=== PATIENT | female | born 2005 | race Caucasian/White ===

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

== ENCOUNTER → 2023-04-14 | Outpatient (CLI) | payer OTHER, MEDICAID, SELFPAY ==
[2023-04-14 12:37] LABS: Absolute Lymphocyte Count 3.26 X10^3/uL (0.83-4.51); Absolute Neutrophil Count 4.7 X10^3/uL (2.0-7.7); Basophil# 0.03 X10^3/uL; Basophil% 0.3 % (0-1); Eosinophil# 0.13 X10^3/uL; Eosinophils% 1.5 % (0-5); Hemoglobin 13.8 g/dL (12.0-15.0); Lymphocyte # 3.26 X10^3/ul (0.83-4.51); Mean Corp Hgb Conc 35.4 g/dL (32-36); Mean Corpuscular Hgb 31.7 pg (27.0-32.0); Mean Corpuscular Volume 89.4 fL (81-99); Mean Platelet Vol. 10.3 fl (6.2-12.0); Monocyte# 0.42 X10^3/uL; Monocyte% 4.9 % (0-10); NRBC Flagged by Analyzer 0 % (0-5); Neutrophil # 4.72 X10^3/uL (2.7-7.7); Platelet Count 333 K/mm3 (150-450); RBC Distribution Width CV 11.4 % (11.6-14.6); RBC Distribution Width SD 37.2 fl (35.1-43.9); Red Blood Count 4.36 M/mm3 (4.2-5.4); White Blood Count 8.6 K/mm3 (4.4-11.0)
[2023-04-14 12:47] LABS: ALB/GLOB Ratio 0.9 RATIO (0.9-2.4); AST(SGOT) 30 U/L (15-37); Alanine Aminotransfer ALT/SGPT 46 U/L (13-56); Albumin, Serum 3.8 g/dL (3.2-5.0); Alkaline Phosphatase 70 U/L (45-117); Anion Gap 8 (5-15); BUN 11 mg/dL (7-18); Calcium,Total 8.7 mg/dL (8.5-10.1); Chloride 107 mmol/L (98-107); Cholesterol 172 mg/dL (200); Creatinine, Serum 0.78 mg/dL (0.55-1.02); EST Glomerular Filtration Rate 100 mL/min (>60); Est Glom Filt Rate - Afr Amer 120 mL/min (>60); Globulin 4.2 g/dL (2.2-4.2); Glucose 89 mg/dL (74-106); High Density Lipoprotein 39 mg/dL; Potassium 3.8 mmol/L (3.5-5.1); Sodium Level 140 mmol/L (136-145); Triglycerides 239 mg/dL; Very Low Density Lipoprotein 48 mg/dL (5-40)
== END | disposition home or self-care (01) ==
LOC: BIMLAB 10:58
PROVIDERS: PCP Internal Medicine; Visit Provider Internal Medicine
DX: E78.5 Hyperlipidemia, unspecified (principal)
CPT/HCPCS: 36415; 80053; 80061; 85025

== ENCOUNTER → 2023-12-24 | Outpatient (CLI) | payer OTHER, MEDICAID, SELFPAY ==
[2023-12-24 15:30] LABS: Absolute Lymphocyte Count 3.97 X10^3/uL (0.83-4.51); Absolute Neutrophil Count 5.7 X10^3/uL (2.0-7.7); Basophil# 0.04 X10^3/uL; Basophil% 0.4 % (0-1); Eosinophil# 0.09 X10^3/uL; Eosinophils% 0.9 % (0-5); Hematocrit 39.6 % (37-47); Hemoglobin 13.6 g/dL (12.0-15.0); Lymphocyte # 3.97 X10^3/ul (0.83-4.51); Lymphocyte % 38.1 % (19-41); Mean Corp Hgb Conc 34.3 g/dL (32-36); Mean Corpuscular Hgb 30.7 pg (27.0-32.0); Mean Corpuscular Volume 89.4 fL (81-99); Mean Platelet Vol. 10.8 fl (6.2-12.0); Monocyte% 5.8 % (0-10); NRBC Flagged by Analyzer 0 % (0-5); Neutrophil # 5.71 X10^3/uL (2.7-7.7); Neutrophil % 54.6 % (47-70); Platelet Count 288 K/mm3 (150-450); RBC Distribution Width CV 11.6 % (11.6-14.6); RBC Distribution Width SD 37.4 fl (35.1-43.9); Red Blood Count 4.43 M/mm3 (4.2-5.4); White Blood Count 10.4 K/mm3 (4.4-11.0)
[2023-12-24 15:55] LABS: Erythrocyte Sedimentation Rate 9 mm/hr (0-30)
[2023-12-24 16:24] LABS: AST(SGOT) 20 U/L (15-37); Alanine Aminotransfer ALT/SGPT 41 U/L (13-56); Albumin, Serum 3.9 g/dL (3.2-5.0); Alkaline Phosphatase 76 U/L (45-117); Anion Gap 7 (5-15); BUN 8 mg/dL (7-18); BUN/Creat Ratio 10.5 RATIO (10-20); CRP < 2.90 mg/L (0.0-3.0); Calcium,Total 9.2 mg/dL (8.5-10.1); Chloride 106 mmol/L (98-107); Cholesterol 156 mg/dL (200); Creatinine, Serum 0.76 mg/dL (0.55-1.02); EST Glomerular Filtration Rate 102 mL/min (>60); Est Glom Filt Rate - Afr Amer 124 mL/min (>60); Globulin 4.1 g/dL (2.2-4.2); Glucose 88 mg/dL (74-106); High Density Lipoprotein 40 mg/dL; Potassium 3.7 mmol/L (3.5-5.1); Rheumatoid Factor < 10.0 IU/mL (<15); Sodium Level 137 mmol/L (136-145); Triglycerides 204 mg/dL; Very Low Density Lipoprotein 41 mg/dL (5-40)
[2023-12-27 13:07] LABS: ANTINUCLEAR ANTIBODIES DIRECT Negative (Negative)
[2023-12-27 14:09] LABS: CCP IgG Antibodies 5 units (0-19)
== END | disposition home or self-care (01) ==
LOC: BIMLAB 13:51
PROVIDERS: PCP Internal Medicine; Referring Provider Physician Assistant; Visit Provider Physician Assistant
DX: E78.5 Hyperlipidemia, unspecified (principal); M25.50 Pain in unspecified joint
CPT/HCPCS: 36415; 80053; 80061; 84443; 85025; 85652; 86038; 86140; 86200; 86225; 86235; 86431

== ENCOUNTER → 2024-06-23 | Outpatient (CLI) | payer OTHER, MEDICAID, SELFPAY ==
[2024-06-23 17:04] LABS: Absolute Lymphocyte Count 4.18 X10^3/uL (0.83-4.51); Absolute Neutrophil Count 5.3 X10^3/uL (2.0-7.7); Basophil# 0.03 X10^3/uL; Basophil% 0.3 % (0-1); Eosinophil# 0.14 X10^3/uL; Eosinophils% 1.4 % (0-5); Hematocrit 41.4 % (37-47); Hemoglobin 14.8 g/dL (12.0-15.0); Lymphocyte # 4.18 X10^3/ul (0.83-4.51); Lymphocyte % 40.7 % (19-41); Mean Corp Hgb Conc 35.7 g/dL (32-36); Mean Corpuscular Volume 86.6 fL (81-99); Mean Platelet Vol. 10.4 fl (6.2-12.0); Monocyte# 0.61 X10^3/uL; Monocyte% 5.9 % (0-10); NRBC Flagged by Analyzer 0 % (0-5); Neutrophil # 5.29 X10^3/uL (2.7-7.7); Neutrophil % 51.5 % (47-70); Platelet Count 337 K/mm3 (150-450); RBC Distribution Width CV 11.6 % (11.6-14.6); RBC Distribution Width SD 36.8 fl (35.1-43.9); Red Blood Count 4.78 M/mm3 (4.2-5.4); White Blood Count 10.3 K/mm3 (4.4-11.0)
[2024-06-23 17:49] LABS: ALB/GLOB Ratio 1.2 RATIO (0.9-2.4); AST(SGOT) 45 U/L (<=31); Alanine Aminotransfer ALT/SGPT 63 U/L (<=34); Albumin, Serum 4.4 g/dL (3.5-5.0); Alkaline Phosphatase 79 U/L (35-104); Anion Gap 12 (5-15); BUN 10 mg/dL (4-19); BUN/Creat Ratio 12.6 RATIO (10-20); Calcium,Total 9.2 mg/dL (7.6-11.0); Carbon Dioxide 21.4 mmol/L (21.0-32.0); Chloride 103 mmol/L (98-108); Creatinine, Serum 0.82 mg/dL (0.70-1.20); EST Glomerular Filtration Rate 104 (>60); Globulin 3.6 g/dL (2.2-4.2); Glucose 134 mg/dL (70-99); Potassium 3.7 mmol/L (3.3-5.1); Sodium Level 136 mmol/L (133-145); Total Bilirubin 0.36 mg/dL (0.00-1.30); Vitamin B12 370 pg/mL (180-914); Vitamin D,25 Hydroxy 19.3 ng/mL (30-100)
== END | disposition home or self-care (01) ==
LOC: BIMLAB 15:50
PROVIDERS: PCP Internal Medicine; Referring Provider Internal Medicine; Visit Provider Internal Medicine
DX: F41.8 Other specified anxiety disorders (principal)
CPT/HCPCS: 36415; 80053; 82306; 82607; 84439; 84443; 85025

== ENCOUNTER → 2024-08-24 | Outpatient (CLI) | payer OTHER, MEDICAID, SELFPAY ==
[2024-08-24 13:16] LABS: ALB/GLOB Ratio 1.3 RATIO (0.9-2.4); AST(SGOT) 34 U/L (<=31); Alanine Aminotransfer ALT/SGPT 56 U/L (<=34); Alkaline Phosphatase 80 U/L (35-104); Anion Gap 11 (5-15); BUN 11 mg/dL (4-19); BUN/Creat Ratio 13.3 RATIO (10-20); Calcium,Total 8.9 mg/dL (7.6-11.0); Carbon Dioxide 20.7 mmol/L (21.0-32.0); Chloride 104 mmol/L (98-108); Creatinine, Serum 0.81 mg/dL (0.70-1.20); EST Glomerular Filtration Rate 106 (>60); Globulin 3.1 g/dL (2.2-4.2); Glucose 85 mg/dL (70-99); Protein, Total 7.1 g/dL (5.9-8.4); Sodium Level 136 mmol/L (133-145); Total Bilirubin 0.33 mg/dL (0.00-1.30)
== END | disposition home or self-care (01) ==
LOC: BIMLAB 09:14
PROVIDERS: PCP Internal Medicine; Referring Provider Internal Medicine; Visit Provider Internal Medicine
DX: R74.8 Abnormal levels of other serum enzymes (principal)
CPT/HCPCS: 36415; 80053

== ENCOUNTER → 2024-09-13 | Outpatient (CLI) | payer OTHER, MEDICAID, SELFPAY ==
--- NOTE | 2024-09-13 11:47 | RAD_ITS ---
EXAM: XR Left Foot Complete, 3 or More Views CLINICAL INDICATION: FOOT INJURY TECHNIQUE: Frontal, lateral and oblique views of the left foot. COMPARISON: No relevant prior studies available. FINDINGS: BONES/JOINTS: See below. SOFT TISSUES: Soft tissue swelling without acute fracture. No radiopaque foreign body. RAD/Foot min 3 Views IMPRESSION: 1. Soft tissue swelling without acute fracture. 2. If symptoms persist, further evaluation with CT is recommended. Reading Location: [facility]
== END | disposition home or self-care (01) ==
LOC: MTRAD 11:47
PROVIDERS: PCP Internal Medicine; Referring Provider Physician Assistant; Visit Provider Physician Assistant
DX: S99.922A Unspecified injury of left foot, initial encounter (principal); X58.XXXA Exposure to other specified factors, initial encounter
CPT/HCPCS: 73630

== ENCOUNTER → 2024-09-19 | Outpatient (CLI) | payer OTHER, MEDICAID, SELFPAY ==
--- NOTE | 2024-09-19 10:09 | US_ITS ---
PROCEDURE: ABDOMEN LIMITED 09/19/2024 REASON FOR EXAM: ELEVATED LIVER ENZYMES TECHNIQUE: Complete abdominal ultrasound lees-scale images with color doppler. PATIENT PREPARATION: Per protocol COMPARISON: No relevant prior FINDINGS: Liver: Grossly normal size and echotexture. Sagittal measurement of 18.0 cm. Blood flow: Hepatopetal. Gallbladder: No stones, sludge, wall thickening or tenderness. Common bile duct: Normal measuring 0.5 cm. Pancreas: Visualized portions are sonographically unremarkable. Ascites: Unremarkable. Right kidney: 10.2 x 5.9 x 6.1 cm. 1.9 cm. US/Abdomen Limited IMPRESSION: Normal ultrasound of the right upper quadrant. Unremarkable gallbladder. Reading Location: [place] [id number]
--- OUTSIDE RECORDS SUMMARY | 2024-09-19 20:36 | XMS RPT_ITS | CCD ---
Author Organization [facility] Care Team Providers Care Cyber Systems Engineer Name Role Phone Lola Drummond DO Primary Care Provider Free, Text Entry Unavailable Unavailable Steven Lorenzo Unavailable Unavailable Ms. Steven Lorenzo Attending Unavailable Pending, Provider Primary Care Unavailable Dr. Lola Drummond Primary Care Provider Dr. Lola Drummond Referring Provider [phone] Dr. Zoe Nevarez Attending Provider LIONEL RIOS Attending Unavailable REFERRED, SELF Referring Unavailable LOLA DRUMMOND Primary Care Unavailable NO, PHYSICIAN Primary Care Unavailable HECTOR GEORGE Attending Unavailable Zoe Nevarez MD Primary Care Provider ZOE NEVAREZ B Primary Care Unavailable BRAULIO PRYOR Attending Unavailable Dr. Zoe Nevarez MD Primary Care Provider Dr. Zoe Nevarez MD Attending Provider Dr. Zoe Nevarez MD Referring Provider Riley Jones Attending Provider Riley Jones Referring Provider Phoenix Nevarezongbe Attending Unavailable Jaimee, Efewongbe Primary Care Unavailable Oleghe, Efewongbe Referring Unavailable Oleghe, Efewongbe Primary Care Unavailable Oleghe, Efewongbe Referring Unavailable Kwame Montiel Attending Unavailable Oleghe, Efewongbe Referring Unavailable Oleghe Efewongbe Attending Unavailable Jaimee, Efewongbe Primary Care Unavailable Riley Raphael Attending Unavailable Oleghe, Efewongbe Primary Care Unavailable Oleghe, Efewongbe Referring Unavailable Riley Raphael Attending Unavailable Riley Raphael Referring Unavailable Oleghe, Efewongbe Primary Care Unavailable Oleghe, Efewongbe Attending Unavailable Oleghe, Efewongbe Primary Care Unavailable Oleghe, Efewongbe Referring Unavailable Oleghe, Efewongbe Attending Unavailable Oleghe, Efewongbe Primary Care Unavailable Oleghe, Efewongbe Referring Unavailable Oleghe, Efewongbe Attending Unavailable Oleghe, Efewongbe Primary Care Unavailable Oleghe, Efewongbe Referring Unavailable Oleghe, Efewongbe Primary Care Unavailable Kwame Montiel Referring Unavailable Kwame Montiel Attending Unavailable Allergies Allergy Classification Reported Allergen(s) Allergy Type Date of Onset Reaction(s) Facility (6 sources) iris allergenic extract Drug Allergy 04-14-2023 Anaphylaxis [facility] (1 source) iris allergenic extract Drug Allergy 09-15-2024 [facility] Repository Medications Current Medications Medication Drug Class(es) Dates Sig (Normalized) Sig (Original) acetaminophen 500 mg oral tablet (1 source) Acetaminophen (TYLENOL PO) Take 500 mg by mouth as needed 0 Active amoxicillin 875 mg oral tablet (1 source) Penicillin-class Antibacterial Start: 03-27-2024 End: 04-06-2024 take 1 tablet by mouth twice daily amoxicillin (AMOXIL) 875 mg tablet Take 1 tablet by mouth two times a day for 10 days. 20 tablet 03/27/2024 04/06/2024 Active ascorbic acid 1000 mg oral capsule (10 sources) Vitamin C Start: 09-15-2024 take 1 g by mouth once Ascorbic Acid (Vitamin C) 1,000 mg capsule Active 1 g PO ONCE September 15, 2024 10:08am Start: 04-14-2023 End: 09-15-2024 take 1 g by mouth every six hours Ascorbic Acid (Vitamin C) 1,000 mg capsule Discontinued 1 g PO EVERY 6 HOURS April 14, 2023 1:00am September 15, 2024 10:08am Start: 04-14-2023 take 1 g by mouth ev sammy six hours Ascorbic Acid (Vitamin C) Active 1 GM PO EVERY 6 HOURS April 14, 2023 12:00am Ascorbic Acid (V ITAMIN C) 250 MG tablet Take by mouth daily 0 Active azithromycin 250 mg oral tablet (1 source) Macrolide Antimicrobial Start: 06-01-2022 take 2 tablets by mouth once, then take 1 tablet by mouth once daily azithromycin 250 mg oral tablet ; Take 2 tabs (500mg) x 1 days, then 1 tab (250mg) once daily x 4 days Quantity: 6 Refills: 0 Ordered: 01-Jun-2022 Steven Lorenzo Start: 01-Jun-2022 Generic Substitution Allowed Comments: Do not take dairy products, antacids, or iron preparations within one hour of this medication.Finish all this medication unless otherwise directed by prescriber. Comment on above: Do not take dairy pr oducts, antacids, or iron preparations within one hour of this medication.Finish all this medication unless otherwise directed by prescriber. cetirizine hydrochloride 10 mg oral tablet (1 source) Histamine-1 Receptor Antagonist Start: 09-17-2020 take 1 tablet by mouth once daily in the morning cetirizine (ZYRTEC) 10 MG tablet Take 1 Tablet (10 mg) by mouth daily in the morning for itching. 30 Tablet 3 09/17/2020 Active cholecalciferol 1.25 mg oral capsule (14 sources) Vitamin D Start: 06-26-2024 take 1 capsule by mouth every week Cholecalciferol (Vitamin D3) 1,250 mcg (50,000 unit) capsule Active 1250 ug PO EVERY WEEK June 26, 2024 12:00am Start: 11-08-2021 take 2 tablets by mo uth once daily Cholecalciferol (VITAMIN D3) 25 MCG (1000 UT) tablet TAKE 2 TABLETS BY MOUTH EVERY DAY 60 Tablet 2 11/08/2021 Active Start: 08-06-2020 take 2 tablets by mo uth once daily Vitamin D, Cholecalciferol, 25 MCG (1000 UT) TABS TAKE 2 TABLETS BY MOUTH EVERY DAY 60 Tablet 2 08/06/2020 Active Start: 06-29-2019 End: 04-14-2023 take 1 capsule by mouth once daily Cholecalciferol (Vitamin D3) 1,250 mcg (50,000 unit) capsule Discontinued 1250 ug PO DAILY June 29, 2019 12:00am April 14, 2023 11:09am Collagen (2 sources) COLLAGEN PO Take by mouth 0 Active ethinyl estradiol 0.035 mg / norgestimate 0.25 mg oral tablet (1 source) Progestin, Estrogen Start: 1 take 1 tablet by mouth once daily SPRINTEC 28 0.25-35 MG-MCG per tablet TAKE 1 TABLET BY MOUTH EVERY DAY 28 Tablet 11 05/02/2020 Active ibuprofen 600 mg oral tablet (2 sources) Nonsteroidal Anti-inflammatory Drug Start: take 1 tablet by mouth every six hours as needed ibuprofen (MOTRIN) 600 mg tablet Take 600 mg by mouth every 6 hours as needed. 01/07/2024 Active ibuprofen (MOTRI N) 200 MG tablet Take by mouth every 8 hours as needed for Pain Take with meals. 0 Active loratadine 10 mg oral tablet (1 source) Start: 05-03-2020 take 1 tablet by mouth once daily loratadine (CLARITIN) 10 MG tablet Take 1 Tablet (10 mg) by mouth daily 30 Tablet 11 05/03/2020 Active Mecobalamin (Vitamin B12) 1,000 mcg lozenge (3 sources) Start: 09-13-2024 take 1000 ug by mouth once daily Mecobalamin (Vitamin B12) 1,000 mcg lozenge Active 1000 ug PO daily September 13, 2024 12:00am allow to dissolve in mouth OR may chew lightly before swallowing Multiple Vitamins-Minerals (ZINC PO) (2 sources) Multiple Vitamins-Minerals (ZINC PO) Take by mouth 0 Active pimecrolimus 10 mg/ml topical cream (2 sources) Calcineurin Inhibitor Immunosuppressant Start: 09-17-2020 pimecrolimus (ELIDEL) 1 % CREA cream Apply to affected area 2 times daily 30 g 1 09/17/2020 Active tacrolimus 0.001 mg/mg topical ointment (2 sources) Calcineurin Inhibitor Immunosuppressant Start: 11-13-2020 tacrolimus (PROTOPIC) 0.1 % ointment Apply thin layer to affected areas twice daily 60 g 3 11/13/2020 Active vitamin B12 (1 source) Vitamin B12 Vitamin B-12 Quantity: 0 Refills: 0 Ordered: 01-Jun-2022 Patrica Rivera Generic Substitution Allowed Vitamin D (1 source) VITAMIN D Quantity: 0 Refills: 0 Ordered: 01-Jun-2022 Patrica Rivera Generic Substitution Allowed Completed/Discontinued Medications Medication Drug Class(es) Dates Sig (Normalized) Sig (Original) [id number] 200 actuat albuterol 0.09 mg/actuat metered dose inhaler (1 source) beta2-Adrenergic Agonist Start: 06-01-2022 take 2 puff(s) by inhalation twice daily as needed for cough albuterol 90 mcg/inh inhalation aerosol ; 2 puff(s) inhaled 2 times a day as needed for cough Quantity: 8.5 Refills: 0 Ordered: 01-Jun-2022 Steven Lorenzo Start: 01-Jun-2022 Generic Substitution Allowed Comments: For inhalation only.It is very important that you take or use this exactly as directed. Do not skip doses or discontinue unless directed by your doctor.Obtain medical advice before taking any non-prescription drugs as some may affect the action of this medication.Shake well before use. Comment on above: For inhalation only. It is very important that you take or use this exactly as directed. Do not skip doses or discontinue unless directed by your doctor.Obtain medical advice before taking any non-prescription drugs as some may affect the action of this medication.Shake well before use. atorvastatin 10 mg oral tablet (20 sources) HMG-CoA Reductase Inhibitor Start: 04-14-2023 End: 10-18-2023 take 1 tablet by mouth once daily Atorvastatin 10 mg tablet Discontinued 10 mg PO DAILY April 16, 2023 5:41pm October 18, 2023 8:18am Start: 08-15-2021 take 1 tablet by ramon th once daily at bedtime atorvastatin (LIPITOR) 10 MG tablet Take 1 Tablet (10 mg) by mouth nightly at bedtime 31 Tablet 11 08/15/2021 Active atorvastatin Yg ntity: 0 Refills: 0 Ordered: 01-Jun-2022 Patrica Rivera Generic Substitution Allowed CONTROL (6 sources) Start: 06-29-2019 End: 04-14-2023 CONTROL Discontinued P O June 29, 2019 12:00am April 14, 2023 11:04am Start: 06-29-2019 End: 04-14-2023 CONTROL Discontinued P O June 28, 2019 11:00pm April 14, 2023 10:04am 24 hr buPROPion hydrochloride 150 mg extended release oral tablet (5 sources) Aminoketone Start: 06-23-2024 End: 06-29-2024 take 1 tablet by mouth once daily in the morning Bupropion Hcl 150 mg tablet extended release 24 hr Discontinued 150 mg PO EVERY MORNING June 23, 2024 1:00am June 29, 2024 9:57am cephalexin 500 mg oral capsule (6 sources) Cephalosporin Antibacterial Start: 06-29-2019 End: 04-14-2023 take 1 capsule by mouth three times daily Cephalexin 500 mg capsule Discontinued 500 mg PO THREE TIMES A DAY June 29, 2019 12:00am April 14, 2023 11:04am FLUoxetine 10 mg oral capsule (6 sources) Serotonin Reuptake Inhibitor Start: 06-29-2019 End: 04-14-2023 take 1 capsule by mouth once daily Fluoxetine (Prozac) 10 mg capsule Discontinued 10 mg PO DAILY June 29, 2019 12:00am April 14, 2023 11:04am magnesium oxide 420 mg oral tablet (6 sources) Start: 04-14-2023 End: 06-23-2024 take 1 tablet by mouth once daily Magnesium Oxide 420 mg tablet Discontinued 420 mg PO DAILY April 14, 2023 1:00am June 23, 2024 4:19pm Medrol Dosepak 4 mg oral tablet (1 source) Start: 06-01-2022 Medrol Dosepak 4 mg oral tablet ; Take as directed. Quantity: 1 Refills: 0 Ordered: 01-Jun-2022 Steven Lorenzo Start: 01-Jun-2022 Generic Substitution Allowed Comments: It is very important that you take or use this exactly as directed. Do not skip doses or discontinue unless directed by your doctor.Obtain medical advice before taking any non-prescription drugs as some may affect the action of this medication.Take with food or milk. Comment on above: It is very important that you take or use this exactly as directed. Do not skip doses or discontinue unless directed by your doctor.Obtain medical advice before taking any non-prescription drugs as some may affect the action of this medication.Take with food or milk. 24 hr venlafaxine 37.5 mg extended release oral capsule (13 sources) Serotonin and Norepinephrine Reuptake Inhibitor Start: 06-29-2024 End: 08-22-2024 take 1 capsule by mouth once daily Venlafaxine 37.5 mg capsule,extended release 24hr Discontinued 37.5 mg PO daily July 26, 2024 7:32pm August 22, 2024 1:36pm Problems Active Problems Problem Classification Problem Date Documented Date Episodic/Chronic Abdominal pain (10 sources) Pain in pelvis; Translations: [Pelvic and perineal pain] 06-23-2024 Episodic Acute bronchitis (1 source) Acute bronchitis, unspecified; Translations: [Acute bronchitis, unspecified] Onset: 06-01-2022 Episodic Administrative/social admission (1 source) Follow-up status; Translations: [Counseling for transition from pediatric to adult care provider] Onset: 05-19-2022 05-19-2022 Episodic Anxiety disorders (12 sources) Mixed anxiety and depressive disorder; Translations: [Other specified anxiety disorders] Onset: 07-05-2024 06-23-2024 Chronic Disorders of lipid metabolism (17 sources) Dyslipidemia; Translations: [Hyperlipidemia, unspecified] Onset: 09-15-2024 Chronic Headache; including migraine (3 sources) Headache; including migraine; Translations: [Headache, unspecified] Onset: 06-01-2022 Joint disorders and dislocations; trauma-related (5 sources) Patellofemoral stress syndrome; Translations: [Patellofemoral disorders, right knee] 12-27-2023 Chronic Malaise and fatigue (1 source) Other malaise; Translations: [Other malaise] Onset: 06-01-2022 Episodic Nutritional deficiencies (4 sources) Vitamin D deficiency; Translations: [Vitamin D deficiency, unspecified] Onset: 09-15-2024 09-15-2024 Chronic Open wounds of extremities (6 sources) Puncture wound of left hand; Translations: [Puncture wound without foreign body of left hand, initial encounter] 07-14-2019 Episodic Other injuries and conditions due to external causes (2 sources) Unspecified injury of head, initial encounter; Translations: [Unspecified injury of head, initial encounter] Onset: 01-07-2024 Episodic Other injuries and conditions due to external causes (1 source) Unspecified injury of left foot, initial encounter; Translations: [Unspecified injury of left foot, initial encounter] Onset: 09-18-2024 Episodic Other injuries and conditions due to external causes (1 source) Unspecified injury of unspecified foot, initial encounter; Translations: [Unspecified injury of unspecified foot, initial encounter] Onset: 09-13-2024 Episodic Other liver diseases (6 sources) Elevated liver enzymes level; Translations: [Abnormal levels of other serum enzymes] 06-26-2024 Episodic Other liver diseases (2 sources) Abnormal levels of other serum enzymes; Translations: [Abnormal levels of other serum enzymes] Onset: 08-29-2024 Episodic Other nervous system disorders (6 sources) Disturbance of attention; Translations: [Attention and concentration deficit] 04-14-2023 Chronic Other nervous system disorders (1 source) Attention and concentration deficit; Translations: [Attention or concentration deficit] 04-14-2023 Chronic Other non-traumatic joint disorders (12 sources) Joint pain; Translations: [Pain in unspecified joint] Episodic Other non-traumatic joint disorders (3 sources) Pain in unspecified knee; Translations: [Knee pain] 09-13-2024 Episodic Other skin disorders (1 source) Acanthosis nigricans; Translations: [Acanthosis nigricans] Episodic Other upper respiratory infections (5 sources) Streptococcal tonsillitis ; Translations: [Acute recurrent streptococcal tonsillitis] Onset: 02-08-2017 Resolved: 11-07-2019 11-07-2019 Episodic Comment on above: URI Otitis media and related conditions (2 sources) Acute bilateral otitis media ; Translations: [Otitis media, unspecified, bilateral] Onset: 03-27-2024 03-27-2024 Episodic Superficial injury; contusion (8 sources) Contusion of right ankle; Translations: [Contusion of right ankle, initial encounter] 09-13-2024 Episodic Unclassified (1 source) Cough, unspecified; Translations: [Cough, unspecified] Onset: 06-01-2022 Past or Other Problems Problem Classification Problem Date Documented Da te Episodic/Chronic Other non-traumatic joint disorders (2 sources) Pain in unspecified joint; Translations: [Pain in joint, site unspecified] Onset: 12-24-2023 04-14-2023 Episodic Other nutritional; endocrine; and metabolic disorders (3 sources) Childhood obesity; Translations: [Body mass index (BMI) pediatric, greater than or equal to 95th percentile for age] Onset: 06-30-2018 06-30-2018 Episodic Results Test Name Value Interpretation Reference Range Facility Internal Medicine Office Vis lizzie 09-15-2024 Internal Medicine Office Visit [facility] [address] [place] [address] [place] [address] OFFICE VISIT Date of Service: 09/15/24 MR#: [id number] Acct: [id number] Name: PATI ESCOBAR Rep #: [id number] : 2005 Provider: Dr. Zoe cervantes MD Age/Sex: 19/F Location: [facility] Status: Signed Intake Vital Signs 06/23/24 15:15 09/13/24 12:02 09/15/24 10:07 Height 5 ft 2 in 5 ft 2 in 5 ft 2 in Weight: 220 lb BMI 40.2 BP 134/82 H Blood Pressure Location Lt brachial Position Sitting Respiration 18 Pulse 98 Pulse Source Monitor Temp 97.9 F Temp Source Temporal Pulse Oximetry (%) 96 Oxygen Delivery Method room air Intake Visit Reasons: 3 M FU Chief Complaint: 3 M FU Is patient in pain?: No Allergies iris Adverse Reaction (Severe, Verified 09/15/24 10:08) Anaphylaxis Medications ???Medication ???Instructions ???Recorded ???Confirmed ???Type atorvastatin 10 mg tablet 10 mg PO DAILY #90 tabs 10/18/23 0 09/15/24 Rx cholecalciferol (vitamin D3) 1,250 1,250 mcg PO QWEEK #14 caps 06/1709/15/24 Rx mcg (50,000 unit) capsule venlafaxine 37.5 mg 37.5 mg PO QDAY #30 caps 08/22/24 09/15/24 Rx capsule,extended release 24 hr mecobalamin (vitamin B12) 1,000 1,000 mcg PO QDAY 09/13/24 5 History mcg lozenges ascorbic acid (vitamin C) 1,000 mg 1 g PO ONCE 09/15/24 09/15/24 Hi story capsule Nurse's Note: pt states that she is doing well on her Venlafaxine. requesting 90 day supply on this medication. [facility] Medical History Contusion of right foot Contusion of right ankle Elevated liver enzymes Pelvic pain Depression with anxiety Joint pain Preventative health care Concentration deficit Hyperlipidemia Vitamin D deficiency High blood cholesterol Head ache Family History Grandfather Bleeding disorder Heart disease Hypertension CAD (coronary artery disease) Diabetes Anemia Myocardial infarction CVA (cerebral vascular accident) Mother Diabetes Grandmother Diabetes Social History Smoking Status: Never smoker alcohol intake: never substance use type: does not use what type of physical activity do you participate in: none do you feel safe at home: Yes Questionnaire PQH-9 BMS Over the last 2 weeks, how often have you been bothered by any of the following problems? 1. Little interest or pleasure in doing things: several days 2. Feeling down, depressed, or hopeless: several days 3. Trouble falling or staying asleep, or sleeping too much: more than half the days 4. Feeling tired or having little energy: several days 5. Poor appetite or overeating: not at all 6. Feeling bad about yourself - or that you are a failure or have let yourself and your family down: more than half the days 7. Trouble concentrating on things, such as reading the newspaper or watching television: not at all 8. Moving or speaking so slowly that other people could have noticed? - Or the opposite - being so fidgety or restless that you have been moving around a lot more than usual: not at all 9. Thoughts that you would be better off or of hurting yourself in some way: several days Total score: 8 If you checked off any problems, how difficult have these problems made it for you to do your work, take care of things at home, or get along with other people?: somewhat difficult Source: Developed by Drs. Rex Mitchell, Ivette Yanez, Jamie Hedrick and colleagues, with an educational jose from [email or web address]. HPI HPI Chief Complaint: 3 M FU Details: PATI ESCOBAR, is a 19 F who presents to the office today for follow-up. No acute concerns at this time. Has been on venlafaxine since her last visit. She states that she is doing a lot better on venlafaxine. Scored 8 down from 14 on the PHQ-9. Yet to start therapy. Denies any concerning side effects. History of elevated liver enzymes, scheduled for an ultrasound. Currently at a BMI of 40.2. Also prior history of elevated triglycerides. Other chronic medical conditions are stable. ROS Const Constitutional: No body ache, chills, excessive sweating, fatigue, fever(s), frequent falls, headache(s), snoring, weight change, sleep problems, abnormal sleep pattern or change in appetite Eyes Eyes: No blurry vision, change in vision, bulging eyes, floaters, visual disturbances, eye pain or Light sensitivity ENT ENT: No abnormal hearing, ear or mastoid pain, tinnitus, balance problems, nosebleed/epistaxis, nasal congestion, headache(s), neck pain or sore throat Resp Respiratory: No cough, excessive phlegm production, pain on inspiration, shortness of breath, snoring or wheezing Cardio Cardiolog (more content not included)... Normal [facility] Foot min 3 Viewson Foot min 3 Views [facility] [address] [place] [id number] Foot min 3 Views MR#: [id number] Acct: [id number] Name: PATI ESCOBAR Rep #: [id number] : 2005 F 19 From: Hector Zamudio MD PCP: Dr. Zoe Nevarez MD Status: [facility] CLI Study: Foot min 3 Views Date of Exam: 09/13/24 Exam# [id number] Ordering Dr: Riley Raphael EXAM: XR Left Foot Complete, 3 or More Views CLINICAL INDICATION: FOOT INJURY TECHNIQUE: Frontal, lateral and oblique views of the left foot. COMPARISON: No relevant prior studies available. FINDINGS: BONES/JOINTS: See below. SOFT TISSUES: Soft tissue swelling without acute fracture. No radiopaque foreign body. RAD/Foot min 3 Views IMPRESSION: 1. Soft tissue swelling without acute fracture. 2. If symptoms persist, further evaluation with CT is recommended. Reading Location: [facility] CC: Dr. Zoe Nevarez MD; MAURILIO Lambert Pin Drafter: Signed Normal [facility] Urgent Care Visit Reporton 0 09-13-2024 Urgent Care Visit Report [facility] [address], [address] [place] [address] OFFICE VISIT Date of Service: 09/13/24 MR#: [id number] Acct: [id number] Name: PATI ESCOBAR Rep #: [id number] : 2005 Provider: MAURILIO Lambert Age/Sex: 19/F Location: [facility] Status: Signed Intake Vital Signs 06/23/24 15:15 09/13/24 12:02 Height 5 ft 2 in 5 ft 2 in Weight: 220 lb 6 oz BMI 40.3 BP 122/80 H Position Sitting Pulse 89 Temp 98.3 F Temp Source Oral Pulse Oximetry (%) 98 Oxygen Delivery Method room air Intake Visit Reasons: L FOOT INJURY Accompanied by: Self Is patient in pain?: Yes Pain scale (1-10): 4 Allergies iris Adverse Reaction (Severe, Verified 09/13/24 11:57) Anaphylaxis Medications ???Medication ???Instructions ???Recorded ???Confirmed ???Type ascorbic acid (vitamin C) 1,000 mg 1 g PO Q6H 04/14/23 06/23/24 His tory capsule atorvastatin 10 mg tablet 10 mg PO DAILY #90 tabs 10/18/23 0 09/13/24 Rx cholecalciferol (vitamin D3) 1,250 1,250 mcg PO QWEEK #14 caps 06/1709/13/24 Rx mcg (50,000 unit) capsule venlafaxine 37.5 mg 37.5 mg PO QDAY #30 caps 08/22/24 09/13/24 Rx capsule,extended release 24 hr mecobalamin (vitamin B12) 1,000 1,000 mcg PO QDAY 09/13/24 5 History mcg lozenges Nurse's Note: Patient was carrying a bag of meat while going down the stairs and she said she came down wrong on it and then dropped the bag of meat on her foot. Patient states walking on it all day at work yesterday by the end of the day she couldn't walk on it. Patient states it hurts to put weight on it. [facility] Medical History (Updated 09/13/24 @ 13:18 by Riley THORPE, PA) Contusion of right foot Contusion of right ankle Elevated liver enzymes Pelvic pain Depression with anxiety Joint pain Preventative health care Concentration deficit Hyperlipidemia Vitamin D deficiency High blood cholesterol Head ache Family History Grandfather Bleeding disorder Heart disease Hypertension CAD (coronary artery disease) Diabetes Anemia Myocardial infarction CVA (cerebral vascular accident) Mother Diabetes Grandmother Diabetes Social History Smoking Status: Never smoker alcohol intake: never substance use type: does not use what type of physical activity do you participate in: none do you feel safe at home: Yes HPI HPI Details: PATI ESCOBAR, is a 19 F who presents to the office today for initial evaluation status post right foot injury. Patient notes yesterday stepping down steps at home losing balance and inverting her right ankle as result dropped a frozen meat she was holding onto the top of her right foot. Trace aching discomfort to the lateral aspect of the right ankle though moderate to severe aching discomfort appreciated to the dorsal aspect of the right foot. Patient notes overall her symptoms have improved considerably compared to last evening at time of injury, nonetheless would like to have evaluated to ensure she did not break a bone as she states. PMH NC. No [id number] products taken to assist. No other associated symptoms and no other alleviating/aggravat ing factors. ROS Const Constitutional: No other (As above) Exam Const General: cooperative, healthy appearing and no acute distress Orientation: alert and awake Resp Effort Inspection: normal respiratory effort and able to speak in complete sentences Cardio Rate: regular rate Pulses: radial pulses present Skin General: no rashes or lesions noted Trauma: other (No ecchymosis to R ankle/foot; guarded ambulation favoring RUE) Neuro General: patient alert and patient awake Cognition: normal cognition Speech: speech normal Motor: muscle tone normal throughout Sensory Exam: no sensory deficits noted Extrem General: normal to inspection Psych Appearance: grossly normal Mental Status: mental status grossly normal Mood: congruent mood Affect: normal affect Speech and Movement: speech and movement normal Attitude: cooperative Coding Level of Care Code Off vis,new,level 4 Diagnoses Contusion of right ankle S90.01XA Contusion of right foot S90.31XA Assessment and Plan Assessment and Plan (1) Contusion of right ankle: Status: Acute (2) Contusion of right foot: Status: Acute Plan: Right foot radiographs reveal no acute osseous pathology per my review, pending radiologist interpretation at the time patient discharge. Rest, ice, elevate, NSAIDs as instructed today. Follow-up with PCP or orthopedics in 5 to 7 days should symptoms not resolve, sooner should symptoms only worsen or any other concerns develop. Patient states acknowledging underst (more content not included)... Normal [facility] Anion gap in Serum or Plasma Ordered By: Zoe Nevarez on 08-24-2024 Anion gap [Moles/Vol] 11 mmol/L 5-15 [facility] BUN/creatinine ratioOrdered By: Zoe Nevarez on 08-24-2024 Urea nitrogen/Creatinine [Mass ratio] 13.3 mg/mg 10- [facility] Bilirubin, totalOrdered By: Zoe Nevarez on 08-24-2024 Bilirubin [Mass/Vol] 0.33 mg/dL 0.00-1.30 [facility] Carbon dioxide, total [Moles /volume] in Central venous bloodOrdered By: Zoe Nevarez on 08-24-2024 CO2 [Moles/Vol] 20.7 mmol/L Low 21.0-32.0 [facility] Chloride assayOrdered By: Kevon Nevarez on 08-24-2024 Chloride [Moles/Vol] 104 mmol/L 98-108 [facility] Comprehensive Metabolic Prof ilon 08-24-2024 Albumin [Mass/Vol] 4.0 g/dL Normal 3.5-5.0 [facility] Comment on above: Performed By: #### L 500.4050 ####[facility] [address] [place], [place], [id number] Albumin/Globulin [Mass ratio] 1.3 {ratio} Normal 0.9-2.4 [facility] Comment on above: Performed By: #### L 500.4050 ####[facility] [address] [place], [place], [id number] ALK PHOS 80 U/L Normal 35-104 [facility] Comment on above: Performed By: #### L 500.4050 ####[facility] [address] [place], [address] ALT [Catalytic activity/Vol] 56 U/L High <=34 [facility] Comment on above: Performed By: #### L 500.4050 ####[facility] [address] [place], [address] AST [Catalytic activity/Vol] 34 U/L High <=31 [facility] Comment on above: Performed By: #### L 500.4050 ####[facility] [address] [place], [address] Bilirubin [Mass/Vol] 0.33 mg/dL Normal 0.00-1.30 [facility] Comment on above: Performed By: #### L 500.4050 ####[facility] [address] [place], [address] BUN/CRE 13.3 RATIO Normal 10-20 [facility] Comment on above: Performed By: #### L 500.4050 ####[facility] [address] [place], [address] Calcium [Mass/Vol] 8.9 mg/dL Normal 7.6-11.0 [facility] Comment on above: Performed By: #### L 500.4050 ####[facility] [address] [place], [address] Chloride [Moles/Vol] 104 mmol/L Normal 98-108 [facility] Comment on above: Performed By: #### L 500.4050 ####[facility] [address] [place], [address] CO2 [Moles/Vol] 20.7 mmol/L Low 21.0-32.0 [facility] Comment on above: Performed By: #### L 500.4050 ####[facility] [address] [place], [address] Creatinine [Mass/Vol] 0.81 mg/dL Normal 0.70-1.20 [facility] Comment on above: Performed By: #### L 500.4050 ####[facility] [address] [place], [address] GAP 11 Normal 5-15 [facility] Comment on above: Performed By: #### L 500.4050 ####[facility] [address] [place], [address] GFR/1.73 sq M.predicted among non-blacks MDRD (S/P/Bld) [Vol rate/Area] 106 mL/min/{1.73_m2} Normal >60 [facility] Comment on above: Result Comment: mL/m in/1.73m2 CKD-EPI Creatinine Equation (2020) Performed By: #### L 500.4050 ####[facility] [address] [place], [address] Globulin (S) [Mass/Vol] 3.1 g/dL Normal 2.2-4.2 [facility] Comment on above: Performed By: #### L 500.4050 ####[facility] [address] [place], [address] Glucose [Mass/Vol] 85 mg/dL Normal 70-99 [facility] Comment on above: Performed By: #### L 500.4050 ####[facility] [address] [place], [address] Potassium [Moles/Vol] 4.0 mmol/L Normal 3.3-5.1 [facility] Comment on above: Performed By: #### L 500.4050 ####[facility] [address] [place], [address] Sodium [Moles/Vol] 136 mmol/L Normal 133-145 [facility] Comment on above: Performed By: #### L 500.4050 ####[facility] [address] [place], [place], [id number] T PROT 7.1 g/dL Normal 5.9-8.4 [facility] Comment on above: Performed By: #### L 500.4050 ####[facility] [address] [place], [place], [id number] Urea nitrogen [Mass/Vol] 11 mg/dL Normal 4-19 [facility] Comment on above: Performed By: #### L 500.4050 ####[facility] [address] [place], [place], [id number] Glomerular filtration rate ( GFR) estimation/1.73 sq m using serum, plasma, or whole bOrdered By: Zoe Nevarez on 08-24-2024 GFR/1.73 sq M.predicted among non-blacks MDRD (S/P/Bld) [Vol rate/Area] 106 mL/min/{1.73_m2} >60 [facility] Comment on above: mL/min/1.73m2 CKD-EP I Creatinine Equation (2020) Laboratory - Chemistry and C hemistry - challengeOrdered By: Zoe Nevarez on 08-24-2024 AST [Catalytic activity/Vol] 34 U/L High <32 [facility] Potassium measurement (mass/ volume)Ordered By: Zoe Nevarez on 08-24-2024 Potassium (Unsp spec) [Mass/Vol] 4.0 mmol/L 3.3-5.1 [facility] Serum creatinine measurement (mass/volume)Ordered By: Zoe Nevarez on 08-24-2024 Creatinine [Mass/Vol] 0.81 mg/dL 0.70-1.20 [facility] Serum globulin measurementOr dered By: Zoe Nevarez on 08-24-2024 Globulin (S) [Mass/Vol] 3.1 g/dL 2.2-4.2 [facility] Serum glucose measurement (m ass/volume)Ordered By: Zoe Nevarez on 08-24-2024 Glucose [Mass/Vol] 85 mg/dL 70-99 [facility] Serum or plasma alanine arias otransferase (ALT) measurementOrdered By: Zoe Nevarez on 08-24-2024 ALT [Catalytic activity/Vol] 56 U/L High <35 [facility] Serum or plasma albumin erick urement (mass/volume)Ordered By: Zoe Nevarez on 08-24-2024 Albumin [Mass/Vol] 4.0 g/dL 3.5-5.0 [facility] Serum or plasma albumin/glob ulin mass ratioOrdered By: Zoe Nevarez on 08-24-2024 Albumin/Globulin [Mass ratio] 1.3 {ratio} 0.9-2.4 [facility] Serum or plasma alkaline caitie sphatase measurementOrdered By: Zoe Nevarez on 08-24-2024 ALP [Catalytic activity/Vol] 80 U/L 35-104 [facility] Serum or plasma calcium erick urement (mass/volume)Ordered By: Zoe Nevarez on 08-24-2024 Calcium [Mass/Vol] 8.9 mg/dL 7.6-11.0 [facility] Serum or plasma urea nitroge n measurement (mass/volume)Ordered By: Zoe Nevarez on 08-24-2024 Urea nitrogen [Mass/Vol] 11 mg/dL 4-19 [facility] Sodium levelOrdered By: Phoenix Nevarez on 08-24-2024 Sodium [Moles/Vol] 136 mmol/L 133-145 [facility] Total proteinOrdered By: Gregg Nevarez on 08-24-2024 Protein [Mass/Vol] 7.1 g/dL 5.9-8.4 [facility] Absolute lymphocyte countOrd ered By: Zoe Nevarez on 06-23-2024 Lymphocytes Auto (Unsp spec) [#/Vol] 4.18 10*3/uL 0.83-4.51 [facility] Absolute neutrophil countOrd ered By: Zoe Nevarez on 06-23-2024 Neutrophils (Bld) [#/Vol] 5.3 10*3/uL 2.0-7.7 [facility] Anion gap in Serum or Plasma Ordered By: Zoe Nevarez on 06-23-2024 Anion gap [Moles/Vol] 12 mmol/L - [facility] Automated lymphocyte count a s percentage of total leukocytesOrdered By: Zoe Nevarez on 06-23-2024 Lymphocytes/100 WBC Auto (Unsp spec) 40.7 % [facility] BUN/creatinine ratioOrdered By: Zoe Nevarez on 06-23-2024 Urea nitrogen/Creatinine [Mass ratio] 12.6 mg/mg 02-05 [facility] Basophil percentageOrdered B y: Zoe Nevarez on 06-23-2024 Basophils/100 WBC (Bld) 0.3 % 0-1 [facility] Bilirubin, totalOrdered By: Zoe Nevarez on 06-23-2024 Bilirubin [Mass/Vol] 0.36 mg/dL 0.00-1.30 [facility] CBC W/Diff, Automatedon Absolute Lymph 4.18 X10 3/uL Normal 0.83-4.51 [facility] Comment on above: Performed By: #### L 100.0100, L503.0106, L506.1001, L506.0400, L501.9520, L500.4050 #### [facility] [address] [place], [address] Absolute Neut 5.3 X10 3/uL Normal 2.0-7.7 [facility] Comment on above: Performed By: #### L 100.0100, L503.0106, L506.1001, L506.0400, L501.9520, L500.4050 #### [facility] [address] [place], [address] Basophils/100 WBC (Bld) 0.3 % Normal 0-1 [facility] Comment on above: Performed By: #### L 100.0100, L503.0106, L506.1001, L506.0400, L501.9520, L500.4050 #### [facility] [address] [place], [address] Eosinophils/100 WBC (Bld) 1.4 % Normal 0-5 [facility] Comment on above: Performed By: #### L 100.0100, L503.0106, L506.1001, L506.0400, L501.9520, L500.4050 #### [facility] [address] [place], [address] Erythrocyte distribution width (RBC) [Ratio] 11.6 % Normal 11.6-14.6 [facility] Comment on above: Performed By: #### L 100.0100, L503.0106, L506.1001, L506.0400, L501.9520, L500.4050 #### [facility] [address] [place], [address] Hematocrit (Bld) [Volume fraction] 41.4 % Normal 37-47 [facility] Comment on above: Performed By: #### L 100.0100, L503.0106, L506.1001, L506.0400, L501.9520, L500.4050 #### [facility] [address] [place], [address] Hemoglobin (Bld) [Mass/Vol] 14.8 g/dL Normal 12.0-15.0 [facility] Comment on above: Performed By: #### L 100.0100, L503.0106, L506.1001, L506.0400, L501.9520, L500.4050 #### [facility] [address] [place], [address] IG% 0.200 Normal 0.0-0.9 [facility] Comment on above: Result Comment: IG% - Immature Granulocytes (promyelocytes, myelocytes and metamyelocytes) > 1% indicates that a LEFT SHIFT is Present. Performed By: #### L 100.0100, L503.0106, L506.1001, L506.0400, L501.9520, L500.4050 #### [facility] [address] [place], [address] Lymphocytes/100 WBC (Bld) 40.7 % Normal 19-41 [facility] Comment on above: Performed By: #### L 100.0100, L503.0106, L506.1001, L506.0400, L501.9520, L500.4050 #### [facility] [address] [place], [address] MCH (RBC) [Entitic mass] 31.0 pg Normal 27.0-32.0 [facility] Comment on above: Performed By: #### L 100.0100, L503.0106, L506.1001, L506.0400, L501.9520, L500.4050 #### [facility] [address] [place], [address] MCHC (RBC) [Mass/Vol] 35.7 g/dL Normal 32-36 [facility] Comment on above: Performed By: #### L 100.0100, L503.0106, L506.1001, L506.0400, L501.9520, L500.4050 #### [facility] [address] [place], [address] MCV (RBC) [Entitic vol] 86.6 fL Normal 81-99 [facility] Comment on above: Performed By: #### L 100.0100, L503.0106, L506.1001, L506.0400, L501.9520, L500.4050 #### [facility] [address] [place], [address] Monocytes/100 WBC (Bld) 5.9 % Normal 0-10 [facility] Comment on above: Performed By: #### L 100.0100, L503.0106, L506.1001, L506.0400, L501.9520, L500.4050 #### [facility] [address] [place], [address] Neutrophils/100 WBC (Bld) 51.5 % Normal 47-70 [facility] Comment on above: Performed By: #### L 100.0100, L503.0106, L506.1001, L506.0400, L501.9520, L500.4050 #### [facility] [address] [place], [address] Nucleated RBC (Bld) [#/Vol] 0 10*3/uL Normal 0-5 [facility] Comment on above: Performed By: #### L 100.0100, L503.0106, L506.1001, L506.0400, L501.9520, L500.4050 #### [facility] [address] [place], [address] Platelet mean volume (Bld) [Entitic vol] 10.4 fL Normal 6.2-12.0 [facility] Comment on above: Performed By: #### L 100.0100, L503.0106, L506.1001, L506.0400, L501.9520, L500.4050 #### [facility] [address] [place], [address] Platelets (Bld) [#/Vol] 337 10*3/uL Normal 150-450 [facility] Comment on above: Performed By: #### L 100.0100, L503.0106, L506.1001, L506.0400, L501.9520, L500.4050 #### [facility] [address] [place], [address] RBC (Bld) [#/Vol] 4.78 10*6/uL Normal 4.2-5.4 [facility] Comment on above: Performed By: #### L 100.0100, L503.0106, L506.1001, L506.0400, L501.9520, L500.4050 #### [facility] [address] [place], [address] RDW SD 36.8 fl Normal 35.1-43.9 [facility] Comment on above: Performed By: #### L 100.0100, L503.0106, L506.1001, L506.0400, L501.9520, L500.4050 #### [facility] [address] [place], [address] WBC (Bld) [#/Vol] 10.3 10*3/uL Normal 4.4-11.0 [facility] Comment on above: Performed By: #### L 100.0100, L503.0106, L506.1001, L506.0400, L501.9520, L500.4050 #### [facility] [address] [place], [address] Carbon dioxide, total [Moles /volume] in Central venous bloodOrdered By: Zoe Nevarez on 06-23-2024 CO2 [Moles/Vol] 21.4 mmol/L 21.0-32.0 [facility] Chloride assayOrdered By: Kevon Nevarez on 06-23-2024 Chloride [Moles/Vol] 103 mmol/L 98-108 [facility] Comprehensive Metabolic Prof ilon 06-23-2024 Albumin [Mass/Vol] 4.4 g/dL Normal 3.5-5.0 [facility] Comment on above: Performed By: #### L 100.0100, L503.0106, L506.1001, L506.0400, L501.9520, L500.4050 #### [facility] [address] [place], [address] Albumin/Globulin [Mass ratio] 1.2 {ratio} Normal 0.9-2.4 [facility] Comment on above: Performed By: #### L 100.0100, L503.0106, L506.1001, L506.0400, L501.9520, L500.4050 #### [facility] [address] [place], [address] ALK PHOS 79 U/L Normal 35-104 [facility] Comment on above: Performed By: #### L 100.0100, L503.0106, L506.1001, L506.0400, L501.9520, L500.4050 #### [facility] [address] [place], [address] ALT [Catalytic activity/Vol] 63 U/L High <=34 [facility] Comment on above: Performed By: #### L 100.0100, L503.0106, L506.1001, L506.0400, L501.9520, L500.4050 #### [facility] [address] [place], [address] AST [Catalytic activity/Vol] 45 U/L High <=31 [facility] Comment on above: Performed By: #### L 100.0100, L503.0106, L506.1001, L506.0400, L501.9520, L500.4050 #### [facility] [address] [place], [address] Bilirubin [Mass/Vol] 0.36 mg/dL Normal 0.00-1.30 [facility] Comment on above: Performed By: #### L 100.0100, L503.0106, L506.1001, L506.0400, L501.9520, L500.4050 #### [facility] [address] [place], [address] BUN/CRE 12.6 RATIO Normal 10-20 [facility] Comment on above: Performed By: #### L 100.0100, L503.0106, L506.1001, L506.0400, L501.9520, L500.4050 #### [facility] [address] [place], [address] Calcium [Mass/Vol] 9.2 mg/dL Normal 7.6-11.0 [facility] Comment on above: Performed By: #### L 100.0100, L503.0106, L506.1001, L506.0400, L501.9520, L500.4050 #### [facility] [address] [place], [address] Chloride [Moles/Vol] 103 mmol/L Normal 98-108 [facility] Comment on above: Performed By: #### L 100.0100, L503.0106, L506.1001, L506.0400, L501.9520, L500.4050 #### [facility] [address] [place], [address] CO2 [Moles/Vol] 21.4 mmol/L Normal 21.0-32.0 [facility] Comment on above: Performed By: #### L 100.0100, L503.0106, L506.1001, L506.0400, L501.9520, L500.4050 #### [facility] [address] [place], [address] Creatinine [Mass/Vol] 0.82 mg/dL Normal 0.70-1.20 [facility] Comment on above: Performed By: #### L 100.0100, L503.0106, L506.1001, L506.0400, L501.9520, L500.4050 #### [facility] [address] [place], [address] GAP 12 Normal 5-15 [facility] Comment on above: Performed By: #### L 100.0100, L503.0106, L506.1001, L506.0400, L501.9520, L500.4050 #### [facility] [address] [place], [address] GFR/1.73 sq M.predicted among non-blacks MDRD (S/P/Bld) [Vol rate/Area] 104 mL/min/{1.73_m2} Normal >60 [facility] Comment on above: Result Comment: mL/m in/1.73m2 CKD-EPI Creatinine Equation (2020) Performed By: #### L 100.0100, L503.0106, L506.1001, L506.0400, L501.9520, L500.4050 #### [facility] [address] [place], [address] Globulin (S) [Mass/Vol] 3.6 g/dL Normal 2.2-4.2 [facility] Comment on above: Performed By: #### L 100.0100, L503.0106, L506.1001, L506.0400, L501.9520, L500.4050 #### [facility] [address] [place], [address] Glucose [Mass/Vol] 134 mg/dL High 70-99 [facility] Comment on above: Performed By: #### L 100.0100, L503.0106, L506.1001, L506.0400, L501.9520, L500.4050 #### [facility] [address] [place], [address] Potassium [Moles/Vol] 3.7 mmol/L Normal 3.3-5.1 [facility] Comment on above: Performed By: #### L 100.0100, L503.0106, L506.1001, L506.0400, L501.9520, L500.4050 #### [facility] [address] [place], [address] Sodium [Moles/Vol] 136 mmol/L Normal 133-145 [facility] Comment on above: Performed By: #### L 100.0100, L503.0106, L506.1001, L506.0400, L501.9520, L500.4050 #### [facility] [address] [place], [address] T PROT 8.0 g/dL Normal 5.9-8.4 [facility] Comment on above: Performed By: #### L 100.0100, L503.0106, L506.1001, L506.0400, L501.9520, L500.4050 #### [facility] [address] [place], [address] Urea nitrogen [Mass/Vol] 10 mg/dL Normal 4-19 [facility] Comment on above: Performed By: #### L 100.0100, L503.0106, L506.1001, L506.0400, L501.9520, L500.4050 #### [facility] [address] [place], [address] Eosinophil percentageOrdered By: Zoe Nevarez on 06-23-2024 Eosinophils/100 WBC (Bld) 1.4 % 0-5 [facility] Erythrocyte distribution wid th ratioOrdered By: Zoe Nevarez on 06-23-2024 Erythrocyte distribution width (RBC) [Ratio] 11.6 % 11.6-14.6 [facility] Erythrocyte distribution wid th standard deviationOrdered By: [facility] Center[facility] Cloudjodie on 06-23-2024 Erythrocyte distribution width (RBC) [Entitic vol] 36.8 fL 35.1-43.9 [facility] Erythrocyte distribution width (RBC) [Ratio] 36.8 fl 35.1-43.9 [facility] GFR/1.73 sq M.predicted massiel g non-blacks MDRD (S/P/Bld) [Vol rate/Area]Ordered By: Zoe Nevarez on 06-23-2024 Estimated GFR (MDRD) Non-Af Amer 104 >60 [facility] Comment on above: mL/min/1.73m2 CKD-EP I Creatinine Equation (2020) Glomerular filtration rate ( GFR) estimation/1.73 sq m using serum, plasma, or whole bOrdered By: Zoe Nevarez on 06-23-2024 GFR/1.73 sq M.predicted among non-blacks MDRD (S/P/Bld) [Vol rate/Area] 104 mL/min/{1.73_m2} >60 [facility] Comment on above: mL/min/1.73m2 CKD-EP I Creatinine Equation (2020) Hematocrit Auto (Bld) [Volum e fraction]Ordered By: Zoe Nevarez on 06-23-2024 Hematocrit (Bld) [Volume fraction] 41.4 % 37-47 [facility] Hemoglobin measurementOrdere d By: Zoe Nevarez on 06-23-2024 Hemoglobin (Bld) [Mass/Vol] 14.8 g/dL 12.0-15.0 [facility] Immature granulocytes/100 WB C Auto (Bld)Ordered By: Zoe Nevarez on 06-23-2024 Immature granulocytes/100 WBC (Bld) 0.200 % 0.0-0.9 [facility] Comment on above: IG% - Immature Granu locytes (promyelocytes, myelocytes and metamyelocytes) > 1% indicates that a LEFT SHIFT is Present. Internal Medicine Office Vis lizzie 06-23-2024 Internal Medicine Office Visit [facility] [address] [place], [place] [address] OFFICE VISIT Date of Service: 06/23/24 MR#: [id number] Acct: [id number] Name: PATI ESCOBAR Rep #: [id number] : 2005 Provider: Dr. Zoe cervantes MD Age/Sex: 19/F Location: [facility] [place] Status: Signed Intake Vital Signs 12/24/23 12:56 06/23/24 15:15 Height 5 ft 2 in 5 ft 2 in Weight: 217 lb 223 lb 8 oz BMI 39.6 40.8 BP 118/70 124/78 H Blood Pressure Location Lt brachial Position Sitting Sitting Respiration 16 16 Pulse 78 107 H Pulse Source Monitor Monitor Temp 97.0 F L 98 F Temp Source Temporal Temporal Pulse Oximetry (%) 98 98 Oxygen Delivery Method room air room air Intake Visit Reasons: YEARLY Chief Complaint: Follow-up chronic conditions. Depression. [employer] Required: No Accompanied by: Mother Is patient in pain?: No Allergies iris Adverse Reaction (Severe, Verified 06/23/24 15:15) Anaphylaxis Medications ???Medication ???Instructions ???Recorded ???Confirmed ???Type ascorbic acid (vitamin C) 1,000 mg 1 g PO Q6H 04/14/23 06/23/24 His tory capsule atorvastatin 10 mg tablet 10 mg PO DAILY #90 tabs 10/18/23 0 06/23/24 Rx bupropion HCl 150 mg 24 hr tablet, 150 mg PO QAM #30 tabs 06/23/24 06/23/24 Rx extended release cholecalciferol (vitamin D3) 1,250 1,250 mcg PO QWEEK #14 caps 06/17 Rx mcg (50,000 unit) capsule Have you fallen in the past year?: No Nurse's Note: pain in left low pelvic area possible ovaries and occassionaly on right side but mostly left discuss antidepressant PFSH Medical History (Updated 06/23/24 @ 16:[address] Zoe Nevarez MD) Pelvic pain Depression with anxiety Joint pain Preventative health care Concentration deficit Hyperlipidemia Vitamin D deficiency High blood cholesterol Head ache Family History Grandfather Bleeding disorder Heart disease Hypertension CAD (coronary artery disease) Diabetes Anemia Myocardial infarction CVA (cerebral vascular accident) Mother Diabetes Grandmother Diabetes Social History Smoking Status: Never smoker alcohol intake: never substance use type: does not use what type of physical activity do you participate in: none do you feel safe at home: Yes Questionnaire Depression Screen PHQ-2/9 PHQ-2 Over the last 2 weeks, how often have you been bothered by any of the following problems? 1. Little interest or pleasure in doing things: several days 2. Feeling down, depressed, or hopeless: more than half the days Total score: 3 If score is 2 or greater, continue 3. Trouble falling or staying asleep, or sleeping too much: nearly every day 4. Feeling tired or having little energy: more than half the days 5. Poor appetite or overeating: several days 6. Feeling bad about yourself - or that you are a failure or have let yourself and your family down: more than half the days 7. Trouble concentrating on things, such as reading the newspaper or watching television: several days 8. Moving or speaking so slowly that other people could have noticed? - Or the opposite - being so fidgety or restless that you have been moving around a lot more than usual: several days 9. Thoughts that you would be better off or of hurting yourself in some way: several days Total score: 14 If you checked off any problems, how difficult have these problems made it for you to do your work, take care of things at home, or get along with other people?: somewhat difficult Source: Developed by Drs. Rex Mitchell, Ivette Yanez, Jamie Hedrick and colleagues, with an educational jose from [email or web address]. HPI HPI Chief Complaint: Follow-up chronic conditions. Depression. Details: PATI ESCOBAR, is a 19 F who presents to the office today for follow-up. Also has some concerns. She reports worsening depression lately. Chronic history of and years ago was started on Prozac however did not do well on it and so discontinued. Has been without medication since then. Tried therapy but did not find her therapist a good fit. Worsening symptoms lately. Scored 14 on the PHQ-9. She also reports chronic bilateral groin area pain. Has an episode weekly, no known precipitating factor. Her mother believes that one of her episodes was around ovulation. In the process of esta blishing with [employer]. Other chronic conditions are stable. ROS Const Constitutional: No body ache, excessive sweating, fatigue, fever(s), frequent falls, headache(s), snoring, weakness, weight change, sleep problems or change in appetite Eyes Eyes: No blurry vision, change in vision, floaters, visual disturbances, eye pain or Light sensitivity ENT ENT: No abnormal hearing, ear or mas (more content not included)... Normal [facility] L503.0106on 06-23-2024 Cobalamin (Vitamin B12) [Mass/Vol] 370 pg/mL Normal 180-914 [facility] Comment on above: Performed By: #### L 100.0100, L503.0106, L506.1001, L506.0400, L501.9520, L500.4050 #### [facility] [address] [place], [address] L506.1001on 06-23-2024 Vitamin D 25-OH 19.3 ng/mL Low 30-100 [facility] Comment on above: Result Comment: Raina min D Status Deficiency: <20 ng/mL (50nmol/L) Insufficiency: 20-30 ng/mL (50-75 nmol/L) Sufficiency: 30-100 ng/mL (75-250 nmol/L) Toxicity: >100 ng/mL (>250 nmol/L) Performed By: #### L 100.0100, L503.0106, L506.1001, L506.0400, L501.9520, L500.4050 #### [facility] [address] [facility]. [place], [place], [id number] Laboratory - Chemistry and C hemistry - challengeOrdered By: Zoe Nevarez on 06-23-2024 AST [Catalytic activity/Vol] 45 U/L High <32 [facility] Lymphocytes Auto (Unsp spec) [#/Vol]Ordered By: Zoe Nevarez on 06-23-2024 Lymphocytes (Bld) [#/Vol] 4.18 10*3/uL 0.83-4.51 [facility] Lymphocytes/100 WBC Auto (Un sp spec)Ordered By: Zoe Nevarez on 06-23-2024 Lymphocytes/100 WBC (Bld) 40.7 % 19-41 [facility] MCV (mean corpuscular volume ) determinationOrdered By: Zoe Nevarez on 06-23-2024 MCV (RBC) [Entitic vol] 86.6 fL 81-99 [facility] Mean corpuscular hemoglobin (MCH) determinationOrdered By: Zoe Nevarez on 06-23-2024 MCH (RBC) [Entitic mass] 31.0 pg 27.0-32.0 [facility] Mean corpuscular hemoglobin concentration (MCHC) determinationOrdered By: Zoe Nevarez on 06-23-2024 MCHC (RBC) [Mass/Vol] 35.7 g/dL 32-36 [facility] Mean platelet volume determi nationOrdered By: Zoe Nevarez on 06-23-2024 Platelet mean volume (Bld) [Entitic vol] 10.4 fL 6.2-12.0 [facility] Monocyte percentageOrdered B y: Zoe Nevarez on 06-23-2024 Monocytes/100 WBC (Bld) 5.9 % 0-10 [facility] Neutrophil percentageOrdered By: Zoe Nevarez on 06-23-2024 Neutrophils/100 WBC (Bld) 51.5 % 47-70 [facility] Nucleated red blood cell per centageOrdered By: Zoe Nevarez on 06-23-2024 Nucleated RBC/100 WBC (Bld) [Ratio] 0 % 0-5 [facility] Platelet countOrdered By: Kevon Nevarez on 06-23-2024 Platelets (Bld) [#/Vol] 337 10*3/uL 150-450 [facility] Potassium (Unsp spec) [Mass/ Vol]Ordered By: Zoe Nevarez on 06-23-2024 Potassium [Moles/Vol] 3.7 mmol/L 3.3-5.1 [facility] Potassium measurement (mass/ volume)Ordered By: Zoe Nevarez on 06-23-2024 Potassium (Unsp spec) [Mass/Vol] 3.7 mmol/L 3.3-5.1 [facility] RBC Auto (Bld) [#/Vol]Ordere d By: Zoe Nevraez on 06-23-2024 RBC (Bld) [#/Vol] 4.78 10*6/uL 4.2-5.4 [facility] Serum creatinine measurement (mass/volume)Ordered By: Zoe Nevarez on 06-23-2024 Creatinine [Mass/Vol] 0.82 mg/dL 0.70-1.20 [facility] Serum globulin measurementOr dered By: Zoe Nevarez on 06-23-2024 Globulin (S) [Mass/Vol] 3.6 g/dL 2.2-4.2 [facility] Serum glucose measurement (m ass/volume)Ordered By: Zoe Nevarez on 06-23-2024 Glucose [Mass/Vol] 134 mg/dL High 70-99 [facility] Serum or plasma alanine arias otransferase (ALT) measurementOrdered By: Zoe Nevarez on 06-23-2024 ALT [Catalytic activity/Vol] 63 U/L High <35 [facility] Serum or plasma albumin erick urement (mass/volume)Ordered By: Zoe Nevarez on 06-23-2024 Albumin [Mass/Vol] 4.4 g/dL 3.5-5.0 [facility] Serum or plasma albumin/glob ulin mass ratioOrdered By: Zoe Nevarez on 06-23-2024 Albumin/Globulin [Mass ratio] 1.2 {ratio} 0.9-2.4 [facility] Serum or plasma alkaline caitie sphatase measurementOrdered By: Zoe Nevarez on 06-23-2024 ALP [Catalytic activity/Vol] 79 U/L 35-104 [facility] Serum or plasma calcium erick urement (mass/volume)Ordered By: Zoe Nevarez on 06-23-2024 Calcium [Mass/Vol] 9.2 mg/dL 7.6-11.0 [facility] Serum or plasma urea nitroge n measurement (mass/volume)Ordered By: Zoe Nevarez on 06-23-2024 Urea nitrogen [Mass/Vol] 10 mg/dL 4-19 [facility] Sodium levelOrdered By: Phoenix Nevarez on 06-23-2024 Sodium [Moles/Vol] 136 mmol/L 133-145 [facility] T4 Free Directon 06-23-2024 T4 FREE DIRECT 1.20 ng/dL Normal 0.76-1.46 [facility] Comment on above: Performed By: #### L 100.0100, L503.0106, L506.1001, L506.0400, L501.9520, L500.4050 #### [facility] [address] [place], [place], [id number] T4 freeOrdered By: Zoe Nevarez on 06-23-2024 Free T4 [Mass/Vol] 1.20 ng/dL 0.76-1.46 [facility] TSH DL <= 0.005 mIU/L QnOrde red By: Zoe Nevarez on 06-23-2024 Thyroid Stimulating Hormone (TSH) 2.790 uIU/mL 0.300-4.200 [facility] TSH Qn 2.790 uIU/mL 0.300-4.200 [facility] Thyroid Stim Hormone (TSH)on 06-23-2024 TSH 2.790 uIU/mL Normal 0.300-4.200 [facility] Comment on above: Performed By: #### L 100.0100, L503.0106, L506.1001, L506.0400, L501.9520, L500.4050 #### [facility] [address] [place], [place], [address] Total proteinOrdered By: Gregg Nevarez on 06-23-2024 Protein [Mass/Vol] 8.0 g/dL 5.9-8.4 [facility] Vitamin B12 ser/plasOrdered By: Zoe Nevarez on 06-23-2024 Cobalamin (Vitamin B12) [Mass/Vol] 370 pg/mL 180-914 [facility] Vitamin D, 25-hydroxyOrdered By: Zoe Nevarez on 06-23-2024 Vitamin D 25-Hydroxy 19.3 ng/mL Low 30-100 [facility] Comment on above: Vitamin D StatusDefi ciency: <20 ng/mL (50nmol/L)Insufficiency: 20-30 ng/mL (50-75 nmol/L)Sufficiency: 30-100 ng/mL (75-250 nmol/L)Toxicity: >100 ng/mL (>250 nmol/L) White blood cell (WBC) count Ordered By: Zoe Nevarez on 06-23-2024 WBC (Bld) [#/Vol] 10.3 10*3/uL 4.4-11.0 [facility] CNOVon 03-27-2024 CNOV Office Visit ([facility]) PATI ESCOBAR ([id number]) 1 F Date Time Provider Department 03/27/24 9:55 AM BRAULIO PRYOR [facility] During your visit today, we recorded the following information about you: Temperature Pulse Respiration Blood pressure 98.6 degrees 89/minute 18/minute 143/109 Weight Last Period 100.8 kg 03/27/24 Braulio Pryor APRN.STENOTYPIST 03/27/2024 11:38 AM Signed [facility] [address] [address] Dept: [phone] Dept Subjective Pati Escobar is a 19 year old female who presents with Ear Pain (Bilateral ears/States started 2 days ago/Thinks the tonsils hurting is a result of both ears hurting) and Tonsil Pain HPI: A 19-year-old female comes in with complaints of bilateral ear pain though the left is worse than the right. The patient states symptoms have been ongoing for couple days. She has utilized ibuprofen with minimal relief. States that it is hard to hear out of her left ear. States that she does have a history of ear infections. Denies any other complaints at this time. Aside from symptoms as described above, patient has no other complaints at this time. Review of Systems Constitutional: Negative for chills, fever and malaise/fatigue. HENT: Positive for ear pain (L>R). Negative for congestion, ear discharge, sinus pain and sore throat. Respiratory: Negative for cough, shortness of breath and wheezing. Cardiovascular: Negative for chest pain. Musculoskeletal: Negative for myalgias. Neurological: Negative for headaches. Endo/Heme/Allergies: Negative for environmental allergies. ALLERGIES No Known Allergies Current Outpatient Medications on File Prior to Visit Medication Sig atorvastatin (LIPITOR) 10 mg tablet Take 1 tablet by mouth every afternoon. ibuprofen (MOTRIN) 600 mg tablet Take 600 mg by mouth every 6 hours as needed. No current facility-administere d medications on file prior to visit. There is no problem list on file for this patient. Social History Tobacco Use Smoking status: Never Smokeless tobacco: Never Vaping Use Vaping status: Never Used Substance Use Topics Alcohol use: Not Currently Objective BP 143/109 (BP Site: Left Arm, BP Position: Sitting, BP Cuff Size: Large Adult) Pulse 89 Temp 37 ?C (98.6 ?F) (Temporal) Resp 18 Wt 100.8 kg (222 lb 3.2 oz) LMP 03/27/2024 (Exact Date) SpO2 99% Physical Exam Vitals and nursing note reviewed. Constitutional: General: She is awake. She is not in acute distress. Appearance: Normal appearance. She is well-developed and well-groomed. She is not ill-appearing, toxic-appearing or diaphoretic. HENT: Head: Normocephalic and atraumatic. Right Ear: Ear canal and external ear normal. A middle ear effusion is present. Tympanic membrane is erythematous and bulging. Tympanic membrane is not injected. Left Ear: Ear canal and external ear normal. A middle ear effusion is present. Tympanic membrane is injected, erythematous and bulging. Ears: Comments: Purulent drainage behind bilateral TMs Nose: Right Sinus: No maxillary sinus tenderness or frontal sinus tenderness. Left Sinus: No maxillary sinus tenderness or frontal sinus tenderness. Mouth/Throat: Lips: [place]. Mouth: Mucous membranes are moist. No oral lesions. Pharynx: Oropharynx is clear. Posterior oropharyngeal erythema present. No oropharyngeal exudate. Tonsils: No tonsillar exudate or tonsillar abscesses. 2+ on the right. 2+ on the left. Comments: +PND Eyes: Conjunctiva/sclera: Conjunctivae normal. Pulmonary: Effort: Pulmonary effort is normal. Musculoskeletal: General: Normal range of motion. Cervical back: Normal range of motion and neck supple. Lymphadenopathy: Head: Right side of head: No submandibular or tonsillar adenopathy. Left side of head: No submandibular or tonsillar adenopathy. Cervical: No cervical adenopathy. Skin: General: Skin is warm and dry. Neurological: General: No focal deficit present. Mental Status: She is alert and oriented to person, place, and time. Psychiatric: Behavior: Behavior is cooperative. Assessment/Plan ASSESSMENT/PLAN: 1. Acute otitis media, bilateral - ICD9: 382.9, ICD10: H66.93 Braulio Pryor, CASER.STENOTYPIST Patient was informed that examination is consistent with otitis media bilaterally and patient started on antibiotics. She is to continue ibuprofen to help with pain relief. Ultimately follow-up with PCP in 3 to 5 days if symptoms persist or sooner for worsening symptoms. Patient states understanding agrees above plan of care. Patient given educational materials - see patient instructions. Discussed use, benefit, and side effects of prescribed medications. All patient questions answered. Pt voiced understanding and agrees with treatment plan. Patient advised if symptoms wo (more content not included)... Normal [facility] CT HEAD OR BRAIN WITHOUT CON TRASTon 01-07-2024 CT HEAD OR BRAIN WITHOUT CONTRAST EXAMINATION: CT HEAD OR BRAIN WITHOUT CONTRAST;01/07/2024 7:34 pm CLINICAL HISTORY: Hit head on a car door.. TECHNIQUE: Axial CT scans through the head were obtained without contrast administration. Dose reduction techniques were achieved by using: automated exposure control and/or adjustment of mA and /or kV according to patient size and/or use of iterative reconstruction technique. COMPARISON: None. FINDINGS: The cerebral hemispheres have normal white and cordoba matter. The posterior fossa appears normal. There is no depressed skull fracture. There is no edema or intracranial hemorrhage. The ventricular system is normal in size. The visualized orbits show no abnormal mass. The visualized paranasal sinuses show no air-fluid levels. Middle ear cavities are clear. Mastoids are clear. IMPRESSION: No acute intracranial process. Workstation ID: [id number] Dictated by: SIMIN HERNANDEZ on WedJan 07, 2024 8:25:03 PM EDT Transcribed by: SIMIN HERNANDEZ on WedJan 07, 2024 8:25:03 PM EDT Finalized by: SIMIN HERNANDEZ on WedJan 07, 2024 8:25:03 PM EDT [facility] Comment on above: Order Comment: Injur y/Trauma or Illness?:Injury/Trauma How long have you had these symptoms (acute/chronic)?:Acute Reason for exam?:Pt hit head yesterday on a car door. States has had a headache with some dizziness since. Type of Exam?:Initial Mechanism of injury?:Pt hit head yesterday on a car door. States has had a headache with some dizziness since. ED Prov Noteon 01-07-2024 ED Prov Note HPI: 01/07/2024, Time: @NOWNR@ Pati Escobar is a 18 y.o. female presenting to the ED for gradual onset of headache and blurred vision and dizziness after she hit her head coming out of a car, beginning 1 day ago. The complaint has been constant, moderate in severity, and worsened by nothing. No numbness weakness or tingling of the arms or legs ROS: Pertinent positives and negatives are stated within HPI, all other systems reviewed and are negative. ----- PAST HISTORY ----- Past Medical History: @[facility]@ Past Surgical History: has no past surgical history on file. Social History: reports that she has never smoked. She has never been exposed to tobacco smoke. She has never used smokeless tobacco. She reports that she does not drink alcohol and does not use drugs. Family History: family history is not on file. The patient's home medications have been reviewed. Allergies: Patient has no known allergies. RESULTS --------- All laboratory and radiology results have been personally reviewed by myself LABS: No results found for this or any previous visit. RADIOLOGY: Interpreted by Radiologist. CT Head Or Brain Without Contrast Final Result No acute intracranial process. Workstation ID: [id number] ----- NURSING NOTES AND VITALS REVIEWED ------- The nursing notes within the ED encounter and vital signs as below have been reviewed. BP (!) 162/113 (BP Location: Left arm, Patient Position: Sitting) Pulse 99 Temp 98.4 degrees F (36.9 degrees C) (Oral) Resp 18 Ht 5' 3 Wt 97.5 kg (215 lb) LMP 01/02/2024 (Approximate) SpO2 99% BMI 38.09 kg/m Oxygen Saturation Interpretation: Normal PHYSICAL EXAM -- Constitutional/Gener al: Alert and oriented x3, well appearing, non toxic in NAD Head: NC/AT Eyes: PERRL, EOMI Mouth: Oropharynx clear, handling secretions, no trismus Neck: Supple, full ROM, no meningeal signs Pulmonary: Lungs clear to auscultation bilaterally, no wheezes, rales, or rhonchi. Not in respiratory distress Cardiovascular: Regular rate and rhythm, no murmurs, gallops, or rubs. 2+ distal pulses Abdomen: Soft, non tender, non distended, Extremities: Moves all extremities x 4. Warm and well perfused Skin: warm and dry without rash Neurologic: GCS 15, Psych: Normal Affect ED COURSE/MEDICAL DECISION MAKING -------- Medications acetaminophen (TYLENOL) tablet 975 mg (975 mg Oral Given 01/07/241922) Medical Decision Making: CT unremarkable Counseling: The emergency provider has spoken with the patient and discussed today's results, in addition to providing specific details for the plan of care and counseling regarding the diagnosis and prognosis. Questions are answered at this time and they are agreeable with the plan. IMPRESSION AND DISPOSITION IMPRESSION 1. Closed head injury, initial encounter 2. Nonintractable headache, unspecified chronicity pattern, unspecified headache type DISPOSITION Disposition: discharged to home Patient condition is stable Summation Patient Course: Stable ED Medications administered this visit: Medications acetaminophen (TYLENOL) tablet 975 mg (975 mg Oral Given 01/07/241922) New Prescriptions from this visit: New Prescriptions ibuprofen (ADVIL,MOTRIN) 600 MG tablet Take 1 (one) tablet (600 mg total) by mouth every 6 (six) hours as needed for pain . Follow-up: [facility] [address] [facility] [address] [facility] [address] In 1 week Final Impression: 1. Closed head injury, initial encounter 2. Nonintractable headache, unspecified chronicity pattern, unspecified headache type (Please note that portions of this note were completed with a voice recognition program. Efforts were made to edit the dictations but occasionally words are mis-transcribed.) Hector George MD 01/07/242045 AUTHENTICATED BY HECTOR GEORGE, ON 01/07/2024 20:46:02 [facility] BINDU w/ Reflex Mult Confirmon 12-27-2023 BINDU,DIRECT Negative Normal Negative [facility] Comment on above: Result Comment: Perf ormed at: - [facility] [address] [id number] Order Dispatcher Chief: Bill Leger PhD, Phone: [phone] Performed By: #### L 5453.4997, H263.8973, L100.2340, L505.7010, L4600.0100, L501.9520, L500.4050, L501.6710, L500.4100 ####[facility] [address] [place], [place], [id number] CCP IgG Antibodieson 024 CCP IgG Ab. 5 units Normal 0-19 [facility] Comment on above: Result Comment: Nega tive <20 Weak positive 20 - 39 Moderate positive 40 - 59 Strong positive >59 Performed at: [address] [id number] Order Dispatcher Chief: Bill Leger PhD, Phone: [phone] Performed By: #### L 3100.5450, L101.9900, L100.0100, L505.7010, L4600.0100, L501.9520, L500.4050, L501.6710, L500.4100 ####[facility] [address] [place], [place], [id number] CBC W/Diff, Automatedon Absolute Lymph 3.97 X10 3/uL Normal 0.83-4.51 [facility] Comment on above: Performed By: #### L 3100.5450, L101.9900, L100.0100, L505.7010, L4600.0100, L501.9520, L500.4050, L501.6710, L500.4100 ####[facility] [address] [place], [place], [id number] Absolute Neut 5.7 X10 3/uL Normal 2.0-7.7 [facility] Comment on above: Performed By: #### L 3100.5450, L101.9900, L100.0100, L505.7010, L4600.0100, L501.9520, L500.4050, L501.6710, L500.4100 ####[facility] [address] [place], [address] Basophils/100 WBC (Bld) 0.4 % Normal 0-1 [facility] Comment on above: Performed By: #### L 3100.5450, L101.9900, L100.0100, L505.7010, L4600.0100, L501.9520, L500.4050, L501.6710, L500.4100 ####[facility] [address] [place], [address](292) Eosinophils/100 WBC (Bld) 0.9 % Normal 0-5 [facility] Comment on above: Performed By: #### L 3100.5450, L101.9900, L100.0100, L505.7010, L4600.0100, L501.9520, L500.4050, L501.6710, L500.4100 ####[facility] [address] [place], [address] Erythrocyte distribution width (RBC) [Ratio] 11.6 % Normal 11.6-14.6 [facility] Comment on above: Performed By: #### L 3100.5450, L101.9900, L100.0100, L505.7010, L4600.0100, L501.9520, L500.4050, L501.6710, L500.4100 ####[facility] [address] [place], [address] Hematocrit (Bld) [Volume fraction] 39.6 % Normal 37-47 [facility] Comment on above: Performed By: #### L 3100.5450, L101.9900, L100.0100, L505.7010, L4600.0100, L501.9520, L500.4050, L501.6710, L500.4100 ####[facility] [address] [place], [address] Hemoglobin (Bld) [Mass/Vol] 13.6 g/dL Normal 12.0-15.0 [facility] Comment on above: Performed By: #### L 3100.5450, L101.9900, L100.0100, L505.7010, L4600.0100, L501.9520, L500.4050, L501.6710, L500.4100 ####[facility] [address] [place], [address] IG% 0.200 Normal 0.0-0.9 [facility] Comment on above: Result Comment: IG% - Immature Granulocytes (promyelocytes, myelocytes and metamyelocytes) > 1% indicates that a LEFT SHIFT is Present. Performed By: #### L 3100.5450, L101.9900, L100.0100, L505.7010, L4600.0100, L501.9520, L500.4050, L501.6710, L500.4100 ####[facility] [address] [place], [place], [phone]) Lymphocytes/100 WBC (Bld) 38.1 % Normal 19-41 [facility] Comment on above: Performed By: #### L 3100.5450, L101.9900, L100.0100, L505.7010, L4600.0100, L501.9520, L500.4050, L501.6710, L500.4100 ####[facility] [address] [place], [address] MCH (RBC) [Entitic mass] 30.7 pg Normal 27.0-32.0 [facility] Comment on above: Performed By: #### L 3100.5450, L101.9900, L100.0100, L505.7010, L4600.0100, L501.9520, L500.4050, L501.6710, L500.4100 ####[facility] [address] [place], [address] MCHC (RBC) [Mass/Vol] 34.3 g/dL Normal 32-36 [facility] Comment on above: Performed By: #### L 3100.5450, L101.9900, L100.0100, L505.7010, L4600.0100, L501.9520, L500.4050, L501.6710, L500.4100 ####[facility] [address] [place], [address] MCV (RBC) [Entitic vol] 89.4 fL Normal 81-99 [facility] Comment on above: Performed By: #### L 3100.5450, L101.9900, L100.0100, L505.7010, L4600.0100, L501.9520, L500.4050, L501.6710, L500.4100 ####[facility] [address] [place], [address] Monocytes/100 WBC (Bld) 5.8 % Normal 0-10 [facility] Comment on above: Performed By: #### L 3100.5450, L101.9900, L100.0100, L505.7010, L4600.0100, L501.9520, L500.4050, L501.6710, L500.4100 ####[facility] [address] [place], [address] Neutrophils/100 WBC (Bld) 54.6 % Normal 47-70 [facility] Comment on above: Performed By: #### L 3100.5450, L101.9900, L100.0100, L505.7010, L4600.0100, L501.9520, L500.4050, L501.6710, L500.4100 ####[facility] [address] [place], [address] Nucleated RBC (Bld) [#/Vol] 0 10*3/uL Normal 0-5 [facility] Comment on above: Performed By: #### L 3100.5450, L101.9900, L100.0100, L505.7010, L4600.0100, L501.9520, L500.4050, L501.6710, L500.4100 ####[facility] [address] [place], [address](302) Platelet mean volume (Bld) [Entitic vol] 10.8 fL Normal 6.2-12.0 [facility] Comment on above: Performed By: #### L 3100.5450, L101.9900, L100.0100, L505.7010, L4600.0100, L501.9520, L500.4050, L501.6710, L500.4100 ####[facility] [address] [place], [address](147) Platelets (Bld) [#/Vol] 288 10*3/uL Normal 150-450 [facility] Comment on above: Performed By: #### L 3100.5450, L101.9900, L100.0100, L505.7010, L4600.0100, L501.9520, L500.4050, L501.6710, L500.4100 ####[facility] [address] [place], [address] RBC (Bld) [#/Vol] 4.43 10*6/uL Normal 4.2-5.4 [facility] Comment on above: Performed By: #### L 3100.5450, L101.9900, L100.0100, L505.7010, L4600.0100, L501.9520, L500.4050, L501.6710, L500.4100 ####[facility] [address] [place], [address](831) RDW SD 37.4 fl Normal 35.1-43.9 [facility] Comment on above: Performed By: #### L 3100.5450, L101.9900, L100.0100, L505.7010, L4600.0100, L501.9520, L500.4050, L501.6710, L500.4100 ####[facility] [address] [place], [address] WBC (Bld) [#/Vol] 10.4 10*3/uL Normal 4.4-11.0 [facility] Comment on above: Performed By: #### L 3100.5450, L101.9900, L100.0100, L505.7010, L4600.0100, L501.9520, L500.4050, L501.6710, L500.4100 ####[facility] [address] [place], [address] CRPon 12-24-2023 C-REACTIVE PROT < 2.90 Normal 0.0-3.0 [facility] Comment on above: Result Comment: C-Re active Protein (CRP) provides useful information for the diagnosis, therapy and monitoring of inflammatory processes and associated diseases. For the evaluation of Relative Risk for Cardiovascular Disease, a High Sensitivity CRP (HSCRP) should be ordered. Performed By: #### L 3100.5450, L101.9900, L100.0100, L505.7010, L4600.0100, L501.9520, L500.4050, L501.6710, L500.4100 ####[facility] [address] [place], [address] Comprehensive Metabolic Prof ilon 12-24-2023 Albumin [Mass/Vol] 3.9 g/dL Normal 3.2-5.0 [facility] Comment on above: Performed By: #### L 3100.5450, L101.9900, L100.0100, L505.7010, L4600.0100, L501.9520, L500.4050, L501.6710, L500.4100 ####[facility] [address] [place], [address] Albumin/Globulin [Mass ratio] 1.0 {ratio} Normal 0.9-2.4 [facility] Comment on above: Performed By: #### L 3100.5450, L101.9900, L100.0100, L505.7010, L4600.0100, L501.9520, L500.4050, L501.6710, L500.4100 ####[facility] [address] [place], [place], [phone] ALK P 76 U/L Normal 45-117 [facility] Comment on above: Performed By: #### L 3100.5450, L101.9900, L100.0100, L505.7010, L4600.0100, L501.9520, L500.4050, L501.6710, L500.4100 ####[facility] [address] [place], [place], [phone]) ALT [Catalytic activity/Vol] 41 U/L Normal 13-56 [facility] Comment on above: Performed By: #### L 3100.5450, L101.9900, L100.0100, L505.7010, L4600.0100, L501.9520, L500.4050, L501.6710, L500.4100 ####[facility] [address] [place], [address] AST [Catalytic activity/Vol] 20 U/L Normal 15-37 [facility] Comment on above: Performed By: #### L 3100.5450, L101.9900, L100.0100, L505.7010, L4600.0100, L501.9520, L500.4050, L501.6710, L500.4100 ####[facility] [address] [place], [address] Bilirubin [Mass/Vol] 0.60 mg/dL Normal 0.20-1.00 [facility] Comment on above: Result Comment: For patients on eltrombopag therapy, use of Dimension [place] TBIL is not recommended. Performed By: #### L 3100.5450, L101.9900, L100.0100, L505.7010, L4600.0100, L501.9520, L500.4050, L501.6710, L500.4100 ####[facility] [address] [place], [address] BUN/CRE 10.5 RATIO Normal 10-20 [facility] Comment on above: Performed By: #### L 3100.5450, L101.9900, L100.0100, L505.7010, L4600.0100, L501.9520, L500.4050, L501.6710, L500.4100 ####[facility] [address] [place], [address] CA,Total 9.2 mg/dL Normal 8.5-10.1 [facility] Comment on above: Performed By: #### L 3100.5450, L101.9900, L100.0100, L505.7010, L4600.0100, L501.9520, L500.4050, L501.6710, L500.4100 ####[facility] [address] [place], [address] Chloride [Moles/Vol] 106 mmol/L Normal 98-107 [facility] Comment on above: Performed By: #### L 3100.5450, L101.9900, L100.0100, L505.7010, L4600.0100, L501.9520, L500.4050, L501.6710, L500.4100 ####[facility] [address] [place], [address] CO2 [Moles/Vol] 24.0 mmol/L Normal 21.0-32.0 [facility] Comment on above: Performed By: #### L 3100.5450, L101.9900, L100.0100, L505.7010, L4600.0100, L501.9520, L500.4050, L501.6710, L500.4100 ####[facility] [address] [place], [place], [phone](142) Creatinine [Mass/Vol] 0.76 mg/dL Normal 0.55-1.02 [facility] Comment on above: Result Comment: The validity of the calculated GFR GFRAA in patients over 70 years has not been determined. Clinical correlation is essential. Performed By: #### L 3100.5450, L101.9900, L100.0100, L505.7010, L4600.0100, L501.9520, L500.4050, L501.6710, L500.4100 ####[facility] [address] [place], [place], [phone](627) EST GFR - AA 124 mL/min Normal >60 [facility] Comment on above: Result Comment: Afri can Stateless GFR Calc Performed By: #### L 3100.5450, L101.9900, L100.0100, L505.7010, L4600.0100, L501.9520, L500.4050, L501.6710, L500.4100 ####[facility] [address] [place], [place], [phone](852) GAP 7 Normal 5-15 [facility] Comment on above: Performed By: #### L 3100.5450, L101.9900, L100.0100, L505.7010, L4600.0100, L501.9520, L500.4050, L501.6710, L500.4100 ####[facility] [address] [place], [address] GFR/1.73 sq M.predicted among non-blacks MDRD (S/P/Bld) [Vol rate/Area] 102 mL/min/{1.73_m2} Normal >60 [facility] Comment on above: Result Comment: Non- GFR Calc Performed By: #### L 3100.5450, L101.9900, L100.0100, L505.7010, L4600.0100, L501.9520, L500.4050, L501.6710, L500.4100 ####[facility] [address] [place], [address] Globulin (S) [Mass/Vol] 4.1 g/dL Normal 2.2-4.2 [facility] Comment on above: Performed By: #### L 3100.5450, L101.9900, L100.0100, L505.7010, L4600.0100, L501.9520, L500.4050, L501.6710, L500.4100 ####[facility] [address] [place], [address] Glucose [Mass/Vol] 88 mg/dL Normal 74-106 [facility] Comment on above: Performed By: #### L 3100.5450, L101.9900, L100.0100, L505.7010, L4600.0100, L501.9520, L500.4050, L501.6710, L500.4100 ####[facility] [address] [place], [address] Potassium [Moles/Vol] 3.7 mmol/L Normal 3.5-5.1 [facility] Comment on above: Performed By: #### L 3100.5450, L101.9900, L100.0100, L505.7010, L4600.0100, L501.9520, L500.4050, L501.6710, L500.4100 ####[facility] [address] [place], [address] Sodium [Moles/Vol] 137 mmol/L Normal 136-145 [facility] Comment on above: Performed By: #### L 3100.5450, L101.9900, L100.0100, L505.7010, L4600.0100, L501.9520, L500.4050, L501.6710, L500.4100 ####[facility] [address] [place], [place], [phone] T PROT 8.0 g/dL Normal 6.4-8.2 [facility] Comment on above: Performed By: #### L 3100.5450, L101.9900, L100.0100, L505.7010, L4600.0100, L501.9520, L500.4050, L501.6710, L500.4100 ####[facility] [address] [place], [place], [address] Urea nitrogen [Mass/Vol] 8 mg/dL Normal 7-18 [facility] Comment on above: Performed By: #### L 3100.5450, L101.9900, L100.0100, L505.7010, L4600.0100, L501.9520, L500.4050, L501.6710, L500.4100 ####[facility] [address] [place], [place], [address] Erythrocyte Sed Rateon 12-23 SED RATE 9 mm/hr Normal 0-30 [facility] Comment on above: Performed By: #### L 3100.5450, L101.9900, L100.0100, L505.7010, L4600.0100, L501.9520, L500.4050, L501.6710, L500.4100 ####[facility] [address] [place], [address] Internal Medicine Office Vis itobakari 12-24-2023 Internal Medicine Office Visit [facility] [address] [place], [place] [address] OFFICE VISIT Date of Service: 12/24/23 MR#: [id number] Acct: [id number] Name: PATI ESCOBAR Rep #: [id number] : 2005 Provider: MAURILIO Stewart Age/Sex: 18/F Location: [facility] Status: Signed Intake Vital Signs 04/14/23 10:10 12/24/23 12:56 Height 5 ft 2 in 5 ft 2 in Weight: 217 lb 8 oz 217 lb BMI 39.7 39.6 BP 114/68 118/70 Blood Pressure Location Lt brachial Lt brachial Position Sitting Sitting Respiration 16 16 Pulse 90 78 Pulse Source Monitor Monitor Temp 97.9 F 97.0 F L Temp Source Temporal Temporal Pulse Oximetry (%) 99 98 Oxygen Delivery Method room air room air Intake Visit Reasons: ACUTE - ISSUES WITH BOTH KNEE JOINTS Chief Complaint: all over joint pain, knee worse [employer] Required: No Accompanied by: Self Is patient in pain?: Yes (lower back (5) knees, wrist, ankles) Pain scale (1-10): 8 Allergies iris Adverse Reaction (Severe, Verified 12/24/23 12:48) Anaphylaxis Medications ???Medication ???Instructions ???Recorded ???Confirmed ???Type ascorbic acid (vitamin C) 1,000 mg 1 g PO Q6H 04/14/23 12/24/23 History capsule magnesium oxide 420 mg tablet 420 mg PO DAILY 04/14/23 12/24/23 History atorvastatin 10 mg tablet 10 mg PO DAILY #90 tabs 10/18/23 12/24/23 Rx PFSH Medical History Joint pain Preventative health care Concentration deficit Hyperlipidemia Vitamin D deficiency High blood cholesterol Head ache Family History Grandfather Bleeding disorder Heart disease Hypertension CAD (coronary artery disease) Diabetes Anemia Myocardial infarction CVA (cerebral vascular accident) Mother Diabetes Grandmother Diabetes Social History Smoking Status: Never smoker alcohol intake: never substance use type: does not use what type of physical activity do you participate in: none do you feel safe at home: Yes HPI HPI Chief Complaint: all over joint pain, knee worse Details: PATI ESCOBAR, is a 18 F who presents to the office today for generalized muscle / joint issues. Patient and her mother state that she has had issues for at least the past 6 years. She used to see [facility] and had some work-up where they think they were normal but thought they were borderline. Patient states that her knees feel like they want to give out on her and do a lot of popping and grinding. Pains can be achy or burning and often change how they feel. She also has pains in her hip joints, her ankles, shoulders, elbows and wrist/hands. She states that even her spine will hurt as well. There is no family history of specific musculoskeletal disorder (no auotimmune, inflammatory, or neuromuscular disorders) ROS Const Constitutional: No body ache, chills, excessive sweating, fatigue, fever(s), frequent falls, headache(s), snoring, weakness or change in appetite Eyes Eyes: No blurry vision, change in vision, eye pain or Light sensitivity ENT ENT: No abnormal hearing, ear or mastoid pain, tinnitus, nasal congestion, headache(s), neck pain or sore throat Resp Respiratory: No cough, shortness of breath, snoring or wheezing Cardio Cardiology: Positive for leg pain with exertion; No chest pain at rest, chest pain with exertion, excessive sweating, dyspnea on exertion, lightheadedness, orthopnea or palpitations Gastro GI: No abdominal pain, change in bowel habits, constipation, cramping, diarrhea, nausea/dyspepsia or vomiting Genitourinary-Female : No burning urination, painful urination, urinary incontinence or urinary frequency Musc Musculoskeletal: Positive for joint pain, joint swelling, muscle weakness, numbness, stiffness, leg pain at night and leg pain with exertion; No abnormal gait, back pain or neck pain Skin Skin: No dry skin, redness, lesions, itchy eyes, rash or wounds Neuro Neurology: Positive for numbness; No abnormal gait, abnormal hearing, weakness, frequent falls, headache(s) or memory loss Psych Psychiatric: No anxiety, No change in appetite, No depression, No memory loss and No Thoughts of harming yourself/Others Endo Endocrine: No cold intolerance, excessive sweating, fatigue, flushing, heat intolerance, increased thirst/drinking or increased hunger Aller/Imm Allergy/Immunologic: No itchy eyes, seasonal allergy symptoms, hives or wheezing Hernán/Lymp Hematologic/Lymphati c: No easy bleeding or easy bruising Exam Const General: cooperative, healthy appearing, comfortable and no acute distress Nutritional Appearance: average body habitus and obese Orientation: alert, awake and oriented x3 Neck Neck: full ROM Resp Effort In (more content not included)... Normal [facility] Lipid Profileon 12-24-2023 Cholesterol [Mass/Vol] 156 mg/dL Normal 200 [facility] Comment on above: Result Comment: <200 mg/dL Desirable 200-240 mg/dL Borderline >240 mg/dL High Risk Performed By: #### L 3100.5450, L101.9900, L100.0100, L505.7010, L4600.0100, L501.9520, L500.4050, L501.6710, L500.4100 ####[facility] [address] [place], [address] Cholesterol in HDL [Mass/Vol] 40 mg/dL Normal [facility] Comment on above: Result Comment: The drugs N-Acetylcysteine and Metamizole may falsely depress this assay. Reference Range HDL <40 mg/dL Low HDL Cholesterol HDL >or= 60 mg/dL High HDL Cholesterol Performed By: #### L 3100.5450, L101.9900, L100.0100, L505.7010, L4600.0100, L501.9520, L500.4050, L501.6710, L500.4100 ####[facility] [address] [place], [address] Cholesterol in LDL [Mass/Vol] 75 mg/dL Normal 0-130 [facility] Comment on above: Performed By: #### L 3100.5450, L101.9900, L100.0100, L505.7010, L4600.0100, L501.9520, L500.4050, L501.6710, L500.4100 ####[facility] [address] [place], [address] Cholesterol in VLDL [Mass/Vol] 41 mg/dL High 5-40 [facility] Comment on above: Performed By: #### L 3100.5450, L101.9900, L100.0100, L505.7010, L4600.0100, L501.9520, L500.4050, L501.6710, L500.4100 ####[facility] [address] [place], [place], [id number] Triglyceride [Mass/Vol] 204 mg/dL High [facility] Comment on above: Result Comment: The drugs N-Acetylcysteine and Metamizole may falsely depress this assay. Serum Triglycerides Reference Interval Normal <150 mg/dL Borderline high 150 - 199 mg/dL High 200 - 499 mg/dL Very High > or = 500 mg/dL Performed By: #### L 3100.5450, L101.9900, L100.0100, L505.7010, L4600.0100, L501.9520, L500.4050, L501.6710, L500.4100 ####[facility] [address] [place], [address] Rheumatoid Factoron 12-24-19 24 RHEUMATOID FAC < 10.0 Normal <15 [facility] Comment on above: Performed By: #### L 3100.5450, L101.9900, L100.0100, L505.7010, L4600.0100, L501.9520, L500.4050, L501.6710, L500.4100 ####[facility] [address] [place], [address] Thyroid Stim Hormone (TSH)on 12-24-2023 TSH 1.620 uIU/mL Normal 0.358-3.740 [facility] Comment on above: Performed By: #### L 3100.5450, L101.9900, L100.0100, L505.7010, L4600.0100, L501.9520, L500.4050, L501.6710, L500.4100 ####[facility] [address] [place], [address] Absolute lymphocyte countOrd ered By: Zoe Nevarez on 04-14-2023 Lymphocytes Auto (Unsp spec) [#/Vol] 3.26 10*3/uL 0.83-4.51 [facility] Basophil percentageOrdered B y: Zoe Nevarez on 04-14-2023 Basophils/100 WBC (Bld) 0.3 % 0-1 [facility] Bilirubin [Mass/Vol] 0.50 mg/dL 0.20-1.00 [facility] Comment on above: For patients on eltr ombopag therapy, use of Dimension [place] TBIL is not recommended. Chloride [Moles/Vol] 107 mmol/L 98-107 [facility] Cholesterol [Mass/Vol] 172 mg/dL <200 [facility] Comment on above: <200 mg/dL Desirable 200-240 mg/dL Borderline >240 mg/dL High Risk Eosinophils/100 WBC (Bld) 1.5 % 0-5 [facility] Glucose [Mass/Vol] 89 mg/dL 74-106 [facility] Neutrophils (Bld) [#/Vol] 4.7 10*3/uL 2.0-7.7 [facility] Neutrophils/100 WBC (Bld) 55.0 % 47-70 [facility] Potassium [Moles/Vol] 3.8 mmol/L 3.5-5.1 [facility] Protein [Mass/Vol] 8.0 g/dL 6.4-8.2 [facility] Sodium [Moles/Vol] 140 mmol/L 136-145 [facility] Triglyceride [Mass/Vol] 239 mg/dL <199 [facility] Comment on above: The drugs N-Acetylcy steine and Metamizole may falsely depress this assay.Serum Triglycerides Reference Interval Normal <150 mg/dL Borderline high 150 - 199 mg/dL High 200 - 499 mg/dL Very High > or = 500 mg/dL WBC (Bld) [#/Vol] 8.6 10*3/uL 4.4-11.0 [facility] Blood erythrocytes count (nu mber/volume)Ordered By: Kevonnancyedinsonarthur Cloudmakeda on 04-14-2023 RBC (Bld) [#/Vol] 4.36 10*6/uL 4.2-5.4 [facility] Blood hemoglobin measurement (mass/volume)Ordered By: Zoe Nevarez on 04-14-2023 Hemoglobin (Bld) [Mass/Vol] 13.8 g/dL 12.0-15.0 [facility] Blood lymphocytes/100 leukoc ytesOrdered By: Zoe Nevarez on 04-14-2023 Lymphocytes/100 WBC (Bld) 38.0 % 19-41 [facility] Blood monocytes/100 leukocyt esOrdered By: faviola Nevarez on 04-14-2023 Monocytes/100 WBC (Bld) 4.9 % 0-10 [facility] Blood platelet mean volumeOr dered By: Zoe Nevarez on 04-14-2023 Platelet mean volume (Bld) [Entitic vol] 10.3 fL 6.2-12.0 [facility] Determination of erythrocyte mean corpuscular volume (MCV)Ordered By: Zoe Nevarez on 04-14-2023 MCV (RBC) [Entitic vol] 89.4 fL 81-99 [facility] Hematocrit Auto (Bld) [Volum e fraction]Ordered By: faviola Nevarez on 04-14-2023 Hematocrit (Bld) [Volume fraction] 39.0 % 37-47 [facility] Laboratory - Chemistry and C hemistry - challengeOrdered By: Zoe Nevarez on 04-14-2023 ALP [Catalytic activity/Vol] 70 U/L 45-117 [facility] ALT [Catalytic activity/Vol] 46 U/L 13-56 [facility] CO2 [Moles/Vol] 25.0 mmol/L 21.0-32.0 [facility] Globulin (S) [Mass/Vol] 4.2 g/dL 2.2-4.2 [facility] Urea nitrogen/Creatinine [Mass ratio] 14.0 mg/mg 10-20 [facility] Laboratory - Hematology and Cell countsOrdered By: Zoe Nevarez on 04-14-2023 Erythrocyte distribution width (RBC) [Entitic vol] 37.2 fL 35.1-43.9 [facility] Erythrocyte distribution width (RBC) [Ratio] 11.4 % 11.6-14.6 [facility] Immature granulocytes/100 WBC (Bld) 0.300 % 0.0-0.9 [facility] Comment on above: IG% - Immature Granu locytes (promyelocytes, myelocytes and metamyelocytes) > 1% indicates that a LEFT SHIFT is Present. MCH (RBC) [Entitic mass] 31.7 pg 27.0-32.0 [facility] Nucleated RBC/100 WBC (Bld) [Ratio] 0 % 0-5 [facility] MCHC Auto (RBC) [Mass/Vol]Or dered By: Zoe Nevarez on 04-14-2023 MCHC (RBC) [Mass/Vol] 35.4 g/dL 32-36 [facility] No Panel InformationOrdered By: Zoe Nevarez on 04-14-2023 Estimated GFR (MDRD) Amer 120 mL/min >60 [facility] Comment on above: GFR Calc Estimated GFR (MDRD) Non-Af Amer 100 mL/min >60 [facility] Comment on above: Non- GFR Calc Platelets bldOrdered By: Gregg Nevarez on 04-14-2023 Platelets (Bld) [#/Vol] 333 10*3/uL 150-450 [facility] Serum or plasma albumin erick urement (mass/volume)Ordered By: Zoe Nevarez on 04-14-2023 Albumin [Mass/Vol] 3.8 g/dL 3.2-5.0 [facility] Serum or plasma albumin/glob ulin mass ratioOrdered By: Zoe Nevarez on 04-14-2023 Albumin/Globulin [Mass ratio] 0.9 {ratio} 0.9-2.4 [facility] Serum or plasma calcium erick urement (mass/volume)Ordered By: Zoe Nevarez on 04-14-2023 Calcium [Mass/Vol] 8.7 mg/dL 8.5-10.1 [facility] Serum or plasma cholesterol in HDL measurement (mass/volume)Ordered By: Zoe Nevarez on 04-14-2023 Cholesterol in HDL [Mass/Vol] 39 mg/dL >40 [facility] Comment on above: The drugs N-Acetylcy steine and Metamizole may falsely depress this assay. Reference Range HDL <40 mg/dL Low HDL Cholesterol HDL >or= 60 mg/dL High HDL Cholesterol Serum or plasma cholesterol in VLDL measurement (mass/volume)Ordered By: Zoe Nevarez on 04-14-2023 Cholesterol in VLDL [Mass/Vol] 48 mg/dL 5-40 [facility] Serum or plasma creatinine m easurement (mass/volume)Ordered By: Zoe Nevarez on 04-14-2023 Creatinine [Mass/Vol] 0.78 mg/dL 0.55-1.02 [facility] Comment on above: The validity of the calculated GFR & GFRAA in patients over 70 years has not been determined. Clinical correlation is essential. Serum or plasma low density lipoprotein (LDL) cholesterol measurement (mass/volume)Ordered By: Zoe Nevarez on 04-14-2023 Cholesterol in LDL [Mass/Vol] 85 mg/dL 0-130 [facility] Serum or plasma urea nitroge n measurement (mass/volume)Ordered By: Zoe Nevarez on 04-14-2023 Urea nitrogen [Mass/Vol] 11 mg/dL 7-18 [facility] Thin prep Papanicolaou smear with manual screeningOrdered By: Zoe Nevarez on 04-14-2023 Thin prep Papanicolaou smear with manual screening 30 U/L 15-37 [facility] Thin prep Papanicolaou smear with manual screening 8 5-15 [facility] Progress Noteon 01-11-2023 Fittings Tightener Authentication Interface Message Text Patient ID: Pati Escobar is a 17 y.o. female. Her chief complaint(s) include: Anxiety and Chest Pain Assessment 1. URI, acute 2. Anxiety Plan Pati was seen today for anxiety and chest pain. Diagnoses and associated orders for this visit: URI, acute Anxiety Rest and fluids Call for any questions/concerns/p roblems/changes To see Psych at [facility] No follow-ups on file. Subjective She is accompanied by her mother. Independent history obtained from mother. Cold Symptoms The onset has been acute. The duration has been 2 days. The pattern is persistent. The course is unchanging. The patient's symptoms have included congestion, rhinorrhea and cough. The patient's symptoms have included no fever, no bilateral ear pain, no vomiting and no diarrhea. The patient has been exposed to sick contacts with common cold Has had difficulties at college with roommates and inability to sleep[ Primary Care Review of Systems Objective Vital Signs 01/11/23 0902 01/11/23 0913 BP: 137/89 119/75 Pulse: 78 Weight: (!) 94.9 kg Height: 160.6 cm Body mass index is 36.79 kg/m . Physical Exam Nursing note reviewed. Constitutional: She appears well. She is active. No distress. HENT: Head: Atraumatic. Ears: Right Ear: Tympanic membrane normal. Left Ear: Tympanic membrane normal. Nose: Nasal discharge present. Mouth/Throat: Mucous membranes are moist. Cardiovascular: Regular rhythm. Pulmonary/Chest: Breath sounds normal. There is normal air entry. Neurological: She is alert. Vitals reviewed: Blood pressure 119/75, pulse 78, height 160.6 cm, weight (!) 94.9 kg, last menstrual period 12/28/2022. Normal [facility] Provider Note - ED v3on 05-20 Provider Note - ED v3 Provider Note: Chart Review: ED NOTES ED NOTES: Presents for evaluation of URI. Symptoms including cough, congestion, body aches, malaise, and headache have been present for 7 days and refractory to OTC meds. No fever, chills, loss of taste/smell, nausea, vomiting, abdominal pain, CP, or SOB. No exacerbating factors. No known COVID 19/flu exposure. HISTORY OF PRESENTING ILLNESS PATI is a 17 year old Female and was seen by me at 01-Jun-2022 12:45. Triage Information: Most recent Vital Sign Value Date PAST MEDICAL HISTORY ALLERGIES/INTOLERANC ES: Intolerance Allergen: Gluten Type: Food Reaction: Diarrhea HEALTH HISTORY: No documented data. OUTPATIENT MEDICATIONS: Home Medications Review Status for Reconciliation: Complete Med Status: Patient Currently Takes Medications Drug Name: atorvastatin Instructions: null Drug Name: Vitamin B-12 Instructions: null Drug Name: VITAMIN D Instructions: null Drug Name: azithromycin 250 mg oral tablet Instructions: Take 2 tabs (500mg) x 1 days, then 1 tab (250mg) once daily x 4 days Drug Name: Medrol Dosepak 4 mg oral tablet Instructions: Take as directed. Drug Name: albuterol 90 mcg/inh inhalation aerosol Instructions: 2 puff(s) inhaled 2 times a day as needed for cough SIGNIFICANT EVENTS: No documented data. LAMP SHADE SEWER: Is : no Is : no REVIEW OF SYSTEMS All other systems reviewed and are negative REVIEW OF SYSTEMS: Comments See HPI PHYSICAL EXAM CONSTITUTIONAL: Dull nasally voice but appears well nourished, awake, alert, oriented to person, place, time/situation and in no apparent distress. HENMT: Airway patent, ears with clear tympanic membranes bilaterally. Nasal mucosa clear. Mouth with normal mucosa. Throat has no vesicles, no oropharyngeal exudates and uvula is midline. Face with no lymph node enlargement. EYES: Clear bilaterally, pupils equal, round and reactive to light. CARDIOVASCULAR: Normal rate, regular rhythm. Heart sounds S1, S2. No murmurs, rubs or gallops. PMI non-displaced. RESPIRATORY: Breath sounds clear and equal bilaterally. NEUROLOGICAL: Alert and oriented, no focal deficits, no motor or sensory deficits. SKIN: Skin normal color for race, warm, dry and intact. No evidence of trauma. PSYCHIATRIC: Alert and oriented to person, place, time/situation. normal mood and affect. No apparent risk to self or others. CRITICAL CARE VITAL SIGNS: T PRBP SpO2O2(LPM) %FiO2 Method 01-Jun-2022 12:35:[id number] /75 [id number] MDM MDM/ED COURSE: Discussed Findings with: patient Data Reviewed: vital signs Treatment Plan: Rx Zpak, medrol dose lashonda and albuterol inhaler. Patient's clinical presentation is otherwise unremarkable at this time. Patient is discharged with instructions to follow-up with primary care or seek emergency medical attention for worsening symptoms or any new concerns. DISPOSITION Diagnosis/Annotation : ED Dx Name:Acute bronchitis Code:J20.9 Disposition: discharged Type: home CONSULT CRITICAL CARE TIME Is this a critically ill patient: no Electronic Signatures: Steven Lorenzo (CASER-STENOTYPIST) (Signed 01-Jun-2022 14:42) Authored: ED Notes, HPI, PMH, ROS, PE, Results/Vital Signs, MDM/ED Course, Clinical Impression, Attestation, Chart Review, Scores Last Updated: 01-Jun-2022 14:42 by Steven Lorenzo (CASER-STENOTYPIST) Normal [facility] C-reactive proteinon 023 CRP [Mass/Vol] mg/L 0.0 - 1.0 mg/dL [facility] Comment on above: CRP determinations i n neonates should be interpreted with caution. CRP may be elevated in circumstances not associated with inflammation (e.g. difficult delivery, pneumothorax). In premature neonates CRP levels may not rise to abnormal levels even if sepsis is present; some speculate that immature liver function decreases the ability to generate a CRP response. Complete Blood Count with Di fferentialon 05-19-2022 Basophils/100 WBC (Bld) 0.4 % 0.00 - 1.00 % [facility] Differential Complete Automated [facility] on [facility] Eosinophils/100 WBC (Bld) 1.20 % 0.00 - 3.00 % [facility] Erythrocyte distribution width (RBC) [Ratio] 11.7 % 0.0 - 14.4 % [facility] Hematocrit (Bld) [Volume fraction] 39.8 % 36.0 - 44.0 % [facility] Hemoglobin (Bld) [Mass/Vol] 14.3 g/dL 12.0 - 15.0 g/dl [facility] Immature granulocytes/100 WBC (Bld) 0.3 % [facility] Comment on above: Immature Granulocyte Percent includes promyelocytes, myelocytes, and metamyelocytes. IG% > 1.0 indicates a left shift is present. With automated differentials, bands are included in the neutrophil count and not in the Immature Granulocyte Percent. Lymphocytes/100 WBC (Bld) 38.1 % 24.0 - 44.0 % [facility] MCH (RBC) [Entitic mass] 31.4 pg 26. 0 - 34.0 pg [facility] MCHC 35.9 % 31.0 - 37.0 % [facility] MCV (RBC) [Entitic vol] 87.5 fL 80.0 - 100.0 fl [facility] Monocytes/100 WBC (Bld) 5.50 % 3.00 - 6.00 % [facility] Neutrophils (Bld) [#/Vol] 5 10*3/uL [facility] Neutrophils/100 WBC (Bld) 54.5 % 35.0 - 66.0 % [facility] Nucleated RBC/100 WBC (Bld) [Ratio] 0 % -1.0 - 0.0 % [facility] Platelet mean volume (Bld) [Entitic vol] 10.1 fL [facility] Comment on above: MPV is platelet range and age dependent Platelets (Bld) [#/Vol] 335 10*3/uL [facility] RBC (Bld) [#/Vol] 4.55 10*6/uL [facility] WBC (Bld) [#/Vol] 9.1 10*3/uL [facility] Release to patient->[facility] Comprehensive metabolic pane letitia 05-19-2022 Albumin [Mass/Vol] 4.4 g/dL 3.5 - 5.0 g/dL [facility] ALP [Catalytic activity/Vol] 73 U/L 35 - 104 U/L [facility] ALT [Catalytic activity/Vol] 50 U/L High 0 - 34 U/L [facility] AST [Catalytic activity/Vol] 51 U/L High 0 - 31 U/L [facility] Comment on above: Hemolysis detected. Results may be falsely elevated. Interpret results with caution. Bilirubin [Mass/Vol] 0.5 mg/dL 0.0 - 1 .0 mg/dL [facility] Calcium [Mass/Vol] 9.5 mg/dL 7.6 - 11. 0 mg/dL [facility] Chloride [Moles/Vol] 104 mmol/L 96 - 10 8 mmol/L [facility] CO2 [Moles/Vol] 21.4 mmol/L Low 22.0 - 29.0 mmol/L [facility] Creatinine [Mass/Vol] 0.74 mg/dL 0.50 - 1.00 mg/dL [facility] Glucose [Mass/Vol] 92 mg/dL 70 - 99 mg/dL [facility] Comment on above: Criteria for Diagnos is of Diabetes: Fasting Specimen (no caloric intake for at least 8 hours): <100 mg/dL Normal 100-125 mg/dL Increased risk for Diabetes >125 mg/dL Diagnostic for Diabetes Random Glucose (any time of day without regard to last meal): > or = 200 mg/dL plus Classic Symptoms of Diabetes Potassium [Moles/Vol] 4.3 mmol/L 3.3 - 5.1 mmol/L [facility] Comment on above: Hemolysis detected. Results may be falsely elevated. Interpret results with caution. Protein [Mass/Vol] 8.1 g/dL 5.9 - 8.4 g/dL [facility] Sodium [Moles/Vol] 138 mmol/L 133 - 145 mmol/L [facility] Urea nitrogen [Mass/Vol] 11 mg/dL 4 - 19 mg/d L [facility] ESRon 05-19-2022 Erythrocyte Sedimentation Rate Interpretation ----- [facility] Comment on above: : 0-2 mm/hr Uvalda to puberty: 3-13 mm/hr - Less than 50 years old: Male: <15 mm/hr Female: <20 mm/hr - Greater than 50 years old: Male: <20 mm/hr Female: <30 mm/hr ESR (Bld) [Velocity] 20 mm/h mm/hr [facility] Release to patient->[facility] HLA-B27on 05-19-2022 HLA-B27 See Below [facility] Comment on above: Source: BLOOD [facility] sallie: 05/19/22 10:35 Site: Received : 05/19/22 10:53 HLA-B27 FINAL 05/19/22 22:04 Result: NEGATIVE for HLA-B27. - Comment: Ankylosing spondylitis () is a chronic inflammatory disease that causes pain and inflammation of the joints between the vertebrae of the spine and the sacroiliac and peripheral joints. Inflammation and pain may also occur in other parts of the body. HLA-B27 testing is of diagnostic value because ~90% of patients with are HLA-B27 positive compared with 5-10% of healthy individuals. Only 2-8% of individuals with HLA-B27 will develop . HLA-B27 is also associated with Jono's syndrome, acute anterior uveitis, and inflammatory bowel disease. However, the presence of the HLA-B27 allele is not diagnostic for these disorders. - Method: An HLA-B27 allele-specific polymerase chain reaction (PCR) melt-curve assay is performed on the LightCycler Instrument. Co-amplification of beta-globin is performed to ensure amplifiable DNA in HLA-B27 negative patient samples. - Limitations: Rare alleles present in <1% of most populations may not be detected. Diagnostic errors can occur due to rare sequence variations. - References: Jani LARA, crispin Russo, van rose Leone FA. Genotyping of HLA-B27 by Real-Time PCR without Hybridization Probes. Clin Chem. 2000;46:2316-9176. - Yogesh Trejo, Nikki Russo. DNA typing of HLA-B27 by polymerase chain reaction. Mol Cell Probes 1997;11:313-315. - Escobar MT, Jalen M, Wilman RL, Radha C. HLA-B27 Typing: Evaluation of an Allele-Specific PCR Melting Assay and Two Flow Cytometric Antigen Assays. Cytometry B Clin Cytom. 2005;63B:10-15. - This test was developed and its performance determined by [facility]. It has not been cleared or approved by the U.S. Food and Drug Administration. The FDA has determined that such clearance or approval is not necessary. This test is used for clinical purposes. Pursuant to the requirements of CLIA '88, this laboratory has established and verified the test's accuracy and precision. - Reviewed by: Keyon Musa, PhD, [facility] Release to patient->[facility] Hemoglobin A1con 05-19-2022 HbA1c Elph (Bld) [Mass fraction] 5.3 % 0.0 - 5.6 % [facility] Comment on above: Reference Interval: <5.7% 5.7-6.4% Prediabetes > or = 6.5% Diabetes Targets for diabetes management: Type I <7.5% Type II <7.0% Release to patient->[facility] Immunoglobulin Aon 3 Immunoglobulin A 405 mg/dL High 61 - 348 mg/dL [facility] Lipid Panelon 05-19-2022 Cholesterol [Mass/Vol] 194 mg/dL High 0 - 169 mg/dL [facility] Comment on above: Acceptable (mg/dL): <170 Borderline-High (mg/dL): 170-199 High (mg/dL): > or = 200 Reference: Recommendations of the [employer] Pediatric[employer] (Pediatrics, Mar 2011, 128 (Supplement 5) G304-R933; DOI: 10.1542/peds.2008-2107C). Cholesterol in HDL [Mass/Vol] 39 mg/dL [facility] Comment on above: Low (mg/dL): <40 Borderline-Low (mg/dL): 40-45 Acceptable (mg/dL): >45 Cholesterol in LDL [Mass/Vol] 108 mg/dL 0 - 109 mg/dL [facility] Non-HDL Cholesterol 155 mg/dL High 0 - 119 mg/dL [facility] Triglyceride [Mass/Vol] 234 mg/dL High 0 - 89 mg/dL [facility] Comment on above: A repeating fasting triglyceride should be measured in 2-4 weeks if a non-fasting level is >200 mg/dL. No Panel Informationon 05-19 Interpretation and review of laboratory results Abnormal [facility] Release to patient->[facility] TSH with Reflex to T4, Freeo n 05-19-2022 TSH with reflex to T4, Free 3.21 [facility] Vitamin B12on 05-19-2022 Cobalamin (Vitamin B12) [Mass/Vol] 359 pg/mL 180 - 914 pg/mL [facility] Release to patient->[facility] Vitamin D 25 hydroxyon 05-19 25 [place] Vitamin D 26 ng/mL Low 30 - 100 ng/mL [facility] Comment on above: Reference ranges pro vided by [facility] Laboratory are based on Endocrine Society Guidelines: Level: Characterization < 21 ng/mL: Vitamin D deficiency 21-29 ng/mL: Suboptimal Vitamin D status 30-100 ng/mL: Optimal Vitamin D status >100 ng/mL: Potentially toxic Vitamin D effects ALT/SGPTon 11-07-2021 ALT [Catalytic activity/Vol] 56 U/L High 10-49 Replaced By [facility] ([place]) Comment on above: Performed By: #### A ST, LIPID, CK, ALT #### [place] [address] Gracie 11-07-2021 AST [Catalytic activity/Vol] 36 U/L High 8-34 Replaced By [facility] ([place]) Comment on above: Performed By: #### A ST, LIPID, CK, ALT #### [address] [address] CKon 11-07-2021 CK [Catalytic activity/Vol] 136 U/L Normal 7-185 Replaced By [facility] ([place]) Comment on above: Performed By: #### A ST, LIPID, CK, ALT #### [address] [address] LIPIDon 11-07-2021 Cholesterol [Mass/Vol] 181 mg/dL Normal 50-199 [facility] ([place]) Comment on above: Result Comment: Chol esterol Reference Interval: Less than 200 Desirable 200-239 Borderline high risk 240 and above High risk Performed By: #### A ST, LIPID, CK, ALT #### [place] [id number] Cholesterol in HDL [Mass/Vol] 34 mg/dL Low 40-59 Replaced By [facility] ([place]) Comment on above: Performed By: #### A ST, LIPID, CK, ALT #### [place] [id number] Cholesterol in LDL [Mass/Vol] 110 mg/dL Normal 0-129 Replaced By [facility] ([place]) Comment on above: Performed By: #### A ST, LIPID, CK, ALT #### [address] [address] Triglyceride [Mass/Vol] 186 mg/dL High 3-149 A [facility] ([place]) Comment on above: Performed By: #### A ST, LIPID, CK, ALT #### [address] [address] [facility] Sendouton 11-06 [facility] Send[facility] see below [facility] Comment on above: No results to be rec eived. [facility] Performed by see below [facility] Comment on above: Testing performed: [address] [address] Test Name SEE COMMENTS [facility] Comment on above: AST CK LIPID ALT ORDER WAS CANCELLED 11/06/21 12:51, [employer] INSURANCE SENDING TO [place]. Release to patient->[facility] Lipid panelon 08-14-2021 Cholesterol [Mass/Vol] 275 mg/dL High 0 - 169 mg/dL [facility] Comment on above: Acceptable (mg/dL): <170 Borderline-High (mg/dL): 170-199 High (mg/dL): > or = 200 Reference: Recommendations of the [employer] Pediatrics (Pediatrics, Mar 2011, 128 (Supplement 5) R106-F570; DOI: 10.1542/peds.2008-2107C). Cholesterol in HDL [Mass/Vol] 39 mg/dL [facility] Comment on above: Low (mg/dL): <40 Borderline-Low (mg/dL): 40 - 45 Acceptable (mg/dL): >45 Cholesterol in LDL [Mass/Vol] 190 mg/dL High 0 - 109 mg/dL [facility] Interpretation and review of laboratory results Abnormal [facility] Non-HDL Cholesterol 236 mg/dL High 0 - 119 mg/dL [facility] Triglyceride [Mass/Vol] 231 mg/dL High 0 - 89 mg/dL [facility] Comment on above: A repeating fasting triglyceride should be measured in 2-4 weeks if a non-fasting level is >200 mg/dL. Release to patient->[facility] Vital Signs Date Time Vital Sign Value Performing Clinician Facility 09-15-2024 10:07040 Body height 157.[address] Zoe Nevarez MD Work Phone: [facility] 09-15-2024 10:07040 Body mass index (BMI) [Ratio] 40.2 kg/m2 Dr. Zoe Nevarez MD Work Phone: [facility] 09-15-2024 10:07-040 Body temperature 97.9 [degF] Dr. Zoe Nevarez MD Work Phone: [facility] 09-15-2024 10:07-0400 Body weight 99.[address] Zoe Nevarez MD Work Phone: [facility] 09-15-2024 10:07-0400 Diastolic blood pressure 82 mm[Hg] Dr. Zoe Nevarez MD Work Phone: [facility] 09-15-2024 10:07-0400 Heart rate 98 /min Dr. Zoe Nevarez MD Work Phone: [facility] 09-15-2024 10:07-0400 Respiratory rate 18 /min Dr. Zoe Nevarez MD Work Phone: [facility] 09-15-2024 10:07-0400 SaO2% (BldA) [Mass fraction] 96 % Dr. Zoe Nevarez MD Work Phone: [facility] 09-15-2024 10:07-0400 Systolic blood pressure 134 mm[Hg] Dr. Zoe Nevarez MD Work Phone: [facility] 09-13-2024 12:02-0400 Body height 157.[address] Zoe Nevarez MD Work Phone: [facility] 09-13-2024 12:02-0400 Body mass index (BMI) [Ratio] 40.3 kg/m2 Dr. Zoe Nevarez MD Work Phone: [facility] 09-13-2024 12:02-0400 Body temperature 98.3 [degF] Dr. Zoe Nevarez MD Work Phone: [facility] 09-13-2024 12:02-0400 Body weight 99.[address] Zoe Nevarez MD Work Phone: [facility] 09-13-2024 12:02-0400 Diastolic blood pressure 80 mm[Hg] Dr. Zoe Nevarez MD Work Phone: [facility] 09-13-2024 12:02-0400 Heart rate 89 /min Dr. Zoe Nevarez MD Work Phone: [facility] 09-13-2024 12:02-0400 SaO2% (BldA) [Mass fraction] 98 % Dr. Zoe Nevarez MD Work Phone: [facility] 09-13-2024 12:02-0400 Systolic blood pressure 122 mm[Hg] Dr. Zoe Nevarez MD Work Phone: [facility] 06-23-2024 15:15-0500 Body height 157.[address] Zoe Nevarez MD Work Phone: [facility] 06-23-2024 15:15-0500 Body mass index (BMI) [Ratio] 40.8 kg/m2 Dr. Zoe Nevarez MD Work Phone: [facility] 06-23-2024 15:15-0500 Body temperature 98 [degF] Dr. Zoe Nevarez MD Work Phone: [facility] 06-23-2024 15:15-0500 Body weight 101.[address] Zoe Nevarez MD Work Phone: [facility] 06-23-2024 15:15-0500 Diastolic blood pressure 78 mm[Hg] Dr. Zoe Nevarez MD Work Phone: [facility] 06-23-2024 15:15-0500 Heart rate 107 /min Dr. Zoe Nevarez MD Work Phone: [facility] 06-23-2024 15:15-0500 Respiratory rate 16 /min Dr. Zoe Nevarez MD Work Phone: [facility] 06-23-2024 15:15-0500 SaO2% (BldA) [Mass fraction] 98 % Dr. Zoe Nevarez MD Work Phone: [facility] 06-23-2024 15:15-0500 Systolic blood pressure 124 mm[Hg] Dr. Zoe Nevarez MD Work Phone: [facility] 03-27-2024 11:04-0500 Body temperature 98.6 [degF] Braulio Pryor APRN.STENOTYPIST Work Phone: [facility] 03-27-2024 11:04-0500 Body weight 100.79 kg Braulio Pryor APRN.STENOTYPIST Work Phone: [facility] 03-27-2024 11:04-0500 Diastolic blood pressure 109 mm[Hg] Braulio Pryor APRN.STENOTYPIST Work Phone: [facility] 03-27-2024 11:04-0500 Heart rate 89 /min Braulio Pryor APRN.STENOTYPIST Work Phone: [facility] 03-27-2024 11:04-0500 Respiratory rate 18 /min Braulio Pryor APRN.STENOTYPIST Work Phone: [facility] 03-27-2024 11:04-0500 SaO2% (BldA) [Mass fraction] 99 % Braulio Pryor CASER.STENOTYPIST Work Phone: [facility] 03-27-2024 11:04-0500 Systolic blood pressure 143 mm[Hg] Braulio Pryor APRN.STENOTYPIST Work Phone: [facility] 04-14-2023 10:10-0500 Body height 157.[address] Lola Drummond Work Phone: [facility] 04-14-2023 10:10-0500 Body mass index (BMI) [Ratio] 39.7 kg/m2 Dr. Lola Drummond Work Phone: [facility] 04-14-2023 10:10-0500 Body temperature 97.9 [degF] Dr. Lola Drummond Work Phone: [facility] 04-14-2023 10:10-0500 Body weight 98.[address] Lola Drummond Work Phone: [facility] 04-14-2023 10:10-0500 Diastolic blood pressure 68 mm[Hg] Dr. Lola Drummond Work Phone: [facility] 04-14-2023 10:10-0500 Heart rate 90 /min Dr. Lola Drummond Work Phone: [facility] 04-14-2023 10:10-0500 Respiratory rate 16 /min Dr. Lola Drummond Work Phone: [facility] 04-14-2023 10:10-0500 SaO2% (BldA) [Mass fraction] 99 % Dr. Lola Drummond Work Phone: [facility] 04-14-2023 10:10-0500 Systolic blood pressure 114 mm[Hg] Dr. Lola Drummond Work Phone: [facility] 06-01-2022 14:35-0500 Body height 160 cm Text Entry Free [facility] 06-01-2022 14:35-0500 Body temperature 97.88 [degF] Text Entry Free [facility] 06-01-2022 14:35-0500 Diastolic blood pressure 75 mm[Hg] Text Entry Free [facility] 06-01-2022 14:35-0500 Heart rate 86 /min Text Entry Free [facility] 06-01-2022 14:35-0500 Respiratory rate 18 /min Text Entry Free [facility] 06-01-2022 14:35-0500 SaO2% (BldA) [Mass fraction] 97 % Text Entry Free [facility] 06-01-2022 14:35-0500 Systolic blood pressure 126 mm[Hg] Text Entry Free [facility] Encounters Encounter Date Encounter Type Care Provider Facility Start: 09-19-2024 ambulatory Zoe Montoya ty:[facility] Start: 09-15-2024 End: 09-15-[address] Zoe Nevarez MD -[facility] Work Phone: Start: 09-15-2024 End: 09-15-[address] Zoe Nevarez MD Work Phone: [facility] Work Phone: Start: 09-13-2024 End: 09-13-2024 Patient encounter procedure Riley Raphael ME -[facility] Work Phone: Start: 09-13-2024 End: 09-13-[address] Zoe Nevarez MD Work Phone: [facility] Work Phone: Start: 09-13-2024 End: 09-13-2024 ambulatory Riley Raphael Facility:[facility] Start: 08-24-2024 End: 08-24-[address] Zoe Nevarez MD Work Phone: [facility] Work Phone: Start: 08-24-2024 End: 08-24-[address] Zoe Nevarez MD -Laboratory, [place] Start: 08-24-2024 End: 08-24-2024 ambulatory Zoe Nevarez Facility:[facility] Start: 06-23-2024 End: 06-23-[address] Zoe Nevarez MD -[facility] Work Phone: Start: 06-23-2024 End: 06-23-[address] Zoe Nevarez MD Work Phone: [facility] Work Phone: Start: 06-23-2024 End: 06-23-2024 ambulatory Zoe Nevarez Facility:[facility] Start: 03-27-2024 End: 03-27-2024 Office outpatient new 30 minutes Braulio Pryor APRN.CNP Work Phone: [facility] Comment on above: Acute otitis media, bilateral (Primary Dx) Start: 03-27-2024 End: 03-27-2024 ambulatory ZOE NEVAREZ Facility:[id number] Start: 01-07-2024 End: 01-07-2024 Emergency department patient visit PHYSICIAN OBDULIA [facility] Start: 12-24-2023 End: 12-24-2023 ambulatory [facility] Nevarez Facility:[facility] Start: 12-24-2023 End: 12-24-2023 ambulatory [facility] Facility:[facility] Start: 04-14-2023 End: 04-14-[address] Lola Drummond Work Phone: [facility] Work Phone: Start: 04-14-2023 End: 04-14-[address] Lola Drummond Work Phone: [facility], [place] Start: 04-14-[address] Karan Drummond Work Phone: [facility] Start: 04-14-2023 End: 04-14-2023 Encounter for general adult medical examination without abnormal findings Dr. Lola Drummond Work Phone: [facility] Start: 04-14-2023 End: 04-14-[address] Lola Drummond Work Phone: [facility] Work Phone: Start: 01-11-2023 End: 01-11-2023 ambulatory LIONEL RIOS [facility] Start: 06-01-2022 End: 06-01-2022 Emergency department patient visit Steven Lorenzo [facility] Start: 05-19-2022 End: 05-19-2022 Subsequent hospital visit by physician Gisele MCALLISTER Work Phone: [facility] Comment on above: Arthralgia, unspecif ied joint; Acanthosis nigricans; Hyperlipidemia, unspecified hyperlipidemia type Start: 11-06-2021 End: 11-06-2021 Subsequent hospital visit by physician Rex Shelley MD Work Phone: [facility] Comment on above: Dyslipidemia Start: 08-14-2021 End: 08-14-2021 Subsequent hospital visit by physician Rex Shelley MD Work Phone: [facility] Comment on above: Dyslipidemia Procedures Date Procedure Procedure Detail Performing Clinician Start: 09-13-2024 X-ray of foot, three or more views Dr. Zoe Nevarez MD Work Phone: Start: 06-23-2024 Vitamin D, 25-hydrox y measurement Dr. Zoe Nevarez MD Work Phone: Comment on above: Vitamin D StatusDefi ciency: <20 ng/mL (50nmol/L)Insufficiency: 20-30 ng/mL (50-75 nmol/L)Sufficiency: 30-100 ng/mL (75-250 nmol/L)Toxicity: >100 ng/mL (>250 nmol/L) Start: 05-19-2022 COMPLETE BLOOD COUNT WITH DIFFERENTIAL Gisele Romo CASER-STENOTYPIST Work Phone: Start: 05-19-2022 Comprehensive metabo lic panel Gisele Romo CASER-STENOTYPIST Work Phone: Start: 05-19-2022 Hla i low resolution one antigen equivalent each Gisele Romo CASER-STENOTYPIST Work Phone: Start: 05-19-2022 Lipid panel Gisele atkins CASER-STENOTYPIST Work Phone: Start: 11-06-2021 [facility] maria isabel Shelley MD Work Phone: Start: 08-14-2021 Lipid panel Rex Mir MD Work Phone: Plan of Treatment Date Care Activity Detail Author Start: 12-02-2025 Tetanus Diphtheria a nd Pertussis Vaccines (7 - Td or Tdap) Tetanus Diphtheria and Pertussis Vaccines (7 - Td or Tdap) [facility] Start: 12-02-2025 Urine microalbumin profile DTaP,Tdap,Td Vaccine (7 - Td or Tdap) [facility] Start: 09-13-2024 X-ray of foot, three or more views Foot min 3 Views [facility] Start: 09-13-2024 XR Foot GE 3 Views [facility] Start: 02-11-2024 Screening for malign ant neoplasm of cervix Cervical Cancer Screening [facility] Start: 12-19-2023 Covid-19 Vaccine ( season) Covid-19 Vaccine ( season) [facility] Start: 12-19-2023 Influenza vaccination Influenza Vacc ine (#1) [facility] Start: 04-14-2023 Patient referral [facility] Work Phone: Start: 07-14-2022 End: 07-14-2022 Patient encounter procedure 07/14/2022 Office Visit Rheumatology Gisele Romo APRN-POLINA [place], [place] [id number] [facility] Start: 12-26-2021 End: 12-26-2021 Patient encounter procedure 12/26/2021 Office Visit Allergy Melchor Reagan MD [place], [place] [id number] [facility] Start: 12-25-2021 Well Visit Well Visit [facility] Start: 12-18-2021 FLU (#1) FLU (#1) [facility] Start: 11-10-2021 End: 11-10-2021 Patient encounter procedure 11/10/2021 Office Visit Cardiology Rex Shelley MD [address] [place] [address] [facility] Start: 09-30-2021 COVID-19 (3 - Booste r for Pfizer series) COVID-19 (3 - Booster for Pfizer series) [facility] Start: 09-29-2021 End: 09-29-2021 Patient encounter procedure 09/29/2021 Office Visit Allergy [place] [address] [facility] Start: 08-15-2021 End: 08-15-2021 Patient encounter procedure 08/15/2021 Office Visit Cardiology Rex Shelley MD [facility] [place] [address] [facility] Start: 06-27-2021 COVID-19 (3 - Booste r for Pfizer series) COVID-19 (3 - Booster for Pfizer series) [facility] Start: 2021 Anxiety Screening Anxiety Screening [facility] Start: 2021 Depression Screening Depression Scre ening [facility] Start: 2021 GC (Gonorrhea) Scree blake (18) GC (Gonorrhea) Screening () [facility] Start: 2021 Hearing Screening Hearing Screening [facility] Start: 2021 Hepatitis C screening Hepatitis C Sc reening [facility] Start: 2021 HIV screening HIV Screening [facility] Start: 2021 Screening for Chlamy maira trachomatis Chlamydia Screening () [facility] Start: 01-22-2021 MenB (2 of 2 - MenB 2-Dose Series Bexsero) MenB (2 of 2 - MenB 2-Dose Series Bexsero) [facility] Start: 01-22-2021 MenB (2 of 2 - MenB 2-Dose Series) MenB (2 of 2 - MenB 2-Dose Series) [facility] Start: 01-22-2021 Meningococcal B Vacc ine: Consider Based On Risk (2 of 2 - Risk Bexsero 2-dose series) Meningococcal B Vaccine: Consider Based On Risk (2 of 2 - Risk Bexsero 2-dose series) [facility] Start: 12-18-2020 FLU (#1) FLU (#1) [facility] Start: 2018 HPV Vaccine (1 - 3-d ose series) HPV Vaccine (1 - 3-dose series) [facility] Start: 2018 Vision Screening Vision Screening [facility] Start: 2017 Peds To Adult Transi tion Annual Assessment Peds To Adult Transition Annual Assessment [facility] Start: 2015 Peds To Adult Transi tion Initial Discussion Peds To Adult Transition Initial Discussion [facility] Start: 2014 HPV (1 - 2-dose series) HPV (1 - 2-dose series) [facility] Comprehensive metabo lic 1999 panel - Serum or Plasma [facility] Lipid 1995 panel - S verenice or Plasma [facility] Patient referral [facility] Work Phone: End: 05-19-2022 Transglutaminase IgA [facility] Work Phone: Comment on above: 1 Occurrences starti ng 05/19/2022 until 05/19/2022 Vitamin D, 25-hydrox y measurement [facility] Immunizations Immunization Date Immunization Notes Care Provider Fa cility 05-02-2021 PFIZER (purple cap) COVID-19, mRNA, LNP-S, 30mcg/0.3mL dose Rex Shelley MD Work Phone: [facility] 04-08-2021 PFIZER (purple cap) COVID-19, mRNA, LNP-S, 30mcg/0.3mL dose Rex Shelley MD Work Phone: [facility] 12-25-2020 meningococcal B vacc ine, recombinant, OMV, adjuvanted Rex Shelley MD Work Phone: [facility] 11-10-2019 meningococcal polysaccharide (groups A, C, Y and W-135) diphtheria toxoid conjugate vaccine (MCV4P) Rex Shelley MD Work Phone: [facility] 02-23-2019 influenza, injectabl e, quadrivalent, preservative free Rex Shelley MD Work Phone: [facility] 02-23-2019 influenza virus vacc ine, unspecified formulation Braulio Pryor APRN.CNP Work Phone: [facility] 07-03-2016 hepatitis A vaccine, pediatric/adolescent dosage, 2 dose schedule Rex Shelley MD Work Phone: [facility] 07-03-2016 influenza, injectable,quadrivalent, preservative free, pediatric Rex Shelley MD Work Phone: [facility] 12-03-2015 hepatitis A vaccine, pediatric/adolescent dosage, 2 dose schedule Rex Shelley MD Work Phone: [facility] 12-03-2015 meningococcal oligosaccharide (groups A, C, Y and W-135) diphtheria toxoid conjugate vaccine (MCV4O) Rex Shelley MD Work Phone: [facility] 12-03-2015 meningococcal polysaccharide (groups A, C, Y and W-135) diphtheria toxoid conjugate vaccine (MCV4P) Rex Shelley MD Work Phone: [facility] 12-03-2015 tetanus toxoid, redu dirk diphtheria toxoid, and acellular pertussis vaccine, adsorbed Rex Shelley MD Work Phone: [facility] 01-24-2013 influenza, injectable,quadrivalent, preservative free, pediatric Rex Shelley MD Work Phone: [facility] 01-24-2013 influenza, live, intranasal, quadrivalent Rex Shelley MD Work Phone: [facility] 12-13-2008 diphtheria, tetanus toxoids and acellular pertussis vaccine, Haemophilus influenzae type b conjugate, and poliovirus vaccine, inactivated ([id number]) Rex Shelley MD Work Phone: [facility] 12-13-2008 measles, mumps and rubella virus vaccine Rex Shelley MD Work Phone: [facility] 12-13-2008 poliovirus vaccine, inactivated Rex Shelley MD Work Phone: [facility] 12-13-2008 varicella virus vaccine Martín Shelley MD Work Phone: [facility] 08-11-2004 diphtheria, tetanus toxoids and acellular pertussis vaccine, Haemophilus influenzae type b conjugate, and poliovirus vaccine, inactivated ([id number]) Rex Shelley MD Work Phone: [facility] 03-17-2004 pneumococcal conjuga te vaccine, 7 valent Rex Shelley MD Work Phone: [facility] 02-13-2004 haemophilus influenz ae type b vaccine, PRP-T conjugate Rex Shelley MD Work Phone: [facility] 02-13-2004 measles, mumps and rubella virus vaccine Rex Shelley MD Work Phone: [facility] 02-13-2004 varicella virus vaccine Martín Shelley MD Work Phone: [facility] 2003 diphtheria, tetanus toxoids and acellular pertussis vaccine, Haemophilus influenzae type b conjugate, and poliovirus vaccine, inactivated ([id number]) Rex Shelley MD Work Phone: [facility] 2003 DTaP-hepatitis B and poliovirus vaccine Rex Shelley MD Work Phone: [facility] 2003 haemophilus influenz ae type b vaccine, PRP-T conjugate Rex Shelley MD Work Phone: [facility] 2003 hepatitis B vaccine, adult dosage Rex Shelley MD Work Phone: [facility] 2003 pneumococcal conjuga te vaccine, 7 valent Rex Shelley MD Work Phone: [facility] 2003 poliovirus vaccine, inactivated Rex Shelley MD Work Phone: [facility] 2003 diphtheria, tetanus toxoids and acellular pertussis vaccine, Haemophilus influenzae type b conjugate, and poliovirus vaccine, inactivated ([id number]) Rex Shelley MD Work Phone: [facility] 2003 DTaP-hepatitis B and poliovirus vaccine Rex Shelley MD Work Phone: [facility] 2003 haemophilus influenz ae type b vaccine, PRP-T conjugate Rex Shelley MD Work Phone: [facility] 2003 hepatitis B vaccine, pediatric or pediatric/adolescent dosage Rex Shelley MD Work Phone: [facility] 2003 pneumococcal conjuga te vaccine, 7 valent Rex Shelley MD Work Phone: [facility] 2003 poliovirus vaccine, inactivated Rex Shelley MD Work Phone: [facility] 2003 diphtheria, tetanus toxoids and acellular pertussis vaccine, Haemophilus influenzae type b conjugate, and poliovirus vaccine, inactivated ([id number]) Rex Shelley MD Work Phone: [facility] 2003 DTaP-hepatitis B and poliovirus vaccine Rex Shelley MD Work Phone: [facility] 2003 haemophilus influenz ae type b vaccine, PRP-T conjugate Rex Shelley MD Work Phone: [facility] 2003 hepatitis B vaccine, pediatric or pediatric/adolescent dosage Rex Shelley MD Work Phone: [facility] 2003 pneumococcal conjuga te vaccine, 7 valent Rex Shelley MD Work Phone: [facility] 2003 poliovirus vaccine, inactivated Rex Shelley MD Work Phone: [facility] 2003 hepatitis B vaccine, pediatric or pediatric/adolescent dosage Rex Shelley MD Work Phone: [facility] Payers Date Payer Category Payer Self-pay [id number] 2023 Unknown [id number] 2022 Medicaid [facility] MEDICAID [id number] 2022-Present [phone] [address] [place] [address] Medicaid [id number] 2022 Unknown [id number] 2012 Unknown [id number] 2003 Unknown [id number] 2003 Unknown [id number] 2003 Unknown [id number] Unknown [id number] Unknown [id number] Unknown [id number] Unknown [id number] Unknown [id number] Unknown [id number] Unknown [id number] Unknown [id number] Unknown [id number] Unknown [id number] Social History Date Type Detail Facility Start: 01-08-2017 End: 04-14-2023 Tobacco smoking status NHIS Never smoked tobacco [facility] Start: 01-08-2017 End: 03-27-2024 Tobacco use and exposure Smokeless tobacco non-user [facility] Start: 2005 Sex Assigned At Not on file [facility] Start: 08-04-2021 End: 11-06-2021 Exposure to SARS-CoV-2 (event) Not sure [facility] Start: 04-14-2023 Tobacco smokin g consumption unknown [facility] Start: 2005 Sex Assigned At Female [facility] Start: 03-27-2024 Alcoholic beverage intake Ex-drinker (finding) [facility] Start: 03-27-2024 History of Social function [facility] Start: 03-27-2024 Tobacco use panel [facility] Start: 07-05-2024 Sex Female (finding) [facility] NEGATED: Highlighted rowStart: NINF History of tobacco use Passive smoker [facility] Clinical Notes 03-27-2024 to 09-13-2024 Note Date & Type Note Facility 09-13-2024 Radiology Diagnostic study note [facility] Imaging Services [address] [place], [place] [id number] Foot min 3 Views MR#: [id number] Acct: [id number] Name: PATI ESCOBAR Rep #: [id number] : 2005 F 19 From: Katie Zamudio MD PCP: Dr. Zoe Nevarez MD Status: R EG CLI Study:Foot min 3 Views Date of Exam: Exam# [id number] Ordering Dr: St jim Raphael PA EXAM: XR Left Foot Complete, 3 or More Views CLINICAL INDICATION: FOOT INJURY TECHNIQUE: Frontal, lateral and oblique views of the left foot. COMPARISON: No relevant prior studies available. FINDINGS: BONES/JOINTS: See below. SOFT TISSUES: Soft tissue swelling without acute fracture. No radiopaque foreign body. RAD/Foot min 3 Views IMPRESSION: 1. Soft tissue swelling without acute fracture. 2. If symptoms persist, further evaluation with CT is recommended. Reading Location: [facility] CC: Dr. Zoe Nevarez MD; MAURILIO Lambert ~ Pin Drafter: Signed [facility] 06-23-2024 Evaluation note Diagnosis Onset Date Resolution Depression with anxiety chronic M 2024 2:58pm Hyperlipidemia chronic June 23, 2024 2:58pm Pelvic pain chronic June 23 2:58pm [facility] Work Phone: 1(666) 588-862503-07-2025 Evaluation note* Diagnosis Onset Date Resolution Status Admit Date Depression with anxiety chronic M 2024 2:58pm Hyperlipidemia June 23, 2024 2:58pm Pelvic pain chronic June 23 2:58pm Contusion of right ankle acute September 13, 2024 11:42am Contusion of right foot acute M 2024 11:42am [facility] Work Phone: 1(825) 882-340303-07-2025 Evaluation note* Diagnosis Onset Date Resolution Status Admit Date Depression with anxiety chronic M 2024 2:58pm Hyperlipidemia chronic June 23, 2024 2:58pm Pelvic pain chronic June 23 2:58pm Contusion of right ankle acute September 13, 2024 11:42am Contusion of right foot acute M 2024 11:42am Elevated liver enzymes acute 2024 9:56am Depression with anxiety chronic M 2024 9:56am Hyperlipidemia chronic September 15, 2024 9:56am Vitamin D deficiency chronic September 15, 2024 9:56am [facility] Work Phone: 1(293) 201-373012-09-2024 Instructions* Patient Instructions* Braulio Pryor APRN.[facility] - 03/27/2024 11:21 AM EST EAR INFECTION, MIDDLE (Otitis Media) DESCRIPTION: Infection in the middle ear. This is not contagious from person to person, but the preceding respiratory infection causing it may be contagious. Involved is the middle-ear space where nerves and small bones connect to the eardrum on one side and the eustachian tube on the other side. Most common in infants and children age 3 months to 3 years. FREQUENT SIGNS AND SYMPTOMS: -Irritability. -Earache. -Feeling of fullness in the ear. -Hearing loss. -Fever. -Dizziness. -Discharge or leakage from the ear. -Diarrhea, vomiting (sometimes). -Pulling at the ear (small children). RISK INCREASE WITH: -Recent illness, such as a respiratory infection, that has lowered resistance. -Crowded or unsanitary living conditions. -Cold climate. -Change in altitude such as flying or driving up mountains. -Family history of ear infections. -Day care. -Smoking in household. PREVENTIVE MEASURES: -Bottle-feed or breast-feed infants in a sitting position with head up, never lying down. -Breast-feeding decreases chances of child having ear infections. -No smoking in household. -Wash bed linens, towels and heating pads regularly to prevent reinfection. TREATMENT: -Diagnosis is usually made by examination of the ear. Fluid from the ear may be cultured. -Treatment usually involves medication and supportive care to relieve pain. -Apply heat to the area around the ears to relieve pain. -Swimming should be avoided until infection clears. -Surgery to insert plastic tubes through the eardrum to drain pus or fluid from the middle ear (rare); or surgery to remove the adenoids. -If the eardrum is bulging additional treatment may be necessary. MEDICATIONS: -Use ear drops to relieve pain. You may use non-prescription drops or those prescribed for a previous infection. They will not cure the infection. -Use non-prescription drugs, such as acetaminophen, to reduce pain and fever. -Antibiotics may be prescribed, if the infection appears to be bacterial rather than viral. Finish the medication. The infection may remain active for several days after symptoms disappear. ACTIVITY: Rest in bed or reduce activity until fever and pain subside. REPORT: -The following occur during treatment: Fever. Severe headache. Earache that persists longer than 2 days. despite treatment. Swelling around the ear. Convulsions. Twitching of the face muscles. [facility] NoteHNO ID: [id number] Author: BRAULIO PRYOR APRN.[place] Service: ? Author Type: Nurse Practitioner Type: Progress Notes Filed: 03/27/2024 11:38 Note Text: [facility] [address] [place] [address] Dept: [phone] Dept Subjective Pati Escobar is a 19 year old female who presents with Ear Pain (Bilateral ears/States started 2 days ago/Thinks the tonsils hurting is a result of both ears hurting) and Tonsil Pain HPI: A 19-year-old female comes in with complaints of bilateral ear pain though the left is worse than the right. The patient states symptoms have been ongoing for couple days. She has utilized ibuprofen with minimal relief. States that it is hard to hear out of her left ear. States that she does have a history of ear infections. Denies any other complaints at this time. Aside from symptoms as described above, patient has no other complaints at this time. Review of Systems Constitutional: Negative for chills, fever and malaise/fatigue. HENT: Positive for ear pain (L>R). Negative for congestion, ear discharge, sinus pain and sore throat. Respiratory: Negative for cough, shortness of breath and wheezing. Cardiovascular: Negative for chest pain. Musculoskeletal: Negative for myalgias. Neurological: Negative for headaches. Endo/Heme/Allergies: Negative for environmental allergies. ALLERGIES No Known Allergies Current Outpatient Medications on File Prior to Visit Medication Sig atorvastatin (LIPITOR) 10 mg tablet Take 1 tablet by mouth every afternoon. ibuprofen (MOTRIN) 600 mg tablet Take 600 mg by mouth every 6 hours as needed. No current facility-administered medications on file prior to visit. There is no problem list on file for this patient. Social History Tobacco Use Smoking status: Never Smokeless tobacco: Never Vaping Use Vaping status: Never Used Substance Use Topics Alcohol use: Not Currently Objective BP 143/109 (BP Site: Left Arm, BP Position: Sitting, BP Cuff Size: Large Adult) Pulse 89 Temp 37 ?C (98.6 ?F) (Temporal) Resp 18 Wt 100.8 kg (222 lb 3.2 oz) LMP 03/27/2024 (Exact Date) SpO2 99% Physical Exam Vitals and nursing note reviewed. Constitutional: General: She is awake. She is not in acute distress. Appearance: Normal appearance. She is well-developed and well-groomed. She is not ill-appearing, toxic-appearing or diaphoretic. HENT: Head: Normocephalic and atraumatic. Right Ear: Ear canal and external ear normal. A middle ear effusion is present. Tympanic membrane is erythematous and bulging. Tympanic membrane is not injected. Left Ear: Ear canal and external ear normal. A middle ear effusion is present. Tympanic membrane is injected, erythematous and bulging. Ears: Comments: Purulent drainage behind bilateral TMs Nose: Right Sinus: No maxillary sinus tenderness or frontal sinus tenderness. Left Sinus: No maxillary sinus tenderness or frontal sinus tenderness. Mouth/Throat: Lips: [place]. Mouth: Mucous membranes are moist. No oral lesions. Pharynx: Oropharynx is clear. Posterior oropharyngeal erythema present. No oropharyngeal exudate. Tonsils: No tonsillar exudate or tonsillar abscesses. 2+ on the right. 2+ on the left. Comments: +PND Eyes: Conjunctiva/sclera: Conjunctivae normal. Pulmonary: Effort: Pulmonary effort is normal. Musculoskeletal: General: Normal range of motion. Cervical back: Normal range of motion and neck supple. Lymphadenopathy: Head: Right side of head: No submandibular or tonsillar adenopathy. Left side of head: No submandibular or tonsillar adenopathy. Cervical: No cervical adenopathy. Skin: General: Skin is warm and dry. Neurological: General: No focal deficit present. Mental Status: She is alert and oriented to person, place, and time. Psychiatric: Behavior: Behavior is cooperative. Assessment/Plan ASSESSMENT/PLAN: 1. Acute otitis media, bilateral - ICD9: 382.9, ICD10: H66.93 Braulio Pryor APRN.[place] Patient was informed that examination is consistent with otitis media bilaterally and patient started on antibiotics. She is to continue ibuprofen to help with pain relief. Ultimately follow-up with PCP in 3 to 5 days if symptoms persist or sooner for worsening symptoms. Patient states understanding agrees above plan of care. Patient given educational materials - see patient instructions. Discussed use, benefit, and side effects of prescribed medications. All patient questions answered. Pt voiced understanding and agrees with treatment plan. Patient advised if symptoms worsen or persist, they are to follow up with PCP or ED. Patient agreeable with treatment plan. Radha was used to dictate this note. Braulio Pryor APRN-INSIDE WIREMAN 03/27/2024 11:14 [facility]12-09-2024 History of Present illness Narrative* Braulio Pryor APRN.STENOTYPIST - 03/27/2024 11:14 AM EST [facility] [address] [facility] [address] Dept: [phone] Dept Subjective Pati Escobar is a 19 year old female who presents with Ear Pain (Bilateral ears/States started 2 days ago/Thinks the tonsils hurting is a result of both ears hurting) and Tonsil Pain HPI: A 19-year-old female comes in with complaints of bilateral ear pain though the left is worse than the right. The patient states symptoms have been ongoing for couple days. She has utilized ibuprofen with minimal relief. States that it is hard to hear out of her left ear. States that she does have ahistory of ear infections. Denies any other complaints at this time. Aside from symptoms as described above, patient has no other complaints at this time. Review of Systems Constitutional: Negative for chills, fever and malaise/fatigue. HENT: Positive for ear pain (L>R). Negative for congestion, ear discharge, sinus pain and sore throat. Respiratory: Negative for cough, shortness of breath and wheezing. Cardiovascular: Negative for chest pain. Musculoskeletal: Negative for myalgias. Neurological: Negative for headaches. Endo/Heme/Allergies: Negative for environmental allergies. ALLERGIES No Known Allergies Current Outpatient Medications on File Prior to Visit Medication Sig atorvastatin (LIPITOR) 10 mg tablet Take 1 tablet by mouth every afternoon. ibuprofen (MOTRIN) 600 mg tablet Take 600 mg by mouth every 6 hours as needed. No current facility-administered medications on file prior to visit. There is no problem list on file for this patient. Social History Tobacco Use Smoking status: Never Smokeless tobacco: Never Vaping Use Vaping status: Never Used Substance Use Topics Alcohol use: Not Currently Objective BP 143/109 (BP Site: Left Arm, BP Position: Sitting, BP Cuff Size: Large Adult) Pulse 89 Temp 37 C (98.6 F) (Temporal) Resp 18 Wt 100.8 kg (222 lb 3.2 oz) LMP 03/27/2024 (Exact Date) [id number] Physical Exam Vitals and nursing note reviewed. Constitutional: General: She is awake. She is not in acute distress. Appearance: Normal appearance. She is well-developed and well-groomed. She is not ill-appearing, toxic-appearing or diaphoretic. HENT: Head: Normocephalic and atraumatic. Right Ear: Ear canal and external ear normal. A middle ear effusion is present. Tympanic membrane is erythematous and bulging. Tympanic membrane is not injected. Left Ear: Ear canal and external ear normal. A middle ear effusion is present. Tympanic membrane isinjected, erythematous and bulging. Ears: Comments: Purulent drainage behind bilateral TMs Nose: Right Sinus: No maxillary sinus tenderness or frontal sinus tenderness. Left Sinus: No maxillary sinus tenderness or frontal sinus tenderness. Mouth/Throat: Lips: [place]. Mouth: Mucous membranes are moist. No oral lesions. Pharynx: Oropharynx is clear. Posterior oropharyngeal erythema present. No oropharyngeal exudate. Tonsils: No tonsillar exudate or tonsillar abscesses. 2+ on the right. 2+ on the left. Comments: +PND Eyes: Conjunctiva/sclera: Conjunctivae normal. Pulmonary: Effort: Pulmonary effort is normal. Musculoskeletal: General: Normal range of motion. Cervical back: Normal range of motion and neck supple. Lymphadenopathy: Head: Right side of head: No submandibular or tonsillar adenopathy. Left side of head: No submandibular or tonsillar adenopathy. Cervical: No cervical adenopathy. Skin: General: Skin is warm and dry. Neurological: General: No focal deficit present. Mental Status: She is alert and oriented to person, place, and time. Psychiatric: Behavior: Behavior is cooperative. Assessment/Plan ASSESSMENT/PLAN: 1. Acute otitis media, bilateral - ICD9: 382.9, ICD10: H66.93 Braulio Pryor APRN.STENOTYPIST Patient was informed that examination is consistent with otitis media bilaterally and patient started on antibiotics. She is to continue ibuprofen to help with pain relief. Ultimately follow-up with PCP in 3 to 5 days if symptoms persist or sooner for worsening symptoms. Patient states understanding agrees above plan of care. Patient given educational materials - see patient instructions. Discussed use, benefit, and side effects of prescribed medications. All patient questions answered. Pt voiced understanding and agrees with treatment plan. Patient advised if symptoms worsen or persist, they are to follow up with PCP or ED. Patient agreeable with treatment plan. Radha was used to dictate this note. SANJAY Morrell 03/27/2024 11:14 AM [facility] Diagnosis Dyslipidemia Other and unspecified hyperlipidemia documented in this encounter [facility] note* Diagnosis Dyslipidemia Other and unspecified hyperlipidemia documented in this encounter [facility] note* Diagnosis Arthralgia, unspecified joint Acanthosis nigricans Acquired acanthosis nigricans Hyperlipidemia, unspecified hyperlipidemia type documented in this encounter [facility] note* Diagnosis Onset Date Resolution Status Preventative health care acu te Concentration deficit chroni c Hyperlipidemia chronic Joint pain chronic [facility] Work Phone: Evaluation note* Diagnosis Acute otitis media, bilateral- Primary Unspecified otitis media [facility]No reason for referral information availableWSouthview [facility] Work Phone: Advance Directives No Advanced Directives Records FoundDocuments on File Type Date Recorded 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 [employer] Summary Purpose Family History No Family History Records Found Relationship Condition Age at Onset Recorded Date/T joy grandfather Hemorrhagic disorder Unknown Cardiac disease Unknown Hypertension Unknown Coronary artery disease Unknown Diabetes mellitus Unknown Anemia Unknown Myocardial infarction Unknown Cerebrovascular accident (CVA) Unknown mother Diabetes mellitus Unknown grandmother Diabetes mellitus Unknown Chief Complaint and Reason for Visit Chief Complaint EST NEW PT - PPW SEN T Reason for Visit Preventative health care Concentration deficit Hyperlipidemia Joint pain Chief Complaint Admit Date YEARLY June 23, 2024 2:58 pm Reason for Visit Admit Date Depression with anxiety June 23, 2024 2:58pm Hyperlipidemia June 23, 2024 2:58 pm Pelvic pain June 23, 2024 2:58 pm Chief Complaint Admit Date YEARLY June 23, 2024 2:58 pm L FOOT INJURY September 13, 2024 11:42 am foot injury- LEFT September 13, 2024 11:46 am Chief Complaint Admit Date YEARLY June 23, 2024 2:58 pm L FOOT INJURY September 13, 2024 11:42 am foot injury- LEFT September 13, 2024 11:46 am 3 M FU September 15, 2024 9:56a m Reason for Visit Admit Date Depression with anxiety June 23, 2024 2:58pm Hyperlipidemia June 23, 2024 2:58 pm Pelvic pain June 23, 2024 2:58 pm Contusion of right ankle September 13, 2024 11:42am Contusion of right foot September 13, 2024 1 1:42am Reason for Visit Admit Date Depression with anxiety June 23, 2024 2:58pm Hyperlipidemia June 23, 2024 2:58 pm Pelvic pain June 23, 2024 2:58 pm Contusion of right ankle September 13, 2024 11:42am Contusion of right foot September 13, 2024 1 1:42am Elevated liver enzymes September 15, 2024 9: 56am Depression with anxiety September 15, 2024 9 :56am Hyperlipidemia September 15, 2024 9:56a m Vitamin D deficiency September 15, 2024 9:56 am Additional Source Comments Care Teams (unrecognized sec tion and content) Cyber Systems Engineer Relationship Specialty Start Date End Date Lola Drummond DO (Fax) PCP - General Pediatrics 04/20/18 Cyber Systems Engineer Relationship Specialty Start Date End Date Lola Drummond DO PCP - General Pediatrics 04/20/18 Cyber Systems Engineer Relationship Specialty Start Date End Date Lola Drummond DO PCP - General Pediatrics 04/20/18 Team Status: Active Member Role Status Dates Dr. Zoe Nevarez MD Primary Care Provider Active Team Status: Inactive Member Role Status Dates Dr. Lola Drummond DO Primary Care Provider, Referri ng Provider Active Dr. Zoe Nevarez MD Attending Provider Active Team Status: Inactive Member Role Status Dates Dr. Zoe Nevarez MD Primary Care Provider, Atten ding Provider Active Cyber Systems Engineer Relationship Specialty Start Date End Date Zoe Nevarez MD [address] [place] [address] PCP - General Internal Medicine 03/27/24 Team Status: Inactive Member Role Status Dates Dr. Zoe Nevarez MD Primary Care Provider Active Start: June 23, 2024 End: June 23, 2024 Dr. Zoe Nevarez MD Attending Provider Active Start: June 23, 2024 End: June 23, 2024 Dr. Zoe Nevarez MD Referring Provider Active Start: June 23, 2024 End: June 23, 2024 Team Status: Inactive Member Role Status Dates Dr. Zoe Nevarez MD Primary Care Provider Active Start: August 24, 2024 End: August 24, 2024 Dr. Zoe Nevarez MD Attending Provider Active Start: August 24, 2024 End: August 24, 2024 Dr. Zoe Nevarez MD Referring Provider Active Start: August 24, 2024 End: August 24, 2024 Team Status: Inactive Member Role Status Dates Dr. Zoe Nevarez MD Primary Care Provider Active Start: September 13, 2024 End: September 13, 2024 Dr. Zoe Nevarez MD Referring Provider Active Start: September 13, 2024 End: September 13, 2024 MAURILIO Kincaid Attending Provider Active Start: September 13, 2024 End: September 13, 2024 Team Status: Active Member Role Status Dates Dr. Zoe Nevarez MD Primary Care Provider Active Start: September 13, 2024 MAURILIO Kincaid Attending Provider Active Start: September 13, 2024 Riley THORPE PA Referring Provider Active Start: September 13, 2024 Team Status: Inactive Member Role Status Dates Dr. Zoe Nevarez MD Primary Care Provider Active Start: September 15, 2024 End: September 15, 2024 Dr. Zoe Nevarez MD Attending Provider Active Start: September 15, 2024 End: September 15, 2024 Dr. Zoe Nevarez MD Referring Provider Active Start: September 15, 2024 End: September 15, 2024 Team Status: Inactive Member Role Status Dates Dr. Zoe Nevarez MD Primary Care Provider Active Start: September 13, 2024 End: September 13, 2024 MAURILIO Kincaid Attending Provider Active Start: September 13, 2024 End: September 13, 2024 MAURILIO Kincaid Referring Provider Active Start: September 13, 2024 End: September 13, 2024 INFORMATION SOURCE (unrecogn ized section and content) DATE CREATED AUTHOR 11/19/2021 [facility] DATE CREATED AUTHOR AUTHOR'S ORGANIZ ATION 06/03/2022 [facility] DATE CREATED AUTHOR AUTHOR'S ORGANIZ ATION 01/01/2024 [facility] DATE CREATED AUTHOR AUTHOR'S ORGANIZ ATION 01/10/2024 [facility] DATE CREATED AUTHOR AUTHOR'S ORGANIZ ATION 03/30/2024 [facility] DATE CREATED AUTHOR AUTHOR'S ORGANIZ ATION 09/19/2024 [facility] <item> Privacy Markings (unrecogniz ed section and content) Section Author: Renetta Weems PROHIBITION ON REDISCLOSURE OF CONFIDENTIAL INFORMATION This notice accompanies a disclosure of information concerning a client made to you with the consent of such client. Goals (unrecognized section and content) Goals may be documented in a n alternate sectionGoals may be documented in an alternate sectionGoals may be documented in an alternate sectionGoals may be documented in an alternate sectionGoals may be documented in an alternate sectionGoals may be documented in an alternate section Source Comments (unrecognize d section and content) In the event this informatio n is protected by the Federal Confidentiality of Alcohol and Drug Abuse Patient Records regulations: The Federal rules restrict any use of the information to criminally investigate or prosecute any alcohol or drug abuse patient.[facility] Reason for Visit (unrecogniz ed section and content) Reason Comments Ear Pain Bilateral earsStates started 2 days agoThinks the tonsils hurting is a result of both ears hurting Tonsil Pain FOR RECORDS PERTAINING TO PATIENTS WHO ARE OR HAVE BEEN ENROLLED IN A CHEMICAL DEPENDENCY/SUBSTANCEABUSE PROGRAM, SOME INFORMATION MAY BE OMITTED. This clinical summary was aggregated from multiple sources. Caution should be exercised in using it in the provision of clinical care. This summary normalizes information from multiple sources, and as a consequence, information in this document may materially change the coding, format and clinical context of patient data. In addition, data may be omitted in some cases. CLINICAL DECISIONS SHOULD BE BASED ON THE PRIMARY CLINICAL RECORDS. [employer] provides no warranty or guarantee of the accuracy or completeness of information in this document.
== END | disposition home or self-care (01) ==
LOC: US 10:09
PROVIDERS: PCP Internal Medicine; Referring Provider Internal Medicine; Visit Provider Internal Medicine
DX: R74.8 Abnormal levels of other serum enzymes (principal)
CPT/HCPCS: 76705

== ENCOUNTER → 2024-09-27 | Outpatient (CLI) | payer OTHER, MEDICAID, SELFPAY ==
--- NOTE | 2024-09-27 11:20 | RAD_ITS ---
PROCEDURE: FINGER(S) MIN 2 VIEWS 09/27/2024 REASON FOR EXAM: FINGER INJURY TECHNIQUE: 3 view(s) of the left 5th finger. COMPARISON: None. RAD/Finger(s) Min 2 Views IMPRESSION: Mild degenerative changes are seen in the proximal and distal interphalangeal j oints. Probable longitudinal fracture of the volar base of the left 5th distal phalanx , nondisplaced; recommend clinical correlation. Follow up as clinically appropriate. Reading Location: [address]
== END | disposition home or self-care (01) ==
LOC: MTRAD 11:20
PROVIDERS: PCP Internal Medicine; Referring Provider Physician Assistant; Visit Provider Physician Assistant
DX: S69.90XA Unspecified injury of unspecified wrist, hand and finger(s), initial encounter (principal)
CPT/HCPCS: 73140

== ENCOUNTER → 2024-12-04 | Outpatient (CLI) | payer OTHER, MEDICAID, SELFPAY ==
--- NOTE | 2024-12-04 07:48 | RDU_ITS ---
Reason For Study Reason For Study: HTN Right Renal Artery Left Renal Artery Right renal artery ostium 115/36 RSV/EDV. Left renal artery ostium 166/56 PSV/EDV. Right renal artery proximal 137/50 Left renal artery proximal PSV/EDV PSV/EDV. 122/47 . Right renal artery mid 155/61 PSV/EDV. Left renal artery mid 107/33 PSV/EDV . Right renal artery distal 140/60 PSV/EDV. Left renal artery distal 56/19 PSV/EDV. Right RAR 1.74. Left RAR 1.87. Right Renal Parenchyma Left Renal Parenchyma Upper Pole Medula 20/8 PSV/EDV. Left upper pole medulla 44/21 PSV/EDV . Right upper pole medulla EDR 0.40 . Left upper pole medulla EDR 0.48 . Right upper pole medulla R.I. 0.62 . Left upper pole medulla R.I. 0.53 . Upper Jasson Cortx 21/10 PSV/EDV. UP Cortex 25/12 PSV/EDV. Right upper pole cortex EDR 0.48 . Left upper pole cortex EDR 0.48 . Right upper pole cortex R.I. 0.54 . Left upper pole cortex R.I. 0.54 . Right lower Pole medulla 20/10 PSV/EDV . Left lower Pole medulla 17/8 PSV/EDV . Right lower pole medulla EDR 0.50 . Left lower pole medulla EDR 0.47 . Right lower pole medulla R.I. 0.47 . Left lower pole medulla R.I. 0.54 . Lower Pole Cortex 19/8 PSV/EDV. Lower Pole Cortx 25/10 PSV/EDV. Right lower pole cortex EDR 0.42 . Left lower pole cortex EDR 0.40 . Right lower pole cortex R.I. 0.57 . Left lower pole cortex R.I. 0.59 . Right Renal Hilar Left Renal Hilar Right Hilar avg 173/78 PSV/EDV. LT Hilar avg 72/27 PSV/EDV . Right hilar acceleration time 40 m/sec. Left hilar acceleration time 30 m/sec. Right Renal Dimensions Left Renal Dimensions Right kidney size 10.32 cm . Left kidney size 11.07 cm . Right cortical dimension 1.45 cm . Left cortical dimension 1.66 cm . Aorta Proximal abdominal aorta 1.33cm x 1.20 cm . Proximal abdominal aorta peak systolic velocity is 89 cm/sec . Distal abdominal aorta 1.26cm x 1.23 cm . Distal abdominal aorta peak systolic velocity is 144 cm/sec . VL/Renal Artery Duplex Ultrasound Interpretation Summary Dimensions of the intra-abdominal aorta appear normal, without evidence of aneu rysmal dilatation. Renal artery velocities are bilaterally normal. Acceleration times are normal bilaterally. R enal-aortic ratios are also bilaterally normal. There is no evidence of hemodynamically significant renal artery stenos is on either side. Renovascular resistance appears to be bilaterally normal . The right cortical dimension is n ormal. The left cortical dimension is increased. Kidneys appear normal in size bilaterally. Ordering Physician: Coretta Nevarez Referring Physician: Coretta Nevarez Performed By: Erica Smith, RDCS, RVT
--- NOTE | 2024-12-04 07:48 | EKG12_ITS ---
Test Reason : HTN Blood Pressure : */* mmHG Vent. Rate : 72 BPM Atrial Rate : 72 BPM P-R Int : 174 ms QRS Dur : 86 ms QT Int : 430 ms P-R-T Axes : 26 24 27 degrees QTcB Int : 470 ms Normal sinus rhythm with sinus arrhythmia Normal ECG Confirmed by MARIA ELENA GUADARRAMA, TINO ([id number]), editor greeting card RAYMUNDO RENAE ([id number]) on 12/05/2024 6:08:27 AM Referred By: Coretta Nevarez Confirmed By: TINO ARREDONDO MD
== END | disposition home or self-care (01) ==
LOC: CVS 07:48
PROVIDERS: PCP Internal Medicine; Referring Provider Internal Medicine; Visit Provider Internal Medicine
DX: I10 Essential (primary) hypertension (principal); Z82.49 Family history of ischemic heart disease and other diseases of the circulatory system
CPT/HCPCS: 93005; 93975

== ENCOUNTER → 2024-12-08 | Outpatient (CLI) | payer OTHER, MEDICAID, SELFPAY ==
[2024-12-08 12:48] LABS: Hematocrit 39.9 % (37-47); Hemoglobin 14.0 g/dL (12.0-15.0); Mean Corp Hgb Conc 35.1 g/dL (32-36); Mean Corpuscular Volume 88.3 fL (81-99); Mean Platelet Vol. 10.0 fl (6.2-12.0); Platelet Count 339 K/mm3 (150-450); RBC Distribution Width CV 11.5 % (11.6-14.6); RBC Distribution Width SD 37.1 fl (35.1-43.9); Red Blood Count 4.52 M/mm3 (4.2-5.4); White Blood Count 8.4 K/mm3 (4.4-11.0)
[2024-12-08 13:37] LABS: AST(SGOT) 31 U/L (<=31); Alanine Aminotransfer ALT/SGPT 38 U/L (<=34); Albumin, Serum 4.4 g/dL (3.5-5.0); Alkaline Phosphatase 78 U/L (35-104); Anion Gap 15 (5-15); BUN 9 mg/dL (4-19); BUN/Creat Ratio 10.7 RATIO (10-20); Calcium,Total 9.4 mg/dL (7.6-11.0); Carbon Dioxide 22.1 mmol/L (21.0-32.0); Chloride 100 mmol/L (98-108); Cholesterol 168 mg/dL (<=190); Globulin 3.5 g/dL (2.2-4.2); Glucose 82 mg/dL (70-99); Hepatitis B Surface Antigen Nonreactive (Nonreactive); Hepatitis C Antibody Nonreactive (Nonreactive); Low Density Lipoprotein Calc. 93 mg/dL; Potassium 4.0 mmol/L (3.3-5.1); Triglycerides 182 mg/dL; Very Low Density Lipoprotein 36 mg/dL (5-40); Vitamin D,25 Hydroxy 42.6 ng/mL (30-100); cholesterol:hdl ratio screen 4.39
--- NOTE | 2024-12-08 13:59 | ECHOD_ITS ---
Reason For Study Reason For Study: HYPERTENSION Procedure This was a 2D Doppler, Color Flow transthoracic echocardiogram. Exam performed in department. Left Ventricle Normal LV size. The estimated ejection fraction is 60 %. No evidence for diastolic dysfunction. No regional wall motion abnormalities noted. Right Ventricle Normal RV size. Normal systolic function. Atria The left and right atria are normal. No doppler evidence for ASD. Mitral Valve There is no mitral valve stenosis. No mitral valve insufficiency. Tricuspid Valve There is no tricuspid stenosis. Trivial tricuspid valve insufficiency. Unable to estimate RV systolic pressure due to insufficient tricuspid regurgitant envelope. Aortic Valve Trisinus/trileaflet aortic valve. There is no aortic stenosis. No aortic valve insufficiency. Pulmonic Valve There is no pulmonic valvular stenosis. No pulmonic valve insufficiency. Great Vessels Normal sized aortic root. Pericardium/Pleural No pericardial effusion. MMode/2D Measurements & Calculations LVIDd: 3.9 cm IVSd: 1.1 cm Ao root diam: 2.8 cm LVIDs: 2.8 cm LVPWd: 1.0 cm FS: 27.5 % LAV(MOD-bp): 40.2 ml LVAd ap4: 29.8 cm2 LVAd ap2: 29.3 cm2 LAV(MOD-bp) Indexed: 20.0 ml/m2 LVLd ap4: 8.1 cm LVLd ap2: 8.4 cm LAV(MOD-sp2): 35.6 ml EDV(MOD-sp4): 89.7 ml EDV(MOD-sp2): 84.8 ml LAV(MOD-sp4): 35.4 ml EDV(sp4-el): 93.5 ml EDV(sp2-el): 86.4 ml LVAs ap4: 16.2 cm2 LVAs ap2: 15.5 cm2 LVLs ap4: 7.0 cm LVLs ap2: 6.5 cm ESV(MOD-sp4): 33.2 ml ESV(MOD-sp2): 31.6 ml ESV(sp4-el): 31.8 ml ESV(sp2-el): 31.6 ml EF(MOD-sp4): 63.0 % EF(MOD-sp2): 62.7 % EF(sp4-el): 66.0 % SV(MOD-sp4): 56.5 ml SV(MOD-sp2): 53.2 ml SV(sp4-el): 61.7 ml SI(MOD-sp4): 28.1 ml/m2 SI(MOD-sp2): 26.5 ml/m2 LA A4 area: 15.6 cm2 LA dimension(2D): 3.6 cm RA A4 area: 10.7 cm2 TAPSE: 1.8 cm Time Measurements MV dec time: 0.16 sec Doppler Measurements & Calculations MV E max asher: 97.6 cm/sec Lat Peak E' Asher: 20.5 cm/sec Med Peak E' Asher: 13.0 cm/sec MV A max asher: 51.5 cm/sec E/E' lat: 4.8 E/E' med: 7.5 MV E/A: 1.9 MV V2 max: 103.5 cm/sec MV P1/2t max asher: 105.7 cm/sec Ao V2 max: 136.7 cm/sec MV max P.3 mmHg MV P1/2t: 50.4 msec Ao max P.5 mmHg MV V2 mean: 59.4 cm/sec Ao V2 mean: 95.8 cm/sec MV mean P.6 mmHg MV dec slope: 614.7 cm/sec2 Ao mean P.2 mmHg MV V2 VTI: 15.9 cm MVA(P1/2t): 4.4 cm2 Ao V2 VTI: 27.2 cm AV (velocity ratio): 0.75 LV V1 max: 98.6 cm/sec PA V2 max: 94.3 cm/sec TR max asher: 236.6 cm/sec LV V1 max P.9 mmHg PA V2 mean: 72.7 cm/sec TR max P.4 mmHg LV V1 mean P.3 mmHg LV V1 mean: 70.3 cm/sec LV V1 VTI: 20.5 cm ECHO/Echo Complete Interpretation Summary The estimated ejection fraction is 60 %. No evidence for diastolic dysfunction. Ordering Physician: Coretta Nevarez Referring Physician: Coretta Nevarez Performed By: Misty Barron RDCS, RVT
[2024-12-18 00:07] LABS: ALDOSTERONE/RENIN RATIO 6.8 (0.0-30.0); GGTP 19 IU/L (0-60)
--- OUTSIDE RECORDS SUMMARY | 2025-02-28 17:16 | XMS RPT_ITS | CCD ---
Author Organization [facility] Care Team Providers Care Material Reclaimer Name Role Phone Lola Zepeda DO Primary Care Provider Free, Text Entry Unavailable Unavailable Steven Lorenzo Unavailable Unavailable Ms. Steven Lorenzo Attending Unavailable Pending, Provider Primary Care Unavailable Dr. Lola Zepeda Primary Care Provider Dr. Lola Zepeda Referring Provider Dr. Zoe Nevarez Attending Provider [phone] LIONEL RIOS Attending Unavailable REFERRED, SELF Referring [...] Provider [phone] Riley Jones Attending Provider Riley Jones Referring Provider Justin Christiansen MD Attending Provider Dr. Zoe Nevarez MD Primary Care Provider Dr. Zoe Nevarez MD Attending Provider [phone] Dr. Zoe Nevarez MD Referring Provider [phone] Patrica Gay Attending Provider [phone] Stu GUADARRAMA, Dr. Jackson Attending Provider [phone] Roque GUADARRAMA, Dr. Hitchcock Primary Care Provider Roque GUADARRAMA, Dr. Hitchcock Referring Provider [phone] Roque GUADARRAMA, Dr. Hitchcock Attending Provider [phone] Marta GUADARRAMA, Dr. Harsh Russo Attending Provider Lily GUADARRAMA, Dr. Roberts Attending Provider Kwame Montiel Attending Provider Roque GUADARRAMA, Dr. Hitchcock Primary Care Physician Roque GUADARRAMA, Dr. Hitchcock Referring Provider [phone] Riley Jones Attending Physician Riley Jones Referring Provider Justin Christiansen MD Attending Physician Claudine ANTUNEZ-CPatrica Attending Physician Roque GUADARRAMA, Dr. Hitchcock Attending Physician [phone] Stu GUADARRAMA, Dr. Jackson Attending Physician [phone] Marta GUADARRAMA, Dr. Harsh Russo Attending Physician Lily GUADARRAMA, Dr. Roberts Attending Physician Kwame Montiel Attending Physician Riley Jones Attending Unavailable Oleghe, Efewongbe Primary Care Unavailable Oleghe, Efewongbe Referring Unavailable Justin Christiansen Attending Unavailable Oleghe, Efewongbe Primary Care Unavailable Oleghe, Efewongbe Referring Unavailable Oleghe, Efewongbe Primary Care Unavailable Oleghe, Efewongbe Referring Unavailable Patrica Chow Attending Unavailable Oleghe, Efewongbe Primary Care Unavailable Oleghe, Efewongbe Referring Unavailable Manuel Peraza Attending Unavailable Oleghe, Efewongbe Attending Unavailable Oleghe, Efewongbe Referring Unavailable Oleghe, Efewongbe Primary Care Unavailable Oleghe, Efewongbe Referring Unavailable Oleghe, Efewongbe Attending Unavailable Oleghe, Efewongbe Primary Care Unavailable Oleghe, Efewongbe Primary Care Unavailable Oleghe, Efewongbe Referring Unavailable Riley Jones Attending Unavailable Oleghe, Efewongbe Primary Care Unavailable Oleghe, Efewongbe Referring Unavailable Manuel Pearza Attending Unavailable Oleghe, Efewongbe Referring Unavailable Oleghe, Efewongbe Attending Unavailable Oleghe, Efewongbe Primary Care Unavailable Oleghe, Efewongbe Primary Care Unavailable Nagajogloria Nagapradee Attending Unavailabl e Oleghe, Efewongbe Primary Care Unavailable Oleghe, Efewongbe Referring Unavailable Oleghe, Efewongbe Attending Unavailable Oleghe, Efewongbe Attending Unavailable Oleghe, Efewongbe Primary Care Unavailable Oleghe, Efewongbe Referring Unavailable Oleghe, Efewongbe Primary Care Unavailable Oleghe, Efewongbe Referring Unavailable Kwame Montiel Attending Unavailable Oleghe, Efewongbe Primary Care Unavailable Riley Jones Attending Unavailable Riley Jones Referring Unavailable Oleghe, Efewongbe Referring Unavailable Oleghe, Efewongbe Attending Unavailable Oleghe, Efewongbe Primary Care Unavailable Oleghe, Efewongbe Attending Unavailable Oleghe, Efewongbe Primary Care Unavailable Oleghe, Efewongbe Referring Unavailable Oleghe, Efewongbe Attending Unavailable Oleghe, Efewongbe Primary Care Unavailable Oleghe, Efewongbe Referring Unavailable Riley Jones Attending Unavailable Oleghe, Efewongbe Primary Care Unavailable Riley Jones Referring Unavailable Allergies Allergy Classification Reported Allergen(s) Allergy Type Date of Onset Reaction(s) Facility (16 sources) iris allergenic extract Drug Allergy 04-14-2023 Anaphylaxis [facility] (1 source) iris allergenic extract Drug Allergy 01-17-2025 [facility] Repository Medications Current Medications Medication Drug Class(es) Dates Sig (Normalized) Sig (Original) acetaminophen 500 mg oral tablet (1 source) Acetaminophen (TYLENOL PO) Take 500 mg by mouth as needed 0 Active amLODIPine 5 mg oral tablet (3 sources) Dihydropyridine Calcium Channel Saige Start: 01-17-2025 take 1 tablet by mouth once daily Amlodipine 5 mg tablet Active 5 mg PO daily 90 January 17, 2025 12:00am Complies with drug therapy amoxicillin 875 mg oral tablet (1 source) [...] g PO daily November 07, 2024 3:06pm Complies with drug therapy Start: 04-14-2023 End: 09-15-2024 take 1 g [...] tablet Take by mouth daily 0 Active atorvastatin 20 mg oral tablet (20 sources) HMG-CoA Reductase Inhibitor Start: 01-17-2025 take 1 tablet by mouth once daily Atorvastatin 20 mg tablet Active 20 mg PO daily 90 January 17, 2025 11:53am Complies with drug therapy Start: 04-14-2023 End: 01-17-2025 take 1 tablet by mouth once daily [...] Yg ntity: 0 Refills: 0 Ordered: 01-Jun-2022 Rivera, Patrica Generic Substitution Allowed azithromycin 250 mg oral tablet (1 source) [...] EVERY WEEK 7 October 09, 2024 8:04am Complies with drug therapy Start: 11-08-2021 take 2 tablets by mo [...] tablet (2 sources) Nonsteroidal Anti-inflammatory Drug Start: 4 take 1 tablet by mouth every six [...] mouth daily 30 Tablet 11 05/03/2020 Active mecobalamin 1 mg oral lozenge (3 sources) Start: 09-13-2024 take 1000 ug by mouth once daily Mecobalamin (Vitamin B12) 1,000 mcg lozenge Active 1000 ug PO daily September 13, 2024 12:00am allow to dissolve in mouth OR may chew lightly before swallowing Complies with drug therapy Mecobalamin (Vitamin B12) 1,000 mcg lozenge (10 sources) Start: 09-13-2024 take 1000 ug by mouth once daily Mecobalamin (Vitamin B12) 1,000 mcg lozenge Active 1000 ug PO daily September 13, 2024 12:00am allow to dissolve in mouth OR may chew lightly before swallowing meloxicam 15 mg oral tablet (3 sources) Nonsteroidal Anti-inflammatory Drug Start: 01-17-2025 Meloxicam 15 mg tablet Active 15 mg PO daily 30 January 17, 2025 12:00am Take daily x 7 days then just as needed Complies with drug therapy Multiple Vitamins-Minerals (ZINC PO) (2 sources) Multiple [...] Drug Class(es) Dates Sig (Normalized) Sig (Original) [id number] 200 actuat albuterol 0.09 mg/actuat metered dose [...] action of this medication.Shake well before use. aspirin 81 mg oral tablet (6 sources) Platelet Aggregation Inhibitor, Nonsteroidal Anti-inflammatory Drug Start: 11-07-2024 End: 01-17-2025 take 1 tablet by mouth twice daily Aspirin 81 mg tablet Discontinued 81 mg PO TWICE A DAY November 07, 2024 12:00am January 17, 2025 11:52am CONTROL (16 sources) Start: 06-29-2019 End: 04-14-2023 CONTROL Discontinued PO 0 June 29, 2019 12:00am April 14, 2023 11:04am Start: 06-29-2019 End: 04-14-2023 CONTROL Discontinued P O June 29, 2019 12:00am April 14, 2023 11:04am Start: 06-29-2019 End: 04-14-2023 CONTROL Discontinued P O June 28, 2019 11:00pm April 14, 2023 10:04am 24 hr buPROPion hydrochloride 150 mg extended release oral tablet (15 sources) Aminoketone Start: 06-23-2024 End: 06-29-2024 take 1 tablet by mouth once daily in the morning Bupropion Hcl 150 mg tablet extended release 24 hr Discontinued 150 mg PO EVERY MORNING 30 3 June 23, 2024 1:00am June 29, 2024 9:57am cephalexin 500 mg oral capsule (16 sources) Cephalosporin Antibacterial Start: 06-29-2019 End: 04-14-2023 take 1 capsule by mouth three times daily Cephalexin 500 mg capsule Discontinued 500 mg PO THREE TIMES A DAY 15 0 June 29, 2019 12:00am April 14, 2023 11:04am FLUoxetine 10 mg oral capsule (16 sources) Serotonin Reuptake Inhibitor Start: 06-29-2019 End: 04-14-2023 take 1 capsule by mouth once daily Fluoxetine (Prozac) 10 mg capsule Discontinued 10 mg PO DAILY June 29, 2019 12:00am April 14, 2023 11:04am hydroCHLOROthiazide 25 mg oral tablet (8 sources) Thiazide Diuretic Start: 01-17-2025 End: 01-17-2025 take 1 tablet by mouth once daily in the morning Hydrochlorothiazide 25 mg tablet Discontinued 25 mg PO EVERY MORNING 90 January 17, 2025 8:49am January 17, 2025 11:52am Start: 11-20-2024 End: 01-17-2025 Hydrochlorothiazide 25 mg ta blet Discontinued 12.5 mg PO EVERY MORNING 30 November 20, 2024 12:00am January 17, 2025 8:51am ketoconazole 20 mg/ml topical cream (3 sources) Azole Antifungal Start: 12-28-2024 End: 01-17-2025 Ketoconazole 2 % cream Discontinued 1 NMA TOPICAL TWICE A DAY 30 December 28, 2024 12:00am January 17, 2025 8:28am continue for 2-3 weeks magnesium oxide 420 mg oral tablet (16 sources) Start: 04-14-2023 End: 06-23-2024 take 1 [...] of this medication.Take with food or milk. niacin 500 mg extended release oral capsule (5 sources) Nicotinic Acid Start: 11-07-2024 End: 01-17-2025 take 1 capsule by mouth at bedtime Niacin 500 mg capsule, extended release Discontinued 500 mg PO AT BEDTIME 30 November 07, 2024 12:00am January 17, 2025 11:53am Hypertriglyceridemia Pure hyperglyceridemia triamcinolone acetonide 1 mg/ml topical cream (3 sources) Corticosteroid Start: 12-28-2024 End: 01-17-2025 Triamcinolone Acetonide 0.1 % cream Discontinued 1 NMA TOPICAL TWICE A DAY 15 0 December 28, 2024 12:00am January 17, 2025 8:28am for 1 week then d/c 24 hr venlafaxine 37.5 mg extended release oral capsule (20 sources) Serotonin and Norepinephrine Reuptake Inhibitor Start: 06-29-2024 End: 01-17-2025 take 1 capsule by mouth once daily Venlafaxine 37.5 mg capsule,extended release 24hr Discontinued 37.5 mg PO daily 90 0 January 01, 2025 3:08pm January 17, 2025 8:51am Problems Active Problems Problem Classification Problem Date [...] (20 sources) Dyslipidemia; Translations: [Hyperlipidemia, unspecified] Onset: 01-17-2025 Chronic Essential hypertension (12 sources) Hypertensive disorder; Translations: [Essential (primary) hypertension] Onset: 01-17-2025 11-20-2024 Chronic Headache; including migraine (3 sources) Headache; including migraine; Translations: [Headache, unspecified] Onset: 06-01-2022 Joint disorders and dislocations; trauma-related (15 sources) Patellofemoral stress syndrome; Translations: [Patellofemoral disorders, right knee] 12-27-2023 Chronic Malaise and fatigue (1 source) Other malaise; Translations: [Other malaise] Onset: 06-01-2022 Episodic Mycoses (6 sources) Tinea corporis; Translations: [Tinea corporis] 12-28-2024 Episodic Nutritional deficiencies (20 sources) Vitamin D deficiency; Translations: [Vitamin D deficiency, unspecified] Onset: 09-15-2024 09-15-2024 Chronic Open wounds of extremities (16 sources) Puncture wound of left hand; Translations: [Puncture wound without foreign body of left hand, initial encounter] 07-14-2019 Episodic Other circulatory disease (10 sources) Elevated blood pressure; Translations: [Elevated blood-pressure reading, without diagnosis of hypertension] 11-07-2024 Episodic Other injuries and conditions due to external causes (2 sources) Unspecified injury of head, initial encounter; Translations: [Unspecified injury of head, initial encounter] Onset: 01-07-2024 Episodic Other liver diseases (20 sources) Elevated liver enzymes level; Translations: [Abnormal levels of other serum enzymes] 06-26-2024 Episodic Other nervous system disorders (16 sources) Disturbance of attention; Translations: [Attention and [...] unspecified] 04-14-2023 Episodic Other non-traumatic joint disorders (13 sources) Pain in unspecified knee; Translations: [Knee pain] 09-13-2024 Episodic Other non-traumatic joint disorders (6 sources) Pain in wrist; Translations: [Pain in unspecified wrist] 01-17-2025 Episodic Other non-traumatic joint disorders (1 source) Pain in right wrist; Translations: [Pain in right wrist] Onset: 01-23-2025 Episodic Other non-traumatic joint disorders (1 source) Pain in unspecified wrist; Translations: [Pain in unspecified wrist] Onset: 01-17-2025 Episodic Other skin disorders (1 source) Acanthosis nigricans; Translations: [Acanthosis nigricans] Episodic Other upper respiratory infections (5 sources) Streptococcal tonsillitis ; Translations: [Acute recurrent streptococcal tonsillitis] Onset: 02-08-2017 Resolved: 11-07-2019 11-07-2019 Episodic Comment on above: URI Otitis media and related conditions (2 sources) Acute bilateral otitis media ; Translations: [Otitis media, unspecified, bilateral] Onset: 03-27-2024 03-27-2024 Episodic Residual codes; unclassified (8 sources) FH: premature coronary heart disease; Translations: [Family history of ischemic heart disease and other diseases of the circulatory system] 11-20-2024 Episodic Residual codes; unclassified (3 sources) Influenza vaccination declined; Translations: [Immunization not carried out because of patient refusal] 01-17-2025 Episodic Residual codes; unclassified (1 source) Family history of ischemic heart disease and other diseases of the circulatory system; Translations: [Family history of ischemic heart disease and other diseases of the circulatory system] Onset: 01-17-2025 Episodic Superficial injury; contusion (20 sources) Contusion of right ankle; Translations: [Contusion of right ankle, initial encounter] 09-13-2024 Episodic Unclassified (1 source) Cough, unspecified; Translations: [Cough, unspecified] Onset: 06-01-2022 Unclassified (8 sources) S60.052A - Contusion of left little finger without damage to nail, initial encounter Unclassified (3 sources) Contusion of left little finger Unclassified (3 sources) Contusion of left little finger Past or Other Problems Problem Classification Problem Date Documented Da te Episodic/Chronic Other injuries and conditions due to external causes (1 source) Unspecified injury of unspecified wrist, hand and finger(s), initial encounter; Translations: [Unspecified injury of unspecified wrist, hand and finger(s), initial encounter] Onset: 10-04-2024 Episodic Other injuries and conditions due to [...] Test Name Value Interpretation Reference Range Facility Cardiology Visit Reporton Cardiology Visit Report [facility] [address] [place] [address] OFFICE VISIT Date of Service: 01/17/25 MR#: [id number] Acct: [id number] Name: PATI ESCOBAR Rep #: [id number] : 2005 Provider: Dr. Manuel Peraza MD Age/Sex: 19/F Location: [facility] [place] Status: Signed HPI HPI History of Present Illness Details: Pleasant 19-year-old lady with a history of elevated blood pressure and a family history of coronary artery disease who presents here for evaluation of her blood pressure. She tells me that she has had a renal ultrasound which is within normal limits she has had an echocardiogram which demonstrated action fraction of 60% with no evidence of diastolic dysfunction but her lipid profile demonstrated total cholesterol 168, HDL of 38 and LDL of 93. She also had a renin and aldosterone levels which have been normal. She denies any chest pain or shortness of breath or paroxysmal nocturnal dyspnea or pedal edema she has had no neck arm or jaw discomfort suggest angina. She has been compliant with her medications. Physical exam today is unremarkable her electrocardiogram demonstrates sinus rhythm with a rate of 83 bpm and no acute changes. Intake Vital Signs 11/07/24 15:13 01/17/25 08:30 01/17/25 11:15 Height 5 ft 2 in 5 ft 2 in 5 ft 2 in Weight: 229 lb 229 lb BMI 41.8 41.8 BP 142/86 H 147/98 H Blood Pressure Location Lt brachial Lt brachial Position Sitting Sitting Respiration 16 16 Pulse 86 79 Pulse Source Monitor Monitor Temp 97 F L Pulse Oximetry (%) 96 Oxygen Delivery Method room air Intake Visit Reasons: EST/HTN (SELF) Registered Radiation Therapist Required: No Accompanied by: Mother Is patient in pain?: No Allergies iris Adverse Reaction (Severe, Verified 01/17/25 11:23) Anaphylaxis Medications ???Medication ???Instructions ???Recorded ???Confirmed ???Type mecobalamin (vitamin B12) 1,000 1,000 mcg PO QDAY 09/13/24 5 History mcg lozenges cholecalciferol (vitamin D3) 1,250 1,250 mcg PO QWEEK #7 caps 10/0901/17/25 Rx mcg (50,000 unit) capsule ascorbic acid (vitamin C) 1,000 mg 1 g PO QDAY 11/07/24 01/17/25 Hi story capsule amlodipine 5 mg tablet 5 mg PO QDAY #90 tabs 01/17/2505/13 Rx atorvastatin 20 mg tablet 20 mg PO QDAY #90 tabs 01/17/25 Rx meloxicam 15 mg tablet 15 mg PO QDAY #30 tabs 01/17/25 Rx venlafaxine 37.5 mg 37.5 mg PO QDAY #90 caps 01/17/25 01/17/25 Rx capsule,extended release 24 hr Ejection fraction %: 60 PFSH Medical History Anxiety and depression Wrist pain Hypertriglyceridemia Generalized joint pain Family history of [...] do you feel safe at home: Yes ROS Const Const: Negative for fatigue, weakness, daytime sleepiness or difficulty sleeping ENT ENT: Negative for dizziness or Nosebleed/epistaxis Cardio Chest Pain: No Palpitations: No Edema: None Resp Respiratory: Negative for SOB with activity, SOB at rest, SOB orthopnea SOB lying down or Cough GI GI: Negative nausea, vomiting or heartburn Neuro Neuro: Negative for dizziness, lightheadedness, near syncope or weakness Endo Endo: Negative for fatigue Cardiology Exam Const Appearance: cooperative, healthy appearing, no acute distress, well developed and well groomed Nutritional Appearance: average body habitus and well nourished Orientation: alert, awake and oriented x3 Head Head: normal to inspection, normocephalic and atraumatic Ears: hearing grossly normal bilaterally and external ears normal Nose: external nose normal, nares normal, nasal mucous membranes and turbinates normal, septum normal and no nasal discharge Face and Sinus: face symmetric Mouth: oral mucosae normal, tongue normal, oropharynx normal and moist mucous membranes Teeth and gingiva: dentition normal Throat: posterior oropharynx normal, tonsils normal and uvula midline Eyes General: appearance normal, both eyes and a (more content not included)... Normal [facility] Internal Medicine Office Vis lizzie 01-17-2025 Internal Medicine Office Visit [facility] [address] [place], [place] [address] OFFICE VISIT Date of Service: 01/17/25 MR#: [id number] Acct: [id number] Name: PATI ESCOBAR Rep #: [id number] : 2005 Provider: Dr. Zoe cervantes MD Age/Sex: 19/F Location[place] [facility] [place] Status: Signed Intake Vital Signs 09/15/24 10:07 11/07/24 15:13 12/28/24 14:19 01/17/25 08:30 Height 5 ft 2 in 5 ft 2 in 5 ft 2 in 5 ft 2 in Weight: 229 lb BMI 41.8 BP 142/86 H Blood Pressure Location Lt brachial Position Sitting Respiration 16 Pulse 86 Pulse Source Monitor Temp 97 F L Temp Source Temporal Pulse Oximetry (%) 96 Oxygen Delivery Method room air Intake Visit Reasons: 3 M FU Chief Complaint: Follow-up chronic conditions. Right wrist pain Registered Radiation Therapist Required: No Accompanied by: Mother Is patient in pain?: Yes (R wrist) Pain scale (1-10): 4 Allergies iris Adverse Reaction (Severe, Verified 01/17/25 11:23) Anaphylaxis Medications ???Medication ???Instructions ???Recorded ???Confirmed ???Type mecobalamin (vitamin B12) 1,000 1,000 mcg PO QDAY 09/13/24 5 History mcg lozenges cholecalciferol (vitamin D3) 1,250 1,250 mcg PO QWEEK #7 caps 10/0901/17/25 Rx mcg (50,000 unit) capsule ascorbic acid (vitamin C) 1,000 mg 1 g PO QDAY 11/07/24 01/17/25 Hi story capsule amlodipine 5 mg tablet 5 mg PO QDAY #90 tabs 01/17/2505/13 Rx atorvastatin 20 mg tablet 20 mg PO QDAY #90 tabs 01/17/25 Rx meloxicam 15 mg tablet 15 mg PO QDAY #30 tabs 01/17/25 Rx venlafaxine 37.5 mg 37.5 mg PO QDAY #90 caps 01/17/25 01/17/25 Rx capsule,extended release 24 hr [facility] Medical History Anxiety and depression Wrist pain Hypertriglyceridemia Generalized joint pain Family history of [...] at home: Yes HPI HPI Chief Complaint: Follow-up chronic conditions. Right wrist pain Details: PATI ESCOBAR, is a 19-year-old female presenting with wrist pain and issues related to hypertension management. The wrist pain began following a fall in October. The pain is characterized by a stabbing or dull sensation in the joint, exacerbated by certain activities, especially repetitive motions such as crocheting, writing, and lifting objects. The patient reports that the pain has been persistent and worsening, especially affecting her dominant hand. Activities such as holding heavier items exacerbate the sensation of wrist instability, described as pulling out of the socket. The pain is not only characterized by discomfort but also presents as weakness when attempting to lift objects. Additionally, the patient describes compression and tenderness following rough handling when the wrist was squeezed, leading to further discomfort. The patient's hypertension has been managed with hydrochlorothiazide, and it's noted that her blood pressure readings have slightly improved, moving towards mid-130s over mid-80s. Nonetheless, it's c onsidered suboptimal and a need for adjustment in medication dosing is indicated. The patient has a family history of hypertension, and recent lifestyle changes include attempts to manage her condition through dietary adjustments and increased exercise. The patient has been actively managing her major depressive disorder with venlafaxine and regular counseling, reporting overall improvement in her mental health status. She feels that she is doing okay on this current dose. No additional changes needed. Other chronic conditions are stable. Attestation: Documentation on this patient encounter was supported using ambient scribe technology/ voice AI technology. The patient consented to recording for the purpose of documenting the encounter. Provider reviewed content of the generated note prior to signature. ROS Const Constitutional: No body ache, chills, excessive sweating, fatigue, fever(s), frequent f (more content not included)... Normal [facility] Wrist 2 Viewson 01-17-2025 Wrist 2 Views [facility] [address] [place] [address] Wrist 2 Views MR#: [id number] Acct: [id number] Name: PTAI ESCOBAR Rep #: [id number] : 2005 F 19 From: Hector Zamudio MD PCP: Dr. Zoe Nevarez MD Status: REG CLI Study: Wrist 2 Views Date of Exam: 01/17/25 Exam# [id number] Ordering Dr: Zoe Nevarez MD EXAM: XR Right Wrist, 2 Views CLINICAL INDICATION: RIGHT WRIST PAIN TECHNIQUE: Frontal and lateral views of the right wrist. COMPARISON: No relevant prior studies available. FINDINGS: BONES/JOINTS: Mild degenerative changes of the intercarpal joints. No acute fracture. No dislocation. SOFT TISSUES: Soft tissue swelling. No radiopaque foreign body. RAD/Wrist 2 Views IMPRESSION: Soft tissue swelling. Reading Location: [id number] CC: Dr. Zoe Nevarez MD Software Development Project Manager: Signed Normal [facility] Internal Medicine Office Vis itobakari 12-28-2024 Internal Medicine Office Visit [place] [facility] [place] [address] [place] [address] OFFICE VISIT Date of Service: 12/28/24 MR#: [id number] Acct: [id number] Name: PATI ESCOBAR Rep #: [id number] : 2005 Provider: MAURILIO Stewart Age/Sex: 19/F Location: [facility] [place] Status: Signed Intake Vital Signs 11/07/24 15:13 [...] rt leg Chief Complaint: left 5th finger Registered Radiation Therapist Required: No Is patient in pain?: No [...] spot it did not clear it though [facility] Medical History Hypertriglyceridemia Generalized joint pain Family [...] abnormal gait, (more content not included)... Normal [facility] L501.5101on 12-18-2024 GGTP 19 IU/L Normal 0-60 [facility] Comment on above: Order Comment: Test( s) [id number]; [id number] Activity, Plasmawas developed and its performance characteristicsdetermined by [employer]. It has not been cleared or approvedby the Food and Drug Administration. Result Comment: Perf ormed at: [address] [id number] Negative Developer: Yarelis Irvin MD, Phone: [phone] Performed at: [address] [id number] Negative Developer: Bill Leger PhD, Phone: [phone] Performed By: #### L 3890.6102, L3300.1050, L500.4050, L500.4100, L506.0400, L501.9520, L506.1001, L3890.6301, L501.5101 ####[facility] [address] [place], [address] Renin/Aldosterone Activityon 12-18-2024 ALD/RENIN RATIO 6.8 Normal 0.0-30.0 [facility] Comment on above: Order Comment: Test( s) 041404-Pqvrxgygdns; 158898-Cjozc Activity, Plasmawas developed and its performance characteristicsdetermined by [employer]. It has not been cleared or approvedby the Food and Drug Administration. Result Comment: Unit s: ng/dL per ng/mL/hr Performed By: #### L 3890.6102, L3300.1050, L500.4050, L500.4100, L506.0400, L501.9520, L506.1001, L3890.6301, L501.5101 ####[facility] [address] [place], [place], [id number] ALDOSTERONE,S 19.3 ng/dL Normal 0.0-30.0 [facility] Comment on above: Order Comment: Test( s) 126568-Tlcynczzfrh; 169918-Qtwpd Activity, Plasmawas developed and its performance characteristicsdetermined by [facility]. It has not been cleared or approvedby the Food and Drug Administration. Performed By: #### L 3890.6102, L3300.1050, L500.4050, L500.4100, L506.0400, L501.9520, L506.1001, L3890.6301, L501.5101 ####[facility] [address] [place], [place], [phone]([phone] RENIN, PLASMA 2.842 ng/mL/hr Normal 0.167-5.380 [facility] Comment on above: Order Comment: Test( s) 690532-Czvsnwoewuz; 596363-Ebhen Activity, Plasmawas developed and its performance characteristicsdetermined by [facility]. It has not been cleared or approvedby the Food and Drug Administration. Performed By: #### L 3890.6102, L3300.1050, L500.4050, L500.4100, L506.0400, L501.9520, L506.1001, L3890.6301, L501.5101 ####[facility] [address] [place], [place], [phone] CBC-Complete Blood Cnt No Di ffon 12-08-2024 Erythrocyte distribution width (RBC) [Ratio] 11.5 % Low 11.6-14.6 [facility] Comment on above: Performed By: #### L 100.0500 ####[facility] [address] [place], [place], [address] Hematocrit (Bld) [Volume fraction] 39.9 % Normal 37-47 [facility] Comment on above: Performed By: #### L 100.0500 ####[facility] [address] [place], [address] Hemoglobin (Bld) [Mass/Vol] 14.0 g/dL Normal 12.0-15.0 [facility] Comment on above: Performed By: #### L 100.0500 ####[facility] [address] [place], [address] MCH (RBC) [Entitic mass] 31.0 pg Normal 27.0-32.0 [facility] Comment on above: Performed By: #### L 100.0500 ####[facility] [address] [place], [address] MCHC (RBC) [Mass/Vol] 35.1 g/dL Normal 32-36 [facility] Comment on above: Performed By: #### L 100.0500 ####[facility] [address] [place], [address] MCV (RBC) [Entitic vol] 88.3 fL Normal 81-99 [facility] Comment on above: Performed By: #### L 100.0500 ####[facility] [address] [place], [address] Platelet mean volume (Bld) [Entitic vol] 10.0 fL Normal 6.2-12.0 [facility] Comment on above: Performed By: #### L 100.0500 ####[facility] [address] [place], [address] Platelets (Bld) [#/Vol] 339 10*3/uL Normal 150-450 [facility] Comment on above: Performed By: #### L 100.0500 ####[facility] [address] [place], [address] RBC (Bld) [#/Vol] 4.52 10*6/uL Normal 4.2-5.4 [facility] Comment on above: Performed By: #### L 100.0500 ####[facility] [address] [place], [address] RDW SD 37.1 fl Normal 35.1-43.9 [facility] Comment on above: Performed By: #### L 100.0500 ####[facility] [address] [place], [address] WBC (Bld) [#/Vol] 8.4 10*3/uL Normal 4.4-11.0 [facility] Comment on above: Performed By: #### L 100.0500 ####[facility] [address] [place], [address] Comprehensive Metabolic Prof [facility] 12-08-2024 Albumin [Mass/Vol] 4.4 g/dL Normal 3.5-5.0 [facility] Comment on above: Performed By: #### L 3890.6102, L3300.1050, L500.4050, L500.4100, L506.0400, L501.9520, L506.1001, L3890.6301, L501.5101 ####[facility] [address] [place], [address] Albumin/Globulin [Mass ratio] 1.2 {ratio} Normal 0.9-2.4 [facility] Comment on above: Performed By: #### L 3890.6102, L3300.1050, L500.4050, L500.4100, L506.0400, L501.9520, L506.1001, L3890.6301, L501.5101 ####[facility] [address] [place], [address] ALK PHOS 78 U/L Normal 35-104 [facility] Comment on above: Performed By: #### L 3890.6102, L3300.1050, L500.4050, L500.4100, L506.0400, L501.9520, L506.1001, L3890.6301, L501.5101 ####[facility] [address] [place], [address] ALT [Catalytic activity/Vol] 38 U/L High <=34 [facility] Comment on above: Performed By: #### L 3890.6102, L3300.1050, L500.4050, L500.4100, L506.0400, L501.9520, L506.1001, L3890.6301, L501.5101 ####[facility] [address] [place], [address] AST [Catalytic activity/Vol] 31 U/L Normal <=31 [facility] Comment on above: Performed By: #### L 3890.6102, L3300.1050, L500.4050, L500.4100, L506.0400, L501.9520, L506.1001, L3890.6301, L501.5101 ####[facility] [address] [place], [place], [phone] Bilirubin [Mass/Vol] 0.46 mg/dL Normal 0.00-1.30 [facility] Comment on above: Performed By: #### L 3890.6102, L3300.1050, L500.4050, L500.4100, L506.0400, L501.9520, L506.1001, L3890.6301, L501.5101 ####[facility] [address] [place], [address] BUN/CRE 10.7 RATIO Normal 10-20 [facility] Comment on above: Performed By: #### L 3890.6102, L3300.1050, L500.4050, L500.4100, L506.0400, L501.9520, L506.1001, L3890.6301, L501.5101 ####[facility] [address] [place], [address] Calcium [Mass/Vol] 9.4 mg/dL Normal 7.6-11.0 [facility] Comment on above: Performed By: #### L 3890.6102, L3300.1050, L500.4050, L500.4100, L506.0400, L501.9520, L506.1001, L3890.6301, L501.5101 ####[facility] [address] [place], [address] Chloride [Moles/Vol] 100 mmol/L Normal 98-108 [facility] Comment on above: Performed By: #### L 3890.6102, L3300.1050, L500.4050, L500.4100, L506.0400, L501.9520, L506.1001, L3890.6301, L501.5101 ####[facility] [address] [place], [address] CO2 [Moles/Vol] 22.1 mmol/L Normal 21.0-32.0 [facility] Comment on above: Performed By: #### L 3890.6102, L3300.1050, L500.4050, L500.4100, L506.0400, L501.9520, L506.1001, L3890.6301, L501.5101 ####[facility] [address] [place], [address] Creatinine [Mass/Vol] 0.84 mg/dL Normal 0.70-1.20 [facility] Comment on above: Performed By: #### L 3890.6102, L3300.1050, L500.4050, L500.4100, L506.0400, L501.9520, L506.1001, L3890.6301, L501.5101 ####[facility] [address] [place], [address] GAP 15 Normal 5-15 [facility] Comment on above: Performed By: #### L 3890.6102, L3300.1050, L500.4050, L500.4100, L506.0400, L501.9520, L506.1001, L3890.6301, L501.5101 ####[facility] [address] [place], [address] GFR/1.73 sq M.predicted among non-blacks MDRD (S/P/Bld) [Vol rate/Area] 101 mL/min/{1.73_m2} Normal >60 [facility] Comment on above: Result Comment: mL/m in/1.73m2 CKD-EPI Creatinine Equation (2020) Performed By: #### L 3890.6102, L3300.1050, L500.4050, L500.4100, L506.0400, L501.9520, L506.1001, L3890.6301, L501.5101 ####[facility] [address] [place], [place], [phone] Globulin (S) [Mass/Vol] 3.5 g/dL Normal 2.2-4.2 [facility] Comment on above: Performed By: #### L 3890.6102, L3300.1050, L500.4050, L500.4100, L506.0400, L501.9520, L506.1001, L3890.6301, L501.5101 ####[facility] [address] [place], [place], [phone] Glucose [Mass/Vol] 82 mg/dL Normal 70-99 [facility] Comment on above: Performed By: #### L 3890.6102, L3300.1050, L500.4050, L500.4100, L506.0400, L501.9520, L506.1001, L3890.6301, L501.5101 ####[facility] [address] [place], [address] Potassium [Moles/Vol] 4.0 mmol/L Normal 3.3-5.1 [facility] Comment on above: Performed By: #### L 3890.6102, L3300.1050, L500.4050, L500.4100, L506.0400, L501.9520, L506.1001, L3890.6301, L501.5101 ####[facility] [address] [place], [address] Sodium [Moles/Vol] 137 mmol/L Normal 133-145 [facility] Comment on above: Performed By: #### L 3890.6102, L3300.1050, L500.4050, L500.4100, L506.0400, L501.9520, L506.1001, L3890.6301, L501.5101 ####[facility] [address] [place], [address] T PROT 7.9 g/dL Normal 5.9-8.4 [facility] Comment on above: Performed By: #### L 3890.6102, L3300.1050, L500.4050, L500.4100, L506.0400, L501.9520, L506.1001, L3890.6301, L501.5101 ####[facility] [address] [place], [address] Urea nitrogen [Mass/Vol] 9 mg/dL Normal 4-19 [facility] Comment on above: Performed By: #### L 3890.6102, L3300.1050, L500.4050, L500.4100, L506.0400, L501.9520, L506.1001, L3890.6301, L501.5101 ####[facility] [address] [place], [address] Echo Completeon 12-08-2024 Echo Complete [facility] [address] [place] [address] Echo Complete 12/08/24 1405 MR#: [id number] Acct: [id number] Name: PATI ESCOBAR Rep #: [id number] : 2005 19 From: Alejandra Bautista MD Attending Dr: Dr. Zoe Nevarez MD Status: PRE CLI Ordering Dr: Zoe Nevarez MD Date: 12/08/24 Location: [facility] Sex: F C Admitted: Reason For Study [...] evidence for diastolic dysfunction. Ordering Physician: Zoe Nevaerz Referring Physician: Zoe Nevarez Performed By: Misty Barron, DEL, RVT 12/09/24 1517 Date Alejandra Bautista MD CC: Dr. Zoe Nevarez MD Date Dictated: 12/08/24 1405 Date Transcribed: 12/09/24 4151 Software Development Project Manager: Signed Normal [facility] Hepatitis C Antibodyon 12-08 Hepatitis C Ab Non-Reactive Normal Nonreactive [facility] Comment on above: Result Comment: Reac tive: Presumptive evidence of antibodies to HCV. Follow CDC recommendations for supplemental testing. Non-Reactive: Antibodies to HCV were not detected; does not exclude the possibility of exposure to HCV Reactive Results are presumptive evidence of antibodies to HCV. Follow CDC recommendations for supplemental testing. Order confirmation testing: HCV Quant by PCR testing - HCVPCR lc#[id number] Non Reactive: < 0.8 Equivocal: >/= 0.8 to < 1.0 Reactive: >/= 1.0 The [facility] requires that a reactive/equivocal HCV antibody result be sent out for confirmation. HCV Quant by PCR testing. Performed By: #### L 3890.6102, L3300.1050, L500.4050, L500.4100, L506.0400, L501.9520, L506.1001, L3890.6301, L501.5101 ####[facility] [address] [place], [place], [id number] L3890.6102on 12-08-2024 HEP B Surf Ag Non-Reactive Normal Nonreactive [facility] Comment on above: Result Comment: Reac tive: Presumptive evidence of HBV. Repeatedly reactive samples must be confirmed using a neutralization test ([employer] HBsAg Confirmatory Test) Non-Reactive: HBsAg not detected; does not exclude the possibility of exposure to HBV Performed By: #### L 3890.6102, L3300.1050, L500.4050, L500.4100, L506.0400, L501.9520, L506.1001, L3890.6301, L501.5101 ####[facility] [address] [place], [address] Lipid Profileon 12-08-2024 CHOL:HDL 4.39 Normal [facility] Comment on above: Performed By: #### L 3890.6102, L3300.1050, L500.4050, L500.4100, L506.0400, L501.9520, L506.1001, L3890.6301, L501.5101 ####[facility] [address] [place], [place], [address] Cholesterol [Mass/Vol] 168 mg/dL Normal <=190 [facility] Comment on above: Result Comment: Chol esterol level, Desirable <200 mg/dL Borderline high cholesterol 200-239 mg/dL High cholesterol >=240 mg/dL Recommendations of the NCEP Adult Treatment Panel for the following risk-cutoff thresholds for the [place] population. Performed By: #### L 3890.6102, L3300.1050, L500.4050, L500.4100, L506.0400, L501.9520, L506.1001, L3890.6301, L501.5101 ####[facility] [address] [place], [address] Cholesterol in HDL [Mass/Vol] 38 mg/dL Low [facility] Comment on above: Result Comment: Denise onal Cholesterol Education Program (NCEP) guidelines: <40 mg/dL: Low HDL-cholesterol (major risk factor for CHD) >= 60 mg/dL: High HDL-cholesterol (negative risk factor for CHD) HDL-cholesterol is affected by a number of factors, e.g. smoking, exercise, hormones, sex and age. Performed By: #### L 3890.6102, L3300.1050, L500.4050, L500.4100, L506.0400, L501.9520, L506.1001, L3890.6301, L501.5101 ####[facility] [address] [place], [address] Cholesterol in LDL [Mass/Vol] 93 mg/dL Normal [facility] Comment on above: Result Comment: Bord tkwpqi=659-454 mg/dL Higher Jhuj=137 mg/dL or greater Friedwald Equation for LDL-C Performed By: #### L 3890.6102, L3300.1050, L500.4050, L500.4100, L506.0400, L501.9520, L506.1001, L3890.6301, L501.5101 ####[facility] [address] [place], [address] Cholesterol in VLDL [Mass/Vol] 36 mg/dL Normal 5-40 [facility] Comment on above: Performed By: #### L 3890.6102, L3300.1050, L500.4050, L500.4100, L506.0400, L501.9520, L506.1001, L3890.6301, L501.5101 ####[facility] [address] [place], [place], [address] Triglyceride [Mass/Vol] 182 mg/dL Normal [facility] Comment on above: Result Comment: The drugs N-Acetylcysteine and Metamizole may falsely depress this assay. Normal range: <150 mg/dL Borderline High: 150-199 mg/dL High: 200-499 mg/dL Very High: >500 mg/dL Performed By: #### L 3890.6102, L3300.1050, L500.4050, L500.4100, L506.0400, L501.9520, L506.1001, L3890.6301, L501.5101 ####[facility] [address] [place], [place], [phone] T4 Free Directon 12-08-2024 T4 FREE DIRECT 1.10 ng/dL Normal 0.76-1.46 [facility] Comment on above: Performed By: #### L 3890.6102, L3300.1050, L500.4050, L500.4100, L506.0400, L501.9520, L506.1001, L3890.6301, L501.5101 ####[facility] [address] [place], [place], [address] Thyroid Stim Hormone (TSH)on 12-08-2024 TSH 1.730 uIU/mL Normal 0.300-4.200 [facility] Comment on above: Performed By: #### L 3890.6102, L3300.1050, L500.4050, L500.4100, L506.0400, L501.9520, L506.1001, L3890.6301, L501.5101 ####[facility] [address] [place], [place], [address] Vitamin D,25 Hydroxyon 12-08 Vitamin D 25-OH 42.6 ng/mL Normal 30-100 [facility] Comment on above: Result Comment: Raina min D Status Deficiency: <20 ng/mL (50nmol/L) Insufficiency: 20-30 ng/mL (50-75 nmol/L) Sufficiency: 30-100 ng/mL (75-250 nmol/L) Toxicity: >100 ng/mL (>250 nmol/L) Performed By: #### L 3890.6102, L3300.1050, L500.4050, L500.4100, L506.0400, L501.9520, L506.1001, L3890.6301, L501.5101 ####[facility] [address] [place], [address] Duplex ultrasound of renal a rtery reportOrdered By: Harsh Lozano on 12-05-2024 Study report [facility] [address] [place] [address] Renal Artery Duplex Ultrasound 12/04/24 0807 MR#: [id number] Acct: [id number] Name: PATI ESCOBAR Rep #:[id number] : 2005 19 From: Harsh Lozano MD Attending Dr: Dr. Zoe Nevarez MD Status: REG CLI Ordering Dr: Zoe Nevarez MD Date: 12/04/24 Location: [facility] Sex: F C Admitted: Reason For Study [...] ~ Date Dictated: 12/04/24806 Date Transcribed: 12/05/242054 Software Development Project Manager: Signed [facility] Other Phone: Electrocardiogram reportOrde red By: Manuel Peraza on 12-05-2024 EKG study [facility] Cardiovascular Services [address] [place] [address] 12 Lead EKG 12/04/24803 MR#: [id number] Acct: [id number] Name: PATI ESCOBAR Rep #:[id number] : 2005 19 From: Manuel Peraza MD Attending Dr: Dr. Zoe Nevarez MD Status: REG CLI Ordering Dr: Zoe Nevarez MD Date: 12/04/24 Location: [facility] Sex: F C Admitted: Test Reason : HTN Blood Pressure : */* mmHG Vent. Rate : 72 BPM Atrial Rate : 72 BPM P-R Int : 174 ms QRS Dur : 86 ms QT Int : 430 ms P-R-T Axes : 26 24 27 degrees QTcB Int : 470 ms Normal sinus rhythm with sinus arrhythmia Normal ECG Confirmed by STU GUADARRAMA, MANUEL ([id number]), editor at large LOLA RENAE ([id number]) on 56:08:27 AM Referred By: Zoe Nevarez Confirmed By: MANUEL PERAZA MD 12/05/24 06 Date _ Manuel Peraza MD CC: Dr. Zoe Nevarez MD ~ Signed [facility] Work Phone: 12 Lead EKGon 12-04-2024 12 Lead EKG [facility] Cardiovascular Services [address] [place] [address] 12 Lead EKG 12/04/24 0804 MR#: [id number] Acct: [id number] Name: PATI ESCOBAR Rep #: [id number] : 2005 19 From: Manuel Peraza MD Attending Dr: Dr. Zoe Nevarez MD Status: REG CLI Ordering Dr: Zoe Nevarez MD Date: 12/04/24 Location: [facility] Sex: F C Admitted: Test Reason : [...] ECG Confirmed by STU GUADARRAMA, MANUEL ([id number]), editor at large LOLA RENAE ([id number]) on 12/05/2024 6:08:27 AM Referred By: Zoe Nevarez Confirmed By: MANUEL PERAZA MD 12/05/24 06 Date Manuel Peraza MD CC: Dr. Zoe Nevarez MD Signed Normal [facility] Renal Artery Duplex Ultrasou ndon 12-04-2024 Renal Artery Duplex Ultrasound [facility] [address] [place] [address] Renal Artery Duplex Ultrasound 12/04/24 0807 MR#: [id number] Acct: [id number] Name: PATI ESCOBAR Rep #: [id number] : 2005 19 From: Harsh Lozano MD Attending Dr: Dr. Zoe Nevarez MD Status: REG CLI Ordering Dr: Zoe Nevarez MD Date: 12/04/24 Location: [facility] Sex: F C Admitted: Reason For Study [...] Physician: Zoe Nevarez Performed By: Erica Smith, MATTIECS, RVT 12/05/242054 Date Harsh Lozano MD CC: Dr. Zoe Nevarez MD Date Dictated: 12/04/24806 Date Transcribed: 12/05/242054 Software Development Project Manager: Signed Normal [facility] Internal Medicine Office Vis lizzie 11-07-2024 Internal Medicine Office Visit [facility] [address] [place] [address] [place] [address] OFFICE VISIT Date of Service: 11/07/24 MR#: [id number] Acct: [id number] Name: PATI ESCOBAR Rep #: [id number] : 2005 Provider: SIENA shannon Age/Sex: 19/F Location: [facility] Status: Signed Intake Vital Signs 10/03/24 14:31 [...] air Intake Visit Reasons: ACUTE BP ISSUES Registered Radiation Therapist Required: No Is patient in pain?: Yes [...] Note: Pt tore acl and has seen [facility] for this Dr. gaytan. Pt has been [...] in portal requesting to be filled out. [facility] Medical History Contusion of left little finger [...] pressure readings.Pt tore acl and has seen [facility] for this Dr. gaytan. Pt has been [...] be mo (more content not included)... Normal [facility] Orthopedic Visit Reporton Orthopedic Visit Report [facility] [address] [place] [address] OFFICE VISIT Date of Service: 10/03/24 MR#: [id number] Acct: [id number] Name: PATI ESCOBAR Rep #: [id number] : 2005 Provider: Dr. Justin marrero MD Age/Sex: 19/F Location: [facility] Status: Signed Intake Vital Signs 09/15/24 10:07 [...] proximal aspect of the fifth digit. Patient vjgdo-nrhr-bkatgpvn. 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 [facility] for history of fractures in the same several years ago with full recovery and then. No aprp-czh-tmymwuf medications have been taken since yesterday at the time of injury to assist with symptoms. No left upper extremity complaints otherwise. Tnqqz-yvoq-bglqodtp. No other associated symptoms and no other alleviating/aggravating factors. Supplemental Info [facility] Imaging Services [address] [place] [address] Finger(s) Min 2 Views MR#: [id number] Acct: [id number] Name: PATI ESCOBAR Rep #: [id number] : 2005 F 19 From: Garrett Anne MD PCP: Dr. Zoe Nevarez MD Status: REG CLI Study: Finger(s) Min 2 Views Date of Exam: 09/27/24 Exam# [id number] Ordering Dr: Riley Raphael PROCEDURE: FINGER(S) MIN [...] Follow up as clinically appropriate. Reading Location: [address] I independently reviewed the imaging. Concur with radiologist report. Coding Level of Care Code Off vis,new,level 4 Diagnoses Contusion of left little finger S60.052A Assessment and Pl (more content not included)... Normal [facility] Finger(s) Min 2 Viewson 09-17 Finger(s) Min 2 Views [facility] Imaging Services [address] [place] [address] Finger(s) Min 2 Views MR#: [id number] Acct: [id number] Name: PATI ESCOBAR Rep #: [id number] : 2005 F 19 From: Garrett Ji PCP: Dr. Zoe Nevarez MD Status: REG CLI Study: Finger(s) Min 2 Views Date of Exam: 09/27/24 Exam# [id number] Ordering Dr: Riley Raphael PROCEDURE: FINGER(S) MIN [...] Follow up as clinically appropriate. Reading Location: [address] CC: Dr. Zoe Nevarez MD; MAURILIO Lambert Software Development Project Manager: Signed Normal [facility] Urgent Care Visit Reporton 0 09-27-2024 Urgent Care Visit Report [facility] [address], [address] [place] [address] OFFICE VISIT Date of Service: 09/27/24 MR#: [id number] Acct: [id number] Name: PATI ESCOBAR Rep #: [id number] : 2005 Provider: MAURILIO Lambert Age/Sex: 19/F Location: [facility] Status: Signed Intake Vital Signs 09/15/24 10:07 [...] PINKY FINGER/PAIN/INJURY Chief Complaint: left 5th finger Registered Radiation Therapist Required: No Is patient in pain?: Yes Allergies iris Adverse Reaction (Severe, Verified 09/27/24 11:30) Anaphylaxis Is last menstrual period known: No Post menopausal: No Patient : No Have you fallen in the past year?: Yes Nurse's Note: left 5th finger vs football yesterday. c/o pain and swelling to same. denies additional injuries. [facility] Medical History (Updated 09/27/24 @ 11:37 by Riley THORPE, PA) Contusion of left little finger Contusion of [...] sensation or strength or function she associates. [facility] for history of fractures in the same several years ago with full recovery and then. No jtyq-utz-swdvnxr medications have been taken since yesterday at the time of injury to assist with symptoms. No left upper extremity complaints otherwise. Ddhdj-fgho-lqhmropf. No other associated symptoms and no other [...] the above. This note was generated with [employer] dictation software. It may contain incorrect words, spelling, and punctuation that were not noted in checking the note before signing. Orders: Orders Finger(s) Min 2 Views Today S69.90XA - Unspecified injury of unspecified wrist, hand and finger(s), initial encounter Clinical Quality Measures Falls Risk Screening/Assistive Devices Have you fallen in the past year?: (more content not included)... Normal [facility] Abdomen Limitedon 09-19-2024 Abdomen Limited [facility] Imaging Services [address] [place] [address] Abdomen Limited MR#: [id number] Acct: [id number] Name: PATI ESCOBAR Rep #: [id number] : 2005 F 19 From: Renato Benitez MD PCP: Dr. Zoe Nevarez MD Status: REG CLI Study: Abdomen Limited Date of Exam: 09/19/24 Exam# [id number] Ordering Dr: Zoe Nevarez MD PROCEDURE: ABDOMEN [...] right upper quadrant. Unremarkable gallbladder. Reading Location: [place] [address] CC: Dr. Zoe Nevarez MD Software Development Project Manager: Signed Normal [facility] Internal Medicine Office Vis iton 09-15-2024 Internal Medicine Office Visit [facility] [address] [place] [address] [place] [address] OFFICE VISIT Date of Service: 09/15/24 MR#: [id number] Acct: [id number] Name: PATI ESCOBAR Rep #: [id number] : 2005 Provider: Dr. Zoe cervantes MD Age/Sex: 19/F Location: [facility] Status: Signed Intake Vital Signs 06/23/24 15:15 [...] 90 day supply on this medication. [facility] Medical History Contusion of right foot Contusion [...] you feel safe at home: Yes Questionnaire H-9 BMS Over the last 2 weeks, how [...] Source: Developed by Drs. Rex Mitchell, Ivette B.W. Jamie Yanez and colleagues, with an educational jose from [employer]. HPI HPI Chief Complaint: 3 M FU [...] Cardio Cardiolog (more content not included)... Normal [facility] Foot min 3 Viewson 5 Foot min 3 Views [facility] [address] [place] [address] Foot min 3 Views MR#: [id number] Acct: [id number] Name: PATI ESCOBAR Rep #: [id number] : 2005 F 19 From: Hector Zamudio MD PCP: Dr. Zoe Nevarez MD Status: REG CLI Study: Foot min 3 Views Date of Exam: 09/13/24 Exam# [id number] Ordering Dr: Riley Raphael EXAM: XR Left [...] evaluation with CT is recommended. Reading Location: [facility] CC: Dr. Zoe Nevarez MD; MAURILIO Lambert Software Development Project Manager: Signed Normal [facility] Urgent Care Visit Reporton 0 09-13-2024 Urgent Care Visit Report [facility] [address], [address] [place] [address] OFFICE VISIT Date of Service: 09/13/24 MR#: [id number] Acct: [id number] Name: PATI ESCOBAR Rep #: [id number] : 2005 Provider: MAURILIO Lambert Age/Sex: 19/F Location: [facility] [place] Status: Signed Intake Vital Signs 06/23/24 15:15 [...] mcg PO QDAY 09/13/24 5 History mcg lozenmarley Nurse's Note: Patient was carrying a bag [...] hurts to put weight on it. [facility] Medical History (Updated 09/13/24 @ 13:18 by [...] bone as she states. PMH NC. No [id number]-ugfkkez products taken to assist. No other associated [...] acknowledging underst (more content not included)... Normal [facility] Anion gap in Serum or Plasma Ordered By: Zoe Nevarez on 08-24-2024 Anion gap [Moles/Vol] 11 mmol/L 5-15 [facility] BUN/creatinine ratioOrdered By: Zoe Nevarez on 08-24-2024 Urea nitrogen/Creatinine [Mass ratio] 13.3 mg/mg 10-20 [facility] Bilirubin, totalOrdered By: Zoe Nevarez on 08-24-2024 Bilirubin [Mass/Vol] 0.33 mg/dL 0.00-1.30 [facility] Carbon dioxide, total [Moles /volume] in Central venous bloodOrdered By: Zoe Nevarez on 08-24-2024 CO2 [Moles/Vol] 20.7 mmol/L Low 21.0-32.0 [facility] Chloride assayOrdered By: Kevon Nevarez on 08-24-2024 Chloride [Moles/Vol] 104 mmol/L 98-108 [facility] Comprehensive Metabolic Prof ilon 08-24-2024 Albumin [Mass/Vol] 4.0 g/dL Normal 3.5-5.0 [facility] Comment on above: Performed By: #### L 195.8649 ####[facility] [address] [place], [address] Albumin/Globulin [Mass ratio] 1.3 {ratio} Normal 0.9-2.4 [facility] Comment on above: Performed By: #### L 500.4050 ####[facility] [address] [place], [address] ALK PHOS 80 U/L Normal 35-104 [facility] Comment on above: Performed By: #### L 500.4050 ####[facility] [address] [place], [address] ALT [Catalytic activity/Vol] 56 U/L High <=34 [facility] Comment on above: Performed By: #### L 500.4050 ####[facility] [address] [place], [address] AST [Catalytic activity/Vol] 34 U/L High <=31 [facility] Comment on above: Performed By: #### L 500.4050 ####[facility] [address] [place], [address] Bilirubin [Mass/Vol] 0.33 mg/dL Normal 0.00-1.30 [facility] Comment on above: Performed By: #### L 500.4050 ####[facility] [address] [place], [address] BUN/CRE 13.3 RATIO Normal 10-20 [facility] Comment on above: Performed By: #### L 500.4050 ####[facility] [address] [place], [address] Calcium [Mass/Vol] 8.9 mg/dL Normal 7.6-11.0 [facility] Comment on above: Performed By: #### L 500.4050 ####[facility] [address] [place], [address] Chloride [Moles/Vol] 104 mmol/L Normal 98-108 [facility] Comment on above: Performed By: #### L 500.4050 ####[facility] [address] [place], [address] CO2 [Moles/Vol] 20.7 mmol/L Low 21.0-32.0 [facility] Comment on above: Performed By: #### L 500.4050 ####[facility] [address] [place], [address] Creatinine [Mass/Vol] 0.81 mg/dL Normal 0.70-1.20 [facility] Comment on above: Performed By: #### L 500.4050 ####[facility] [address] [place], [address] GAP 11 Normal 5-15 [facility] Comment on above: Performed By: #### L 500.4050 ####[facility] [address] [place], [address] GFR/1.73 sq M.predicted among non-blacks MDRD (S/P/Bld) [Vol rate/Area] 106 mL/min/{1.73_m2} Normal >60 [facility] Comment on above: Result Comment: mL/m in/1.73m2 CKD-EPI Creatinine Equation (2020) Performed By: #### L 500.4050 ####[facility] [address] [place], [address] Globulin (S) [Mass/Vol] 3.1 g/dL Normal 2.2-4.2 [facility] Comment on above: Performed By: #### L 500.4050 ####[facility] [address] [place], [address] Glucose [Mass/Vol] 85 mg/dL Normal 70-99 [facility] Comment on above: Performed By: #### L 500.4050 ####[facility] [address] [place], [place], [phone] Potassium [Moles/Vol] 4.0 mmol/L Normal 3.3-5.1 [facility] Comment on above: Performed By: #### L 500.4050 ####[facility] [address] [place], [address] Sodium [Moles/Vol] 136 mmol/L Normal 133-145 [facility] Comment on above: Performed By: #### L 500.4050 ####[facility] [address] [place], [place], [phone] T PROT 7.1 g/dL Normal 5.9-8.4 [facility] Comment on above: Performed By: #### L 500.4050 ####[facility] [address] [place], [place], [id number] Urea nitrogen [Mass/Vol] 11 mg/dL Normal 4-19 [facility] Comment on above: Performed By: #### L 500.4050 ####[facility] [address] [place], [place], [id number] Glomerular filtration rate ( GFR) estimation/1.73 sq m using serum, plasma, or whole bOrdered By: Zoe Nevarez on 08-24-2024 GFR/1.73 sq M.predicted among non-blacks MDRD (S/P/Bld) [Vol rate/Area] 106 mL/min/{1.73_m2} >60 [facility] Comment on above: mL/min/1.73m2 CKD-EP I Creatinine Equation (2020) Laboratory - Chemistry and C hemistry - challengeOrdered By: Zoe Nevarez on 08-24-2024 AST [Catalytic activity/Vol] 34 U/L High <32 [facility] Potassium measurement (mass/ volume)Ordered By: Zoe Nevarez on 08-24-2024 Potassium (Unsp spec) [Mass/Vol] 4.0 mmol/L 3.3-5.1 [facility] Serum creatinine measurement (mass/volume)Ordered By: Zoe Nevarez on 08-24-2024 Creatinine [Mass/Vol] 0.81 mg/dL 0.70-1.20 [facility] Serum globulin measurementOr dered By: Zoe Nevarez on 08-24-2024 Globulin (S) [Mass/Vol] 3.1 g/dL 2.2-4.2 [facility] Serum glucose measurement (m ass/volume)Ordered By: Zoe Nevarez on 08-24-2024 Glucose [Mass/Vol] 85 mg/dL 70-99 [facility] Serum or plasma alanine arias otransferase (ALT) measurementOrdered By: Zoe Nevarez on 08-24-2024 ALT [Catalytic activity/Vol] 56 U/L High <35 [facility] Serum or plasma albumin reick urement (mass/volume)Ordered By: Zoe Nevarez on 08-24-2024 Albumin [Mass/Vol] 4.0 g/dL 3.5-5.0 [facility] Serum or plasma albumin/glob ulin mass ratioOrdered By: Zoe Nevarez on 08-24-2024 Albumin/Globulin [Mass ratio] 1.3 {ratio} 0.9-2.4 [facility] Serum or plasma alkaline caitie sphatase measurementOrdered By: Zoe Nevarez on 08-24-2024 ALP [Catalytic activity/Vol] 80 U/L 35-104 [facility] Serum or plasma calcium erick urement (mass/volume)Ordered By: Zoe Nevarez on 08-24-2024 Calcium [Mass/Vol] 8.9 mg/dL 7.6-11.0 [facility] Serum or plasma urea nitroge n measurement (mass/volume)Ordered By: Zoe Nevarez on 08-24-2024 Urea nitrogen [Mass/Vol] 11 mg/dL 4-19 [facility] Sodium levelOrdered By: Phoenix Nevarez on 08-24-2024 Sodium [Moles/Vol] 136 mmol/L 133-145 [facility] Total proteinOrdered By: Gregg Nevarze on 08-24-2024 Protein [Mass/Vol] 7.1 g/dL 5.9-8.4 [facility] Absolute lymphocyte countOrd ered By: Zoe Nevarez on 06-23-2024 Lymphocytes Auto (Unsp spec) [#/Vol] 4.18 10*3/uL 0.83-4.51 [facility] Absolute neutrophil countOrd ered By: faviola Nevarez on 06-23-2024 Neutrophils (Bld) [#/Vol] 5.3 10*3/uL 2.0-7.7 [facility] Anion gap in Serum or Plasma Ordered By: faviola Nevarez on 06-23-2024 Anion gap [Moles/Vol] 12 mmol/L 5- [facility] Automated lymphocyte count a s percentage of total leukocytesOrdered By: Zoe Nevarez on 06-23-2024 Lymphocytes/100 WBC Auto (Unsp spec) 40.7 % - [facility] BUN/creatinine ratioOrdered By: faviola Nevarez on 06-23-2024 Urea nitrogen/Creatinine [Mass ratio] 12.6 mg/mg 10- [facility] Basophil percentageOrdered B y: Phoenixedinsonarthur Nevarez on 06-23-2024 Basophils/100 WBC (Bld) 0.3 % 0-1 [facility] Bilirubin, totalOrdered By: Zoe Nevarez on 06-23-2024 Bilirubin [Mass/Vol] 0.36 mg/dL 0.00-1.30 [facility] CBC W/Diff, Automatedon Absolute Lymph 4.18 X10 3/uL Normal 0.83-4.51 [facility] Comment on above: Performed By: #### L 100.0100, L503.0106, L506.1001, L506.0400, L501.9520, L500.4050 #### [facility] [address] [place], [place], [id number] Absolute Neut 5.3 X10 3/uL Normal 2.0-7.7 [facility] Comment on above: Performed By: #### L 100.0100, L503.0106, L506.1001, L506.0400, L501.9520, L500.4050 #### [facility] [address] [place], [address] Basophils/100 WBC (Bld) 0.3 % Normal 0-1 [facility] Comment on above: Performed By: #### L 100.0100, L503.0106, L506.1001, L506.0400, L501.9520, L500.4050 #### [facility] [address] [place], [address] Eosinophils/100 WBC (Bld) 1.4 % Normal 0-5 [facility] Comment on above: Performed By: #### L 100.0100, L503.0106, L506.1001, L506.0400, L501.9520, L500.4050 #### [facility] [address] [place], [address] Erythrocyte distribution width (RBC) [Ratio] 11.6 % Normal 11.6-14.6 [facility] Comment on above: Performed By: #### L 100.0100, L503.0106, L506.1001, L506.0400, L501.9520, L500.4050 #### [facility] [address] [place], [address] Hematocrit (Bld) [Volume fraction] 41.4 % Normal 37-47 [facility] Comment on above: Performed By: #### L 100.0100, L503.0106, L506.1001, L506.0400, L501.9520, L500.4050 #### [facility] [address] [place], [address] Hemoglobin (Bld) [Mass/Vol] 14.8 g/dL Normal 12.0-15.0 [facility] Comment on above: Performed By: #### L 100.0100, L503.0106, L506.1001, L506.0400, L501.9520, L500.4050 #### [facility] [address] [place], [address] IG% 0.200 Normal 0.0-0.9 [facility] Comment on above: Result Comment: IG% - Immature Granulocytes (promyelocytes, myelocytes and metamyelocytes) > 1% indicates that a LEFT SHIFT is Present. Performed By: #### L 100.0100, L503.0106, L506.1001, L506.0400, L501.9520, L500.4050 #### [facility] [address] [place], [address] Lymphocytes/100 WBC (Bld) 40.7 % Normal 19-41 [facility] Comment on above: Performed By: #### L 100.0100, L503.0106, L506.1001, L506.0400, L501.9520, L500.4050 #### [facility] [address] [place], [address] MCH (RBC) [Entitic mass] 31.0 pg Normal 27.0-32.0 [facility] Comment on above: Performed By: #### L 100.0100, L503.0106, L506.1001, L506.0400, L501.9520, L500.4050 #### [facility] [address] [place], [address] MCHC (RBC) [Mass/Vol] 35.7 g/dL Normal 32-36 [facility] Comment on above: Performed By: #### L 100.0100, L503.0106, L506.1001, L506.0400, L501.9520, L500.4050 #### [facility] [address] [place], [address] MCV (RBC) [Entitic vol] 86.6 fL Normal 81-99 [facility] Comment on above: Performed By: #### L 100.0100, L503.0106, L506.1001, L506.0400, L501.9520, L500.4050 #### [facility] [address] [place], [address] Monocytes/100 WBC (Bld) 5.9 % Normal 0-10 [facility] Comment on above: Performed By: #### L 100.0100, L503.0106, L506.1001, L506.0400, L501.9520, L500.4050 #### [facility] [address] [place], [address] Neutrophils/100 WBC (Bld) 51.5 % Normal 47-70 [facility] Comment on above: Performed By: #### L 100.0100, L503.0106, L506.1001, L506.0400, L501.9520, L500.4050 #### [facility] [address] [place], [address] Nucleated RBC (Bld) [#/Vol] 0 10*3/uL Normal 0-5 [facility] Comment on above: Performed By: #### L 100.0100, L503.0106, L506.1001, L506.0400, L501.9520, L500.4050 #### [facility] [address] [place], [address] Platelet mean volume (Bld) [Entitic vol] 10.4 fL Normal 6.2-12.0 [facility] Comment on above: Performed By: #### L 100.0100, L503.0106, L506.1001, L506.0400, L501.9520, L500.4050 #### [facility] [address] [place], [address] Platelets (Bld) [#/Vol] 337 10*3/uL Normal 150-450 [facility] Comment on above: Performed By: #### L 100.0100, L503.0106, L506.1001, L506.0400, L501.9520, L500.4050 #### [facility] [address] [place], [address] RBC (Bld) [#/Vol] 4.78 10*6/uL Normal 4.2-5.4 [facility] Comment on above: Performed By: #### L 100.0100, L503.0106, L506.1001, L506.0400, L501.9520, L500.4050 #### [facility] [address] [place], [address] RDW SD 36.8 fl Normal 35.1-43.9 [facility] Comment on above: Performed By: #### L 100.0100, L503.0106, L506.1001, L506.0400, L501.9520, L500.4050 #### [facility] [address] [place], [address] WBC (Bld) [#/Vol] 10.3 10*3/uL Normal 4.4-11.0 [facility] Comment on above: Performed By: #### L 100.0100, L503.0106, L506.1001, L506.0400, L501.9520, L500.4050 #### [facility] [address] [place], [address] Carbon dioxide, total [Moles /volume] in Central venous bloodOrdered By: Zoe Nevarez on 06-23-2024 CO2 [Moles/Vol] 21.4 mmol/L 21.0-32.0 [facility] Chloride assayOrdered By: Kevon Nevarez on 06-23-2024 Chloride [Moles/Vol] 103 mmol/L 98-108 [facility] Comprehensive Metabolic Prof ilon 06-23-2024 Albumin [Mass/Vol] 4.4 g/dL Normal 3.5-5.0 [facility] Comment on above: Performed By: #### L 100.0100, L503.0106, L506.1001, L506.0400, L501.9520, L500.4050 #### [facility] [address] [place], [address] Albumin/Globulin [Mass ratio] 1.2 {ratio} Normal 0.9-2.4 [facility] Comment on above: Performed By: #### L 100.0100, L503.0106, L506.1001, L506.0400, L501.9520, L500.4050 #### [facility] [address] [place], [address] ALK PHOS 79 U/L Normal 35-104 [facility] Comment on above: Performed By: #### L 100.0100, L503.0106, L506.1001, L506.0400, L501.9520, L500.4050 #### [facility] [address] [place], [address] ALT [Catalytic activity/Vol] 63 U/L High <=34 [facility] Comment on above: Performed By: #### L 100.0100, L503.0106, L506.1001, L506.0400, L501.9520, L500.4050 #### [facility] [address] [place], [address] AST [Catalytic activity/Vol] 45 U/L High <=31 [facility] Comment on above: Performed By: #### L 100.0100, L503.0106, L506.1001, L506.0400, L501.9520, L500.4050 #### [facility] [address] [place], [address] Bilirubin [Mass/Vol] 0.36 mg/dL Normal 0.00-1.30 [facility] Comment on above: Performed By: #### L 100.0100, L503.0106, L506.1001, L506.0400, L501.9520, L500.4050 #### [facility] [address] [place], [address] BUN/CRE 12.6 RATIO Normal 10-20 [facility] Comment on above: Performed By: #### L 100.0100, L503.0106, L506.1001, L506.0400, L501.9520, L500.4050 #### [facility] [address] [place], [address] Calcium [Mass/Vol] 9.2 mg/dL Normal 7.6-11.0 [facility] Comment on above: Performed By: #### L 100.0100, L503.0106, L506.1001, L506.0400, L501.9520, L500.4050 #### [facility] [address] [place], [address] Chloride [Moles/Vol] 103 mmol/L Normal 98-108 [facility] Comment on above: Performed By: #### L 100.0100, L503.0106, L506.1001, L506.0400, L501.9520, L500.4050 #### [facility] [address] [place], [address] CO2 [Moles/Vol] 21.4 mmol/L Normal 21.0-32.0 [facility] Comment on above: Performed By: #### L 100.0100, L503.0106, L506.1001, L506.0400, L501.9520, L500.4050 #### [facility] [address] [place], [address] Creatinine [Mass/Vol] 0.82 mg/dL Normal 0.70-1.20 [facility] Comment on above: Performed By: #### L 100.0100, L503.0106, L506.1001, L506.0400, L501.9520, L500.4050 #### [facility] [address] [place], [address] GAP 12 Normal 5-15 [facility] Comment on above: Performed By: #### L 100.0100, L503.0106, L506.1001, L506.0400, L501.9520, L500.4050 #### [facility] [address] [place], [address] GFR/1.73 sq M.predicted among non-blacks MDRD (S/P/Bld) [Vol rate/Area] 104 mL/min/{1.73_m2} Normal >60 [facility] Comment on above: Result Comment: mL/m in/1.73m2 CKD-EPI Creatinine Equation (2020) Performed By: #### L 100.0100, L503.0106, L506.1001, L506.0400, L501.9520, L500.4050 #### [facility] [address] [place], [address] Globulin (S) [Mass/Vol] 3.6 g/dL Normal 2.2-4.2 [facility] Comment on above: Performed By: #### L 100.0100, L503.0106, L506.1001, L506.0400, L501.9520, L500.4050 #### [facility] [address] [place], [address] Glucose [Mass/Vol] 134 mg/dL High 70-99 [facility] Comment on above: Performed By: #### L 100.0100, L503.0106, L506.1001, L506.0400, L501.9520, L500.4050 #### [facility] [address] [place], [address] Potassium [Moles/Vol] 3.7 mmol/L Normal 3.3-5.1 [facility] Comment on above: Performed By: #### L 100.0100, L503.0106, L506.1001, L506.0400, L501.9520, L500.4050 #### [facility] [address] [place], [address] Sodium [Moles/Vol] 136 mmol/L Normal 133-145 [facility] Comment on above: Performed By: #### L 100.0100, L503.0106, L506.1001, L506.0400, L501.9520, L500.4050 #### [facility] [address] [place], [address] T PROT 8.0 g/dL Normal 5.9-8.4 [facility] Comment on above: Performed By: #### L 100.0100, L503.0106, L506.1001, L506.0400, L501.9520, L500.4050 #### [facility] [address] [place], [address] Urea nitrogen [Mass/Vol] 10 mg/dL Normal 4-19 [facility] Comment on above: Performed By: #### L 100.0100, L503.0106, L506.1001, L506.0400, L501.9520, L500.4050 #### [facility] [address] [place], [address] Eosinophil percentageOrdered By: Zoe Nevarez on 06-23-2024 Eosinophils/100 WBC (Bld) 1.4 % 0-5 [facility] Erythrocyte distribution wid th ratioOrdered By: Zoe Nevarez on 06-23-2024 Erythrocyte distribution width (RBC) [Ratio] 11.6 % 11.6-14.6 [facility] Erythrocyte distribution wid th standard deviationOrdered By: Zoe Nevarez on 06-23-2024 Erythrocyte distribution width (RBC) [Entitic vol] 36.8 fL 35.1-43.9 [facility] Erythrocyte distribution width (RBC) [Ratio] 36.8 fl 35.1-43.9 [facility] GFR/1.73 sq M.predicted massiel g non-blacks MDRD (S/P/Bld) [Vol rate/Area]Ordered By: Zoe Nevarez on 06-23-2024 Estimated GFR (MDRD) Non-Af Amer 104 >60 [facility] Comment on above: mL/min/1.73m2 CKD-EP I Creatinine Equation (2020) Glomerular filtration rate ( GFR) estimation/1.73 sq m using serum, plasma, or whole bOrdered By: Zoe Nevarez on 06-23-2024 GFR/1.73 sq M.predicted among non-blacks MDRD (S/P/Bld) [Vol rate/Area] 104 mL/min/{1.73_m2} >60 [facility] Comment on above: mL/min/1.73m2 CKD-EP I Creatinine Equation (2020) Hematocrit Auto (Bld) [Volum e fraction]Ordered By: Zoe Nevarez on 06-23-2024 Hematocrit (Bld) [Volume fraction] 41.4 % 37-47 [facility] Hemoglobin measurementOrdere d By: Zoe Nevarez on 06-23-2024 Hemoglobin (Bld) [Mass/Vol] 14.8 g/dL 12.0-15.0 [facility] Immature granulocytes/100 WB C Auto (Bld)Ordered By: Zoe Nevarez on 06-23-2024 Immature granulocytes/100 WBC (Bld) 0.200 % 0.0-0.9 [facility] Comment on above: IG% - Immature Granu locytes (promyelocytes, myelocytes and metamyelocytes) > 1% indicates that a LEFT SHIFT is Present. Internal Medicine Office Vis lizzie 06-23-2024 Internal Medicine Office Visit [facility] [address] [place] [address] [address] [place], [place] [address] OFFICE VISIT Date of Service: 06/23/24 MR#: [id number] Acct: [id number] Name: PATI ESCOBAR Rep #: [id number] : 2005 Provider: Dr. Zoe cervantes MD Age/Sex: 19/F Location[place] [facility] Status: Signed Intake Vital Signs 12/24/23 12:56 [...] YEARLY Chief Complaint: Follow-up chronic conditions. Depression. Registered Radiation Therapist Required: No Accompanied by: Mother Is patient [...] and colleagues, with an educational jose from [employer]. HPI HPI Chief Complaint: Follow-up chronic conditions. 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 Other chronic conditions are stable. ROS Const Constitutional: No body ache, excessive sweating, fatigue, fever(s), frequent falls, headache(s), snoring, weakness, weight change, sleep problems or change in appetite Eyes Eyes: No blurry vision, change in vision, floaters, visual disturbances, eye pain or Light sensitivity ENT ENT: No abnormal hearing, ear or mas (more content not included)... Normal [facility] L503.0106on 06-23-2024 Cobalamin (Vitamin B12) [Mass/Vol] 370 pg/mL Normal 180-914 [facility] Comment on above: Performed By: #### L 100.0100, L503.0106, L506.1001, L506.0400, L501.9520, L500.4050 ####[facility] [address] [place], [place], [address] L506.1001on 06-23-2024 Vitamin D 25-OH 19.3 ng/mL Low 30-100 [facility] Comment on above: Result Comment: Raina min D Status Deficiency: <20 ng/mL (50nmol/L) Insufficiency: 20-30 ng/mL (50-75 nmol/L) Sufficiency: 30-100 ng/mL (75-250 nmol/L) Toxicity: >100 ng/mL (>250 nmol/L) Performed By: #### L 100.0100, L503.0106, L506.1001, L506.0400, L501.9520, L500.4050 ####[facility] [id number] [place], [address] Laboratory - Chemistry and C hemistry - challengeOrdered By: Zoe Nevarez on 06-23-2024 AST [Catalytic activity/Vol] 45 U/L High <32 [facility] Lymphocytes Auto (Unsp spec) [#/Vol]Ordered By: Zoe Nevarez on 06-23-2024 Lymphocytes (Bld) [#/Vol] 4.18 10*3/uL 0.83-4.51 [facility] Lymphocytes/100 WBC Auto (Un sp spec)Ordered By: Zoe Nevarez on 06-23-2024 Lymphocytes/100 WBC (Bld) 40.7 % 19-41 [facility] MCV (mean corpuscular volume ) determinationOrdered By: Zoe Nevarez on 06-23-2024 MCV (RBC) [Entitic vol] 86.6 fL 81-99 [facility] Mean corpuscular hemoglobin (MCH) determinationOrdered By: Zoe Nevarez on 06-23-2024 MCH (RBC) [Entitic mass] 31.0 pg 27.0-32.0 [facility] Mean corpuscular hemoglobin concentration (MCHC) determinationOrdered By: Zoe Nevarez on 06-23-2024 MCHC (RBC) [Mass/Vol] 35.7 g/dL 32-36 [facility] Mean platelet volume determi nationOrdered By: Zoe Nevarez on 06-23-2024 Platelet mean volume (Bld) [Entitic vol] 10.4 fL 6.2-12.0 [facility] Monocyte percentageOrdered B y: Zoe Nevarez on 06-23-2024 Monocytes/100 WBC (Bld) 5.9 % 0-10 [facility] Neutrophil percentageOrdered By: Zoe Nevarez on 06-23-2024 Neutrophils/100 WBC (Bld) 51.5 % 47-70 [facility] Nucleated red blood cell per centageOrdered By: Zoe Nevarez on 06-23-2024 Nucleated RBC/100 WBC (Bld) [Ratio] 0 % 0-5 [facility] Platelet countOrdered By: Kevon Nevarez on 06-23-2024 Platelets (Bld) [#/Vol] 337 10*3/uL 150-450 [facility] Potassium (Unsp spec) [Mass/ Vol]Ordered By: Zoe Nevarez on 06-23-2024 Potassium [Moles/Vol] 3.7 mmol/L 3.3-5.1 [facility] Potassium measurement (mass/ volume)Ordered By: Zoe Nevarez on 06-23-2024 Potassium (Unsp spec) [Mass/Vol] 3.7 mmol/L 3.3-5.1 [facility] RBC Auto (Bld) [#/Vol]Ordere d By: Zoe Nevarez on 06-23-2024 RBC (Bld) [#/Vol] 4.78 10*6/uL 4.2-5.4 [facility] Serum creatinine measurement (mass/volume)Ordered By: Zoe Nevarez on 06-23-2024 Creatinine [Mass/Vol] 0.82 mg/dL 0.70-1.20 [facility] Serum globulin measurementOr dered By: Zoe Nevarez on 06-23-2024 Globulin (S) [Mass/Vol] 3.6 g/dL 2.2-4.2 [facility] Serum glucose measurement (m ass/volume)Ordered By: Zoe Nevarez on 06-23-2024 Glucose [Mass/Vol] 134 mg/dL High 70-99 [facility] Serum or plasma alanine arias otransferase (ALT) measurementOrdered By: Zoe Nevarez on 06-23-2024 ALT [Catalytic activity/Vol] 63 U/L High <35 [facility] Serum or plasma albumin erick urement (mass/volume)Ordered By: Zoe Nevarez on 06-23-2024 Albumin [Mass/Vol] 4.4 g/dL 3.5-5.0 [facility] Serum or plasma albumin/glob ulin mass ratioOrdered By: Zoe Nevarez on 06-23-2024 Albumin/Globulin [Mass ratio] 1.2 {ratio} 0.9-2.4 [facility] Serum or plasma alkaline caitie sphatase measurementOrdered By: Zoe Nevarez on 06-23-2024 ALP [Catalytic activity/Vol] 79 U/L 35-104 [facility] Serum or plasma calcium erick urement (mass/volume)Ordered By: Zoe Nevarez on 06-23-2024 Calcium [Mass/Vol] 9.2 mg/dL 7.6-11.0 [facility] Serum or plasma urea nitroge n measurement (mass/volume)Ordered By: Zoe Nevarez on 06-23-2024 Urea nitrogen [Mass/Vol] 10 mg/dL 4-19 [facility] Sodium levelOrdered By: [place] Nevarez on 06-23-2024 Sodium [Moles/Vol] 136 mmol/L 133-145 [facility] T4 Free Directon 06-23-2024 T4 FREE DIRECT 1.20 ng/dL Normal 0.76-1.46 [facility] Comment on above: Performed By: #### L 100.0100, L503.0106, L506.1001, L506.0400, L501.9520, L500.4050 ####[facility] [id number] [place], [place], [id number] T4 freeOrdered By: Zoe Nevarez on 06-23-2024 Free T4 [Mass/Vol] 1.20 ng/dL 0.76-1.46 [facility] TSH DL <= 0.005 mIU/L QnOrde red By: Zoe Nevarez on 06-23-2024 Thyroid Stimulating Hormone (TSH) 2.790 uIU/mL 0.300-4.200 [facility] TSH Qn 2.790 uIU/mL 0.300-4.200 [facility] Thyroid Stim Hormone (TSH)on 06-23-2024 TSH 2.790 uIU/mL Normal 0.300-4.200 [facility] Comment on above: Performed By: #### L 100.0100, L503.0106, L506.1001, L506.0400, L501.9520, L500.4050 ####[facility] [id number] [place], [address] Total proteinOrdered By: Gregg Nevarez on 06-23-2024 Protein [Mass/Vol] 8.0 g/dL 5.9-8.4 [facility] Vitamin B12 ser/plasOrdered By: Zoe Nevarez on 06-23-2024 Cobalamin (Vitamin B12) [Mass/Vol] 370 pg/mL 180-914 [facility] Vitamin D, 25-hydroxyOrdered By: Zoe Nevarez on 06-23-2024 Vitamin D 25-Hydroxy 19.3 ng/mL Low 30-100 [facility] Comment on above: Vitamin D StatusDefi ciency: <20 ng/mL (50nmol/L)Insufficiency: 20-30 ng/mL (50-75 nmol/L)Sufficiency: 30-100 ng/mL (75-250 nmol/L)Toxicity: >100 ng/mL (>250 nmol/L) White blood cell (WBC) count Ordered By: Zoe Nevarez on 06-23-2024 WBC (Bld) [#/Vol] 10.3 10*3/uL 4.4-11.0 [facility] CNOVon 03-27-2024 CNOV Office Visit ([facility] ) -- PATI ESCOBAR ([id number]) 1 F Date Time Provider Department 03/27/24 9:55 AM BRAULIO APRSON [facility] During your visit today, we recorded the following information about you: Temperature Pulse Respiration Blood pressure 98.6 degrees 89/minute 18/minute 143/109 Weight Last Period 100.8 kg 03/27/24 Braulio Parson APRN.SUTURE GAUGER 03/27/2024 11:38 AM Signed [facility] [place] [address] [facility] [address] Dept: [phone] Dept Subjective Pati Escobar is a 19 [...] tenderness or frontal sinus tenderness. Mouth/Throat: Lips: [place]. Mouth: Mucous membranes are moist. No oral [...] bilateral - ICD9: 382.9, ICD10: H66.93 Braulio Parson, ICT HELP DESK OFFICER.SUTURE GAUGER Patient was informed that examination is consistent [...] symptoms wo (more content not included)... Normal [facility] CT HEAD OR BRAIN WITHOUT CON TRASTon [...] on WedJan 07, 2024 8:25:03 PM EDT [facility] Comment on above: Order Comment: Injur y/Trauma [...] ED Prov Note HPI: 01/07/2024, Time: @COLBY@ Patiphuong Escobar is a 18 y.o. female presenting [...] are negative. PAST HISTORY Past Medical History: @[facility]@ Past Surgical History: has no past [...] needed for pain . Follow-up: [facility] [address] [facility] [address] [facility] [id number] In 1 week Final Impression: 1. Closed head injury, initial encounter 2. Nonintractable headache, unspecified chronicity pattern, unspecified headache type (Please note that portions of this note were completed with a voice recognition program. Efforts were made to edit the dictations but occasionally words are mis-transcribed.) Hector George MD 01/07/242045 AUTHENTICATED BY HECTOR GEORGE, ON 01/07/2024 20:46:02 [facility] Absolute lymphocyte countOrd ered By: Zoe Nevarez on 04-14-2023 Lymphocytes Auto (Unsp spec) [#/Vol] 3.26 10*3/uL 0.83-4.51 [facility] Basophil percentageOrdered B y: Zoe Nevarez on 04-14-2023 Basophils/100 WBC (Bld) 0.3 % 0-1 [facility] Bilirubin [Mass/Vol] 0.50 mg/dL 0.20-1.00 [facility] Comment on above: For patients on eltr ombopag therapy, use of Dimension [place] TBIL is not recommended. Chloride [Moles/Vol] 107 mmol/L 98-107 [facility] Cholesterol [Mass/Vol] 172 mg/dL <200 [facility] Comment on above: <200 mg/dL Desirable 200-240 mg/dL Borderline >240 mg/dL High Risk Eosinophils/100 WBC (Bld) 1.5 % 0-5 [facility] Glucose [Mass/Vol] 89 mg/dL 74-106 [facility] Neutrophils (Bld) [#/Vol] 4.7 10*3/uL 2.0-7.7 [facility] Neutrophils/100 WBC (Bld) 55.0 % 47-70 [facility] Potassium [Moles/Vol] 3.8 mmol/L 3.5-5.1 [facility] Protein [Mass/Vol] 8.0 g/dL 6.4-8.2 [facility] Sodium [Moles/Vol] 140 mmol/L 136-145 [facility] Triglyceride [Mass/Vol] 239 mg/dL <199 [facility] Comment on above: The drugs N-Acetylcy steine and Metamizole may falsely depress this assay.Serum Triglycerides Reference Interval Normal <150 mg/dL Borderline high 150 - 199 mg/dL High 200 - 499 mg/dL Very High > or = 500 mg/dL WBC (Bld) [#/Vol] 8.6 10*3/uL 4.4-11.0 [facility] Blood erythrocytes count (nu mber/volume)Ordered By: Zoe Nevarez on 04-14-2023 RBC (Bld) [#/Vol] 4.36 10*6/uL 4.2-5.4 [facility] Blood hemoglobin measurement (mass/volume)Ordered By: Zoe Nevarez on 04-14-2023 Hemoglobin (Bld) [Mass/Vol] 13.8 g/dL 12.0-15.0 [facility] Blood lymphocytes/100 leukoc ytesOrdered By: Zoe Nevarez on 04-14-2023 Lymphocytes/100 WBC (Bld) 38.0 % 19-41 [facility] Blood monocytes/100 leukocyt esOrdered By: nancywabassoarthur Nevarez on 04-14-2023 Monocytes/100 WBC (Bld) 4.9 % 0-10 [facility] Blood platelet mean volumeOr dered By: faviola Nevarez on 04-14-2023 Platelet mean volume (Bld) [Entitic vol] 10.3 fL 6.2-12.0 [facility] Determination of erythrocyte mean corpuscular volume (MCV)Ordered By: Zoe Nevarez on 04-14-2023 MCV (RBC) [Entitic vol] 89.4 fL 81-99 [facility] Hematocrit Auto (Bld) [Volum e fraction]Ordered By: Zoe Nevarez on 04-14-2023 Hematocrit (Bld) [Volume fraction] 39.0 % 37-47 [facility] Laboratory - Chemistry and C hemistry - challengeOrdered By: Zoe Nevarez on 04-14-2023 ALP [Catalytic activity/Vol] 70 U/L 45-117 [facility] ALT [Catalytic activity/Vol] 46 U/L 13-56 [facility] CO2 [Moles/Vol] 25.0 mmol/L 21.0-32.0 [facility] Globulin (S) [Mass/Vol] 4.2 g/dL 2.2-4.2 [facility] Urea nitrogen/Creatinine [Mass ratio] 14.0 mg/mg 10-20 [facility] Laboratory - Hematology and Cell countsOrdered By: Zoe Nevarez on 04-14-2023 Erythrocyte distribution width (RBC) [Entitic vol] 37.2 fL 35.1-43.9 [facility] Erythrocyte distribution width (RBC) [Ratio] 11.4 % 11.6-14.6 [facility] Immature granulocytes/100 WBC (Bld) 0.300 % 0.0-0.9 [facility] Comment on above: IG% - Immature Granu locytes (promyelocytes, myelocytes and metamyelocytes) > 1% indicates that a LEFT SHIFT is Present. MCH (RBC) [Entitic mass] 31.7 pg 27.0-32.0 [facility] Nucleated RBC/100 WBC (Bld) [Ratio] 0 % 0-5 [facility] MCHC Auto (RBC) [Mass/Vol]Or dered By: Zoe Nevarez on 04-14-2023 MCHC (RBC) [Mass/Vol] 35.4 g/dL 32-36 [facility] No Panel InformationOrdered By: Zoe Nevarez on 04-14-2023 Estimated GFR (MDRD) Amer 120 mL/min >60 [facility] Comment on above: GFR Calc Estimated GFR (MDRD) Non-Af Amer 100 mL/min >60 [facility] Comment on above: Non- GFR Calc Platelets bldOrdered By: Gregg Nevarez on 04-14-2023 Platelets (Bld) [#/Vol] 333 10*3/uL 150-450 [facility] Serum or plasma albumin erick urement (mass/volume)Ordered By: Zoe Nevarez on 04-14-2023 Albumin [Mass/Vol] 3.8 g/dL 3.2-5.0 [facility] Serum or plasma albumin/glob ulin mass ratioOrdered By: Zoe Nevarez on 04-14-2023 Albumin/Globulin [Mass ratio] 0.9 {ratio} 0.9-2.4 [facility] Serum or plasma calcium erick urement (mass/volume)Ordered By: Zoe Nevarez on 04-14-2023 Calcium [Mass/Vol] 8.7 mg/dL 8.5-10.1 [facility] Serum or plasma cholesterol in HDL measurement (mass/volume)Ordered By: Zoe Nevarez on 04-14-2023 Cholesterol in HDL [Mass/Vol] 39 mg/dL >40 [facility] Comment on above: The drugs N-Acetylcy steine and Metamizole may falsely depress this assay. Reference Range HDL <40 mg/dL Low HDL Cholesterol HDL >or= 60 mg/dL High HDL Cholesterol Serum or plasma cholesterol in VLDL measurement (mass/volume)Ordered By: Zoe Nevarez on 04-14-2023 Cholesterol in VLDL [Mass/Vol] 48 mg/dL 5-40 [facility] Serum or plasma creatinine m easurement (mass/volume)Ordered By: Zoe Nevarez on 04-14-2023 Creatinine [Mass/Vol] 0.78 mg/dL 0.55-1.02 [facility] Comment on above: The validity of the calculated GFR & GFRAA in patients over 70 years has not been determined. Clinical correlation is essential. Serum or plasma low density lipoprotein (LDL) cholesterol measurement (mass/volume)Ordered By: Zoe Nevarez on 04-14-2023 Cholesterol in LDL [Mass/Vol] 85 mg/dL 0-130 [facility] Serum or plasma urea nitroge n measurement (mass/volume)Ordered By: Zoe Nevarez on 04-14-2023 Urea nitrogen [Mass/Vol] 11 mg/dL 7-18 [facility] Thin prep Papanicolaou smear with manual screeningOrdered By: Zoe Nevarez on 04-14-2023 Thin prep Papanicolaou smear with manual screening 30 U/L 15-37 [facility] Thin prep Papanicolaou smear with manual screening 8 5-15 [facility] Progress Noteon 01-11-2023 Med Surg Nurse Authentication Interface Message Text Patient ID: Pati Escobar is a 17 y.o. female. Her chief complaint(s) include: Anxiety and Chest Pain Assessment 1. URI, acute 2. Anxiety Plan Pati was seen today for anxiety and chest pain. Diagnoses and associated orders for this visit: URI, acute Anxiety Rest and fluids Call for any questions/concerns/problem s/changes To see Psych at [place] No follow-ups on file. Subjective She is [...] Review of Systems Objective Vital Signs 01/11/23 0901/11/23 0913 BP: 137/89 119/75 Pulse: 78 Weight: [...] 94.9 kg, last menstrual period 12/28/2022. Normal [facility] Provider Note - ED v3on 05-20 [...] for cough SIGNIFICANT EVENTS: No documented data. 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 Is : no REVIEW [...] SIGNS: T PRBP SpO2O2(LPM) %FiO2 Method 01-Jun-2022 12:35:[id number] MDM MDM/ED COURSE: Discussed Findings with: [...] ill patient: no Electronic Signatures: Steven Lorenzo (ICT HELP DESK OFFICER-SUTURE GAUGER) (Signed 01-Jun-2022 14:42) Authored: ED Notes, HPI, PMH, ROS, PE, Results/Vital Signs, MDM/ED Course, Clinical Impression, Attestation, Chart Review, Scores Last Updated: 01-Jun-2022 14:42 by Steven Lorenzo (ICT HELP DESK OFFICER-SUTURE GAUGER) [facility] C-reactive proteinon 023 CRP [Mass/Vol] mg/L 0.0 - 1.0 mg/dL [facility] Comment on above: CRP determinations i [...] (Bld) 0.4 % 0.00 - 1.00 % [facility] Differential Complete Automated Akr on [facility] Eosinophils/100 WBC (Bld) 1.20 % 0.00 - 3.00 % [facility] Erythrocyte distribution width (RBC) [Ratio] 11.7 % 0.0 - 14.4 % [facility] Hematocrit (Bld) [Volume fraction] 39.8 % 36.0 - 44.0 % [facility] Hemoglobin (Bld) [Mass/Vol] 14.3 g/dL 12.0 - 15.0 g/dl [facility] Immature granulocytes/100 WBC (Bld) 0.3 % [facility] Comment on above: Immature Granulocyte Percent includes promyelocytes, myelocytes, and metamyelocytes. IG% > 1.0 indicates a left shift is present. With automated differentials, bands are included in the neutrophil count and not in the Immature Granulocyte Percent. Lymphocytes/100 WBC (Bld) 38.1 % 24.0 - 44.0 % [facility] MCH (RBC) [Entitic mass] 31.4 pg 26.0 - 34.0 pg [facility] MCHC 35.9 % 31.0 - 37.0 % [facility] MCV (RBC) [Entitic vol] 87.5 fL 80.0 - 100.0 fl [facility] Monocytes/100 WBC (Bld) 5.50 % 3.00 - 6.00 % [facility] Neutrophils (Bld) [#/Vol] 5 10*3/uL [facility] Neutrophils/100 WBC (Bld) 54.5 % 35.0 - 66.0 % [facility] Nucleated RBC/100 WBC (Bld) [Ratio] 0 % -1.0 - 0.0 % [facility] Platelet mean volume (Bld) [Entitic vol] 10.1 fL [facility] Comment on above: MPV is platelet range and age dependent Platelets (Bld) [#/Vol] 335 10*3/uL [facility] RBC (Bld) [#/Vol] 4.55 10*6/uL [facility] WBC (Bld) [#/Vol] 9.1 10*3/uL [facility] Release to patient->[facility] Comprehensive metabolic pane letitia 05-19-2022 Albumin [Mass/Vol] 4.4 g/dL 3.5 - 5.0 g/dL [facility] ALP [Catalytic activity/Vol] 73 U/L 35 - 104 U/L [facility] ALT [Catalytic activity/Vol] 50 U/L High 0 - 34 U/L [facility] AST [Catalytic activity/Vol] 51 U/L High 0 - 31 U/L [facility] Comment on above: Hemolysis detected. Results may be falsely elevated. Interpret results with caution. Bilirubin [Mass/Vol] 0.5 mg/dL 0.0 - 1 .0 mg/dL [facility] Calcium [Mass/Vol] 9.5 mg/dL 7.6 - 11. 0 mg/dL [facility] Chloride [Moles/Vol] 104 mmol/L 96 - 10 8 mmol/L [facility] CO2 [Moles/Vol] 21.4 mmol/L Low 22.0 - 29.0 mmol/L [facility] Creatinine [Mass/Vol] 0.74 mg/dL 0.50 - 1.00 mg/dL [facility] Glucose [Mass/Vol] 92 mg/dL 70 - 99 mg/dL [facility] Comment on above: Criteria for Diagnos is of Diabetes: Fasting Specimen (no caloric intake for at least 8 hours): <100 mg/dL Normal 100-125 mg/dL Increased risk for Diabetes >125 mg/dL Diagnostic for Diabetes Random Glucose (any time of day without regard to last meal): > or = 200 mg/dL plus Classic Symptoms of Diabetes Potassium [Moles/Vol] 4.3 mmol/L 3.3 - 5.1 mmol/L [facility] Comment on above: Hemolysis detected. Results may be falsely elevated. Interpret results with caution. Protein [Mass/Vol] 8.1 g/dL 5.9 - 8.4 g/dL [facility] Sodium [Moles/Vol] 138 mmol/L 133 - 145 mmol/L [facility] Urea nitrogen [Mass/Vol] 11 mg/dL 4 - 19 mg/dL [facility] ESRon 05-19-2022 Erythrocyte Sedimentation Rate Interpretation ----- [facility] Comment on above: : 0-2 mm/hr [place] to puberty: 3-13 mm/hr - Less than 50 years old: Male: <15 mm/hr Female: <20 mm/hr - Greater than 50 years old: Male: <20 mm/hr Female: <30 mm/hr ESR (Bld) [Velocity] 20 mm/h mm/hr [facility] Release to patient->[facility] HLA-B27on 05-19-2022 HLA-B27 See Below [facility] Comment on above: Source: BLOOD [facility] sallie: 05/19/22 10:35 Site: Received : [...] variations. - References: Jani LARA, crispin Russo, crispin Masterson. Genotyping of HLA-B27 by Real-Time PCR without Hybridization Probes. Clin Chem. 2000;46:1854-4875. - Yogesh Trejo, Nikki Russo. DNA typing of HLA-B27 by polymerase chain reaction. Mol Cell Probes 1997;11:313-315. - Escobar MT, Jalen M, Wilman RL, Radha C. HLA-B27 Typing: Evaluation of an Allele-Specific PCR Melting Assay and Two Flow Cytometric Antigen Assays. Cytometry B Clin Cytom. 2005;63B:10-15. - This test was developed and its performance determined by [facility]. It has not been cleared or approved by the U.S. Food and Drug Administration. The FDA has determined that such clearance or approval is not necessary. This test is used for clinical purposes. Pursuant to the requirements of CLIA '88, this laboratory has established and verified the test's accuracy and precision. - Reviewed by: Keyon Musa, PhD, [facility] Release to patient->[facility] Hemoglobin A1con 05-19-2022 HbA1c Elph (Bld) [Mass fraction] 5.3 % 0.0 - 5.6 % [facility] Comment on above: Reference Interval: <5.7% 5.7-6.4% Prediabetes > or = 6.5% Diabetes Targets for diabetes management: Type I <7.5% Type II <7.0% Release to patient->[facility] Immunoglobulin Aon 3 Immunoglobulin A 405 mg/dL High 61 - 348 mg/dL [facility] Lipid Panelon 05-19-2022 Cholesterol [Mass/Vol] 194 mg/dL High 0 - 169 mg/dL [facility] Comment on above: Acceptable (mg/dL): <170 Borderline-High (mg/dL): 170-199 High (mg/dL): > or = 200 Reference: Recommendations of the [place] [employer] (Pediatrics, Mar 2011, 128 (Supplement 5) T639-E353; DOI: 10.1542/peds.2008-7C). Cholesterol in HDL [Mass/Vol] 39 mg/dL [facility] Comment on above: Low (mg/dL): <40 Borderline-Low (mg/dL): 40-45 Acceptable (mg/dL): >45 Cholesterol in LDL [Mass/Vol] 108 mg/dL 0 - 109 mg/dL [facility] Non-HDL Cholesterol 155 mg/dL High 0 - 119 mg/dL [facility] Triglyceride [Mass/Vol] 234 mg/dL High 0 - 89 mg/dL [facility] Comment on above: A repeating fasting triglyceride should be measured in 2-4 weeks if a non-fasting level is >200 mg/dL. No Panel Informationon 05-19 Interpretation and review of laboratory results Abnormal [facility] Release to patient->[facility] TSH with Reflex to T4, Freeo n 05-19-2022 TSH with reflex to T4, Free 3.21 [facility] Vitamin B12on 05-19-2022 Cobalamin (Vitamin B12) [Mass/Vol] 359 pg/mL 180 - 914 pg/mL [facility] Release to patient->[facility] Vitamin D 25 hydroxyon 05-19 25 [place] Vitamin D 26 ng/mL Low 30 - 100 ng/mL [facility] Comment on above: Reference ranges pro vided by [facility] Laboratory are based on Endocrine Society Guidelines: Level: Characterization < 21 ng/mL: Vitamin D deficiency 21-29 ng/mL: Suboptimal Vitamin D status 30-100 ng/mL: Optimal Vitamin D status >100 ng/mL: Potentially toxic Vitamin D effects ALT/SGPTon 11-07-2021 ALT [Catalytic activity/Vol] 56 U/L High 10-49 [facility] [place] Comment on above: Performed By: #### A ST, LIPID, CK, ALT #### [facility] [address] [place] [address] Gracie 11-07-2021 AST [Catalytic activity/Vol] 36 U/L High 8-34 [facility] [place] Comment on above: Performed By: #### A ST, LIPID, CK, ALT #### [address] [address] CKon 11-07-2021 CK [Catalytic activity/Vol] 136 U/L Normal 7-185 [facility] [place] Comment on above: Performed By: #### A ST, LIPID, CK, ALT #### [address] [address] LIPIDon 11-07-2021 Cholesterol [Mass/Vol] 181 mg/dL Normal 50-199 [facility] [place] Comment on above: Result Comment: Chol esterol Reference Interval: Less than 200 Desirable 200-239 Borderline high risk 240 and above High risk Performed By: #### A ST, LIPID, CK, ALT #### [address] [address] Cholesterol in HDL [Mass/Vol] 34 mg/dL Low 40-59 [facility] [place] Comment on above: Performed By: #### A ST, LIPID, CK, ALT #### [address] [address] Cholesterol in LDL [Mass/Vol] 110 mg/dL Normal 0-129 [facility] [place] Comment on above: Performed By: #### A ST, LIPID, CK, ALT #### [address] [address] Triglyceride [Mass/Vol] 186 mg/dL High 3-149 [facility] [place] Comment on above: Performed By: #### A ST, LIPID, CK, ALT #### [address] [address] [facility] Sendouton 11-06 [facility] Sendout see below [facility] Comment on above: No results to be rec eived. [facility] Sendout Performed by see below [facility] Comment on above: Testing performed: [address] [address] Test Name SEE COMMENTS [facility] Comment on above: AST CK LIPID ALT ORDER WAS CANCELLED 11/06/21 12:51, [employer] INSURANCE SENDING TO [place]. Release to patient->[facility] Lipid panelon 08-14-2021 Cholesterol [Mass/Vol] 275 mg/dL High 0 - 169 mg/dL [facility] Comment on above: Acceptable (mg/dL): <170 Borderline-High (mg/dL): 170-199 High (mg/dL): > or = 200 Reference: Recommendations of the [place] [employer] (Pediatrics, Mar 2011, 128 (Supplement 5) O435-W553; DOI: 10.1542/peds.2008-2107C). Cholesterol in HDL [Mass/Vol] 39 mg/dL [facility] Comment on above: Low (mg/dL): <40 Borderline-Low (mg/dL): 40 - 45 Acceptable (mg/dL): >45 Cholesterol in LDL [Mass/Vol] 190 mg/dL High 0 - 109 mg/dL [facility] Interpretation and review of laboratory results Abnormal [facility] Non-HDL Cholesterol 236 mg/dL High 0 - 119 mg/dL [facility] Triglyceride [Mass/Vol] 231 mg/dL High 0 - 89 mg/dL [facility] Comment on above: A repeating fasting triglyceride should be measured in 2-4 weeks if a non-fasting level is >200 mg/dL. Release to patient->[facility] Vital Signs Date Time Vital Sign Value Performing Clinician Facility 01-17-2025 11:15040 Body height 157.[address] Zoe Nevarez MD Work Phone: [facility] 01-17-2025 11:15-0400 Body mass index (BMI) [Ratio] 41.8 kg/m2 Dr. Zoe Nevarez MD Work Phone: [facility] 01-17-2025 11:15-040 Body weight 103.[address] Zoe Nevarez MD Work Phone: [facility] 01-17-2025 11:15-040 Diastolic blood pressure 98 mm[Hg] Dr. Zoe Nevarez MD Work Phone: [facility] 01-17-2025 11:15-0400 Heart rate 79 /min Dr. Zoe Nevarez MD Work Phone: [facility] 01-17-2025 11:15-0400 Respiratory rate 16 /min Dr. Zoe Nevarez MD Work Phone: [facility] 01-17-2025 11:15-0400 Systolic blood pressure 147 mm[Hg] Dr. Zoe Nevarez MD Work Phone: [facility] 01-17-2025 08:30-0400 Body mass index (BMI) [Ratio] 41.8 kg/m2 Dr. Zoe Nevarez MD Work Phone: [facility] 01-17-2025 08:30-0400 Body temperature 97 [degF] Dr. Zoe Nevarez MD Work Phone: [facility] 01-17-2025 08:30-0400 Body weight 103.[address] Zoe Nevarez MD Work Phone: [facility] 01-17-2025 08:30-0400 Diastolic blood pressure 86 mm[Hg] Dr. Zoe Nevarez MD Work Phone: [facility] 01-17-2025 08:30-0400 Heart rate 86 /min Dr. Zoe Nevarez MD Work Phone: [facility] 01-17-2025 08:30-0400 Respiratory rate 16 /min Dr. Zoe Nevarez MD Work Phone: [facility] 01-17-2025 08:30-0400 SaO2% (BldA) [Mass fraction] 96 % Dr. Zoe Nevarez MD Work Phone: [facility] 01-17-2025 08:30-0400 Systolic blood pressure 142 mm[Hg] Dr. Zoe Nevarez MD Work Phone: [facility] 12-28-2024 14:19-0400 Body height 157.[address] Zoe Nevarez MD Work Phone: [facility] 12-28-2024 14:19-0400 Body mass index (BMI) [Ratio] 41.5 kg/m2 Dr. Zoe Nevarez MD Work Phone: [facility] 12-28-2024 14:19-0400 Body temperature 97.4 [degF] Dr. Zoe Nevarez MD Work Phone: [facility] 12-28-2024 14:19-0400 Body weight 102.[address] Zoe Nevarez MD Work Phone: [facility] 12-28-2024 14:19-0400 Diastolic blood pressure 86 mm[Hg] Dr. Zeo Nevarez MD Work Phone: [facility] 12-28-2024 14:19-0400 Heart rate 88 /min Dr. Zoe Nevarez MD Work Phone: [facility] 12-28-2024 14:19-0400 Respiratory rate 16 /min Dr. Zoe Nevarez MD Work Phone: [facility] 12-28-2024 14:19-0400 SaO2% (BldA) [Mass fraction] 98 % Dr. Zoe Nevarez MD Work Phone: [facility] 12-28-2024 14:19-0400 Systolic blood pressure 138 mm[Hg] Dr. Zoe Nevarez MD Work Phone: [facility] 11-07-2024 15:13-0400 Body height 157.[address] Zoe Nevarez MD Work Phone: [facility] 11-07-2024 15:13-0400 Body mass index (BMI) [Ratio] 41.3 kg/m2 Dr. Zoe Nevarez MD Work Phone: [facility] 11-07-2024 15:13-0400 Body temperature 97.1 [degF] Dr. Zoe Nevarez MD Work Phone: [facility] 11-07-2024 15:13-0400 Body weight 102.[address] Zoe Nevarez MD Work Phone: [facility] 11-07-2024 15:13-0400 Diastolic blood pressure 90 mm[Hg] Dr. Zoe Nevarez MD Work Phone: [facility] 11-07-2024 15:13-0400 Heart rate 96 /min Dr. Zoe Nevarez MD Work Phone: [facility] 11-07-2024 15:13-0400 Respiratory rate 14 /min Dr. Zoe Nevarez MD Work Phone: [facility] 11-07-2024 15:13-0400 SaO2% (BldA) [Mass fraction] 99 % Dr. Zoe Nevarez MD Work Phone: [facility] 11-07-2024 15:13-0400 Systolic blood pressure 142 mm[Hg] Dr. Zoe Nevarez MD Work Phone: [facility] 10-03-2024 14:31-0400 Body height 157.[address] Zoe Nevarez MD Work Phone: [facility] 10-03-2024 14:31-0400 Body mass index (BMI) [Ratio] 40.8 kg/m2 Dr. Zoe Nevarez MD Work Phone: [facility] 10-03-2024 14:31-0400 Body weight 101.[address] Zoe Nevarez MD Work Phone: [facility] 09-27-2024 11:29-0400 Body temperature 98.2 [degF] Dr. Zoe Nevarez MD Work Phone: [facility] 09-27-2024 11:29-0400 Diastolic blood pressure 90 mm[Hg] Dr. Zoe Nevarez MD Work Phone: [facility] 09-27-2024 11:29-0400 Heart rate 83 /min Dr. Zoe Nevarez MD Work Phone: [facility] 09-27-2024 11:29-0400 Respiratory rate 14 /min Dr. Zoe Nevarez MD Work Phone: [facility] 09-27-2024 11:29-0400 SaO2% (BldA) [Mass fraction] 98 % Dr. Zoe Nevarez MD Work Phone: [facility] 09-27-2024 11:29-0400 Systolic blood pressure 122 mm[Hg] Dr. Zoe Nevarez MD Work Phone: [facility] 09-15-2024 10:07-0400 Body height 157.[address] Zoe Nevarez MD Work Phone: [facility] 09-15-2024 10:07-0400 Body mass index (BMI) [Ratio] 40.2 kg/m2 Dr. Zoe Nevarez MD Work Phone: [facility] 09-15-2024 10:07-0400 Body temperature 97.9 [degF] Dr. Zoe Nevarez MD Work Phone: [facility] 09-15-2024 10:07-0400 Body weight 99.[address] Zoe Nevarez MD Work Phone: [facility] 09-15-2024 10:07-0400 Diastolic blood pressure 82 mm[Hg] Dr. oZe Nevarez MD Work Phone: [facility] 09-15-2024 10:07-0400 Heart rate 98 /min Dr. Zoe Nevarez MD Work Phone: [facility] 09-15-2024 10:07-0400 Respiratory rate 18 /min Dr. Zoe Nevarez MD Work Phone: [facility] 09-15-2024 10:07-0400 SaO2% (BldA) [Mass fraction] 96 % Dr. Zoe Nevarez MD Work Phone: [facility] 09-15-2024 10:07-0400 Systolic blood pressure 134 mm[Hg] Dr. Zoe Nevarez MD Work Phone: [facility] 09-13-2024 12:02-0400 Body height 157.[address] Zoe Nevarez MD Work Phone: [facility] 09-13-2024 12:02-0400 Body mass index (BMI) [Ratio] 40.3 kg/m2 Dr. Zoe Nevarez MD Work Phone: [facility] 09-13-2024 12:02-0400 Body temperature 98.3 [degF] Dr. Zoe Nevarez MD Work Phone: [facility] 09-13-2024 12:02-0400 Body weight 99.[address] Zoe Nevarez MD Work Phone: [facility] 09-13-2024 12:02-0400 Diastolic blood pressure 80 mm[Hg] Dr. Zoe Nevarez MD Work Phone: [facility] 09-13-2024 12:02-0400 Heart rate 89 /min Dr. Zoe Nevarez MD Work Phone: [facility] 09-13-2024 12:02-0400 SaO2% (BldA) [Mass fraction] 98 % Dr. Zoe Nevarez MD Work Phone: [facility] 09-13-2024 12:02-0400 Systolic blood pressure 122 mm[Hg] Dr. Zoe Nevarez MD Work Phone: [facility] 06-23-2024 15:15-0500 Body height 157.[address] Zoe Nevarez MD Work Phone: [facility] 06-23-2024 15:15-0500 Body mass index (BMI) [Ratio] 40.8 kg/m2 Dr. Zoe Nevarez MD Work Phone: [facility] 06-23-2024 15:15-0500 Body temperature 98 [degF] Dr. Zoe Nevarez MD Work Phone: [facility] 06-23-2024 15:15-0500 Body weight 101.[address] Zoe Nevarez MD Work Phone: [facility] 06-23-2024 15:15-0500 Diastolic blood pressure 78 mm[Hg] Dr. Zoe Nevarez MD Work Phone: [facility] 06-23-2024 15:15-0500 Heart rate 107 /min Dr. Zoe Nevarez MD Work Phone: [facility] 06-23-2024 15:15-0500 Respiratory rate 16 /min Dr. Zoe Nevarez MD Work Phone: [facility] 06-23-2024 15:15-0500 SaO2% (BldA) [Mass fraction] 98 % Dr. Zoe Nevarez MD Work Phone: [facility] 06-23-2024 15:15-0500 Systolic blood pressure 124 mm[Hg] Dr. Zoe Nevarez MD Work Phone: [facility] 03-27-2024 11:04-0500 Body temperature 98.6 [degF] Braulio Parson APRN.SUTURE GAUGER Work Phone: [facility] 03-27-2024 11:04-0500 Body weight 100.79 kg Braulio Parson APRN.SUTURE GAUGER Work Phone: [facility] 03-27-2024 11:04-0500 Diastolic blood pressure 109 mm[Hg] Braulio Parson APRN.SUTURE GAUGER Work Phone: [facility] 03-27-2024 11:04-0500 Heart rate 89 /min Braulio Parson APRN.SUTURE GAUGER Work Phone: [facility] 03-27-2024 11:04-0500 Respiratory rate 18 /min Braulio Parson APRN.SUTURE GAUGER Work Phone: [facility] 03-27-2024 11:04-0500 SaO2% (BldA) [Mass fraction] 99 % Braulio Parson ICT HELP DESK OFFICER.SUTURE GAUGER Work Phone: [facility] 03-27-2024 11:04-0500 Systolic blood pressure 143 mm[Hg] Braulio Parson APRN.SUTURE GAUGER Work Phone: [facility] 04-14-2023 10:10-0500 Body height 157.[address] Lola Zepeda Work Phone: [facility] 04-14-2023 10:10-0500 Body mass index (BMI) [Ratio] 39.7 kg/m2 Dr. Lola Zepeda Work Phone: [facility] 04-14-2023 10:10-0500 Body temperature 97.9 [degF] Dr. Lola Zepeda Work Phone: [facility] 04-14-2023 10:10-0500 Body weight 98.[address] Lola Zepeda Work Phone: [facility] 04-14-2023 10:10-0500 Diastolic blood pressure 68 mm[Hg] Dr. Lola Zepeda Work Phone: [facility] 04-14-2023 10:10-0500 Heart rate 90 /min Dr. Lola Zepeda Work Phone: [facility] 04-14-2023 10:10-0500 Respiratory rate 16 /min Dr. Lola Zepeda Work Phone: [facility] 04-14-2023 10:10-0500 SaO2% (BldA) [Mass fraction] 99 % Dr. Lola Zepeda Work Phone: [facility] 04-14-2023 10:10-0500 Systolic blood pressure 114 mm[Hg] Dr. Lola Zepeda Work Phone: [facility] 06-01-2022 14:35-0500 Body height 160 cm Text Entry [facility] 06-01-2022 14:35-0500 Body temperature 97.88 [degF] Text Entry [facility] 06-01-2022 14:35-0500 Diastolic blood pressure 75 mm[Hg] Text Entry [facility] 06-01-2022 14:35-0500 Heart rate 86 /min Text Entry [facility] 06-01-2022 14:35-0500 Respiratory rate 18 /min Text Entry [facility] 06-01-2022 14:35-0500 SaO2% (BldA) [Mass fraction] 97 % Text Entry [facility] 06-01-2022 14:35-0500 Systolic blood pressure 126 mm[Hg] Text Entry [facility] Encounters Encounter Date Encounter Type Care Provider Facility Start: 01-17-2025 End: 01-17-[address] Zoe Nevarez MD Work Phone: -[facility] Start: 01-17-2025 End: 01-17-[address] Manuel Peraza MD -[facility] Work Phone: Start: 01-17-2025 End: 01-17-[address] Zeo Nevarez MD -[facility] Work Phone: Start: 01-17-2025 End: 01-17-[address] Zoe Nevarez MD Work Phone: -[facility] Start: 01-17-2025 End: 01-17-2025 ambulatory Zoe Nevarez Facility:[facility] Start: 12-28-2024 End: 12-28-2024 Patient encounter procedure Kwame THORPE -[facility] Work Phone: Start: 12-28-2024 End: 12-28-[address] Zoe Nevarez MD Work Phone: -[facility] Start: 12-08-2024 ambulatory Adaliarthur Pedro Luismakeda Facili ty:[facility] Start: 12-08-2024 Non-patient / Non-visit Dr. Elin Bautista MD -[facility] Start: 12-04-2024 Non-patient / Non-visit Dr. Ron GUADARRAMA -[facility] Work Phone: Start: 12-04-2024 End: 12-04-[address] Zoe Nevarez MD Work Phone: -[facility] Start: 12-04-2024 End: 12-04-[address] Zoe Nevarez MD -[facility] Work Phone: Start: 12-04-2024 End: 12-04-2024 ambulatory Zoe Nevarez Facility:[facility] Start: 11-07-2024 End: 11-07-2024 Patient encounter procedure Patrica WREN -[facility] Work Phone: Start: 11-07-2024 End: 11-07-[address] Zoe Nevarez MD Work Phone: -[facility] Start: 10-03-2024 End: 10-03-[address] Justin Christiansen MD -[facility] Work Phone: Start: 10-03-2024 End: 10-03-[address] Zoe Nevarez MD Work Phone: [facility] Work Phone: Start: 09-27-2024 End: 09-27-2024 Patient encounter procedure Riley THORPE [facility] Work Phone: Start: 09-27-2024 End: 09-27-[address] Zoe Nevarez MD Work Phone: [facility] Work Phone: Start: 09-27-2024 End: 09-27-2024 ambulatory Zoe Nevarez Facility:[facility] Start: 09-19-2024 End: 09-19-[address] Zoe Nevarez MD Work Phone: [facility] Work Phone: Start: 09-19-2024 End: 09-19-[address] Zoe Nevarez MD -[facility] Work Phone: Start: 09-19-2024 End: 09-19-2024 ambulatory Zoe Nevarez Facility:[facility] Start: 09-15-2024 End: 09-15-[address] Zoe Nevarez MD -[facility] Work Phone: Start: 09-15-2024 End: 09-15-[address] Zoe Nevarez MD Work Phone: [facility] Work Phone: Start: 09-13-2024 End: 09-13-2024 Patient encounter procedure Riley THORPE -[facility] Work Phone: Start: 09-13-2024 End: 09-13-[address] Zoe Nevarez MD Work Phone: [facility] Work Phone: Start: 09-13-2024 End: 09-13-2024 ambulatory Riley THORPE Facility:[facility] Start: 08-24-2024 End: 08-24-[address] Zoe Nevarez MD Work Phone: [facility] Work Phone: Start: 08-24-2024 End: 08-24-[address] Zoe Nevarez MD -[facility] Start: 08-24-2024 End: 08-24-2024 ambulatory Zoe Nevarez Facility:[facility] Start: 06-23-2024 End: 06-23-[address] Zoe Nevarez MD -[facility] Work Phone: Start: 06-23-2024 End: 06-23-[address] Zoe Nevarez MD Work Phone: [facility] Work Phone: Start: 06-23-2024 End: 06-23-2024 ambulatory [facility] Facility:[facility] Start: 03-27-2024 End: 03-27-2024 Office outpatient new 30 minutes Braulio Parson APRN.CNP Work Phone: [facility] Comment on above: Acute otitis media, bilateral (Primary Dx) Start: 03-27-2024 End: 03-27-2024 ambulatory [facility] Facility:[id number] Start: 01-07-2024 End: 01-07-2024 Emergency department patient visit PHYSICIAN [facility] Start: 04-14-2023 End: 04-14-[address] Lola Zepeda Work Phone: [facility] Work Phone: Start: 04-14-2023 End: 04-14-[address] Lola Zepeda Work Phone: [facility] Start: 04-14-[address] Karan Zepeda Work Phone: [facility] Start: 04-14-2023 End: 04-14-2023 Encounter for general adult medical examination without abnormal findings Dr. Lola Zepeda Work Phone: [facility] Start: 04-14-2023 End: 04-14-[address] Lola Zepeda Work Phone: [facility] Work Phone: Start: 01-11-2023 End: 01-11-2023 ambulatory LIONEL Karan GABRIEL [facility] Start: 06-01-2022 End: 06-01-2022 Emergency department patient visit Steven Lorenzo [facility] Start: 05-19-2022 End: 05-19-2022 Subsequent hospital visit by physician Gisele Romo APRN-SUTURE GAUGER Work Phone: [facility] Comment on above: Arthralgia, unspecif ied joint; Acanthosis nigricans; Hyperlipidemia, unspecified hyperlipidemia type Start: 11-06-2021 End: 11-06-2021 Subsequent hospital visit by physician Rex Shelley MD Work Phone: [facility] Comment on above: Dyslipidemia Start: 08-14-2021 End: 08-14-2021 Subsequent hospital visit by physician Rex Shelley MD Work Phone: [facility] Comment on above: Dyslipidemia Procedures Date Procedure Procedure Detail Performing Clinician Start: 01-17-2025 Plain x-ray of wrist Dr Lisy Nevarez MD Work Phone: Start: 09-27-2024 Plain X-ray of finger Margy [...] COMPLETE BLOOD COUNT WITH DIFFERENTIAL Gisele Romo ICT HELP DESK OFFICER-SUTURE GAUGER Work Phone: Start: 05-19-2022 Comprehensive metabo lic panel Gisele Romo ICT HELP DESK OFFICER-SUTURE GAUGER Work Phone: Start: 05-19-2022 Hla i low resolution one antigen equivalent each Gisele Romo ICT HELP DESK OFFICER-SUTURE GAUGER Work Phone: Start: 05-19-2022 Lipid panel Gisele atkins ICT HELP DESK OFFICER-SUTURE GAUGER Work Phone: Start: 11-06-2021 [facility] maria isabel Omkar Shelley MD Work Phone: Start: 08-14-2021 Lipid panel Rex Mir MD Work Phone: Plan of Treatment Date Care Activity Detail Author Start: 12-02-2025 Tetanus Diphtheria a nd Pertussis Vaccines (7 - Td or Tdap) Tetanus Diphtheria and Pertussis Vaccines (7 - Td or Tdap) [facility] Start: 12-02-2025 Urine microalbumin profile DTaP,Tdap,Td Vaccine (7 - Td or Tdap) [facility] Start: 01-17-2025 End: 01-17-2025 Evaluation of diagnostic study results [facility] Start: 09-27-2024 Patient referral [facility] Work Phone: Start: 09-27-2024 Plain X-ray of finger Finger(s) Min 2 Views [facility] Start: 09-27-2024 XR Finger GE 2 Views [facility] Start: 09-13-2024 X-ray of foot, three or more views Foot min 3 Views [facility] Start: 09-13-2024 XR Foot GE [address] [facility] Start: 02-11-2024 Screening for malign ant neoplasm of cervix Cervical Cancer Screening [facility] Start: 12-19-2023 Covid-19 Vaccine ( season) Covid-19 Vaccine (2023- season) [facility] Start: 12-19-2023 Influenza vaccination Influenza Vacc ine (#1) [facility] Start: 04-14-2023 Patient referral [facility] Work Phone: Start: 07-14-2022 End: 07-14-2022 Patient encounter procedure 07/14/2022 Office Visit Rheumatology Gisele Romo, ICT HELP DESK OFFIC[employer] [address] [facility] - [place] Start: 12-26-2021 End: 12-26-2021 Patient encounter procedure 12/26/2021 Office Visit [place] [address] All[facility] - [facility] Start: 12-25-2021 Well Visit Well Visit [facility] Start: 12-18-2021 FLU (#1) FLU (#1) [facility] Start: 11-10-2021 End: 11-10-2021 Patient encounter procedure 11/10/2021 Office Visit Cardiology Rex Shelley MD [id number] [place] [address] [facility] Start: 09-30-2021 COVID-19 (3 - Booste r for Pfizer series) COVID-19 (3 - Booster for Pfizer series) [facility] Start: 09-29-2021 End: 09-29-2021 Patient encounter procedure 09/29/2021 Office Visit [place]ergy [place] [address] [facility] - [facility] Start: 08-15-2021 End: 08-15-2021 Patient encounter procedure 08/15/2021 Office Visit Cardiology Rex Shelley MD [id number] [place] [address] [facility] [place] [place] Start: 06-27-2021 COVID-19 (3 - Booste r for Pfizer series) COVID-19 (3 - Booster for Pfizer series) [facility] Start: 2021 Anxiety Screening Anxiety Screening [facility] Start: 2021 Depression Screening Depression Scre ening [facility] Start: 2021 GC (Gonorrhea) Scree blake (18) GC (Gonorrhea) Screening () [facility] Start: 2021 Hearing Screening Hearing Screening [facility] Start: 2021 Hepatitis C screening Hepatitis C Sc reening [facility] Start: 2021 HIV screening HIV Screening [facility] Start: 2021 Screening for Chlamy maira trachomatis Chlamydia Screening () [facility] Start: 01-22-2021 MenB (2 of 2 - MenB 2-Dose Series Bexsero) MenB (2 of 2 - MenB 2-Dose Series Bexsero) [facility] Start: 01-22-2021 MenB (2 of 2 - MenB 2-Dose Series) MenB (2 of 2 - MenB 2-Dose Series) [facility] Start: 01-22-2021 Meningococcal B Vacc ine: Consider Based On Risk (2 of 2 - Risk Bexsero 2-dose series) Meningococcal B Vaccine: Consider Based On Risk (2 of 2 - Risk Bexsero 2-dose series) [facility] Start: 12-18-2020 FLU (#1) FLU (#1) [facility] Start: 2018 HPV Vaccine (1 - 3-d ose series) HPV Vaccine (1 - 3-dose series) [facility] Start: 2018 Vision Screening Vision Screening [facility] Start: 2017 Peds To Adult Transi tion Annual Assessment Peds To Adult Transition Annual Assessment [facility] Start: 2015 Peds To Adult Transi tion Initial Discussion Peds To Adult Transition Initial Discussion [facility] Start: 2014 HPV (1 - 2-dose series) HPV (1 - 2-dose series) [facility] Basic metabolic 2007 panel with ionized calcium - Serum or Plasma [facility] Complete blood count [facility] metabo lic 1999 panel - Serum or Plasma [facility] 1999 panel - Serum or Plasma [facility] Lipid 1995 panel - S verenice or Plasma [facility] Lipid 1995 panel - S verenice or Plasma [facility] Lipid 1995 panel - S verenice or Plasma [facility] Lipoprotein a [Mass/volume] in Serum or Plasma [facility] Patient referral [facility] Work Phone: End: 05-19-2022 Transglutaminase IgA [facility] Work Phone: Comment on above: 1 Occurrences starti ng 05/19/2022 until 05/19/2022 Vitamin D, 25-hydrox y measurement [facility] Immunizations Immunization Date Immunization Notes Care Provider Fa [facility] 05-02-2021 PFIZER (purple cap) COVID-19, mRNA, LNP-S, 30mcg/0.3mL dose Rex Shelley MD Work Phone: [facility] 04-08-2021 PFIZER (purple cap) COVID-19, mRNA, LNP-S, 30mcg/0.3mL dose Rex Shelley MD Work Phone: [facility] 12-25-2020 meningococcal B vacc ine, fully recombinant Dr. Zoe Nevarez MD Work Phone: [facility] 12-25-2020 meningococcal B vacc ine, recombinant, OMV, adjuvanted Rex Shelley MD Work Phone: [facility] 11-10-2019 meningococcal polysaccharide (groups A, C, Y and W-135) diphtheria toxoid conjugate vaccine (MCV4P) Rex Shelley MD Work Phone: [facility] 02-23-2019 influenza, injectabl e, quadrivalent, preservative free Rex Shelley MD Work Phone: [facility] 02-23-2019 influenza virus vacc ine, unspecified formulation Braulio Earlyazar ROSA ELENA Work Phone: [facility] 07-03-2016 hepatitis A vaccine, pediatric/adolescent dosage, 2 dose schedule Rex Shelley MD Work Phone: [facility] 07-03-2016 influenza, injectable,quadrivalent, preservative free, pediatric Rex Shelley MD Work Phone: [facility] 12-03-2015 hepatitis A vaccine, pediatric/adolescent dosage, 2 dose schedule Rex Shelley MD Work Phone: [facility] 12-03-2015 meningococcal oligosaccharide (groups A, C, Y and W-135) diphtheria toxoid conjugate vaccine (MCV4O) Rex Shelley MD Work Phone: [facility] 12-03-2015 meningococcal polysaccharide (groups A, C, Y and W-135) diphtheria toxoid conjugate vaccine (MCV4P) Rex Shelley MD Work Phone: [facility] 12-03-2015 tetanus toxoid, redu dirk diphtheria toxoid, and acellular pertussis vaccine, adsorbed Rex Shelley MD Work Phone: [facility] 01-24-2013 influenza virus vacc ine, live, attenuated, for intranasal use Dr. Zoe Nevarez MD Work Phone: [facility] 01-24-2013 influenza, injectable,quadrivalent, preservative free, pediatric Rex Shelley MD Work Phone: [facility] 01-24-2013 influenza, live, intranasal, quadrivalent Rex Shelley MD Work Phone: [facility] 12-13-2008 diphtheria, tetanus toxoids and acellular pertussis vaccine, Haemophilus influenzae type b conjugate, and poliovirus vaccine, inactivated ([id number]) Rex Shelley MD Work Phone: [facility] 12-13-2008 measles, mumps and rubella virus vaccine Rex Shelley MD Work Phone: [facility] 12-13-2008 poliovirus vaccine, inactivated Rex Shelley MD Work Phone: [facility] 12-13-2008 varicella virus vaccine Martín Shelley MD Work Phone: [facility] 08-11-2004 diphtheria, tetanus toxoids and acellular pertussis vaccine, Haemophilus influenzae type b conjugate, and poliovirus vaccine, inactivated ([id number]) Rex Shelley MD Work Phone: [facility] 03-17-2004 pneumococcal conjuga te vaccine, 7 valent Rex Shelley MD Work Phone: [facility] 02-13-2004 haemophilus influenz ae type b vaccine, PRP-T conjugate Rex Shelley MD Work Phone: [facility] 02-13-2004 measles, mumps and rubella virus vaccine Rex Shelley MD Work Phone: [facility] 02-13-2004 varicella virus vaccine Martín Shelley MD Work Phone: [facility] 2003 diphtheria, tetanus toxoids and acellular pertussis vaccine, Haemophilus influenzae type b conjugate, and poliovirus vaccine, inactivated ([id number]) Rex Shelley MD Work Phone: [facility] 2003 DTaP-hepatitis B and poliovirus vaccine Rex Shelley MD Work Phone: [facility] 2003 haemophilus influenz ae type b vaccine, PRP-T conjugate Rex Shelley MD Work Phone: [facility] 2003 hepatitis B vaccine, adult dosage Rex Shelley MD Work Phone: [facility] 2003 pneumococcal conjuga te vaccine, 7 valent Rex Shelley MD Work Phone: [facility] 2003 poliovirus vaccine, inactivated Rex Shelley MD Work Phone: [facility] 2003 diphtheria, tetanus toxoids and acellular pertussis vaccine, Haemophilus influenzae type b conjugate, and poliovirus vaccine, inactivated ([id number]) Rex Shelley MD Work Phone: [facility] 2003 DTaP-hepatitis B and poliovirus vaccine Rex Shelley MD Work Phone: [facility] 2003 haemophilus influenz ae type b vaccine, PRP-T conjugate Rex Shelley MD Work Phone: [facility] 2003 hepatitis B vaccine, pediatric or pediatric/adolescent dosage Rex Shelley MD Work Phone: [facility] 2003 pneumococcal conjuga te vaccine, 7 valent Rex Shelley MD Work Phone: [facility] 2003 poliovirus vaccine, inactivated Rex Shelley MD Work Phone: [facility] 2003 diphtheria, tetanus toxoids and acellular pertussis vaccine, Haemophilus influenzae type b conjugate, and poliovirus vaccine, inactivated ([id number]) Rex Shelley MD Work Phone: [facility] 2003 DTaP-hepatitis B and poliovirus vaccine Rex Shelley MD Work Phone: [facility] 2003 haemophilus influenz ae type b vaccine, PRP-T conjugate Rex Shelley MD Work Phone: [facility] 2003 hepatitis B vaccine, pediatric or pediatric/adolescent dosage Rex Shelley MD Work Phone: [facility] 2003 pneumococcal conjuga te vaccine, 7 valent Rex Shelley MD Work Phone: [facility] 2003 poliovirus vaccine, inactivated Rex Shelley MD Work Phone: [facility] 2003 hepatitis B vaccine, pediatric or pediatric/adolescent dosage Rex Shelley MD Work Phone: [facility] Payers Date Payer Category Payer Self-pay [id number] 2023 Unknown [id number] 2022 Medicaid [facility] MEDICAID [id number] 2022-Present [phone] [address] [place] [address] Medicaid [id number] 2022 Unknown [id number] 2012 Unknown [id number]. [id number] 2003 Unknown [id number] [id number] 2003 Unknown [id number] 2003 Unknown [id number] 2.840.1.334458.3.579.2.902 Unknown [id number] Unknown [id number] 2.840.1.040609.3.579.2.462 Unknown [id number] 2.840.1.131290.3.579.2.462 Unknown [id number] 2.840.1.095812.3.579.2.462 Unknown [id number] 2.840.1.378567.3.579.2.462 Unknown [id number] 2.16.840.1.866214.3.579.2.462 Unknown [id number] 2.16.840.1.105619.3.579.2.462 Unknown [id number] 2.16.840.1.939273.3.579.2.462 Unknown [id number] 2.16.840.1.691546.3.579.2.462 Unknown [id number] 2.16.840.1.281362.3.579.2.462 Unknown [id number] 2.16.840.1.059729.3.579.2.462 Unknown [id number] 2.16.840.1.230099.3.579.2.462 Unknown [id number] 2.16.840.1.496810.3.579.2.462 Unknown [id number] 2.16.840.1.124373.3.579.2.462 Unknown [id number] 2.16.840.1.657803.3.579.2.462 Unknown [id number] 2.16.840.1.544014.3.579.2.462 Unknown [id number] 2.16.840.1.868970.3.579.2.462 Unknown [id number] 2.16.840.1.395292.3.579.2.462 Unknown [id number] 2.16840.1.432245.3.579.2.462 Social History Date Type Detail Facility Start: 01-08-2017 End: 04-14-2023 Tobacco smoking status NHIS Never smoked tobacco [facility] Start: 01-08-2017 End: 03-27-2024 Tobacco use and exposure Smokeless tobacco non-user [facility] Start: 2003 Sex Assigned At Not on file [facility] Start: 08-04-2021 End: 11-06-2021 Exposure to SARS-CoV-2 (event) Not sure [facility] Start: 04-14-2023 Tobacco smokin g consumption unknown [facility] Start: 2005 Sex Assigned At Female [facility] Start: 03-27-2024 Alcoholic beverage intake Ex-drinker (finding) [facility] Start: 03-27-2024 History of Social function [facility] Start: 03-27-2024 Tobacco use panel [facility] Start: 07-05-2024 Sex Female (finding) [facility] NEGATED: Highlighted rowStart: NINF History of tobacco use Passive smoker [facility] Clinical Notes 03-27-2024 to 01-17-2025 Note Date & Type Note Facility 01-17-2025 Radiology Diagnostic study note [facility] Imaging Services [address] [place], [place] [address] Wrist 2 Views MR#: [id number] Acct: [id number] Name: PATI ESCOBAR Rep #: [id number] : 2005 F 19 From: Katie Zamudio MD PCP: Dr. Zoe Nevarez MD Status: R EG CLI Study:Wrist 2 Views Date of Exam: Exam# [id number] Ordering Dr: Phuong Nevarez MD EXAM: XR Right Wrist, 2 Views CLINICAL INDICATION: RIGHT WRIST PAIN TECHNIQUE: Frontal and lateral views of the right wrist. COMPARISON: No relevant prior studies available. FINDINGS: BONES/JOINTS: Mild degenerative changes of the intercarpal joints. No acute fracture. No dislocation. SOFT TISSUES: Soft tissue swelling. No radiopaque foreign body. RAD/Wrist 2 Views IMPRESSION: Soft tissue swelling. Reading Location: [facility] CC: Dr. Zoe Nevarez MD ~ Software Development Project Manager: Signed [facility] 01-17-2025 Progress note [facility] 09-27-2024 Evaluation note Diagnosis Onset Date Resolution Contusion of left little finger resolved September 27, 2024 11:15am Contusion of left little finger resolved October 03, 2024 2:30pm Hypertriglyceridemia acute November 07, 2024 2:57pm Hyperlipidemia chronic November 07, 2024 2:57pm Elevated blood pressure reading inactive November 07, 2024 2:57pm Tinea corporis acute December 28, 2024 2:07pm Family history of early CAD acute January 17, 2025 8:13am Anxiety and depression chronic Oc tob2024 8:13am Hyperlipidemia chronic January 8:13am Hypertension chronic January 17, 2025 8:13am Wrist pain chronic January 17, 8:13am Hyperlipidemia chronic January 11:15am Hypertension chronic January 17, 2025 11:15am [facility] Work Phone: 1(539) 116-412606-11-2025 Radiology Diagnostic study note [facility] Imaging Services [address] [place] [address] Finger(s) Min 2 Views MR#: [id number] Acct: [id number] Name: PATI ESCOBAR Rep #: [id number] : 2005 F 19 From: Nolan Anne MD PCP: Dr. Zoe Nevarez MD Status: R EG CLI Study:Finger(s) Min 2 Views Date of Exam: 09/27/24 Exam# [id number] Ordering Dr: [facility] jim Raphael PROCEDURE: FINGER(S) [...] Follow up as clinically appropriate. Reading Location: [address] CC: Dr. Zoe Nevarez MD; MAURILIO Lambert ~ Software Development Project Manager: Signed [facility]06-03-2025 Radiology Diagnostic study note [facility] Imaging Services [address] [place] [id number] Abdomen Limited MR#: [id number] Acct: [id number] Name: PATI ESCOBAR Rep #: [id number] : 2005 F 19 From: Mahsa Benitez MD PCP: Dr. Zoe Nevarez MD Status: R EG CLI Study:Abdomen Limited Date of Exam: 07/11 Exam# [id number] Ordering Dr: Phuong Nevarez MD PROCEDURE: ABDOMEN [...] right upper quadrant. Unremarkable gallbladder. Reading Location: [place] [address] CC: Dr. Zoe Nevarez MD ~ Software Development Project Manager: Signed [facility]05-28-2025 Evaluation note* Diagnosis Onset Date Resolution Status Admit Date Contusion of right ankle acute September 13, 2024 11:42am Contusion of right foot acute [facility] 2024 11:42am Elevated liver enzymes acute Ma 2024 9:56am Depression with anxiety chronic 2024 9:56am Hyperlipidemia chronic September 15, 2024 9:56am Vitamin D deficiency chronic September 15, 2024 9:56am Contusion of left little finger acut e September 27, 2024 11:15am Contusion of left little finger acut e October 03, 2024 2:30pm [facility] Work Phone: 1(535) 803-300405-28-2025 Evaluation note* Diagnosis Onset Date Resolution Status Admit Date Contusion of right ankle acute September 13, 2024 11:42am Contusion of right foot acute [facility] 2024 11:42am Elevated liver enzymes acute Ma 2024 9:56am Depression with anxiety chronic M [...] 2:57pm Hyperlipidemia chronic November 07, 2024 2:57pm [facility] Work Phone: 1(993) 284-214705-28-2025 Evaluation note* Diagnosis Onset Date Resolution Status Admit Date Contusion of right ankle resolved September 13, 2024 11:42am Contusion of right foot resolved 2024 11:42am Elevated liver enzymes acute 2024 9:56am Depression with anxiety chronic 2024 [...] reading inac tive November 07, 2024 2:57pm [facility] Work Phone: 1(402) 680-871105-28-2025 Radiology Diagnostic study note [facility] Imaging Services [address] [place] [address] Foot min 3 Views MR#: [id number] Acct: [id number] Name: PATI ESCOBAR Rep #: [id number] : 2005 F 19 From: Katie Zamudio MD PCP: Dr. Zoe Nevarez MD Status: R EG CLI Study:Foot min 3 Views Date of Exam: Exam# [id number] Ordering Dr: St jim Raphael PA EXAM: [...] evaluation with CT is recommended. Reading [facility] CC: Dr. Zoe Nevarez MD; MAURILIO Lambert ~ Software Development Project Manager: Signed [facility]03-07-2025 Evaluation note* Diagnosis Onset Date Resolution Status Admit Date Depression with anxiety chronic M 2024 2:58pm Hyperlipidemia chronic June 23, 2024 2:58pm Pelvic pain chronic June 23 2:58pm [facility] Work Phone: 1(753) 374-858703-07-2025 Evaluation note* Diagnosis Onset Date Resolution Status Admit Date Depression with anxiety chronic M 2024 2:58pm Hyperlipidemia chronic June 23, 2024 2:58pm Pelvic pain chronic June 23 2:58pm Contusion of right ankle acute September 13, 2024 11:42am Contusion of right foot acute 2024 11:42am [facility] Work Phone: 1(742) 419-506803-07-2025 Evaluation note* Diagnosis Onset Date Resolution Status Admit Date Depression with anxiety chronic 2024 2:58pm Hyperlipidemia chronic June 23, 2024 2:58pm Pelvic pain chronic June 23 2:58pm Contusion of right ankle acute September 13, 2024 11:42am Contusion of right foot acute M 2024 11:42am Elevated liver enzymes acute 2024 9:56am Depression with anxiety chronic ay 2024 9:56am Hyperlipidemia chronic September 15, 2024 9:56am Vitamin D deficiency chronic September 15, 2024 9:56am [facility] Work Phone: 1([phone]) 906-164803-07-2025 Evaluation note* Diagnosis Onset Date Resolution Status [...] finger acut e October 03, 2024 2:30pm [employer] Work Phone: 1(478) 340-853612-09-2024 Instructions* Patient Instructions* Braulio Parson APRN.[facility] - 03/27/2024 11:21 AM EST EAR INFECTION, [...] the face muscles. Dizziness [facility] NoteHNO ID: [id number] Author: BRAULIO PARSON APRN.SUTURE GAUGER Service: ? Author Type: Nurse Practitioner Type: Progress Notes Filed: 03/27/2024 11:38 Note Text: [facility] [place] [address] [facility] [place] [address] Dept: [phone] Dept Subjective Pati Escobar is a 19 [...] tenderness or frontal sinus tenderness. Mouth/Throat: Lips: [place]. Mouth: Mucous membranes are moist. No oral [...] used to dictate this note. Braulio Parson APRN-[facility] 03/27/2024 11:14 [facility]12-09-2024 History of Present illness Narrative* Braulio Parson APRN.CNP - 03/27/2024 11:14 AM EST [facility] [address] [address] Dept: [phone] Dept Subjective Pati Escobar is a 19 [...] lb 3.2 oz) LMP 03/27/2024 (Exact Date) [id number]% Physical Exam Vitals and nursing note reviewed. [...] tenderness or frontal sinus tenderness. Mouth/Throat: Lips: [place]. Mouth: Mucous membranes are moist. No oral [...] used to dictate this note. Braulio Parson APRN-[facility] 03/27/2024 11:14 AM [facility]* Diagnosis Dyslipidemia Other and unspecified hyperlipidemia documented in this encounter [facility] note* Diagnosis Dyslipidemia Other and unspecified hyperlipidemia documented in this encounter [facility] note* Diagnosis Arthralgia, unspecified joint Acanthosis nigricans Acquired acanthosis nigricans Hyperlipidemia, unspecified hyperlipidemia type [facility] Diagnosis Onset Date Resolution Status Preventative health care acu te Concentration deficit chroni c Hyperlipidemia chronic Joint pain chronic [facility] Work Phone: Evaluation note* Diagnosis Acute otitis media, bilateral- Primary Unspecified otitis media [facility] in this encounter [facility] Author Manuel Peraza [facility] Note Date/Time January 17, 2025 11 :53am [facility] [address] [place] [address] OFFICE VISIT Date of Service: 01/17/25 MR#: [id number] Acct: [id number] Name: PATI ESCOBAR Rep #: [id number] : 2005 Provider: Dr. Silvina Peraza MD Age/Sex: 19/F Location: [facility] Status: Signed HPI HPI History of Present Illness Details: Pleasant 19-year-old lady with a history of elevated blood pressure and a familyhistory of coronary artery disease who presents here for evaluation of her bloodpressure. She tells me that she has had a renal ultrasound which is within normal limits she has had an echocardiogram which demonstrated action fraction of 60% with no evidence of diastolic dysfunction but her lipid profile demonstrated total cholesterol 168, HDL of 38 and LDL of 93. She also had a renin and aldosterone levels which have been normal. She denies any chest pain or shortness of breath or paroxysmal nocturnal dyspnea or pedal edema she has had no neck arm or jaw discomfort suggest angina. She has been compliant with her medications. Physical exam today is unremarkable her electrocardiogram demonstrates sinus rhythm with a rate of 83 bpm and no acute changes. Intake Vital Signs 11/07/24 15:13 01/17/25 08:30 01/17/25 11:15 Height 5 ft 2 in 5 ft 2 in 5 ft 2 in Weight: 229 lb 229 lb BMI 41.8 41.8 BP 142/86 H 147/98 H Blood Pressure Location Lt brachial Lt brachial Position Sitting Sitting Respiration 16 16 Pulse 86 79 Pulse Source Monitor Monitor Temp 97 F L Pulse Oximetry (%) 96 Oxygen Delivery Method room air Intake Visit Reasons: EST/HTN (SELF) Registered Radiation Therapist Required: No Accompanied by: Mother Is patient in pain?: No Allergies iris Adverse Reaction (Severe, Verified 01/17/25 11:23) Anaphylaxis Medications ?Medication ?Instructions ?Recorded ?Confirmed ?Type mecobalamin (vitamin B12) 1,000 1,000 mcg PO QDAY 08/1801/17/25 History mcg lozenges cholecalciferol (vitamin D3) 1,250 1,250 mcg PO QWEEK #7 caps 10/09/24 01/17/25 Rx mcg (50,000 unit) capsule ascorbic acid (vitamin C) 1,000 mg 1 g PO QDAY 5 01/17/25 History capsule amlodipine 5 mg tablet 5 mg PO QDAY #90 tabs 01/17/25 Rx atorvastatin 20 mg tablet 20 mg PO QDAY #90 tabs 01/1701/17/25 Rx meloxicam 15 mg tablet 15 mg PO QDAY #30 tabs 01/1701/17/25 Rx venlafaxine 37.5 mg 37.5 mg PO QDAY #90 caps 05/1301/17/25 Rx capsule,extended release 24 hr Ejection fraction %: 60 PFSH Medical History Anxiety and depression Wrist pain Hypertriglyceridemia Generalized joint pain Family history of [...] do you feel safe at home: Yes ROS Const Const: Negative for fatigue, weakness, daytime sleepiness or difficulty sleeping ENT ENT: Negative for dizziness or Nosebleed/epistaxis Cardio Chest Pain: No Palpitations: No Edema: None Resp Respiratory: Negative for SOB with activity, SOB at rest, SOB orthopnea\SOB lying down or Cough GI GI: Negative nausea, vomiting or heartburn Neuro Neuro: Negative for dizziness, lightheadedness, near syncope or weakness Endo Endo: Negative for fatigue Cardiology Exam Const Appearance: cooperative, healthy appearing, no acute distress, well developed and well groomed Nutritional Appearance: average body habitus and well nourished Orientation: alert, awake and oriented x3 Head Head: normal to inspection, normocephalic and atraumatic Ears: hearing grossly normal bilaterally and external ears normal Nose: external nose normal, nares normal, nasal mucous membranes and turbinates normal, septum normal and no nasal discharge Face and Sinus: face symmetric Mouth: oral mucosae normal, tongue normal, oropharynx normal and moist mucous membranes Teeth and gingiva: dentition normal Throat: posterior oropharynx normal, tonsils normal and uvula midline Eyes General: appearance normal, both eyes and all related structures Eyelids: eyelids normal Conjunctivae: conjunctivae normal Pupils: PERRL, normal by confrontation and accommodation normal EOM: EOM intact bilaterally Neck Neck: normal visual inspection, trachea midline and no JVD JVD: +5 Carotids: normal carotid upstroke and bounding pulses Chest Chest inspection: normal inspection of the chest, symmetric chest movement and normal respiratory effort Auscultation: Bilateral: Clear to Auscultation Cardio Palpation: normal PMI Rate: regular rate Rhythm: regular rhythm Heart sounds: S1 normal, S2 normal and normal, physiologic split S2; Negative rub, gallop or murmur GI GI: normal to inspection, soft, no hepatosplenomegaly and bowel sounds present Neuro General: patient alert, patient awake, patient oriented x3, gait normal, moves all extremities and no focal sensory deficit Skin Skin: no rashes or lesions noted Extremities Pulses: Normal: Right Femoral Pulse, Left Femoral Pulse, Right Dorsalis Pedis Pulse, Left Dorsalis Pedis Pulse, Right Posterior Tibial Pulse, Left Posterior Tibial Pulse, Right Radial Pulse and Left Radial Pulse Lower Extremity Edema: None: Bilateral Musculoskel Musculoskeletal: No joint tenderness Psych Psychological: normal affect Supplemental Info Supplemental Information Echocardiogram 12/08/24 Interpretation Summary The estimated ejection fraction is 60 %. No evidence for diastolic dysfunction. Labs: HDL Cholesterol, (40-) 38 mg/dL L Cholesterol, (<=190) 168 mg/dL Triglycerides, (-199) 182 mg/dL Diagnostics: Electrocardiogram Echocardiogram Abdomen Ultrasound Renal Artery Duplex Past Visits: Cardiology Visit Today Assessment and Plan Assessment and Plan (1) Hypertension: Status: Chronic Plan: She does have a history of hypertension. Secondary workup thus far has been unremarkable. I would prefer her to be on a calcium channel saige which is relatively neutral versus being on a diuretic which can potentially cause hyponatremia, hypokalemia and also may be contraindicated if she should get . I have discussed this with her she understands and agrees to be on this her echocardiogram is reassuring. I have also told her to go on a more aggressive diet to try and lose some weight and also to limit her sodium intake. We would continue to monitor her for this. (2) Hyperlipidemia: Status: Chronic Qualifiers: Hyperlipidemia type: unspecified Qualified Code(s): E78.5 - Hyperlipidemia, unspecified Plan: She does have a history of hyperlipidemia and hypertriglyceridemia. I would prefer that we discontinue the Niaspan, increase the Lipitor to 20 mg a day, continue diet and exercise. At this time I do not think that a calcium score test is necessary as I do not think that is going or change therapy. I have explained this to the patient and her mother and they understand. Thank you for allowing me to participate in the care of your patient. Please don't hesitate to call if any issues arise. Orders: Orders 12 Lead EKG performed by [facility] Today E78.1 - Pure hyperglyceridemia, E78.5 - Hyperlipidemia, unspecified, I10 - Essential (primary) hypertension Medications: New amlodipine 5 mg PO QDAY 90 tabs 3RF Changed From atorvastatin 10 mg PO DAILY 90 tabs 1RF To atorvastatin 20 mg PO QDAY 90 tabs 3RF Discontinued aspirin Discontinued Reason: Order Changed 81 mg PO BID niacin ER Discontinued Reason: Order Changed 500 mg PO QHS 30 caps 1RF E78.1 - Pure hyperglyceridemia hydrochlorothiazide Discontinued Reason: Order Changed 25 mg PO QAM 90 tabs 1RF Plan Details Follow Up: 6 Months (sd) Coding Level of Care Code Off vis,new,level 4 Diagnoses Hypertension I10 Hyperlipidemia, unspecified hyperlipidemia type E78.5 Hyperlipidemia type: unspecified Coding Level of Care Code Off vis,new,level 4 Diagnoses Hypertension I10 Hyperlipidemia, unspecified hyperlipidemia type E78.5 Hyperlipidemia type: unspecified Clinical Quality Measures Cardiac Ejection fraction %: 60 01/17/25 1156 <Electronically signed by Manuel Nolasco D> Date _ Manuel Peraza MD Cosigner Signature: Date (if applicable) CC: Dr. 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 Purpose Family History No Family History [...] 2024 10 :08am Chief Complaint Admit Date YEARLY June 23, [...] pm Elevated blood pressure reading October 2:57pm Chief Complaint Admit Date L PINKY FINGER/PAIN/INJURY September 27 11:15am finger injury- LEFT HAND September 27, 2024 11:18am LEFT HAND/PINKY FINGER October 03, 2024 2 :30pm ACUTE BP ISSUES November 07, 2024 2:57 pm HTN December 04, 2024 7: 46am Hypertension December 04, 2024 8: 04am HTN December 04, 2024 8: 07am ring worm on rt arm and rt leg December 28, 2024 2:07pm 3 M FU January 17, 2025 8: 13am Right wrist pain January 17, 2025 10 :45am EST/HTN (SELF) January 17, 2025 11 :15am Reason for Visit Admit Date Contusion of left little finger September 11:15am Contusion of left little finger September 2:30pm Hypertriglyceridemia November 07, 2024 2:5 7pm Hyperlipidemia November 07, 2024 2:57 pm Elevated blood pressure reading October 2:57pm Tinea corporis December 28, 2024 2:07pm Family history of early CAD January 17, 2025 8:13am Anxiety and depression January 17, 2025 8:13am Hyperlipidemia January 17, 2025 8: 13am Hypertension January 17, 2025 8: 13am Wrist pain January 17, 2025 8: 13am Hyperlipidemia January 17, 2025 11 :15am Hypertension January 17, 2025 11 :15am Additional Source Comments Care Teams (unrecognized sec tion and content) Material Reclaimer Relationship Specialty Start Date End Date Lola Zepeda DO (Fax) PCP - General Pediatrics 04/20/18 Material Reclaimer Relationship Specialty Start Date End Date Lola Zepeda, DO (Fax) PCP - General Pediatrics 04/20/18 Material Reclaimer Relationship Specialty Start Date End Date Lola Zepeda, DO (Fax) PCP - General Pediatrics 04/20/18 Team [...] Primary Care Provider, Atten ding Provider Active Material Reclaimer Relationship Specialty Start Date End Date Zoe Nevarez MD [address] [place] [address] PCP - General Internal Medicine 03/27/24 Team [...] Care Provider Active Start: September 27, 2024 Riley THORPE PA Attending Provider Active Start: September 27, 2024 Riley THORPE PA Referring [...] 15, 2024 End: September 15, 2024 Dr. Zeo Nevarez MD Attending Provider Active Start: September [...] December 28, 2024 End: December 28, 2024 Team Status: Active Member Role/Relationship Status Dates Dr. Zoe Nevarez MD Primary care physician Activ e Team Status: Inactive Member Role/Relationship Status Dates Dr. Zoe Nevarez MD Primary care physician Activ e Start: September 27, 2024 End: September 27, 2024 Dr. Zoe Nevarez MD Referring Provider Active Start: September 27, 2024 End: September 27, 2024 Riley THORPE PA Attending physician Active Start: September 27, 2024 End: September 27, 2024 Team Status: Inactive Member Role/Relationship Status Dates Dr. Zoe Nevarez MD Primary care physician Activ e Start: September 27, 2024 End: September 27, 2024 MAURILIO Kincaid Attending physician Active Start: September 27, 2024 End: September 27, 2024 MAURILIO Kincaid Referring Provider Active Start: September 27, 2024 End: September 27, 2024 Team Status: Inactive Member Role/Relationship Status Dates Dr. Zoe Nevarez MD Primary care physician Activ e Start: October 03, 2024 End: October 03, 2024 Dr. Zoe Nevarez MD Referring Provider Active Start: October 03, 2024 End: October 03, 2024 Justin Christiansen MD Attending physician Active S tart: October 03, 2024 End: October 03, 2024 Team Status: Inactive Member Role/Relationship Status Dates Dr. Zoe Nevarez MD Primary care physician Activ e Start: November 07, 2024 End: November 07, 2024 Dr. Zoe Neavrez MD Referring Provider Active Start: November 07, 2024 End: November 07, 2024 SIENA Angel Attending physician Active Start: November 07, 2024 End: November 07, 2024 Team Status: Inactive Member Role/Relationship Status Dates Dr. Zoe Nevarez MD Primary care physician Activ e Start: December 04, 2024 End: December 04, 2024 Dr. Zoe Nevarez MD Attending physician Active Start: December 04, 2024 End: December 04, 2024 Dr. Zoe Nevarez MD Referring Provider Active Start: December 04, 2024 End: December 04, 2024 Team Status: Active Member Role/Relationship Status Dates Dr. Zoe Nevarez MD Primary care physician Activ e Start: December 04, 2024 Dr. Zoe Nevarez MD Referring Provider Active Start: December 04, 2024 Dr. Manuel Peraza MD Attending physician Active Start: December 04, 2024 Team Status: Active Member Role/Relationship Status Dates Dr. Harsh Lozano MD Attending physician Active Start: December 04, 2024 Dr. Zoe Nevarez MD Referring Provider Active Start: December 04, 2024 Team Status: Active Member Role/Relationship Status Dates Dr. Zoe Nevarez MD Primary care physician Activ e Start: December 08, 2024 Dr. Alejandra Bautista MD Attending physician Acti ve Start: December 08, 2024 Team Status: Inactive Member Role/Relationship Status Dates Dr. Zoe Nevarez MD Primary care physician Activ e Start: December 28, 2024 End: December 28, 2024 Dr. Zoe Nevarez MD Referring Provider Active Start: December 28, 2024 End: December 28, 2024 MAURILIO Johnson Attending physician Active S tart: December 28, 2024 End: December 28, 2024 Team Status: Inactive Member Role/Relationship Status Dates Dr. Zoe Nevarez MD Primary care physician Activ e Start: January 17, 2025 End: January 17, 2025 Dr. Zoe Nevarez MD Attending physician Active Start: January 17, 2025 End: January 17, 2025 Dr. Zoe Nevarez MD Referring Provider Active Start: January 17, 2025 End: January 17, 2025 Team Status: Active Member Role/Relationship Status Dates Dr. Zoe Nevarez MD Primary care physician Activ e Start: January 17, 2025 Dr. Zoe Nevarez MD Attending physician Active Start: January 17, 2025 Dr. Zoe Nevarez MD Referring Provider Active Start: January 17, 2025 Team Status: Inactive Member Role/Relationship Status Dates Dr. Zoe Nevarez MD Primary care physician Activ e Start: January 17, 2025 End: January 17, 2025 Dr. Zoe Nevarez MD Referring Provider Active Start: January 17, 2025 End: January 17, 2025 Dr. Manuel Peraza MD Attending physician Active Start: January 17, 2025 End: January 17, 2025 Team Status: Inactive Member Role/Relationship Status Dates Dr. Zoe Nevarez MD Primary care physician Activ e Start: January 17, 2025 End: January 17, 2025 Dr. Zoe Nevarez MD Attending physician Active Start: January 17, 2025 End: January 17, 2025 Dr. Zoe Nevarez MD Referring Provider Active Start: January 17, 2025 End: January 17, 2025 INFORMATION SOURCE (unrecogn ized section and content) DATE CREATED AUTHOR 11/19/2021 [facility] ([place]) DATE CREATED AUTHOR AUTHOR'S ORGANIZ ATION 06/03/2022 [facility] DATE CREATED AUTHOR AUTHOR'S ORGANIZ ATION 01/01/2024 [facility] DATE CREATED AUTHOR AUTHOR'S ORGANIZ ATION 01/10/2024 [facility] DATE CREATED AUTHOR AUTHOR'S ORGANIZ ATION 03/30/2024 [facility] DATE CREATED AUTHOR AUTHOR'S ORGANIZ ATION 01/26/2025 [facility] <item> Privacy Markings (unrecogniz ed [...] or prosecute any alcohol or drug abuse patient.[facility] Reason for Visit (unrecogniz ed section and [...] BE BASED ON THE PRIMARY CLINICAL RECORDS. [facility]. provides no warranty or guarantee of the accuracy or completeness of information in this document.
== END | disposition home or self-care (01) ==
LOC: CVS 02-28 12:01
PROVIDERS: Nurse Practitioner Family; PCP Internal Medicine; Referring Provider Internal Medicine; Visit Provider Internal Medicine
DX: I10 Essential (primary) hypertension (principal); I36.1 Nonrheumatic tricuspid (valve) insufficiency; E55.9 Vitamin D deficiency, unspecified; E78.1 Pure hyperglyceridemia; E78.5 Hyperlipidemia, unspecified; F32.A Depression, unspecified; F41.9 Anxiety disorder, unspecified; M25.50 Pain in unspecified joint; R74.8 Abnormal levels of other serum enzymes; Z82.49 Family history of ischemic heart disease and other diseases of the circulatory system
CPT/HCPCS: 36415; 80053; 80061; 82088; 82306; 82977; 84244; 84439; 84443; 85027; 86803; 87340; 93306

== ENCOUNTER → 2025-01-17 | Outpatient (CLI) | payer OTHER, MEDICAID, SELFPAY ==
--- NOTE | 2025-01-17 10:46 | RAD_ITS ---
EXAM: XR Right Wrist, 2 Views CLINICAL INDICATION: RIGHT WRIST PAIN TECHNIQUE: Frontal and lateral views of the right wrist. COMPARISON: No relevant prior studies available. FINDINGS: BONES/JOINTS: Mild degenerative changes of the intercarpal joints. No acute fracture. No dislocation. SOFT TISSUES: Soft tissue swelling. No radiopaque foreign body. RAD/Wrist 2 Views IMPRESSION: Soft tissue swelling. Reading Location: [id number]
--- OUTSIDE RECORDS SUMMARY | 2025-01-18 23:18 | XMS RPT_ITS | CCD ---
Author Organization [facility] Providers Care Food Handler Name Role Phone Lola Zepeda DO Primary Care Provider Free, Text Entry Unavailable Unavailable Steven Lorenzo Unavailable Unavailable Ms. Steven Lorenzo Attending Unavailable Pending, Provider Primary Care Unavailable Dr. Lola Zepeda Primary Care Provider Dr. Lola Zepeda Referring Provider Dr. Zoe Nevarez Attending Provider [phone] LIONEL RISO Attending Unavailable REFERRED, SELF Referring Unavailable LOLA ZEPEDA Primary Care Unavailable NO, PHYSICIAN Primary Care Unavailable HECTOR GEORGE Attending Unavailable Zoe Nevarez MD Primary Care Provider [phone] ZOE NEVAREZ Primary Care Unavailable BRAULIO PARSON Attending Unavailable Dr. Zoe Nevarez MD Primary Care Provider Dr. Zoe Nevarez MD Attending Provider [phone] Dr. Zoe Nevarez MD Referring Provider [phone] Riley Jones Attending Provider [phone] Riley Jones Referring Provider [phone] Justin Christiansen MD Attending Provider Dr. Zoe Nevarez MD Primary Care Provider Dr. Zoe Nevarez MD Attending Provider [phone] Dr. Zoe Nevarez MD Referring Provider [phone] Patrica Gay Attending Provider [phone] Stu GUADARRAMA, Dr. Jackson Attending Provider [phone] Roque GUADARRAMA, Dr. Hitchcock Primary Care Provider Roque GUADARRAMA, Dr. Hitchcock Referring Provider [phone] Roque GUADARRAMA, Dr. Hitchcock Attending Provider [phone] Marta GUADARRAMA, Dr. Harsh Russo Attending Provider Lily GUADARRAMA, Dr. Roberts Attending Provider Kwame Montiel Attending Provider Oleghe, Efewongbe Attending Unavailable Oleghe, Efewongbe Primary Care Unavailable Oleghe, Efewongbe Referring Unavailable Riley Jones Attending Unavailable Oleghe, Efewongbe Primary Care Unavailable Riley Jones Referring Unavailable Oleghe, Efewongbe Attending Unavailable Oleghe, Efewongbe Primary Care Unavailable Oleghe, Efewongbe Referring Unavailable Patrica Chow Attending Unavailable Oleghe, Efewongbe Primary Care Unavailable Oleghe, Efewongbe Referring Unavailable Oleghe, Efewongbe Attending Unavailable Oleghe, Efewongbe Primary Care Unavailable Oleghe, Efewongbe Referring Unavailable Oleghe, Efewongbe Primary Care Unavailable Oleghe, Efewongbe Referring Unavailable Riley Jones Attending Unavailable Oleghe, Efewongbe Attending Unavailable Oleghe, Efewongbe Primary Care Unavailable Oleghe, Efewongbe Referring Unavailable Oleghe, Efewongbe Referring Unavailable Riley Jones Attending Unavailable Oleghe, Efewongbe Primary Care Unavailable Justin Christiansen Attending Unavailable Oleghe, Efewongbe Primary Care Unavailable Oleghe, Efewongbe Referring Unavailable Oleghe, Efewongbe Referring Unavailable Oleghe, Efewongbe Primary Care Unavailable Kwame Montiel Attending Unavailable Oleghe, Efewongbe Referring Unavailable Oleghe, Efewongbe Primary Care Unavailable Manuel Peraza Attending Unavailable Alejandra Bautista Attending Unavailabl e Oleghe, Efewongbe Primary Care Unavailable Oleghe, Efewongbe Attending Unavailable Zoe Nevarez Primary Care Unavailable Roque Efnancyongbe Referring Unavailable Phoenix Nevarezongbe Attending Unavailable Roque Adalibe Primary Care Unavailable Phoenix Nevarezongbe Referring Unavailable Roque, Phoenixongbe Primary Care Unavailable Riley Jones Attending Unavailable Riley Jones Referring Unavailable Allergies Allergy Classification Reported Allergen(s) Allergy Type Date of Onset Reaction(s) Facility (13 sources) iris allergenic extract Drug Allergy 04-14-2023 Anaphylaxis [facility] (1 source) iris allergenic extract Drug Allergy 12-28-2024 [facility] Repository Medications Current Medications Medication Drug [...] Active ascorbic acid 1000 mg oral capsule (20 sources) Vitamin C Start: 09-15-2024 End: 11-07-2024 take 1 g by mouth once daily Ascorbic Acid (Vitamin C) 1,000 mg capsule Active 1 g PO daily November 07, 2024 3:06pm Start: 04-14-2023 End: 09-15-2024 take 1 g [...] tablet Take by mouth daily 0 Active aspirin 81 mg oral tablet (3 sources) Platelet Aggregation Inhibitor, Nonsteroidal Anti-inflammatory Drug Start: 11-07-2024 take 1 tablet by mouth twice daily Aspirin 81 mg tablet Active 81 mg PO TWICE A DAY November 07, 2024 12:00am azithromycin 250 mg oral tablet (1 source) [...] 09/17/2020 Active cholecalciferol 1.25 mg oral capsule (20 sources) Vitamin D Start: 06-26-2024 End: 10-09-2024 take 1 capsule by mouth every week Cholecalciferol (Vitamin D3) 1,250 mcg (50,000 unit) capsule Active 1250 ug PO EVERY WEEK 7 October 09, 2024 8:04am Start: 11-08-2021 take 2 tablets by mo [...] oral tablet (1 source) Progestin, Estrogen Start: 2020 take 1 tablet by mouth once daily SPRINTEC 28 0.25-35 MG-MCG per tablet TAKE 1 TABLET BY MOUTH EVERY DAY 28 Tablet 11 05/02/2020 Active hydroCHLOROthiazide 25 mg oral tablet (2 sources) Thiazide Diuretic Start: 2024 Hydrochlorothiazide 25 mg tablet Active 12.5 mg PO EVERY MORNING 30 November 20, 2024 12:00am ibuprofen 600 mg oral tablet (2 sources) Nonsteroidal Anti-inflammatory Drug Start: 2023 take 1 tablet by mouth every six [...] Active Mecobalamin (Vitamin B12) 1,000 mcg lozenge (10 sources) Start: 09-13-2024 take 1000 ug by mouth once daily Mecobalamin (Vitamin B12) 1,000 mcg lozenge Active 1000 ug PO daily September 13, 2024 12:00am allow to dissolve in mouth OR may chew lightly before swallowing Multiple Vitamins-Mineral s (ZINC PO) (2 sources) Multiple Vitamins-Minerals (ZINC PO) Take by mouth 0 Active niacin 500 mg extended release oral capsule (2 sources) Nicotinic Acid Start: 11-07-2024 take 1 capsule by mouth at bedtime Niacin 500 mg capsule, extended release Active 500 mg PO AT BEDTIME 30 November 07, 2024 12:00am Hypertriglyceridemia Pure hyperglyceridemia pimecrolimus 10 mg/ml topical cream (2 sources) [...] B12 (1 source) Vitamin B12 Vitamin B-12 Yg ntity: 0 Refills: 0 Ordered: 01-Jun-2022 Patrica Rivera Generic Substitution Allowed Vitamin D (1 source) VITAMIN D Quanti ty: 0 Refills: 0 Ordered: 01-Jun-2022 Patrica Rivera Generic Substitution Allowed Completed/Discontinued Medications Medication Drug Class(es) Dates Sig (Normalized) Sig (Original) [id number] actuat albuterol 0.09 mg/actuat metered dose [...] sources) HMG-CoA Reductase Inhibitor Start: 04-14-2023 End: 11-07-2024 take 1 tablet by mouth once daily Atorvastatin 10 mg tablet Discontinued 10 mg PO DAILY 90 October 18, 2023 8:18am November 07, 2024 3:56pm Start: 08-15-2021 take 1 tablet by ramon th once daily at bedtime atorvastatin (LIPITOR) 10 MG tablet Take 1 Tablet (10 mg) by mouth nightly at bedtime 31 Tablet 11 08/15/2021 Active atorvastatin Yg ntity: 0 Refills: 0 Ordered: 01-Jun-2022 Patrica Rivera Generic Substitution Allowed CONTROL (13 sources) Start: 06-29-2019 End: 04-14-2023 CONTROL Discontinued P O 0 June 29, 2019 12:00am April 14, 2023 11:04am Start: 06-29-2019 End: 04-14-2023 CONTROL Discontinued P O June 29, 2019 12:00am April 14, 2023 11:04am Start: 06-29-2019 End: 04-14-2023 CONTROL Discontinued P O June 28, 2019 11:00pm April 14, 2023 10:04am 24 hr buPROPion hydrochloride 150 mg extended release oral tablet (12 sources) Aminoketone Start: 06-23-2024 End: 06-29-2024 take 1 tablet by mouth once daily in the morning Bupropion Hcl 150 mg tablet extended release 24 hr Discontinued 150 mg PO EVERY MORNING 30 3 June 23, 2024 1:00am June 29, 2024 9:57am cephalexin 500 mg oral capsule (13 sources) Cephalosporin Antibacterial Start: 06-29-2019 End: 04-14-2023 take 1 capsule by mouth three times daily Cephalexin 500 mg capsule Discontinued 500 mg PO THREE TIMES A DAY 15 0 June 29, 2019 12:00am April 14, 2023 11:04am FLUoxetine 10 mg oral capsule (13 sources) Serotonin Reuptake Inhibitor Start: 06-29-2019 End: 04-14-2023 take 1 capsule by mouth once daily Fluoxetine (Prozac) 10 mg capsule Discontinued 10 mg PO DAILY June 29, 2019 12:00am April 14, 2023 11:04am magnesium oxide 420 mg oral tablet (13 sources) Start: 04-14-2023 End: 06-23-2024 take 1 [...] venlafaxine 37.5 mg extended release oral capsule (20 sources) Serotonin and Norepinephrine Reuptake Inhibitor Start: 06-29-2024 End: 10-27-2024 take 1 capsule by mouth once daily Venlafaxine 37.5 mg capsule,extended release 24hr Discontinued 37.5 mg PO daily 30 August 22, 2024 1:36pm October 27, 2024 4:32pm Problems Active Problems Problem Classification Problem Date Documented Date Episodic/Chronic Abdominal pain (20 sources) Pain in pelvis; Translations: [Pelvic and perineal pain] 06-23-2024 Episodic Acute bronchitis (1 source) Acute bronchitis, unspecified; Translations: [Acute bronchitis, unspecified] Onset: 06-01-2022 Episodic Administrative/social admission (1 source) Follow-up status; Translations: [Counseling for transition from pediatric to adult care provider] Onset: 05-19-2022 05-19-2022 Episodic Anxiety disorders (20 sources) Mixed anxiety and depressive disorder; Translations: [Other specified anxiety disorders] Onset: 07-05-2024 06-23-2024 Chronic Disorders of lipid metabolism (20 sources) Dyslipidemia; Translations: [Hyperlipidemia, unspecified] Onset: 09-15-2024 Chronic Essential hypertension (3 sources) Hypertensive disorder; Translations: [Essential (primary) hypertension] Onset: 12-08-2024 11-20-2024 Chronic Headache; including migraine (3 sources) Headache; including migraine; Translations: [Headache, unspecified] Onset: 06-01-2022 Joint disorders and dislocations; trauma-related (12 sources) Patellofemoral stress syndrome; Translations: [Patellofemoral disorders, right knee] 12-27-2023 Chronic Malaise and fatigue (1 source) Other malaise; Translations: [Other malaise] Onset: 06-01-2022 Episodic Nutritional deficiencies (18 sources) Vitamin D deficiency; Translations: [Vitamin D deficiency, unspecified] Onset: 09-15-2024 09-15-2024 Chronic Open wounds of extremities (13 sources) Puncture wound of left hand; Translations: [Puncture wound without foreign body of left hand, initial encounter] 07-14-2019 Episodic Other circulatory disease (4 sources) Elevated blood pressure; Translations: [Elevated blood-pressure reading, without diagnosis of hypertension] 11-07-2024 Episodic Other injuries and conditions due to external causes (2 sources) Unspecified injury of head, initial encounter; Translations: [Unspecified injury of head, initial encounter] Onset: 01-07-2024 Episodic Other injuries and conditions due to external causes (1 source) Unspecified injury of unspecified wrist, hand and finger(s), initial encounter; Translations: [Unspecified injury of unspecified wrist, hand and finger(s), initial encounter] Onset: 10-04-2024 Episodic Other liver diseases (20 sources) Elevated liver enzymes level; Translations: [Abnormal levels of other serum enzymes] 06-26-2024 Episodic Other nervous system disorders (13 sources) Disturbance of attention; Translations: [Attention and concentration deficit] 04-14-2023 Chronic Other nervous system disorders (1 source) Attention and concentration deficit; Translations: [Attention or concentration deficit] 04-14-2023 Chronic Other non-traumatic joint disorders (20 sources) Joint pain; Translations: [Pain in unspecified joint] Episodic Other non-traumatic joint disorders (1 source) Pain in unspecified joint; Translations: [Pain in joint, site unspecified] 04-14-2023 Episodic Other non-traumatic joint disorders (10 sources) Pain in unspecified knee; Translations: [Knee [...] media, unspecified, bilateral] Onset: 03-27-2024 03-27-2024 Episodic Residual codes; unclassified (2 sources) FH: premature coronary heart disease; Translations: [Family history of ischemic heart disease and other diseases of the circulatory system] 11-20-2024 Episodic Superficial injury; contusion (20 sources) Contusion of right ankle; Translations: [Contusion of right ankle, initial encounter] 09-13-2024 Episodic Unclassified (1 source) Cough, unspecified; Translations: [Cough, unspecified] Onset: 06-01-2022 Unclassified (5 sources) S60.052A - Contusion of left little finger without damage to nail, initial encounter Unclassified (3 sources) Contusion of left little finger Past or Other Problems Problem Classification Problem Date Documented Da te Episodic/Chronic Other injuries and conditions due to external causes (1 source) Unspecified injury of left foot, initial encounter; Translations: [Unspecified injury of left foot, initial encounter] Onset: 09-18-2024 Episodic Other injuries and conditions due to external causes (1 source) Unspecified injury of unspecified foot, initial encounter; Translations: [Unspecified injury of unspecified foot, initial encounter] Onset: 09-13-2024 Episodic Other liver diseases (1 source) Abnormal levels of other serum enzymes; Translations: [Abnormal levels of other serum enzymes] Onset: 09-24-2024 Episodic Other nutritional; endocrine; and metabolic disorders (3 sources) Childhood obesity; Translations: [Body mass index (BMI) pediatric, greater than or equal to 95th percentile for age] Onset: 06-30-2018 06-30-2018 Episodic Results Test Name Value Interpretation Reference Range Facility Internal Medicine Office Vis lizzie 12-28-2024 Internal Medicine Office Visit [facility] [address] [place] [id number] OFFICE VISIT Date of Service: 12/28/24 MR#: [id number] Acct: [id number] Name: PATI ESCOBAR Rep #: [id number] : 2005 Provider: MAURILIO Stewart Age/Sex: 19/F Location: [facility] Status: Signed Intake Vital Signs 11/07/24 15:13 12/28/24 14:19 Height 5 ft 2 in 5 ft 2 in Weight: 227 lb BMI 41.5 BP 138/86 H Blood Pressure Location Lt brachial Position Sitting Respiration 16 Pulse 88 Pulse Source Monitor Temp 97.4 F L Temp Source Temporal Pulse Oximetry (%) 98 Oxygen Delivery Method room air Intake Visit Reasons: ring worm on rt arm and rt leg Chief Complaint: left 5th finger Alarm Mechanic Required: No Is patient in pain?: No Allergies iris Adverse Reaction (Severe, Verified 12/28/24 14:08) Anaphylaxis Medications ???Medication ???Instructions ???Recorded ???Confirmed ???Type mecobalamin (vitamin B12) 1,000 1,000 mcg PO QDAY 09/13/24 5 History mcg lozenges cholecalciferol (vitamin D3) 1,250 1,250 mcg PO QWEEK #7 caps 10/0912/28/24 Rx mcg (50,000 unit) capsule venlafaxine 37.5 mg 37.5 mg PO QDAY #60 caps 10/27/24 12/28/24 Rx capsule,extended release 24 hr ascorbic acid (vitamin C) 1,000 mg 1 g PO QDAY 11/07/24 12/28/24 Hi story capsule aspirin 81 mg tablet 81 mg PO BID 11/07/24 12/28/24 His tory atorvastatin 10 mg tablet 10 mg PO DAILY #90 tabs 11/07/24 0 12/28/24 Rx niacin 500 mg capsule,extended 500 mg PO QHS #30 caps 11/07/24 Rx release hydrochlorothiazide 25 mg tablet 12.5 mg (1/2 x 25 mg) PO QAM #30 0 11/20/24 12/28/24 Rx tabs ketoconazole 2 % topical cream 1 applic topical BID #30 grams 03/1312/28/24 Rx triamcinolone acetonide 0.1 % 1 applic topical BID #15 grams 03/1312/28/24 Rx topical cream Nurse's Note: Pt presents w/ a red ring on RFA and RLE calf. Pt noticed the spots 2 weeks ago , and got a new kitten prior to noticing the spots and he came back positive for ringworm. The cat has been treated and everything has been cleaned. Pt does c/o itching and burning if touched. Pt has been using otc clotrimazole, see;s some improvement on the arm spot it did not clear it though [facility] Medical History Hypertriglyceridemia Generalized joint pain Family history of early CAD Hypertension Elevated liver enzymes Pelvic pain Depression with anxiety Joint pain Concentration deficit Hyperlipidemia Vitamin D deficiency Surgical History No history of previous surgery Family History Maternal Grandfather Bleeding disorder Heart disease Hypertension CAD (coronary artery disease) Diabetes Anemia Myocardial infarction CVA (cerebral vascular accident) Mother Diabetes Myocardial infarction Maternal Grandmother Diabetes Social History Smoking Status: Never smoker alcohol intake: never substance use type: does not use what type of physical activity do you participate in: none do you feel safe at home: Yes HPI HPI Chief Complaint: left 5th finger Details: PATI ESCOBAR, is a 19 F who presents to the office today for skin rash on her right forearm and right calf. She noticed these about 2 weeks ago. She states that initially these were itching and had a little burning feeling to them. She states that shortly after her cat was diagnosed with ringworm. ROS Const Constitutional: No body ache, chills, excessive sweating, fatigue, fever(s), frequent falls, headache(s), snoring, weakness, sleep problems or change in appetite Eyes Eyes: No blurry vision, change in vision, eye pain or Light sensitivity ENT ENT: No abnormal hearing, ear or mastoid pain, tinnitus, nasal congestion, headache(s), neck pain or sore throat Resp Respiratory: No cough, shortness of breath, snoring or wheezing Cardio Cardiology: No chest pain at rest, chest pain with exertion, excessive sweating, shortness of breath, dyspnea on exertion, lightheadedness, orthopnea or palpitations Gastro GI: No abdominal pain, change in bowel habits, constipation, cramping, diarrhea, nausea/dyspepsia or vomiting Genitourinary-Female: No burning urination, painful urination, urinary incontinence, urinary frequency, abnormal vaginal bleeding or pelvic pain Musc Musculoskeletal: No abnormal gait, joint pain, back pain, limited range of motion, neck pain or numbness Skin Skin: Positive for change in skin color, redness, itchy eyes, skin pain and other; No dry skin, lesions, rash or wounds Neuro Neurology: No abnormal gait, (more content not included)... Normal [facility] L501.5101on 12-18-2024 GGTP 19 IU/L Normal 0-60 [facility] Comment on above: Order Comment: Test( s) 952054-Xnvantlmtbp; 430553-Gzrml Activity, Plasmawas developed and its performance characteristicsdetermined by [employer]. It has not been cleared or approvedby the Food and Drug Administration. Result Comment: Perf ormed at: [address] [id number] Vmware Engineer: Yarelis Irvin MD, Phone: [phone] Performed at: [address] [id number] [employer] Engineer: Bill Leger PhD, Phone: [phone] Performed By: #### L 100.0100, L503.0106, L506.1001, L506.0400, L501.9520, L500.4050 #### [facility] [address] [place], [place], [id number] Renin/Aldosterone Activityon 12-18-2024 ALD/RENIN RATIO 6.8 Normal 0.0-30.0 [facility] Comment on above: Order Comment: Test( s) 569053-Jtcxcrdqutj; 108033-Vqxpy Activity, Plasmawas developed and its performance characteristicsdetermined by [employer]. It has not been cleared or approvedby the Food and Drug Administration. Result Comment: Unit s: ng/dL per ng/mL/hr Performed By: #### L 100.0100, L503.0106, L506.1001, L506.0400, L501.9520, L500.4050 #### [facility] [address] [place], [place], [id number] [phone] ALDOSTERONE,S 19.3 ng/dL Normal 0.0-30.0 [facility] Comment on above: Order Comment: Test( s) 850563-Cnmckfwsqjw; 774548-Fxqmt Activity, Plasmawas developed and its performance characteristicsdetermined by [employer]. It has not been cleared or approvedby the Food and Drug Administration. Performed By: #### L 100.0100, L503.0106, L506.1001, L506.0400, L501.9520, L500.4050 #### [facility] [address] [place], [address] RENIN, PLASMA 2.842 ng/mL/hr Normal 0.167-5.380 [facility] Comment on above: Order Comment: Test( s) 723444-Ffockkkrvyy; 650893-Vwzzi Activity, Plasmawas developed and its performance characteristicsdetermined by [employer]. It has not been cleared or approvedby the Food and Drug Administration. Performed By: #### L 100.0100, L503.0106, L506.1001, L506.0400, L501.9520, L500.4050 #### [facility] [address] [place], [address] CBC-Complete Blood Cnt No Di ffon 12-08-2024 Erythrocyte distribution width (RBC) [Ratio] 11.5 % Low 11.6-14.6 [facility] Comment on above: Performed By: #### L 100.0500 #### [facility] [address] [place], [address] Hematocrit (Bld) [Volume fraction] 39.9 % Normal 37-47 [facility] Comment on above: Performed By: #### L 100.0500 #### [facility] [address] [place], [address] Hemoglobin (Bld) [Mass/Vol] 14.0 g/dL Normal 12.0-15.0 [facility] Comment on above: Performed By: #### L 100.0500 #### [facility] [address] [place], [address] MCH (RBC) [Entitic mass] 31.0 pg Normal 27.0-32.0 [facility] Comment on above: Performed By: #### L 100.0500 #### [facility] [address] [place], [address] MCHC (RBC) [Mass/Vol] 35.1 g/dL Normal 32-36 [facility] Comment on above: Performed By: #### L 100.0500 #### [facility] [address] [place], [address] MCV (RBC) [Entitic vol] 88.3 fL Normal 81-99 [facility] Comment on above: Performed By: #### L 100.0500 #### [facility] [address] [place], [address] Platelet mean volume (Bld) [Entitic vol] 10.0 fL Normal 6.2-12.0 [facility] Comment on above: Performed By: #### L 100.0500 #### [facility] [address] [place], [address] Platelets (Bld) [#/Vol] 339 10*3/uL Normal 150-450 [facility] Comment on above: Performed By: #### L 100.0500 #### [facility] [address] [place], [address] RBC (Bld) [#/Vol] 4.52 10*6/uL Normal 4.2-5.4 [facility] Comment on above: Performed By: #### L 100.0500 #### [facility] [address] [place], [address] RDW SD 37.1 fl Normal 35.1-43.9 [facility] Comment on above: Performed By: #### L 100.0500 #### [facility] [address] [place], [address] WBC (Bld) [#/Vol] 8.4 10*3/uL Normal 4.4-11.0 [facility] Comment on above: Performed By: #### L 100.0500 #### [facility] [address] [place], [address] Comprehensive Metabolic Prof nyon 12-08-2024 Albumin [Mass/Vol] 4.4 g/dL Normal 3.5-5.0 [facility] Comment on above: Performed By: #### L 3890.6102, L3300.1050, L500.4050, L500.4100, L506.0400, L501.9520, L506.1001, L3890.6301, L501.5101 #### [facility] [address] [place], [address] Albumin/Globulin [Mass ratio] 1.2 {ratio} Normal 0.9-2.4 [facility] Comment on above: Performed By: #### L 3890.6102, L3300.1050, L500.4050, L500.4100, L506.0400, L501.9520, L506.1001, L3890.6301, L501.5101 #### [facility] [address] [place], [address] ALK PHOS 78 U/L Normal 35-104 [facility] Comment on above: Performed By: #### L 3890.6102, L3300.1050, L500.4050, L500.4100, L506.0400, L501.9520, L506.1001, L3890.6301, L501.5101 #### [facility] [address] [place], [address] ALT [Catalytic activity/Vol] 38 U/L High <=34 [facility] Comment on above: Performed By: #### L 3890.6102, L3300.1050, L500.4050, L500.4100, L506.0400, L501.9520, L506.1001, L3890.6301, L501.5101 #### [facility] [address] [place], [place], [id number] AST [Catalytic activity/Vol] 31 U/L Normal <=31 [facility] Comment on above: Performed By: #### L 3890.6102, L3300.1050, L500.4050, L500.4100, L506.0400, L501.9520, L506.1001, L3890.6301, L501.5101 #### [facility] [address] [place], [place], [id number] Bilirubin [Mass/Vol] 0.46 mg/dL Normal 0.00-1.30 [facility] Comment on above: Performed By: #### L 3890.6102, L3300.1050, L500.4050, L500.4100, L506.0400, L501.9520, L506.1001, L3890.6301, L501.5101 #### [facility] [address] [place], [place], [id number] BUN/CRE 10.7 RATIO Normal 10-20 [facility] Comment on above: Performed By: #### L 3890.6102, L3300.1050, L500.4050, L500.4100, L506.0400, L501.9520, L506.1001, L3890.6301, L501.5101 #### [facility] [address] [place], [address] Calcium [Mass/Vol] 9.4 mg/dL Normal 7.6-11.0 [facility] Comment on above: Performed By: #### L 3890.6102, L3300.1050, L500.4050, L500.4100, L506.0400, L501.9520, L506.1001, L3890.6301, L501.5101 #### [facility] [address] [place], [address] Chloride [Moles/Vol] 100 mmol/L Normal 98-108 [facility] Comment on above: Performed By: #### L 3890.6102, L3300.1050, L500.4050, L500.4100, L506.0400, L501.9520, L506.1001, L3890.6301, L501.5101 #### [facility] [address] [place], [address] CO2 [Moles/Vol] 22.1 mmol/L Normal 21.0-32.0 [facility] Comment on above: Performed By: #### L 3890.6102, L3300.1050, L500.4050, L500.4100, L506.0400, L501.9520, L506.1001, L3890.6301, L501.5101 #### [facility] [address] [place], [place], [id number] (909) Creatinine [Mass/Vol] 0.84 mg/dL Normal 0.70-1.20 [facility] Comment on above: Performed By: #### L 3890.6102, L3300.1050, L500.4050, L500.4100, L506.0400, L501.9520, L506.1001, L3890.6301, L501.5101 #### [facility] [address] [place], [address] GAP 15 Normal 5-15 [facility] Comment on above: Performed By: #### L 3890.6102, L3300.1050, L500.4050, L500.4100, L506.0400, L501.9520, L506.1001, L3890.6301, L501.5101 #### [facility] [address] [place], [place], [phone] (913) GFR/1.73 sq M.predicted among non-blacks MDRD (S/P/Bld) [Vol rate/Area] 101 mL/min/{1.73_m2} Normal >60 [facility] Comment on above: Result Comment: mL/m in/1.73m2 CKD-EPI Creatinine Equation (2020) Performed By: #### L 3890.6102, L3300.1050, L500.4050, L500.4100, L506.0400, L501.9520, L506.1001, L3890.6301, L501.5101 #### [facility] [address] [place], [address] Globulin (S) [Mass/Vol] 3.5 g/dL Normal 2.2-4.2 [facility] Comment on above: Performed By: #### L 3890.6102, L3300.1050, L500.4050, L500.4100, L506.0400, L501.9520, L506.1001, L3890.6301, L501.5101 #### [facility] [address] [place], [address] Glucose [Mass/Vol] 82 mg/dL Normal 70-99 [facility] Comment on above: Performed By: #### L 3890.6102, L3300.1050, L500.4050, L500.4100, L506.0400, L501.9520, L506.1001, L3890.6301, L501.5101 #### [facility] [address] [place], [address] Potassium [Moles/Vol] 4.0 mmol/L Normal 3.3-5.1 [facility] Comment on above: Performed By: #### L 3890.6102, L3300.1050, L500.4050, L500.4100, L506.0400, L501.9520, L506.1001, L3890.6301, L501.5101 #### [facility] [address] [place], [address] Sodium [Moles/Vol] 137 mmol/L Normal 133-145 [facility] Comment on above: Performed By: #### L 3890.6102, L3300.1050, L500.4050, L500.4100, L506.0400, L501.9520, L506.1001, L3890.6301, L501.5101 #### [facility] [address] [place], [address] T PROT 7.9 g/dL Normal 5.9-8.4 [facility] Comment on above: Performed By: #### L 3890.6102, L3300.1050, L500.4050, L500.4100, L506.0400, L501.9520, L506.1001, L3890.6301, L501.5101 #### [facility] [address] [place], [address] Urea nitrogen [Mass/Vol] 9 mg/dL Normal 4-19 [facility] Comment on above: Performed By: #### L 3890.6102, L3300.1050, L500.4050, L500.4100, L506.0400, L501.9520, L506.1001, L3890.6301, L501.5101 #### [facility] [address] [place], [address] Echo Completeon 12-08-2024 Echo Complete [facility] [address] [place] [address] Echo Complete 12/08/24 1405 MR#: [id number] Acct: [id number] Name: PATI ESCOBAR Rep #: [id number] : 2005 19 From: Alejandra Bautista MD Attending Dr: Dr. Zoe Nevarez MD Status: PRE CLI Ordering Dr: Zoe Nevarez MD Date: 12/08/24 Location: [facility] Sex: F C Admitted: Reason For Study Reason For Study: HYPERTENSION Procedure This was a 2D Doppler, Color Flow transthoracic echocardiogram. Exam performed in department. Left Ventricle Normal LV size. The estimated ejection fraction is 60 %. No evidence for diastolic dysfunction. No regional wall motion abnormalities noted. Right Ventricle Normal RV size. Normal systolic function. Atria The left and right atria are normal. No doppler evidence for ASD. Mitral Valve There is no mitral valve stenosis. No mitral valve insufficiency. Tricuspid Valve There is no tricuspid stenosis. Trivial tricuspid valve insufficiency. Unable to estimate RV systolic pressure due to insufficient tricuspid regurgitant envelope. Aortic Valve Trisinus/trileaflet aortic valve. There is no aortic stenosis. No aortic valve insufficiency. Pulmonic Valve There is no pulmonic valvular stenosis. No pulmonic valve insufficiency. Great Vessels Normal sized aortic root. Pericardium/Pleural No pericardial effusion. MMode/2D Measurements Calculations LVIDd: 3.9 cm IVSd: 1.1 cm Ao root diam: 2.8 cm LVIDs: 2.8 cm LVPWd: 1.0 cm FS: 27.5 % LAV(MOD-bp): 40.2 ml LVAd ap4: 29.8 cm2 LVAd ap2: 29.3 cm2 LAV(MOD-bp) Indexed: 20.0 ml/m2 LVLd ap4: 8.1 cm LVLd ap2: 8.4 cm LAV(MOD-sp2): 35.6 ml EDV(MOD-sp4): 89.7 ml EDV(MOD-sp2): 84.8 ml LAV(MOD-sp4): 35.4 ml EDV(sp4-el): 93.5 ml EDV(sp2-el): 86.4 ml LVAs ap4: 16.2 cm2 LVAs ap2: 15.5 cm2 LVLs ap4: 7.0 cm LVLs ap2: 6.5 cm ESV(MOD-sp4): 33.2 ml ESV(MOD-sp2): 31.6 ml ESV(sp4-el): 31.8 ml ESV(sp2-el): 31.6 ml EF(MOD-sp4): 63.0 % EF(MOD-sp2): 62.7 % EF(sp4-el): 66.0 % SV(MOD-sp4): 56.5 ml SV(MOD-sp2): 53.2 ml SV(sp4-el): 61.7 ml SI(MOD-sp4): 28.1 ml/m2 SI(MOD-sp2): 26.5 ml/m2 LA A4 area: 15.6 cm2 LA dimension(2D): 3.6 cm RA A4 area: 10.7 cm2 TAPSE: 1.8 cm Time Measurements MV dec time: 0.16 sec Doppler Measurements Calculations MV E max mayra: 97.6 cm/sec Lat Peak E' Mayra: 20.5 cm/sec Med Peak E' Mayra: 13.0 cm/sec MV A max mayra: 51.5 cm/sec E/E' lat: 4.8 E/E' med: 7.5 MV E/A: 1.9 MV V2 max: 103.5 cm/sec MV P1/2t max mayra: 105.7 cm/sec Ao V2 max: 136.7 cm/sec MV max P.3 mmHg MV P1/2t: 50.4 msec Ao max P.5 mmHg MV V2 mean: 59.4 cm/sec Ao V2 mean: 95.8 cm/sec MV mean P.6 mmHg MV dec slope: 614.7 cm/sec2 Ao mean P.2 mmHg MV V2 VTI: 15.9 cm MVA(P1/2t): 4.4 cm2 Ao V2 VTI: 27.2 cm AV (velocity ratio): 0.75 LV V1 max: 98.6 cm/sec PA V2 max: 94.3 cm/sec TR max mayra: 236.6 cm/sec LV V1 max P.9 mmHg PA V2 mean: 72.7 cm/sec TR max P.4 mmHg LV V1 mean P.3 mmHg LV V1 mean: 70.3 cm/sec LV V1 VTI: 20.5 cm ECHO/Echo Complete Interpretation Summary The estimated ejection fraction is 60 %. No evidence for diastolic dysfunction. Ordering Physician: Zoe Nevarez Referring Physician: Zoe Nevarez Performed By: Misty Barron, RDCS, RVT 12/09/24 1517 Date Alejandra aButista MD CC: Dr. Zoe Nevarez MD Date Dictated: 12/08/24 1405 Date Transcribed: 12/09/24 1517 Production Control Planner: Signed Normal [facility] Hepatitis C Antibodyon 12-08 Hepatitis C Ab Non-Reactive Normal Nonreactive [facility] Comment on above: Result Comment: Reac tive: Presumptive evidence of antibodies to HCV. Follow CDC recommendations for supplemental testing. Non-Reactive: Antibodies to HCV were not detected; does not exclude the possibility of exposure to HCV Reactive Results are presumptive evidence of antibodies to HCV. Follow CDC recommendations for supplemental testing. Order confirmation testing: HCV Quant by PCR testing - HCVPCR #[id number] Non Reactive: < 0.8 Equivocal: >/= 0.8 to < 1.0 Reactive: >/= 1.0 The CDC requires that a reactive/equivocal HCV antibody result be sent out for confirmation. HCV Quant by PCR testing. Performed By: #### L 100.0100, L503.0106, L506.1001, L506.0400, L501.9520, L500.4050 #### [facility] [address] [place], [address] L3890.6102on 12-08-2024 HEP B Surf Ag Non-Reactive Normal Nonreactive [facility] Comment on above: Result Comment: Reac tive: Presumptive evidence of HBV. Repeatedly reactive samples must be confirmed using a neutralization test ([employer] HBsAg Confirmatory Test) Non-Reactive: HBsAg not detected; does not exclude the possibility of exposure to HBV Performed By: #### L 100.0100, L503.0106, L506.1001, L506.0400, L501.9520, L500.4050 #### [facility] [address] [place], [address] Lipid Profileon 12-08-2024 CHOL:HDL 4.39 Normal [facility] Comment on above: Performed By: #### L 3890.6102, L3300.1050, L500.4050, L500.4100, L506.0400, L501.9520, L506.1001, L3890.6301, L501.5101 #### [facility] [address] [place], [address] Cholesterol [Mass/Vol] 168 mg/dL Normal <=190 [facility] Comment on above: Result Comment: Chol esterol level, Desirable <200 mg/dL Borderline high cholesterol 200-239 mg/dL High cholesterol >=240 mg/dL Recommendations of the NCEP Adult Treatment Panel for the following risk-cutoff thresholds for the [place] Citizen population. Performed By: #### L 3890.6102, L3300.1050, L500.4050, L500.4100, L506.0400, L501.9520, L506.1001, L3890.6301, L501.5101 #### [facility] [address] [place], [place], [id number] Cholesterol in HDL [Mass/Vol] 38 mg/dL Low [facility] Comment on above: Result Comment: Denise onal Cholesterol Education Program (NCEP) guidelines: <40 mg/dL: Low HDL-cholesterol (major risk factor for CHD) >= 60 mg/dL: High HDL-cholesterol (negative risk factor for CHD) HDL-cholesterol is affected by a number of factors, e.g. smoking, exercise, hormones, sex and age. Performed By: #### L 3890.6102, L3300.1050, L500.4050, L500.4100, L506.0400, L501.9520, L506.1001, L3890.6301, L501.5101 #### [facility] [address] [place], [place], [phone] (300) Cholesterol in LDL [Mass/Vol] 93 mg/dL Normal [facility] Comment on above: Result Comment: Bord wqzxpg=847-495 mg/dL Higher Unwf=423 mg/dL or greater Friedwald Equation for LDL-C Performed By: #### L 3890.6102, L3300.1050, L500.4050, L500.4100, L506.0400, L501.9520, L506.1001, L3890.6301, L501.5101 #### [facility] [address] [place], [place], [phone] (491) Cholesterol in VLDL [Mass/Vol] 36 mg/dL Normal 5-40 [facility] Comment on above: Performed By: #### L 3890.6102, L3300.1050, L500.4050, L500.4100, L506.0400, L501.9520, L506.1001, L3890.6301, L501.5101 #### [facility] [address] [place], [address] Triglyceride [Mass/Vol] 182 mg/dL Normal [facility] Comment on above: Result Comment: The drugs N-Acetylcysteine and Metamizole may falsely depress this assay. Normal range: <150 mg/dL Borderline High: 150-199 mg/dL High: 200-499 mg/dL Very High: >500 mg/dL Performed By: #### L 3890.6102, L3300.1050, L500.4050, L500.4100, L506.0400, L501.9520, L506.1001, L3890.6301, L501.5101 #### [facility] [address] [place], [address] T4 Free Directon 12-08-2024 T4 FREE DIRECT 1.10 ng/dL Normal 0.76-1.46 [facility] Comment on above: Performed By: #### L 100.0100, L503.0106, L506.1001, L506.0400, L501.9520, L500.4050 #### [facility] [address] [place], [address] Thyroid Stim Hormone (TSH)on 12-08-2024 TSH 1.730 uIU/mL Normal 0.300-4.200 [facility] Comment on above: Performed By: #### L 100.0100, L503.0106, L506.1001, L506.0400, L501.9520, L500.4050 #### [facility] [address] [place], [address] Vitamin D,25 Hydroxyon 12-08 Vitamin D 25-OH 42.6 ng/mL Normal 30-100 [facility] Comment on above: Result Comment: Raina min D Status Deficiency: <20 ng/mL (50nmol/L) Insufficiency: 20-30 ng/mL (50-75 nmol/L) Sufficiency: 30-100 ng/mL (75-250 nmol/L) Toxicity: >100 ng/mL (>250 nmol/L) Performed By: #### L 100.0100, L503.0106, L506.1001, L506.0400, L501.9520, L500.4050 #### [facility] [address] [place], [address] Duplex ultrasound of renal a rtery reportOrdered By: Harsh Lozano on 12-05-2024 Study report [facility] [address] [place] [address] Renal Artery Duplex Ultrasound 12/04/24 0807 MR#: [id number] Acct: [id number] Name: PATI ESCOBAR Rep #:[id number] : 2005 19 From: Harsh Lozano MD Attending Dr: Dr. Zoe Nevarez MD Status: REG CLI Ordering Dr: Zoe Nevarez MD Date: 12/04/24 Location: [facility] Sex: F C Admitted: Reason For Study Reason For Study: HTN Right Renal Artery Left Renal Artery Right renal artery ostium 115/36 RSV/EDV. Left renal artery ostium 166/56 PSV/EDV. Right renal artery proximal 137/50 Left renal artery proximal PSV/EDV PSV/EDV. 122/47 . Right renal artery mid 155/61 PSV/EDV. Left renal artery mid 107/33 PSV/EDV . Right renal artery distal 140/60 PSV/EDV. Left renal artery distal 56/19 PSV/EDV. Right RAR 1.74. Left RAR 1.87. Right Renal Parenchyma Left Renal Parenchyma Upper Pole Medula 20/8 PSV/EDV. Left upper pole medulla 44/21 PSV/EDV . Right upper pole medulla EDR 0.40 . Left upper pole medulla EDR 0.48 . Right upper pole medulla R.I. 0.62 . Left upper pole medulla R.I. 0.53 . Upper Jasson Cortx 21/10 PSV/EDV. UPCortex 25/12 PSV/EDV. Right upper pole cortex EDR 0.48 . Left upper pole cortex EDR 0.48 . Right upper pole cortex R.I. 0.54 . Left upper pole cortex R.I. 0.54 . Right lower Pole medulla 20/10 PSV/EDV . Left lower Pole medulla 17/8 PSV/EDV . Right lower pole medulla EDR 0.50 . Left lower pole medulla EDR 0.47 . Right lower pole medulla R.I. 0.47 . Left lower pole medulla R.I. 0.54 . Lower Pole Cortex 19/8 PSV/EDV. Lower Pole Cortx 25/10 PSV/EDV. Right lower pole cortex EDR 0.42 . Left lower pole cortex EDR 0.40 . Right lower pole cortex R.I. 0.57 . Left lower pole cortex R.I. 0.59 . Right Renal Hilar Left Renal Hilar Right Hilar avg 173/78 PSV/EDV. LTHilar avg 72/27 PSV/EDV . Right hilar acceleration time 40 m/sec. Left hilar acceleration time 30 m/sec. Right Renal Dimensions Left Renal Dimensions Right kidney size 10.32 cm . Left kidney size 11.07 cm . Right cortical dimension 1.45 cm . Left cortical dimension 1.66 cm . Aorta Proximal abdominal aorta 1.33cm x 1.20 cm . Proximal abdominal aorta peak systolic velocity is 89 cm/sec . Distal abdominal aorta 1.26cm x 1.23 cm . Distal abdominal aorta peak systolic velocityis 144 cm/sec . VL/Renal Artery Duplex Ultrasound Interpretation Summary Dimensions of the intra-abdominal aorta appear normal, without evidence of aneurysmal dilatation. Renal artery velocities are bilaterally normal. Acceleration times are normal bilaterally. Renal-aortic ratios are also bilaterally normal. There is no evidence of hemodynamically significant renal artery stenosis on either side. Renovascular resistance appears to be bilaterally normal . The right cortical dimension is normal. The left cortical dimension is increased. Kidneys appear normal in size bilaterally. Ordering Physician: Zoe Nevarez Referring Physician: Zoe Nevarez Performed By: Erica Smith, DEL, RVT 12/05/242054 Date _ Harsh Lozano MD CC: Dr. Zoe Nevarez MD ~ Date Dictated: 12/04/24806 Date Transcribed: 12/05/242054 Production Control Planner: Signed [facility] Other Phone: Electrocardiogram reportOrde red By: Manuel Peraza on 12-05-2024 EKG study [facility] [address] [place] [address] 12 Lead EKG 12/04/24 0804 MR#: [id number] Acct: [id number] Name: PATI ESCOBAR Rep #:[id number] : 2005 19 From: Manuel Peraza MD Attending Dr: Dr. Zoe Nevarez MD Status: REG CLI Ordering Dr: Zoe Nevarez MD Date: 12/04/24 Location: [facility] Sex: F C Admitted: Test Reason : HTN Blood Pressure : */* mmHG Vent. Rate : 72 BPM Atrial Rate : 72 BPM P-R Int : 174 ms QRS Dur : 86 ms QT Int : 430 ms P-R-T Axes : 26 24 27 degrees QTcB Int : 470 ms Normal sinus rhythm with sinus arrhythmia Normal ECG Confirmed by STU GUADARRAMA, MANUEL ([id number]), graphics editor LOLA RENAE ([id number]) on 56:08:27 AM Referred By: Zoe Nevarez Confirmed By: MANUEL PERAZA MD 12/05/24 0608 Date _ Manuel Peraza MD CC: Dr. Zoe Nevarez MD ~ Signed [facility] Work Phone: 12 Lead EKGon 12-04-2024 12 Lead EKG [facility] Cardi[facility] Services [address] [place] [address] 12 Lead EKG 12/04/24 0804 MR#: [id number] Acct: [id number] Name: PATI ESCOBAR Rep #: [id number] : 2005 19 From: Manuel Peraza MD Attending Dr: Dr. Zoe Nevarez MD Status: REG CLI Ordering Dr: Zoe Nevarez MD Date: 12/04/24 Location: [facility] Sex: F C Admitted: Test Reason : HTN Blood Pressure : */* mmHG Vent. Rate : 72 BPM Atrial Rate : 72 BPM P-R Int : 174 ms QRS Dur : 86 ms QT Int : 430 ms P-R-T Axes : 26 24 27 degrees QTcB Int : 470 ms Normal sinus rhythm with sinus arrhythmia Normal ECG Confirmed by STU GUADARRAMA, MANUEL ([id number]), graphics editor BATOOL LOLA ([id number]) on 12/05/2024 6:08:27 AM Referred By: Zoe Nevarez Confirmed By: MANUEL PERAZA MD 12/05/24 0608 Date Manuel Peraza MD CC: Dr. Zoe Nevarez MD Signed Normal [facility] Renal Artery Duplex Ultrasou ndon 12-04-2024 Renal Artery Duplex Ultrasound [facility] [address] [place] [address] Renal Artery Duplex Ultrasound 12/04/24 0807 MR#: [id number] Acct: [id number] Name: PATI ESCOBAR Rep #: [id number] : 2005 19 From: Harsh Lozano MD Attending Dr: Dr. Zoe Nevarez MD Status: REG CLI Ordering Dr: Zoe Nevarez MD Date: 12/04/24 Location: [facility] Sex: F C Admitted: Reason For Study Reason For Study: HTN Right Renal Artery Left Renal Artery Right renal artery ostium 115/36 RSV/EDV. Left renal artery ostium 166/56 PSV/EDV. Right renal artery proximal 137/50 Left renal artery proximal PSV/EDV PSV/EDV. 122/47 . Right renal artery mid 155/61 PSV/EDV. Left renal artery mid 107/33 PSV/EDV . Right renal artery distal 140/60 PSV/EDV. Left renal artery distal 56/19 PSV/EDV. Right RAR 1.74. Left RAR 1.87. Right Renal Parenchyma Left Renal Parenchyma Upper Pole Medula 20/8 PSV/EDV. Left upper pole medulla 44/21 PSV/EDV . Right upper pole medulla EDR 0.40 . Left upper pole medulla EDR 0.48 . Right upper pole medulla R.I. 0.62 . Left upper pole medulla R.I. 0.53 . Upper Jasson Cortx 21/10 PSV/EDV. UP Cortex 25/12 PSV/EDV. Right upper pole cortex EDR 0.48 . Left upper pole cortex EDR 0.48 . Right upper pole cortex R.I. 0.54 . Left upper pole cortex R.I. 0.54 . Right lower Pole medulla 20/10 PSV/EDV . Left lower Pole medulla 17/8 PSV/EDV . Right lower pole medulla EDR 0.50 . Left lower pole medulla EDR 0.47 . Right lower pole medulla R.I. 0.47 . Left lower pole medulla R.I. 0.54 . Lower Pole Cortex 19/8 PSV/EDV. Lower Pole Cortx 25/10 PSV/EDV. Right lower pole cortex EDR 0.42 . Left lower pole cortex EDR 0.40 . Right lower pole cortex R.I. 0.57 . Left lower pole cortex R.I. 0.59 . Right Renal Hilar Left Renal Hilar Right Hilar avg 173/78 PSV/EDV. LT Hilar avg 72/27 PSV/EDV . Right hilar acceleration time 40 m/sec. Left hilar acceleration time 30 m/sec. Right Renal Dimensions Left Renal Dimensions Right kidney size 10.32 cm . Left kidney size 11.07 cm . Right cortical dimension 1.45 cm . Left cortical dimension 1.66 cm . Aorta Proximal abdominal aorta 1.33cm x 1.20 cm . Proximal abdominal aorta peak systolic velocity is 89 cm/sec . Distal abdominal aorta 1.26cm x 1.23 cm . Distal abdominal aorta peak systolic velocity is 144 cm/sec . VL/Renal Artery Duplex Ultrasound Interpretation Summary Dimensions of the intra-abdominal aorta appear normal, without evidence of aneurysmal dilatation. Renal artery velocities are bilaterally normal. Acceleration times are normal bilaterally. Renal-aortic ratios are also bilaterally normal. There is no evidence of hemodynamically significant renal artery stenosis on either side. Renovascular resistance appears to be bilaterally normal . The right cortical dimension is normal. The left cortical dimension is increased. Kidneys appear normal in size bilaterally. Ordering Physician: Zoe Nevarez Referring Physician: Zoe Nevarez Performed By: Erica Smith, DEL, RVT 12/05/242054 Date Harsh Lozano MD CC: Dr. Zoe Nevarez MD Date Dictated: 12/04/24806 Date Transcribed: 12/05/242054 Production Control Planner: Signed Normal [facility] Internal Medicine Office Vis ito 11-07-2024 Internal Medicine Office Visit [facility] [address] [place] [address] [place] [address] OFFICE VISIT Date of Service: 11/07/24 MR#: [id number] Acct: [id number] Name: PATI ESCOBAR Rep #: [id number] : 2005 Provider: SIENA shannon Age/Sex: 19/F Location: [facility] Status: Signed Intake Vital Signs 10/03/24 14:31 11/07/24 15:13 Height 5 ft 2 in 5 ft 2 in Weight: 223 lb 226 lb BMI 40.8 41.3 BP 142/90 H Blood Pressure Location Lt brachial Position Sitting Respiration 14 Pulse 96 Pulse Source Monitor Temp 97.1 F L Temp Source Temporal Pulse Oximetry (%) 99 Oxygen Delivery Method room air Intake Visit Reasons: ACUTE BP ISSUES Alarm Mechanic Required: No Is patient in pain?: Yes (L knee) Pain scale (1-10): 3 Allergies iris Adverse Reaction (Severe, Verified 11/07/24 14:58) Anaphylaxis Medications ???Medication ???Instructions ???Recorded ???Confirmed ???Type mecobalamin (vitamin B12) 1,000 1,000 mcg PO QDAY 09/13/24 5 History mcg lozenges cholecalciferol (vitamin D3) 1,250 1,250 mcg PO QWEEK #7 caps 10/0911/07/24 Rx mcg (50,000 unit) capsule venlafaxine 37.5 mg 37.5 mg PO QDAY #60 caps 10/27/24 11/07/24 Rx capsule,extended release 24 hr ascorbic acid (vitamin C) 1,000 mg 1 g PO QDAY 11/07/24 11/07/24 Hi story capsule aspirin 81 mg tablet 81 mg PO BID 11/07/24 11/07/24 His tory atorvastatin 10 mg tablet 10 mg PO DAILY #90 tabs 11/07/24 0 11/07/24 Rx niacin 500 mg capsule,extended 500 mg PO QHS #30 caps 11/07/24 Rx release Nurse's Note: Pt tore acl and has seen [facility] for this Dr. gaytan. Pt has been getting high readings at home and at appointments ranging from 140's-150's/90s. Pt's mom states that she had a heart attack and knows the bp machine is accurate as she's in cardiac rehab and correlates w/ readings in office but never taken into visit to compare. Pt is due to have surgery for ACL repair in march, but will be unable to have it done if bp is uncontrolled. Pt has not kept a log, and did not regularly check until it was higher reading at appointment. Pt has denied during high readings chest pain, sob, flushing, palptations headaches. Has c/o blurry vision intermittently. Pt has been in pain and having some anxiety, but also has f/o cardiac issues and personal h/o hyperlipidmia. Pt has been out of lipitor for about a month now. Did not call in for refill. Mom is requesting order for lipid panel to be ordered to do as lipid panel has not shown much improvement and thinks we need to be more proactive. Pt's mom will get her established w/ [facility] to be proactive. Pt has CHRISTIE letter that was discussed in portal requesting to be filled out. [facility] Medical History Contusion of left little finger Contusion of right foot Contusion of right ankle Elevated liver enzymes Pelvic pain Depression with anxiety Joint pain Preventative health care Concentration deficit Hyperlipidemia Vitamin D deficiency High blood cholesterol Head ache Family History (Updated 11/07/24 @ 15:12 by Maritza Gifford MA) Maternal Grandfather Bleeding disorder Heart disease Hypertension CAD (coronary artery disease) Diabetes Anemia Myocardial infarction CVA (cerebral vascular accident) Mother Diabetes Myocardial infarction Maternal Grandmother Diabetes Social History Smoking Status: Never smoker alcohol intake: never substance use type: does not use what type of physical activity do you participate in: none do you feel safe at home: Yes HPI HPI Details: PATI ESCOBAR, is a 19 F who presents to the office today for concerns of elevated blood pressure readings.Pt tore acl and has seen [facility] for this Dr. gaytan. Pt has been getting high readings at home and at appointments ranging from 140's-150's/90s. Pt's mom states that she had a heart attack and knows the bp machine is accurate as she's in cardiac rehab and correlates w/ readings in office but never taken into visit to compare. Pt is due to have surgery for ACL repair in march, but will be unable to have it done if bp is uncontrolled. Pt has not kept a log, and did not regularly check until it was higher reading at appointment. Pt has denied during high readings chest pain, sob, flushing, palptations headaches. Has c/o blurry vision intermittently. Pt has been in pain and having some anxiety, but also has f/o cardiac issues and personal h/o hyperlipidmia. Pt has been out of lipitor for about a month now. Did not call in for refill. Mom is requesting order for lipid panel to be ordered to do as lipid panel has not shown much improvement and thinks we need to be mo (more content not included)... Normal [facility] Orthopedic Visit Reporton Orthopedic Visit Report [facility] [address] [place] [address] OFFICE VISIT Date of Service: 10/03/24 MR#: [id number] Acct: [id number] Name: PATI ESCOBAR Rep #: [id number] : 2005 Provider: Dr. Justin marrero MD Age/Sex: 19/F Location: [facility] Status: Signed Intake Vital Signs 09/15/24 10:07 10/03/24 14:31 Height 5 ft 2 in 5 ft 2 in Weight: 223 lb BMI 40.8 Intake Visit Reasons: LEFT HAND/PINKY FINGER Chief Complaint: left 5th finger Accompanied by: Mother Is patient in pain?: Yes Pain scale (1-10): 5 Allergies iris Adverse Reaction (Severe, Verified 10/03/24 14:33) Anaphylaxis Medications ???Medication ???Instructions ???Recorded ???Confirmed ???Type atorvastatin 10 mg tablet 10 mg PO DAILY #90 tabs 10/18/23 0 10/03/24 Rx cholecalciferol (vitamin D3) 1,250 1,250 mcg PO QWEEK #14 caps 06/1710/03/24 Rx mcg (50,000 unit) capsule venlafaxine 37.5 mg 37.5 mg PO QDAY #30 caps 08/22/24 10/03/24 Rx capsule,extended release 24 hr mecobalamin (vitamin B12) 1,000 1,000 mcg PO QDAY 09/13/24 5 History mcg lozenges ascorbic acid (vitamin C) 1,000 mg 1 g PO ONCE 09/15/24 10/03/24 Hi story capsule Have you fallen in the past year?: No PFSH Medical History Contusion of left little finger Contusion of right foot Contusion of right ankle Elevated liver enzymes Pelvic pain Depression with anxiety Joint pain Preventative health care Concentration deficit Hyperlipidemia Vitamin D deficiency High blood cholesterol Head ache Family History Grandfather Bleeding disorder Heart disease Hypertension CAD (coronary artery disease) Diabetes Anemia Myocardial infarction CVA (cerebral vascular accident) Mother Diabetes Grandmother Diabetes Social History (Reviewed 10/03/24 @ 14:33 by MARIAELENA Paredes Smoking Status: Never smoker alcohol intake: never substance use type: does not use what type of physical activity do you participate in: none do you feel safe at home: Yes HPI LEFT HAND/PINKY FINGER Details: This documentation accurately reflects the service provided and the decisions made by me, Dr. Justin Christiansen MD 10/03/24 1053. Part of today???s visit was documented by [ ], acting as scribe. PATI ESCOBAR is a 19 year old F here today for left fifth finger injury. A week ago. Here with mom the football hit the tip of the finger has been splinting it for about a week taking breaks in the splint doing some gentle range of motion. Most of the pain is at the proximal aspect of the fifth digit. Patient osprp-phmq-csdmqezz. 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 [facility] for history of fractures in the same several years ago with full recovery and then. No azng-tut-xnjldsp medications have been taken since yesterday at the time of injury to assist with symptoms. No left upper extremity complaints otherwise. Hzcmh-zydh-qjqewyms. No other associated symptoms and no other alleviating/aggravating factors. Supplemental Info [facility] [address] [place], [place] [address] Finger(s) Min 2 Views MR#: [id number] Acct: [id number] Name: PATI ESCOBAR Rep #: [id number] : 2005 F 19 From: Garrett Anne MD PCP: Dr. Zoe Nevarez MD Status: REG CLI Study: Finger(s) Min 2 Views Date of Exam: 09/27/24 Exam# [id number] Ordering Dr: Riley Raphael PROCEDURE: FINGER(S) MIN 2 VIEWS 09/27/2024 REASON FOR EXAM: FINGER INJURY TECHNIQUE: 3 view(s) of the left 5th finger. COMPARISON: None. RAD/Finger(s) Min 2 Views IMPRESSION: Mild degenerative changes are seen in the proximal and distal interphalangeal joints. Probable longitudinal fracture of the volar base of the left 5th distal phalanx, nondisplaced; recommend clinical correlation. Follow up as clinically appropriate. Reading Location: [address] I independently reviewed the imaging. Concur with radiologist report. Coding Level of Care Code Off vis,new,level 4 Diagnoses Contusion of left little finger S60.052A Assessment and Pl (more content not included)... Normal [facility] Finger(s) Min 2 Viewson 09-17 Finger(s) Min 2 Views [facility] [address] [place] [address] Finger(s) Min 2 Views MR#: [id number] Acct: [id number] Name: PATI ESCOBAR Rep #: [id number] : 2005 F 19 From: Garrett Ji PCP: Dr. Zoe Nevarez MD Status: REG CLI Study: Finger(s) Min 2 Views Date of Exam: 09/27/24 Exam# [id number] Ordering Dr: Riley Raphael PROCEDURE: FINGER(S) MIN 2 VIEWS 09/27/2024 REASON FOR EXAM: FINGER INJURY TECHNIQUE: 3 view(s) of the left 5th finger. COMPARISON: None. RAD/Finger(s) Min 2 Views IMPRESSION: Mild degenerative changes are seen in the proximal and distal interphalangeal joints. Probable longitudinal fracture of the volar base of the left 5th distal phalanx, nondisplaced; recommend clinical correlation. Follow up as clinically appropriate. Reading Location: [address] CC: Dr. Zoe Nevarez MD; MAURILIO Lambert Production Control Planner: Signed [facility] Urgent Care Visit Reporton 0 09-27-2024 Urgent Care Visit Report [facility] [address], [address] [place] [address] OFFICE VISIT Date of Service: 09/27/24 MR#: [id number] Acct: [id number] Name: PATI ESCOBAR Rep #: [id number] : 2005 Provider: MAURILIO Lambert Age/Sex: 19/F Location: [facility] Status: Signed Intake Vital Signs 09/15/24 10:07 09/27/24 11:29 Height 5 ft 2 in Weight: 220 lb BMI 40.2 BP 134/82 H 122/90 H Blood Pressure Location Lt brachial Lt brachial Position Sitting Sitting Respiration 18 14 Pulse 98 83 Pulse Source Monitor NIBP Temp 97.9 F 98.2 F Temp Source Temporal Oral Pulse Oximetry (%) 96 98 Oxygen Delivery Method room air room air Intake Visit Reasons: L PINKY FINGER/PAIN/INJURY Chief Complaint: left 5th finger Alarm Mechanic Required: No Is patient in pain?: Yes Allergies iris Adverse Reaction (Severe, Verified 09/27/24 11:30) Anaphylaxis Is last menstrual period known: No Post menopausal: No Patient : No Have you fallen in the past year?: Yes Nurse's Note: left 5th finger vs football yesterday. c/o pain and swelling to same. denies additional injuries. 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 [facility] [place] for history of fractures in the same several years ago with full recovery and then. No kejo-tsh-cvoflir medications have been taken since yesterday at the time of injury to assist with symptoms. No left upper extremity complaints otherwise. Nxqtl-gjna-xqwucpnx. No other associated symptoms and no other alleviating/aggravating factors. ROS Const Constitutional: No other (As above) Exam Const General: cooperative, healthy appearing and no acute distress Orientation: alert and awake Resp Effort Inspection: normal respiratory effort and able to speak in complete sentences Cardio Rate: regular rate Pulses: radial pulses present Skin General: no rashes or lesions noted Neuro General: patient alert and patient awake Cognition: normal cognition Speech: speech normal Motor: muscle tone normal throughout Sensory Exam: no sensory deficits noted Extrem General: normal to inspection, full ROM (With discomfort at LLF PIPJ with flexion) and capillary refill normal Psych Appearance: grossly normal Mental Status: mental status grossly normal Mood: congruent mood Affect: normal affect Speech and Movement: speech and movement normal Attitude: cooperative Coding Level of Care Code Off vis,est,level 4 Diagnoses Contusion of left little finger S60.052A Assessment and Plan Assessment and Plan (1) Contusion of left little finger: Status: Acute Plan: Left little finger radiographs taken today reveal no acute osseous pathology per my review, pending radiologist interpretation time patient discharge. Aluminum volar finger splint as applied/instructed in office today. Supportive measures including rest, ice, elevate, NSAIDs as needed for symptomatic relief. Follow-up with PCP or orthopedics in 5 to 7 days should symptoms not improve, sooner should symptoms only worsen or any other concerns develop. Patient states acknowledging understanding all the above. This note was generated with [employer] dictation software. It may contain incorrect words, spelling, and punctuation that were not noted in checking the note before signing. Orders: Orders Finger(s) Min 2 Views Today S69.90XA - Unspecified injury of unspecified wrist, hand and finger(s), initial encounter Clinical Quality Measures Falls Risk Screening/Assistive Devices Have you fallen in the past year?: (more content not included)... [facility] Abdomen Limitedon 09-19-2024 Abdomen Limited [facility] [address] [place] [address] Abdomen Limited MR#: [id number] Acct: [id number] Name: PATI ESCOBAR Rep #: [id number] : 2005 F 19 From: Renato Benitez MD PCP: Dr. Zoe Nevarez MD Status: REG CLI Study: Abdomen Limited Date of Exam: 09/19/24 Exam# [id number] Ordering Dr: Zoe Nevarez MD PROCEDURE: ABDOMEN LIMITED 09/19/2024 REASON FOR EXAM: ELEVATED LIVER ENZYMES TECHNIQUE: Complete abdominal ultrasound lees-scale images with color doppler. PATIENT PREPARATION: Per protocol COMPARISON: No relevant prior FINDINGS: Liver: Grossly normal size and echotexture. Sagittal measurement of 18.0 cm. Blood flow: Hepatopetal. Gallbladder: No stones, sludge, wall thickening or tenderness. Common bile duct: Normal measuring 0.5 cm. Pancreas: Visualized portions are sonographically unremarkable. Ascites: Unremarkable. Right kidney: 10.2 x 5.9 x 6.1 cm. 1.9 cm. US/Abdomen Limited IMPRESSION: Normal ultrasound of the right upper quadrant. Unremarkable gallbladder. Reading Location: [place] [address] CC: Dr. Zoe Nevarez MD Production Control Planner: Signed [facility] Internal Medicine Office Vis [facility] 09-15-2024 Internal Medicine Office Visit [facility] [address] [place] [address] [place] [address] OFFICE VISIT Date of Service: 09/15/24 MR#: [id number] Acct: [id number] Name: PATI ESCOBAR Rep #: [id number] : 2005 Provider: Dr. Zoe cervantes MD Age/Sex: 19/F Location: [facility] Status: Signed Intake Vital Signs 06/23/24 15:15 [...] requesting 90 day supply on this medication. 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 HPI HPI Chief Complaint: 3 M FU [...] Cardio Cardiolog (more content not included)... [facility] Foot min 3 Viewson Foot min 3 Views [facility] [address] [place], [place] [id number] Foot min 3 Views MR#: [id number] Acct: [id number] Name: PATI ESCOBAR Rep #: [id number] : 2005 F 19 From: Hector Zamudio MD PCP: Dr. Zoe Nevarez MD Status: REG CLI Study: Foot min 3 Views Date of Exam: 09/13/24 Exam# [id number] Ordering Dr: Riley Raphael EXAM: XR Left [...] evaluation with CT is recommended. Reading Location: [facility] CC: Dr. Zoe Nevarez MD; MAURILIO Lambert Production Control Planner: Signed [facility]gent Care Visit Reporton 0 09-13-2024 Urgent Care Visit Report [facility] [address] [place] [address] OFFICE VISIT Date of Service: 09/13/24 MR#: [id number] Acct: [id number] Name: PATI ESCOBAR Rep #: [id number] : 2005 Provider: MAURILIO Lambert Age/Sex: 19/F Location: [facility] Status: Signed Intake Vital Signs 06/23/24 15:15 [...] it hurts to put weight on it. [facility] Medical History (Updated 09/13/24 @ 13:18 by [...] bone as she states. [facility] [place]. No iboz-scw-ldpntyf products taken to assist. No other associated symptoms and no other alleviating/aggravating factors. ROS Const Constitutional: No other (As [...] acknowledging underst (more content not included)... [facility] Anion gap in Serum or Plasma Ordered By: Zoe Nevarez on 08-24-2024 Anion gap [Moles/Vol] 11 mmol/L 5-15 [facility] BUN/creatinine ratioOrdered By: Zoe Nevarez on 08-24-2024 Urea nitrogen/Creatinine [Mass ratio] 13.3 mg/mg 10-20 [facility] Bilirubin, totalOrdered By: Zoe Nevarez on 08-24-2024 Bilirubin [Mass/Vol] 0.33 mg/dL 0.00-1.30 [facility] Carbon dioxide, total [Moles /volume] in Central venous bloodOrdered By: Zoe Nevarez on 08-24-2024 CO2 [Moles/Vol] 20.7 mmol/L Low 21.0-32.0 [facility] Chloride assayOrdered By: Kevon Nevarez on 08-24-2024 Chloride [Moles/Vol] 104 mmol/L 98-108 [facility] Comprehensive Metabolic Prof ilon 08-24-2024 Albumin [Mass/Vol] 4.0 g/dL Normal 3.5-5.0 [facility] Comment on above: Performed By: #### L 500.4050 #### [facility] [address] [place], [address] Albumin/Globulin [Mass ratio] 1.3 {ratio} Normal 0.9-2.4 [facility] Comment on above: Performed By: #### L 500.4050 #### [facility] [address] [place], [address] ALK PHOS 80 U/L Normal 35-104 [facility] Comment on above: Performed By: #### L 500.4050 #### [facility] [address] [place], [address] ALT [Catalytic activity/Vol] 56 U/L High <=34 [facility] Comment on above: Performed By: #### L 500.4050 #### [facility] [address] [place], [address] AST [Catalytic activity/Vol] 34 U/L High <=31 [facility] Comment on above: Performed By: #### L 500.4050 #### [facility] [address] [place], [address] Bilirubin [Mass/Vol] 0.33 mg/dL Normal 0.00-1.30 [facility] Comment on above: Performed By: #### L 500.4050 #### [facility] [address] [place], [address] BUN/CRE 13.3 RATIO Normal 10-20 [facility] Comment on above: Performed By: #### L 500.4050 #### [facility] [address] [place], [address] Calcium [Mass/Vol] 8.9 mg/dL Normal 7.6-11.0 [facility] Comment on above: Performed By: #### L 500.4050 #### [facility] [address] [place], [address] Chloride [Moles/Vol] 104 mmol/L Normal 98-108 [facility] Comment on above: Performed By: #### L 500.4050 #### [facility] [address] [place], [address] CO2 [Moles/Vol] 20.7 mmol/L Low 21.0-32.0 [facility] Comment on above: Performed By: #### L 500.4050 #### [facility] [address] [place], [address] Creatinine [Mass/Vol] 0.81 mg/dL Normal 0.70-1.20 [facility] Comment on above: Performed By: #### L 500.4050 #### [facility] [address] [place], [address] GAP 11 Normal 5-15 [facility] Comment on above: Performed By: #### L 500.4050 #### [facility] [address] [place], [address] GFR/1.73 sq M.predicted among non-blacks MDRD (S/P/Bld) [Vol rate/Area] 106 mL/min/{1.73_m2} Normal >60 [facility] Comment on above: Result Comment: mL/m in/1.73m2 CKD-EPI Creatinine Equation (2020) Performed By: #### L 500.4050 #### [facility] [address] [place], [address] Globulin (S) [Mass/Vol] 3.1 g/dL Normal 2.2-4.2 [facility] Comment on above: Performed By: #### L 500.4050 #### [facility] [address] [place], [address] Glucose [Mass/Vol] 85 mg/dL Normal 70-99 [facility] Comment on above: Performed By: #### L 500.4050 #### [facility] [address] [place], [address] Potassium [Moles/Vol] 4.0 mmol/L Normal 3.3-5.1 [facility] Comment on above: Performed By: #### L 500.4050 #### [facility] [address] [place], [address] Sodium [Moles/Vol] 136 mmol/L Normal 133-145 [facility] Comment on above: Performed By: #### L 500.4050 #### [facility] [address] [place], [address] T PROT 7.1 g/dL Normal 5.9-8.4 [facility] Comment on above: Performed By: #### L 500.4050 #### [facility] [address] [place], [address] Urea nitrogen [Mass/Vol] 11 mg/dL Normal 4-19 [facility] Comment on above: Performed By: #### L 500.4050 #### [facility] [address] [place], [place], [address] Glomerular filtration rate ( GFR) estimation/1.73 sq m using serum, plasma, or whole bOrdered By: Zoe Nevarez on 08-24-2024 GFR/1.73 sq M.predicted among non-blacks MDRD (S/P/Bld) [Vol rate/Area] 106 mL/min/{1.73_m2} >60 [facility] Comment on above: mL/min/1.73m2 CKD-EP I Creatinine Equation (2020) Laboratory - Chemistry and C hemistry - challengeOrdered By: Zoe Nevarez on 08-24-2024 AST [Catalytic activity/Vol] 34 U/L High <32 [facility] Potassium measurement (mass/ volume)Ordered By: Zoe Nevarez on 08-24-2024 Potassium (Unsp spec) [Mass/Vol] 4.0 mmol/L 3.3-5.1 [facility] Serum creatinine measurement (mass/volume)Ordered By: Zoe Nevarez on 08-24-2024 Creatinine [Mass/Vol] 0.81 mg/dL 0.70-1.20 [facility] Serum globulin measurementOr dered By: Zoe Nevarez on 08-24-2024 Globulin (S) [Mass/Vol] 3.1 g/dL 2.2-4.2 [facility] Serum glucose measurement (m ass/volume)Ordered By: Zoe Nevarez on 08-24-2024 Glucose [Mass/Vol] 85 mg/dL 70-99 [facility] Serum or plasma alanine arias otransferase (ALT) measurementOrdered By: Zoe Nevarez on 08-24-2024 ALT [Catalytic activity/Vol] 56 U/L High <35 [facility] Serum or plasma albumin erick urement (mass/volume)Ordered By: Zoe Nevarez on 08-24-2024 Albumin [Mass/Vol] 4.0 g/dL 3.5-5.0 [facility] Serum or plasma albumin/glob ulin mass ratioOrdered By: Zoe Pedro Luisjojophuong on 08-24-2024 Albumin/Globulin [Mass ratio] 1.3 {ratio} 0.9-2.4 [facility] Serum or plasma alkaline caitie sphatase measurementOrdered By: Zoe Pedro Luisjojophuong on 08-24-2024 ALP [Catalytic activity/Vol] 80 U/L 35-104 [facility] Serum or plasma calcium erick urement (mass/volume)Ordered By: Zoe Pedro Luisjojophuong on 08-24-2024 Calcium [Mass/Vol] 8.9 mg/dL 7.6-11.0 [facility] Serum or plasma urea nitroge n measurement (mass/volume)Ordered By: Zoe Pedro Luismakeda on 08-24-2024 Urea nitrogen [Mass/Vol] 11 mg/dL 4-19 [facility] Sodium levelOrdered By: Phoenix silva Pedro Luisjojophuong on 08-24-2024 Sodium [Moles/Vol] 136 mmol/L 133-145 [facility] Total proteinOrdered By: Gregg santos Pedro Luisjojophuong on 08-24-2024 Protein [Mass/Vol] 7.1 g/dL 5.9-8.4 [facility] Absolute lymphocyte countOrd ered By: Zoe Pedro Luisjojophuong on 06-23-2024 Lymphocytes Auto (Unsp spec) [#/Vol] 4.18 10*3/uL 0.83-4.51 [facility] Absolute neutrophil countOrd ered By: Zoe Pedro Luisjojophuong on 06-23-2024 Neutrophils (Bld) [#/Vol] 5.3 10*3/uL 2.0-7.7 [facility] Anion gap in Serum or Plasma Ordered By: Zoe Pedro Luisjojophuong on 06-23-2024 Anion gap [Moles/Vol] 12 mmol/L 5-15 [facility] Automated lymphocyte count a s percentage of total leukocytesOrdered By: Zoe Pedro Luisjojophoung on 06-23-2024 Lymphocytes/100 WBC Auto (Unsp spec) 40.7 % 19-41 [facility] BUN/creatinine ratioOrdered By: Zoe Pedro Luisjojophuong on 06-23-2024 Urea nitrogen/Creatinine [Mass ratio] 12.6 mg/mg 10-20 [facility] Basophil percentageOrdered B y: Zoe Nevarez on 06-23-2024 Basophils/100 WBC (Bld) 0.3 % 0-1 [facility] Bilirubin, totalOrdered By: Zoe Nevarez on 06-23-2024 Bilirubin [Mass/Vol] 0.36 mg/dL 0.00-1.30 [facility] CBC W/Diff, Automatedon Absolute Lymph 4.18 X10 3/uL Normal 0.83-4.51 [facility] Comment on above: Performed By: #### L 100.0100, L503.0106, L506.1001, L506.0400, L501.9520, L500.4050 #### [facility] [address] [place], [address] Absolute Neut 5.3 X10 3/uL Normal 2.0-7.7 [facility] Comment on above: Performed By: #### L 100.0100, L503.0106, L506.1001, L506.0400, L501.9520, L500.4050 #### [facility] [address] [place], [address] Basophils/100 WBC (Bld) 0.3 % Normal 0-1 [facility] Comment on above: Performed By: #### L 100.0100, L503.0106, L506.1001, L506.0400, L501.9520, L500.4050 #### [facility] [address] [place], [address] Eosinophils/100 WBC (Bld) 1.4 % Normal 0-5 [facility] Comment on above: Performed By: #### L 100.0100, L503.0106, L506.1001, L506.0400, L501.9520, L500.4050 #### [facility] [address] [place], [address] Erythrocyte distribution width (RBC) [Ratio] 11.6 % Normal 11.6-14.6 [facility] Comment on above: Performed By: #### L 100.0100, L503.0106, L506.1001, L506.0400, L501.9520, L500.4050 #### [facility] [address] [place], [address] Hematocrit (Bld) [Volume fraction] 41.4 % Normal 37-47 [facility] Comment on above: Performed By: #### L 100.0100, L503.0106, L506.1001, L506.0400, L501.9520, L500.4050 #### [facility] [address] [place], [address] Hemoglobin (Bld) [Mass/Vol] 14.8 g/dL Normal 12.0-15.0 [facility] Comment on above: Performed By: #### L 100.0100, L503.0106, L506.1001, L506.0400, L501.9520, L500.4050 #### [facility] [address], [address] IG% 0.200 Normal 0.0-0.9 [facility] Comment on above: Result Comment: IG% - Immature Granulocytes (promyelocytes, myelocytes and metamyelocytes) > 1% indicates that a LEFT SHIFT is Present. Performed By: #### L 100.0100, L503.0106, L506.1001, L506.0400, L501.9520, L500.4050 #### [facility] [address] [place], [address] Lymphocytes/100 WBC (Bld) 40.7 % Normal 19-41 [facility] Comment on above: Performed By: #### L 100.0100, L503.0106, L506.1001, L506.0400, L501.9520, L500.4050 #### [facility] [address] [place], [address] MCH (RBC) [Entitic mass] 31.0 pg Normal 27.0-32.0 [facility] Comment on above: Performed By: #### L 100.0100, L503.0106, L506.1001, L506.0400, L501.9520, L500.4050 #### [facility] [address] [place], [address] MCHC (RBC) [Mass/Vol] 35.7 g/dL Normal 32-36 [facility] Comment on above: Performed By: #### L 100.0100, L503.0106, L506.1001, L506.0400, L501.9520, L500.4050 #### [facility] [address] [place], [address] MCV (RBC) [Entitic vol] 86.6 fL Normal 81-99 [facility] Comment on above: Performed By: #### L 100.0100, L503.0106, L506.1001, L506.0400, L501.9520, L500.4050 #### [facility] [address] [place], [address] Monocytes/100 WBC (Bld) 5.9 % Normal 0-10 [facility] Comment on above: Performed By: #### L 100.0100, L503.0106, L506.1001, L506.0400, L501.9520, L500.4050 #### [facility] [address] [place], [address] Neutrophils/100 WBC (Bld) 51.5 % Normal 47-70 [facility] Comment on above: Performed By: #### L 100.0100, L503.0106, L506.1001, L506.0400, L501.9520, L500.4050 #### [facility] [address] [place], [address] Nucleated RBC (Bld) [#/Vol] 0 10*3/uL Normal 0-5 [facility] Comment on above: Performed By: #### L 100.0100, L503.0106, L506.1001, L506.0400, L501.9520, L500.4050 #### [facility] [address] [place], [address] Platelet mean volume (Bld) [Entitic vol] 10.4 fL Normal 6.2-12.0 [facility] Comment on above: Performed By: #### L 100.0100, L503.0106, L506.1001, L506.0400, L501.9520, L500.4050 #### [facility] [address] [place], [address] Platelets (Bld) [#/Vol] 337 10*3/uL Normal 150-450 [facility] Comment on above: Performed By: #### L 100.0100, L503.0106, L506.1001, L506.0400, L501.9520, L500.4050 #### [facility] [address] [place], [address] RBC (Bld) [#/Vol] 4.78 10*6/uL Normal 4.2-5.4 [facility] Comment on above: Performed By: #### L 100.0100, L503.0106, L506.1001, L506.0400, L501.9520, L500.4050 #### [facility] [address] [place], [address] RDW SD 36.8 fl Normal 35.1-43.9 [facility] Comment on above: Performed By: #### L 100.0100, L503.0106, L506.1001, L506.0400, L501.9520, L500.4050 #### [facility] [address] [place], [address] WBC (Bld) [#/Vol] 10.3 10*3/uL Normal 4.4-11.0 [facility] Comment on above: Performed By: #### L 100.0100, L503.0106, L506.1001, L506.0400, L501.9520, L500.4050 #### [facility] [address] [place], [address] Carbon dioxide, total [Moles /volume] in Central venous bloodOrdered By: Zoe Nevarez on 06-23-2024 CO2 [Moles/Vol] 21.4 mmol/L 21.0-32.0 [facility] Chloride assayOrdered By: Kevon Nevarez on 06-23-2024 Chloride [Moles/Vol] 103 mmol/L 98-108 [facility] Metabolic Prof ilon 06-23-2024 Albumin [Mass/Vol] 4.4 g/dL Normal 3.5-5.0 [facility] Comment on above: Performed By: #### L 100.0100, L503.0106, L506.1001, L506.0400, L501.9520, L500.4050 #### [facility] [address] [place], [address] Albumin/Globulin [Mass ratio] 1.2 {ratio} Normal 0.9-2.4 [facility] Comment on above: Performed By: #### L 100.0100, L503.0106, L506.1001, L506.0400, L501.9520, L500.4050 #### [facility] [address] [place], [address] ALK PHOS 79 U/L Normal 35-104 [facility] Comment on above: Performed By: #### L 100.0100, L503.0106, L506.1001, L506.0400, L501.9520, L500.4050 #### [facility] [address] [place], [address] ALT [Catalytic activity/Vol] 63 U/L High <=34 [facility] Comment on above: Performed By: #### L 100.0100, L503.0106, L506.1001, L506.0400, L501.9520, L500.4050 #### [facility] [address] [place], [address] AST [Catalytic activity/Vol] 45 U/L High <=31 [facility] Comment on above: Performed By: #### L 100.0100, L503.0106, L506.1001, L506.0400, L501.9520, L500.4050 #### [facility] [address] [place], [address] Bilirubin [Mass/Vol] 0.36 mg/dL Normal 0.00-1.30 [facility] Comment on above: Performed By: #### L 100.0100, L503.0106, L506.1001, L506.0400, L501.9520, L500.4050 #### [facility] [address] [place], [address] BUN/CRE 12.6 RATIO Normal 10-20 [facility] Comment on above: Performed By: #### L 100.0100, L503.0106, L506.1001, L506.0400, L501.9520, L500.4050 #### [facility] [address] [place], [address] Calcium [Mass/Vol] 9.2 mg/dL Normal 7.6-11.0 [facility] Comment on above: Performed By: #### L 100.0100, L503.0106, L506.1001, L506.0400, L501.9520, L500.4050 #### [facility] [address] [place], [address] Chloride [Moles/Vol] 103 mmol/L Normal 98-108 [facility] Comment on above: Performed By: #### L 100.0100, L503.0106, L506.1001, L506.0400, L501.9520, L500.4050 #### [facility] [address] [place], [address] CO2 [Moles/Vol] 21.4 mmol/L Normal 21.0-32.0 [facility] Comment on above: Performed By: #### L 100.0100, L503.0106, L506.1001, L506.0400, L501.9520, L500.4050 #### [facility] [address] [place], [address] Creatinine [Mass/Vol] 0.82 mg/dL Normal 0.70-1.20 [facility] Comment on above: Performed By: #### L 100.0100, L503.0106, L506.1001, L506.0400, L501.9520, L500.4050 #### [facility] [address] [place], [address] GAP 12 Normal 5-15 [facility] Comment on above: Performed By: #### L 100.0100, L503.0106, L506.1001, L506.0400, L501.9520, L500.4050 #### [facility] [address] [place], [address] GFR/1.73 sq M.predicted among non-blacks MDRD (S/P/Bld) [Vol rate/Area] 104 mL/min/{1.73_m2} Normal >60 [facility] Comment on above: Result Comment: mL/m in/1.73m2 CKD-EPI Creatinine Equation (2020) Performed By: #### L 100.0100, L503.0106, L506.1001, L506.0400, L501.9520, L500.4050 #### [facility] [address] [place], [address] Globulin (S) [Mass/Vol] 3.6 g/dL Normal 2.2-4.2 [facility] Comment on above: Performed By: #### L 100.0100, L503.0106, L506.1001, L506.0400, L501.9520, L500.4050 #### [facility] [address] [place], [address] Glucose [Mass/Vol] 134 mg/dL High 70-99 [facility] Comment on above: Performed By: #### L 100.0100, L503.0106, L506.1001, L506.0400, L501.9520, L500.4050 #### [facility] [address] [place], [address] Potassium [Moles/Vol] 3.7 mmol/L Normal 3.3-5.1 [facility] Comment on above: Performed By: #### L 100.0100, L503.0106, L506.1001, L506.0400, L501.9520, L500.4050 #### [facility] [address] [place], [address] Sodium [Moles/Vol] 136 mmol/L Normal 133-145 [facility] Comment on above: Performed By: #### L 100.0100, L503.0106, L506.1001, L506.0400, L501.9520, L500.4050 #### [facility] [address] [place], [address] T PROT 8.0 g/dL Normal 5.9-8.4 [facility] Comment on above: Performed By: #### L 100.0100, L503.0106, L506.1001, L506.0400, L501.9520, L500.4050 #### [facility] [address] [place], [place], [address] Urea nitrogen [Mass/Vol] 10 mg/dL Normal 4-19 [facility] Comment on above: Performed By: #### L 100.0100, L503.0106, L506.1001, L506.0400, L501.9520, L500.4050 #### [facility] [address] [place], [address] Eosinophil percentageOrdered By: Zoe Nevarez on 06-23-2024 Eosinophils/100 WBC (Bld) 1.4 % 0-5 [facility] Erythrocyte distribution wid th ratioOrdered By: Zoe Nevarez on 06-23-2024 Erythrocyte distribution width (RBC) [Ratio] 11.6 % 11.6-14.6 [facility] Erythrocyte distribution wid th standard deviationOrdered By: Zoe Nevarez on 06-23-2024 Erythrocyte distribution width (RBC) [Entitic vol] 36.8 fL 35.1-43.9 [facility] Erythrocyte distribution width (RBC) [Ratio] 36.8 fl 35.1-43.9 [facility] GFR/1.73 sq M.predicted massiel g non-blacks MDRD (S/P/Bld) [Vol rate/Area]Ordered By: Zoe Nevarez on 06-23-2024 Estimated GFR (MDRD) Non-Af Amer 104 >60 [facility] Comment on above: mL/min/1.73m2 CKD-EP I Creatinine Equation (2020) Glomerular filtration rate ( GFR) estimation/1.73 sq m using serum, plasma, or whole bOrdered By: Zoe Nevarez on 06-23-2024 GFR/1.73 sq M.predicted among non-blacks MDRD (S/P/Bld) [Vol rate/Area] 104 mL/min/{1.73_m2} >60 [facility] Comment on above: mL/min/1.73m2 CKD-EP I Creatinine Equation (2020) Hematocrit Auto (Bld) [Volum e fraction]Ordered By: Zoe Nevarez on 06-23-2024 Hematocrit (Bld) [Volume fraction] 41.4 % 37-47 [facility] Hemoglobin measurementOrdere d By: Zoe Nevarez on 06-23-2024 Hemoglobin (Bld) [Mass/Vol] 14.8 g/dL 12.0-15.0 [facility] Immature granulocytes/100 WB C Auto (Bld)Ordered By: Zoe Nevarez on 06-23-2024 Immature granulocytes/100 WBC (Bld) 0.200 % 0.0-0.9 [facility] Comment on above: IG% - Immature Granu locytes (promyelocytes, myelocytes and metamyelocytes) > 1% indicates that a LEFT SHIFT is Present. Internal Medicine Office Vis itobakari 06-23-2024 Internal Medicine Office Visit [place] [facility] [place] [address] [place] [address] OFFICE VISIT Date of Service: 06/23/24 MR#: [id number] Acct: [id number] Name: PATI ESCOBAR Rep #: [id number] : 2005 Provider: Dr. Zoe cervantes MD Age/Sex: 19/F Location: [facility] Status: Signed Intake Vital Signs 12/24/23 12:56 [...] YEARLY Chief Complaint: Follow-up chronic conditions. Depression. Alarm Mechanic Required: No Accompanied by: Mother Is patient [...] right side but mostly left discuss antidepressant [facility] Medical History (Updated 06/23/24 @ 16:24 by [...] and colleagues, with an educational jose from [employer]. HPI HPI Chief Complaint: Follow-up chronic conditions. 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 Other chronic conditions are stable. ROS Const Constitutional: No body ache, excessive sweating, fatigue, fever(s), frequent falls, headache(s), snoring, weakness, weight change, sleep problems or change in appetite Eyes Eyes: No blurry vision, change in vision, floaters, visual disturbances, eye pain or Light sensitivity ENT ENT: No abnormal hearing, ear or mas (more content not included)... Normal [facility] L503.0106on 06-23-2024 Cobalamin (Vitamin B12) [Mass/Vol] 370 pg/mL Normal 180-914 [facility] Comment on above: Performed By: #### L 100.0100, L503.0106, L506.1001, L506.0400, L501.9520, L500.4050 #### [facility] [address] [place], [address] L506.1001on 06-23-2024 Vitamin D 25-OH 19.3 ng/mL Low 30-100 [facility] Comment on above: Result Comment: Raina min D Status Deficiency: <20 ng/mL (50nmol/L) Insufficiency: 20-30 ng/mL (50-75 nmol/L) Sufficiency: 30-100 ng/mL (75-250 nmol/L) Toxicity: >100 ng/mL (>250 nmol/L) Performed By: #### L 100.0100, L503.0106, L506.1001, L506.0400, L501.9520, L500.4050 #### [facility] [address] [place], [address] Laboratory - Chemistry and C hemistry - challengeOrdered By: Zoe Nevarez on 06-23-2024 AST [Catalytic activity/Vol] 45 U/L High <32 [facility] Lymphocytes Auto (Unsp spec) [#/Vol]Ordered By: Zoe Nevarez on 06-23-2024 Lymphocytes (Bld) [#/Vol] 4.18 10*3/uL 0.83-4.51 [facility] Lymphocytes/100 WBC Auto (Un sp spec)Ordered By: Zoe Nevarez on 06-23-2024 Lymphocytes/100 WBC (Bld) 40.7 % 19-41 [facility] MCV (mean corpuscular volume ) determinationOrdered By: Zoe Nevarez on 06-23-2024 MCV (RBC) [Entitic vol] 86.6 fL 81-99 [facility] Mean corpuscular hemoglobin (MCH) determinationOrdered By: Zoe Nevarez on 06-23-2024 MCH (RBC) [Entitic mass] 31.0 pg 27.0-32.0 [facility] Mean corpuscular hemoglobin concentration (MCHC) determinationOrdered By: Zoe Nevarez on 06-23-2024 MCHC (RBC) [Mass/Vol] 35.7 g/dL 32-36 [facility] Mean platelet volume determi nationOrdered By: Zoe Nevarez on 06-23-2024 Platelet mean volume (Bld) [Entitic vol] 10.4 fL 6.2-12.0 [facility] Monocyte percentageOrdered B y: Zoe Nevarez on 06-23-2024 Monocytes/100 WBC (Bld) 5.9 % 0-10 [facility] Neutrophil percentageOrdered By: Zoe Nevarez on 06-23-2024 Neutrophils/100 WBC (Bld) 51.5 % 47-70 [facility] Nucleated red blood cell per centageOrdered By: Zoe Nevarez on 06-23-2024 Nucleated RBC/100 WBC (Bld) [Ratio] 0 % 0-5 [facility] Platelet countOrdered By: Kevon Nevarez on 06-23-2024 Platelets (Bld) [#/Vol] 337 10*3/uL 150-450 [facility] Potassium (Unsp spec) [Mass/ Vol]Ordered By: Zoe Nevarez on 06-23-2024 Potassium [Moles/Vol] 3.7 mmol/L 3.3-5.1 [facility] Potassium measurement (mass/ volume)Ordered By: Zoe Nevarez on 06-23-2024 Potassium (Unsp spec) [Mass/Vol] 3.7 mmol/L 3.3-5.1 [facility] RBC Auto (Bld) [#/Vol]Ordere d By: Zoe Nevarez on 06-23-2024 RBC (Bld) [#/Vol] 4.78 10*6/uL 4.2-5.4 [facility] Serum creatinine measurement (mass/volume)Ordered By: Zoe Nevarez on 06-23-2024 Creatinine [Mass/Vol] 0.82 mg/dL 0.70-1.20 [facility] Serum globulin measurementOr dered By: Zoe Nevarez on 06-23-2024 Globulin (S) [Mass/Vol] 3.6 g/dL 2.2-4.2 [facility] Serum glucose measurement (m ass/volume)Ordered By: Zoe Nevarez on 06-23-2024 Glucose [Mass/Vol] 134 mg/dL High 70-99 [facility] Serum or plasma alanine arias otransferase (ALT) measurementOrdered By: Zoe Nevarez on 06-23-2024 ALT [Catalytic activity/Vol] 63 U/L High <35 [facility] Serum or plasma albumin erick urement (mass/volume)Ordered By: Zoe Nevarez on 06-23-2024 Albumin [Mass/Vol] 4.4 g/dL 3.5-5.0 [facility] Serum or plasma albumin/glob ulin mass ratioOrdered By: Zoe Nevarez on 06-23-2024 Albumin/Globulin [Mass ratio] 1.2 {ratio} 0.9-2.4 [facility] Serum or plasma alkaline caitie sphatase measurementOrdered By: Zoe Nevarez on 06-23-2024 ALP [Catalytic activity/Vol] 79 U/L 35-104 [facility] Serum or plasma calcium erick urement (mass/volume)Ordered By: Zoe Nevarez on 06-23-2024 Calcium [Mass/Vol] 9.2 mg/dL 7.6-11.0 [facility] Serum or plasma urea nitroge n measurement (mass/volume)Ordered By: Zoe Nevarez on 06-23-2024 Urea nitrogen [Mass/Vol] 10 mg/dL 4-19 [facility] Sodium levelOrdered By: [place] Nevarez on 06-23-2024 Sodium [Moles/Vol] 136 mmol/L 133-145 [facility] T4 Free Directon 06-23-2024 T4 FREE DIRECT 1.20 ng/dL Normal 0.76-1.46 [facility] Comment on above: Performed By: #### L 100.0100, L503.0106, L506.1001, L506.0400, L501.9520, L500.4050 #### [facility] [address] [place], [address] T4 freeOrdered By: Zoe Nevarez on 06-23-2024 Free T4 [Mass/Vol] 1.20 ng/dL 0.76-1.46 [facility] TSH DL <= 0.005 mIU/L QnOrde red By: Zoe Nevarez on 06-23-2024 Thyroid Stimulating Hormone (TSH) 2.790 uIU/mL 0.300-4.200 [facility] TSH Qn 2.790 uIU/mL 0.300-4.200 [facility] Thyroid Stim Hormone (TSH)on 06-23-2024 TSH 2.790 uIU/mL Normal 0.300-4.200 [facility] Comment on above: Performed By: #### L 100.0100, L503.0106, L506.1001, L506.0400, L501.9520, L500.4050 #### [facility] [address] [place], [place], [id number] Total proteinOrdered By: Gregg Nevarez on 06-23-2024 Protein [Mass/Vol] 8.0 g/dL 5.9-8.4 [facility] Vitamin B12 ser/plasOrdered By: Zoe Nevarez on 06-23-2024 Cobalamin (Vitamin B12) [Mass/Vol] 370 pg/mL 180-914 [facility] Vitamin D, 25-hydroxyOrdered By: Zoe Nevarez on 06-23-2024 Vitamin D 25-Hydroxy 19.3 ng/mL Low 30-100 [facility] Comment on above: Vitamin D StatusDefi ciency: <20 ng/mL (50nmol/L)Insufficiency: 20-30 ng/mL (50-75 nmol/L)Sufficiency: 30-100 ng/mL (75-250 nmol/L)Toxicity: >100 ng/mL (>250 nmol/L) White blood cell (WBC) count Ordered By: Zoe Nevarez on 06-23-2024 WBC (Bld) [#/Vol] 10.3 10*3/uL 4.4-11.0 [facility] CNOVon 03-27-2024 CNOV Office Visit ([facility] ) -- PAIT ESCOBAR ([id number]) 1 F Date Time Provider Department 03/27/24 9:55 AM BRAULIO PARSON [facility] During your visit today, we recorded the following information about you: Temperature Pulse Respiration Blood pressure 98.6 degrees 89/minute 18/minute 143/109 Weight Last Period 100.8 kg 03/27/24 Braulio Parson APRN.TELEHEALTH CASE MANAGER 03/27/2024 11:38 AM Signed [facility] [place] [address] [facility] [address] Dept: [phone] Dept Subjective Pati Escobar is a 19 [...] tenderness or frontal sinus tenderness. Mouth/Throat: Lips: Goss. Mouth: Mucous membranes are moist. No oral [...] bilateral - ICD9: 382.9, ICD10: H66.93 Braulio Parson APRN.TELEHEALTH CASE MANAGER Patient was informed that examination is consistent [...] symptoms wo (more content not included)... Normal [facility] CT HEAD OR BRAIN WITHOUT CON [...] on WedJan 07, 2024 8:25:03 PM EDT [facility] Comment on above: Order Comment: Injur y/Trauma [...] 01-07-2024 ED Prov Note HPI: 01/07/2024, Time: @COLBY@ Pati Shamika is a 18 y.o. female presenting to [...] all other systems reviewed and are negative. PAST HISTORY Past Medical History: @[facility]@ Past Surgical History: has no past [...] Allergies: Patient has no known allergies. RESULTS All laboratory and radiology results have been personally reviewed by myself LABS: No results found for this or any previous visit. RADIOLOGY: Interpreted by Radiologist. CT Head Or Brain Without Contrast Final Result No acute intracranial process. Workstation ID: [id number] NURSING NOTES AND VITALS REVIEWED - The nursing notes within the ED encounter and vital signs as below have been reviewed. BP (!) 162/113 (BP Location: Left arm, Patient Position: Sitting) Pulse 99 Temp 98.4 degrees F (36.9 degrees C) (Oral) Resp 18 Ht 5' 3 Wt 97.5 kg (215 lb) LMP 01/02/2024 (Approximate) SpO2 99% BMI 38.09 kg/m Oxygen Saturation Interpretation: Normal P HYSICAL EXAM Constitutional/General: Alert and oriented x3, well appearing, non [...] rash Neurologic: GCS 15, Psych: Normal Affect ---- ED COURSE/MEDICAL DECISION MAKING -- Medications acetaminophen (TYLENOL) tablet 975 mg (975 mg Oral Given 01/07/241922) Medical Decision Making: CT unremarkable Counseling: The emergency provider has spoken with the patient and discussed today's results, in addition to providing specific details for the plan of care and counseling regarding the diagnosis and prognosis. Questions are answered at this time and they are agreeable with the plan. ------- IMPRESSION AND DISPOSITION ------- IMPRESSION 1. Closed head injury, initial encounter [...] needed for pain . Follow-up: [facility] [address] [facility] [id number] In 1 week Final Impression: 1. Closed head injury, initial encounter 2. Nonintractable headache, unspecified chronicity pattern, unspecified headache type (Please note that portions of this note were completed with a voice recognition program. Efforts were made to edit the dictations but occasionally words are mis-transcribed.) Hector George MD 01/07/242045 AUTHENTICATED BY HECTOR GEORGE, ON 01/07/2024 20:46:02 [facility] Absolute lymphocyte countOrd ered By: Zoe Nevarez on 04-14-2023 Lymphocytes Auto (Unsp spec) [#/Vol] 3.26 10*3/uL 0.83-4.51 [facility] Basophil percentageOrdered B y: Zoe Nevarez on 04-14-2023 Basophils/100 WBC (Bld) 0.3 % 0-1 [facility] Bilirubin [Mass/Vol] 0.50 mg/dL 0.20-1.00 [facility] Comment on above: For patients on eltr ombopag therapy, use of Dimension [place] TBIL is not recommended. Chloride [Moles/Vol] 107 mmol/L 98-107 [facility] Cholesterol [Mass/Vol] 172 mg/dL <200 [facility] Comment on above: <200 mg/dL Desirable 200-240 mg/dL Borderline >240 mg/dL High Risk Eosinophils/100 WBC (Bld) 1.5 % 0-5 [facility] Glucose [Mass/Vol] 89 mg/dL 74-106 [facility] Neutrophils (Bld) [#/Vol] 4.7 10*3/uL 2.0-7.7 [facility] Neutrophils/100 WBC (Bld) 55.0 % 47-70 [facility] Potassium [Moles/Vol] 3.8 mmol/L 3.5-5.1 [facility] Protein [Mass/Vol] 8.0 g/dL 6.4-8.2 [facility] Sodium [Moles/Vol] 140 mmol/L 136-145 [facility] Triglyceride [Mass/Vol] 239 mg/dL <199 [facility] Comment on above: The drugs N-Acetylcy steine and Metamizole may falsely depress this assay.Serum Triglycerides Reference Interval Normal <150 mg/dL Borderline high 150 - 199 mg/dL High 200 - 499 mg/dL Very High > or = 500 mg/dL WBC (Bld) [#/Vol] 8.6 10*3/uL 4.4-11.0 [facility] Blood erythrocytes count (nu mber/volume)Ordered By: Zoe Nevarez on 04-14-2023 RBC (Bld) [#/Vol] 4.36 10*6/uL 4.2-5.4 [facility] Blood hemoglobin measurement (mass/volume)Ordered By: Zoe Nevarez on 04-14-2023 Hemoglobin (Bld) [Mass/Vol] 13.8 g/dL 12.0-15.0 [facility] Blood lymphocytes/100 leukoc ytesOrdered By: Zoe Nevarez on 04-14-2023 Lymphocytes/100 WBC (Bld) 38.0 % 19-41 [facility] Blood monocytes/100 leukocyt esOrdered By: Zoe Nevarez on 04-14-2023 Monocytes/100 WBC (Bld) 4.9 % 0-10 [facility] Blood platelet mean volumeOr dered By: Zoe Nevarez on 04-14-2023 Platelet mean volume (Bld) [Entitic vol] 10.3 fL 6.2-12.0 [facility] Determination of erythrocyte mean corpuscular volume (MCV)Ordered By: Zoe Nevarez on 04-14-2023 MCV (RBC) [Entitic vol] 89.4 fL 81-99 [facility] Hematocrit Auto (Bld) [Volum e fraction]Ordered By: Zoe Nevarez on 04-14-2023 Hematocrit (Bld) [Volume fraction] 39.0 % 37-47 [facility] - Chemistry and C hemistry - challengeOrdered By: Zoe Nevarez on 04-14-2023 ALP [Catalytic activity/Vol] 70 U/L 45-117 [facility] ALT [Catalytic activity/Vol] 46 U/L 13-56 [facility] CO2 [Moles/Vol] 25.0 mmol/L 21.0-32.0 [facility] Globulin (S) [Mass/Vol] 4.2 g/dL 2.2-4.2 [facility] Urea nitrogen/Creatinine [Mass ratio] 14.0 mg/mg 10-20 [facility] - Hematology and Cell countsOrdered By: Zoe Nevarez on 04-14-2023 Erythrocyte distribution width (RBC) [Entitic vol] 37.2 fL 35.1-43.9 [facility] Erythrocyte distribution width (RBC) [Ratio] 11.4 % 11.6-14.6 [facility] Immature granulocytes/100 WBC (Bld) 0.300 % 0.0-0.9 [facility] Comment on above: IG% - Immature Granu locytes (promyelocytes, myelocytes and metamyelocytes) > 1% indicates that a LEFT SHIFT is Present. MCH (RBC) [Entitic mass] 31.7 pg 27.0-32.0 [facility] Nucleated RBC/100 WBC (Bld) [Ratio] 0 % 0-5 [facility] MCHC Auto (RBC) [Mass/Vol]Or dered By: Zoe Nevarez on 04-14-2023 MCHC (RBC) [Mass/Vol] 35.4 g/dL 32-36 [facility] No Panel InformationOrdered By: Zoe Nevarez on 04-14-2023 Estimated GFR (MDRD) Amer 120 mL/min >60 [facility] Comment on above: GFR Calc Estimated GFR (MDRD) Non-Af Amer 100 mL/min >60 [facility] Comment on above: Non- GFR Calc Platelets bldOrdered By: Gergg Nevarez on 04-14-2023 Platelets (Bld) [#/Vol] 333 10*3/uL 150-450 [facility] Serum or plasma albumin erick urement (mass/volume)Ordered By: Zoe Nevarez on 04-14-2023 Albumin [Mass/Vol] 3.8 g/dL 3.2-5.0 [facility] Serum or plasma albumin/glob ulin mass ratioOrdered By: Kevonmichoacano Nevarez on 04-14-2023 Albumin/Globulin [Mass ratio] 0.9 {ratio} 0.9-2.4 [facility] Serum or plasma calcium erick urement (mass/volume)Ordered By: Zoe Nevarez on 04-14-2023 Calcium [Mass/Vol] 8.7 mg/dL 8.5-10.1 [facility] Serum or plasma cholesterol in HDL measurement (mass/volume)Ordered By: Kevonmichoacano Nevarez on 04-14-2023 Cholesterol in HDL [Mass/Vol] 39 mg/dL >40 [facility] Comment on above: The drugs N-Acetylcy steine and Metamizole may falsely depress this assay. Reference Range HDL <40 mg/dL Low HDL Cholesterol HDL >or= 60 mg/dL High HDL Cholesterol Serum or plasma cholesterol in VLDL measurement (mass/volume)Ordered By: Zoe Nevarez on 04-14-2023 Cholesterol in VLDL [Mass/Vol] 48 mg/dL 5-40 [facility] Serum or plasma creatinine m easurement (mass/volume)Ordered By: Zoe Nevarez on 04-14-2023 Creatinine [Mass/Vol] 0.78 mg/dL 0.55-1.02 [facility] Comment on above: The validity of the calculated GFR & GFRAA in patients over 70 years has not been determined. Clinical correlation is essential. Serum or plasma low density lipoprotein (LDL) cholesterol measurement (mass/volume)Ordered By: Zoe Nevarez on 04-14-2023 Cholesterol in LDL [Mass/Vol] 85 mg/dL 0-130 [facility] Serum or plasma urea nitroge n measurement (mass/volume)Ordered By: Zoe Nevarez on 04-14-2023 Urea nitrogen [Mass/Vol] 11 mg/dL 7-18 [facility] Thin prep Papanicolaou smear with manual screeningOrdered By: Zoe Nevarez on 04-14-2023 Thin prep Papanicolaou smear with manual screening 30 U/L 15-37 [facility] Thin prep Papanicolaou smear with manual screening 8 5-15 [facility] Progress Noteon 01-11-2023 Proposal Analyst Authentication Interface Message Text Patient ID: Pati Escobar is a 17 y.o. female. Her chief complaint(s) include: Anxiety and Chest Pain Assessment 1. URI, acute 2. Anxiety Plan Pati was seen today for anxiety and chest pain. Diagnoses and associated orders for this visit: URI, acute Anxiety Rest and fluids Call for any questions/concerns/problem s/changes To see Psych at [place] No follow-ups on file. Subjective She is [...] 94.9 kg, last menstrual period 12/28/2022. Normal [facility] Provider Note - ED v3on 05-20 [...] Vital Sign Value Date PAST MEDICAL HISTORY ALLERGIES/INTOLERANCES: Intolerance Allergen: Gluten Type: Food Reaction: Diarrhea [...] for cough SIGNIFICANT EVENTS: No documented data. DATE NIGHT SITTER: Is : no Is : no REVIEW [...] SIGNS: T PRBP SpO2O2(LPM) %FiO2 Method 01-Jun-2022 12:35:[id number] MDM MDM/ED COURSE: Discussed Findings with: patient Data Reviewed: vital signs Treatment Plan: Rx Zpak, medrol dose lashonda and albuterol inhaler. Patient's clinical presentation is otherwise unremarkable at this time. Patient is discharged with instructions to follow-up with primary care or seek emergency medical attention for worsening symptoms or any new concerns. DISPOSITION Diagnosis/Annotation: ED Dx Name:Acute bronchitis Code:J20.9 Disposition: discharged Type: home CONSULT CRITICAL CARE TIME Is this a critically ill patient: no Electronic Signatures: Steven Lorenzo (SILVER SERVICE WAITER-TELEHEALTH CASE MANAGER) (Signed 01-Jun-2022 14:42) Authored: ED Notes, HPI, PMH, ROS, PE, Results/Vital Signs, MDM/ED Course, Clinical Impression, Attestation, Chart Review, Scores Last Updated: 01-Jun-2022 14:42 by Steven Lorenzo (SILVER SERVICE WAITER-TELEHEALTH CASE MANAGER) [facility] C-reactive proteinon 023 CRP [Mass/Vol] mg/L 0.0 - 1.0 mg/dL [facility] Comment on above: CRP determinations i [...] (Bld) 0.4 % 0.00 - 1.00 % [facility] Differential Complete Automated Akr on [facility] Eosinophils/100 WBC (Bld) 1.20 % 0.00 - 3.00 % [facility] Erythrocyte distribution width (RBC) [Ratio] 11.7 % 0.0 - 14.4 % [facility] Hematocrit (Bld) [Volume fraction] 39.8 % 36.0 - 44.0 % [facility] Hemoglobin (Bld) [Mass/Vol] 14.3 g/dL 12.0 - 15.0 g/dl [facility] Immature granulocytes/100 WBC (Bld) 0.3 % [facility] Comment on above: Immature Granulocyte Percent includes promyelocytes, myelocytes, and metamyelocytes. IG% > 1.0 indicates a left shift is present. With automated differentials, bands are included in the neutrophil count and not in the Immature Granulocyte Percent. Lymphocytes/100 WBC (Bld) 38.1 % 24.0 - 44.0 % [facility] MCH (RBC) [Entitic mass] 31.4 pg 26.0 - 34.0 pg [facility] MCHC 35.9 % 31.0 - 37.0 % [facility] MCV (RBC) [Entitic vol] 87.5 fL 80.0 - 100.0 fl [facility] Monocytes/100 WBC (Bld) 5.50 % 3.00 - 6.00 % [facility] Neutrophils (Bld) [#/Vol] 5 10*3/uL [facility] Neutrophils/100 WBC (Bld) 54.5 % 35.0 - 66.0 % [facility] Nucleated RBC/100 WBC (Bld) [Ratio] 0 % -1.0 - 0.0 % [facility] Platelet mean volume (Bld) [Entitic vol] 10.1 fL [facility] Comment on above: MPV is platelet range and age dependent Platelets (Bld) [#/Vol] 335 10*3/uL [facility] RBC (Bld) [#/Vol] 4.55 10*6/uL [facility] WBC (Bld) [#/Vol] 9.1 10*3/uL [facility] Release to patient->[facility] Comprehensive metabolic pane letitia 05-19-2022 Albumin [Mass/Vol] 4.4 g/dL 3.5 - 5.0 g/dL [facility] ALP [Catalytic activity/Vol] 73 U/L 35 - 104 U/L [facility] ALT [Catalytic activity/Vol] 50 U/L High 0 - 34 U/L [facility] AST [Catalytic activity/Vol] 51 U/L High 0 - 31 U/L [facility] Comment on above: Hemolysis detected. Results may be falsely elevated. Interpret results with caution. Bilirubin [Mass/Vol] 0.5 mg/dL 0.0 - 1 .0 mg/dL [facility] Calcium [Mass/Vol] 9.5 mg/dL 7.6 - 11. 0 mg/dL [facility] Chloride [Moles/Vol] 104 mmol/L 96 - 10 8 mmol/L [facility] CO2 [Moles/Vol] 21.4 mmol/L Low 22.0 - 29.0 mmol/L [facility] Creatinine [Mass/Vol] 0.74 mg/dL 0.50 - 1.00 mg/dL [facility] Glucose [Mass/Vol] 92 mg/dL 70 - 99 mg/dL [facility] Comment on above: Criteria for Diagnos is of Diabetes: Fasting Specimen (no caloric intake for at least 8 hours): <100 mg/dL Normal 100-125 mg/dL Increased risk for Diabetes >125 mg/dL Diagnostic for Diabetes Random Glucose (any time of day without regard to last meal): > or = 200 mg/dL plus Classic Symptoms of Diabetes Potassium [Moles/Vol] 4.3 mmol/L 3.3 - 5.1 mmol/L [facility] Comment on above: Hemolysis detected. Results may be falsely elevated. Interpret results with caution. Protein [Mass/Vol] 8.1 g/dL 5.9 - 8.4 g/dL [facility] Sodium [Moles/Vol] 138 mmol/L 133 - 145 mmol/L [facility] Urea nitrogen [Mass/Vol] 11 mg/dL 4 - 19 mg/dL [facility] ESRon 05-19-2022 Erythrocyte Sedimentation Rate Interpretation ----- [facility] Comment on above: : 0-2 mm/hr Backus to puberty: 3-13 mm/hr - Less than 50 years old: Male: <15 mm/hr Female: <20 mm/hr - Greater than 50 years old: Male: <20 mm/hr Female: <30 mm/hr ESR (Bld) [Velocity] 20 mm/h mm/hr [facility] Release to patient->[facility] HLA-B27on 05-19-2022 HLA-B27 See Below [facility] Comment on above: Source: BLOOD Collec sallie: 05/19/22 10:35 Site: Received : 05/19/22 [...] to rare sequence variations. - References: Jani MA, crispin Oliver A, van den Sulema FA. Genotyping of HLA-B27 by Real-Time PCR without Hybridization Probes. Clin Chem. 2000;46:2191-9186. - Nikki Dunlap. DNA typing of HLA-B27 by polymerase chain reaction. Mol Cell Probes 1997;11:313-315. - Escobar POTTER, Jalen M, Wilman RL, Radha C. HLA-B27 Typing: Evaluation of an Allele-Specific PCR Melting Assay and Two Flow Cytometric Antigen Assays. Cytometry B Clin Cytom. 2005;63B:10-15. - This test was developed and its performance determined by [facility]. It has not been cleared or approved by the U.S. Food and Drug Administration. The FDA has determined that such clearance or approval is not necessary. This test is used for clinical purposes. Pursuant to the requirements of CLIA '88, this laboratory has established and verified the test's accuracy and precision. - Reviewed by: Keyon Musa, PhD, HCLD Release to patient->[facility] Hemoglobin A1con 05-19-2022 HbA1c Elph (Bld) [Mass fraction] 5.3 % 0.0 - 5.6 % [facility] Comment on above: Reference Interval: <5.7% 5.7-6.4% Prediabetes > or = 6.5% Diabetes Targets for diabetes management: Type I <7.5% Type II <7.0% Release to patient->[facility] Immunoglobulin Aon Immunoglobulin A 405 mg/dL High 61 - 348 mg/dL [facility] Lipid Panelon 05-19-2022 Cholesterol [Mass/Vol] 194 mg/dL High 0 - 169 mg/dL [facility] Comment on above: Acceptable (mg/dL): <170 Borderline-High (mg/dL): 170-199 High (mg/dL): > or = 200 Reference: Recommendations of the [place] [employer] (Pediatrics, Mar 2011, 128 (Supplement 5) M410-X631; DOI: 10.1542/peds.2008-2107C). Cholesterol in HDL [Mass/Vol] 39 mg/dL [facility] Comment on above: Low (mg/dL): <40 Borderline-Low (mg/dL): 40-45 Acceptable (mg/dL): >45 Cholesterol in LDL [Mass/Vol] 108 mg/dL 0 - 109 mg/dL [facility] Non-HDL Cholesterol 155 mg/dL High 0 - 119 mg/dL [facility] Triglyceride [Mass/Vol] 234 mg/dL High 0 - 89 mg/dL [facility] Comment on above: A repeating fasting triglyceride should be measured in 2-4 weeks if a non-fasting level is >200 mg/dL. No Panel Informationon 05-19 Interpretation and review of laboratory results Abnormal [facility] Release to patient->[facility] TSH with Reflex to T4, Freeo n 05-19-2022 TSH with reflex to T4, Free 3.21 [facility] Vitamin B12on 05-19-2022 Cobalamin (Vitamin B12) [Mass/Vol] 359 pg/mL 180 - 914 pg/mL [facility] Release to patient->[facility] Vitamin D 25 hydroxyon 05-19 25 [place] Vitamin D 26 ng/mL Low 30 - 100 ng/mL [facility] Comment on above: Reference ranges pro vided by [facility] Laboratory are based on Endocrine Society Guidelines: Level: Characterization < 21 ng/mL: Vitamin D deficiency 21-29 ng/mL: Suboptimal Vitamin D status 30-100 ng/mL: Optimal Vitamin D status >100 ng/mL: Potentially toxic Vitamin D effects ALT/SGPTon 11-07-2021 ALT [Catalytic activity/Vol] 56 U/L High 10-49 [facility] Comment on above: Performed By: #### A ST, LIPID, CK, ALT #### [address] [address] Grac[place] 11-07-2021 AST [Catalytic activity/Vol] 36 U/L High 8-34 [facility] Comment on above: Performed By: #### A ST, LIPID, CK, ALT #### [address] [address] CKon 11-07-2021 CK [Catalytic activity/Vol] 136 U/L Normal 7-185 [facility] Comment on above: Performed By: #### A ST, LIPID, CK, ALT #### [address] [address] LIPIDon 11-07-2021 Cholesterol [Mass/Vol] 181 mg/dL Normal 50-199 [facility] Comment on above: Result Comment: Chol esterol Reference Interval: Less than 200 Desirable 200-239 Borderline high risk 240 and above High risk Performed By: #### A ST, LIPID, CK, ALT #### [address] [address] Cholesterol in HDL [Mass/Vol] 34 mg/dL Low 40-59 [facility] Comment on above: Performed By: #### A ST, LIPID, CK, ALT #### [facility] [address] [place] [address] Cholesterol in LDL [Mass/Vol] 110 mg/dL Normal 0-129 [facility] Comment on above: Performed By: #### A ST, LIPID, CK, ALT #### [facility] [address] [place] [address] Triglyceride [Mass/Vol] 186 mg/dL High 3-149 [facility] Comment on above: Performed By: #### A ST, LIPID, CK, ALT #### [facility] [address] [place] [address] [facility] Sendouton 11-06 [facility] Sendout see below [facility] Comment on above: No results to be rec eived. [facility] Sendout Performed by see below [facility] Comment on above: Testing performed: [place] [address] [place], [place] [address] Test Name SEE COMMENTS [facility] Comment on above: AST CK LIPID ALT ORDER WAS CANCELLED 11/06/21 12:51, [employer] INSURANCE SENDING TO [facility]. Release to patient->[facility] Lipid panelon 08-14-2021 Cholesterol [Mass/Vol] 275 mg/dL High 0 - 169 mg/dL [facility] Comment on above: Acceptable (mg/dL): <170 Borderline-High (mg/dL): 170-199 High (mg/dL): > or = 200 Reference: Recommendations of the [place] [employer] (Pediatrics, Mar 2011, 128 (Supplement 5) D570-U409; DOI: 10.1542/peds.2009-2107C). Cholesterol in HDL [Mass/Vol] 39 mg/dL [facility] Comment on above: Low (mg/dL): <40 Borderline-Low (mg/dL): 40 - 45 Acceptable (mg/dL): >45 Cholesterol in LDL [Mass/Vol] 190 mg/dL High 0 - 109 mg/dL [facility] Interpretation and review of laboratory results Abnormal [facility] Non-HDL Cholesterol 236 mg/dL High 0 - 119 mg/dL [facility] Triglyceride [Mass/Vol] 231 mg/dL High 0 - 89 mg/dL [facility] Comment on above: A repeating fasting triglyceride should be measured in 2-4 weeks if a non-fasting level is >200 mg/dL. Release to patient->[facility] Vital Signs Date Time Vital Sign Value Performing Clinician Facility 12-28-2024 14:190400 Body height 157.[address] Zoe Nevarez MD Work Phone: [facility] 12-28-2024 14:19-0400 Body mass index (BMI) [Ratio] 41.5 kg/m2 Dr. Zoe Nevarez MD Work Phone: [facility] 12-28-2024 14:[id number] Body temperature 97.4 [degF] Dr. Zoe Nevarez MD Work Phone: [facility] 12-28-2024 14:19-0400 Body weight 102.[address] Zoe Nevarez MD Work Phone: [facility] 12-28-2024 14:19-0400 Diastolic blood pressure 86 mm[Hg] Dr. Zoe Nevarez MD Work Phone: [facility] 12-28-2024 14:19-0400 Heart rate 88 /min Dr. Zoe Nevarez MD Work Phone: [facility] 12-28-2024 14:19-0400 Respiratory rate 16 /min Dr. Zoe Nevarez MD Work Phone: [facility] 12-28-2024 14:19-0400 SaO2% (BldA) [Mass fraction] 98 % Dr. Zoe Nevarez MD Work Phone: [facility] 12-28-2024 14:19-0400 Systolic blood pressure 138 mm[Hg] Dr. Zoe Nevarez MD Work Phone: [facility] 11-07-2024 15:13-0400 Body height 157.[address] Zoe Nevarez MD Work Phone: [facility] 11-07-2024 15:13-0400 Body mass index (BMI) [Ratio] 41.3 kg/m2 Dr. Zoe Nevarez MD Work Phone: [facility] 11-07-2024 15:13-0400 Body temperature 97.1 [degF] Dr. Zoe Nevarez MD Work Phone: [facility] 11-07-2024 15:13-0400 Body weight 102.[address] Zoe Nevarez MD Work Phone: [facility] 11-07-2024 15:13-0400 Diastolic blood pressure 90 mm[Hg] Dr. Zoe Nevarez MD Work Phone: [facility] 11-07-2024 15:13-0400 Heart rate 96 /min Dr. Zoe Nevarez MD Work Phone: [facility] 11-07-2024 15:13-0400 Respiratory rate 14 /min Dr. Zoe Nevarez MD Work Phone: [facility] 11-07-2024 15:13-0400 SaO2% (BldA) [Mass fraction] 99 % Dr. Zoe Nevarez MD Work Phone: [facility] 11-07-2024 15:13-0400 Systolic blood pressure 142 mm[Hg] Dr. Zoe Nevarez MD Work Phone: [facility] 10-03-2024 14:31-0400 Body height 157.[address] Zoe Nevarez MD Work Phone: [facility] 10-03-2024 14:31-0400 Body mass index (BMI) [Ratio] 40.8 kg/m2 Dr. Zoe Nevarez MD Work Phone: [facility] 10-03-2024 14:31-0400 Body weight 101.[address] Zoe Nevarez MD Work Phone: [facility] 09-27-2024 11:29-0400 Body temperature 98.2 [degF] Dr. Zoe Nevarez MD Work Phone: [facility] 09-27-2024 11:29-0400 Diastolic blood pressure 90 mm[Hg] Dr. Zoe Nevarez MD Work Phone: [facility] 09-27-2024 11:29-0400 Heart rate 83 /min Dr. Zoe Nevarez MD Work Phone: [facility] 09-27-2024 11:29-0400 Respiratory rate 14 /min Dr. Zoe Nevarez MD Work Phone: [facility] 09-27-2024 11:29-0400 SaO2% (BldA) [Mass fraction] 98 % Dr. Zoe Nevarez MD Work Phone: [facility] 09-27-2024 11:29-0400 Systolic blood pressure 122 mm[Hg] Dr. Zoe Nevarez MD Work Phone: [facility] 09-15-2024 10:07-0400 Body height 157.[address] Zoe Nevarez MD Work Phone: [facility] 09-15-2024 10:07-0400 Body mass index (BMI) [Ratio] 40.2 kg/m2 Dr. Zoe Nevarez MD Work Phone: [facility] 09-15-2024 10:07-0400 Body temperature 97.9 [degF] Dr. Zoe Nevarez MD Work Phone: [facility] 09-15-2024 10:07-0400 Body weight 99.[address] Zoe Nevarez MD Work Phone: [facility] 09-15-2024 10:07-0400 Diastolic blood pressure 82 mm[Hg] Dr. Zoe Nevarez MD Work Phone: [facility] 09-15-2024 10:07-0400 Heart rate 98 /min Dr. Zoe Nevarez MD Work Phone: [facility] 09-15-2024 10:07-0400 Respiratory rate 18 /min Dr. Zoe Nevarez MD Work Phone: [facility] 09-15-2024 10:07-0400 SaO2% (BldA) [Mass fraction] 96 % Dr. Zoe Nevarez MD Work Phone: [facility] 09-15-2024 10:07-0400 Systolic blood pressure 134 mm[Hg] Dr. Zoe Nevarez MD Work Phone: [facility] 09-13-2024 12:02-0400 Body height 157.[address] Zoe Nevarez MD Work Phone: [facility] 09-13-2024 12:02-0400 Body mass index (BMI) [Ratio] 40.3 kg/m2 Dr. Zoe Nevarez MD Work Phone: [facility] 09-13-2024 12:02-0400 Body temperature 98.3 [degF] Dr. Zoe Nevarez MD Work Phone: [facility] 09-13-2024 12:02-0400 Body weight 99.[address] Zoe Nevarez MD Work Phone: [facility] 09-13-2024 12:02-0400 Diastolic blood pressure 80 mm[Hg] Dr. Zoe Nevarez MD Work Phone: [facility] 09-13-2024 12:02-0400 Heart rate 89 /min Dr. Zoe Nevarez MD Work Phone: [facility] 09-13-2024 12:02-0400 SaO2% (BldA) [Mass fraction] 98 % Dr. Zoe Nevarez MD Work Phone: [facility] 09-13-2024 12:02-0400 Systolic blood pressure 122 mm[Hg] Dr. Zoe Nevarez MD Work Phone: [facility] 06-23-2024 15:15-0500 Body height 157.[address] Zoe Nevarez MD Work Phone: [facility] 06-23-2024 15:15-0500 Body mass index (BMI) [Ratio] 40.8 kg/m2 Dr. Zoe Nevarez MD Work Phone: [facility] 06-23-2024 15:15-0500 Body temperature 98 [degF] Dr. Zoe Nevarez MD Work Phone: [facility] 06-23-2024 15:15-0500 Body weight 101.[address] Zoe Nevarez MD Work Phone: [facility] 06-23-2024 15:15-0500 Diastolic blood pressure 78 mm[Hg] Dr. Zoe Nevarez MD Work Phone: [facility] 06-23-2024 15:15-0500 Heart rate 107 /min Dr. Zoe Nevarez MD Work Phone: [facility] 06-23-2024 15:15-0500 Respiratory rate 16 /min Dr. Zoe Nevarez MD Work Phone: [facility] 06-23-2024 15:15-0500 SaO2% (BldA) [Mass fraction] 98 % Dr. Zoe Nevarez MD Work Phone: [facility] 06-23-2024 15:15-0500 Systolic blood pressure 124 mm[Hg] Dr. Zoe Nevarez MD Work Phone: [facility] 03-27-2024 11:04-0500 Body temperature 98.6 [degF] Braulio Parson APRN.TELEHEALTH CASE MANAGER Work Phone: [facility] 03-27-2024 11:04-0500 Body weight 100.79 kg Braulio Parson APRN.TELEHEALTH CASE MANAGER Work Phone: [facility] 03-27-2024 11:04-0500 Diastolic blood pressure 109 mm[Hg] Braulio Parson APRN.TELEHEALTH CASE MANAGER Work Phone: [facility] 03-27-2024 11:04-0500 Heart rate 89 /min Braulio Parson APRN.TELEHEALTH CASE MANAGER Work Phone: [facility] 03-27-2024 11:04-0500 Respiratory rate 18 /min Braulio Parson APRN.TELEHEALTH CASE MANAGER Work Phone: [facility] 03-27-2024 11:04-0500 SaO2% (BldA) [Mass fraction] 99 % Braulio Parson APRN.TELEHEALTH CASE MANAGER Work Phone: [facility] 03-27-2024 11:04-0500 Systolic blood pressure 143 mm[Hg] Braulio Parson APRN.TELEHEALTH CASE MANAGER Work Phone: [facility] 04-14-2023 10:10-0500 Body height 157.[address] Lola Zepeda Work Phone: [facility] 04-14-2023 10:10-0500 Body mass index (BMI) [Ratio] 39.7 kg/m2 Dr. Lola Zepeda Work Phone: [facility] 04-14-2023 10:10-0500 Body temperature 97.9 [degF] Dr. Lola Zepeda Work Phone: [facility] 04-14-2023 10:10-0500 Body weight 98.[address] Lola Zepeda Work Phone: [facility] 04-14-2023 10:10-0500 Diastolic blood pressure 68 mm[Hg] Dr. Lola Zepeda Work Phone: [facility] 04-14-2023 10:10-0500 Heart rate 90 /min Dr. Lola Zepeda Work Phone: [facility] 04-14-2023 10:10-0500 Respiratory rate 16 /min Dr. Lola Zepeda Work Phone: [facility] 04-14-2023 10:10-0500 SaO2% (BldA) [Mass fraction] 99 % Dr. Lola Zepeda Work Phone: [facility] 04-14-2023 10:10-0500 Systolic blood pressure 114 mm[Hg] Dr. Lola Zepeda Work Phone: [facility] 06-01-2022 14:35-0500 Body height 160 cm Text Entry Free [facility] 06-01-2022 14:35-0500 Body temperature 97.88 [degF] Text Entry Free [facility] 06-01-2022 14:35-0500 Diastolic blood pressure 75 mm[Hg] Text Entry Free [facility] 06-01-2022 14:35-0500 Heart rate 86 /min Text Entry Free [facility] 06-01-2022 14:35-0500 Respiratory rate 18 /min Text Entry Free [facility] 06-01-2022 14:35-0500 SaO2% (BldA) [Mass fraction] 97 % Text Entry Free [facility] 06-01-2022 14:35-0500 Systolic blood pressure 126 mm[Hg] Text Entry Free [facility] Encounters Encounter Date Encounter Type Care Provider Facility Start: 12-28-2024 End: 12-28-2024 Patient encounter procedure Kwame THORPE -[facility] Work Phone: Start: 12-28-2024 End: 12-28-[address] Zoe Nevarez MD Work Phone: -[facility] Start: 12-08-2024 ambulatory Alejandra Bautista Fa cility:[facility] Start: 12-08-2024 Non-patient / Non-visit Dr. Elin Bautista MD -[facility] Start: 12-04-2024 Non-patient / Non-visit Dr. Ron GUADARRAMA -[facility] Work Phone: Start: 12-04-2024 End: 12-04-[address] Zoe Nevarez MD Work Phone: -[facility] Start: 12-04-2024 End: 12-04-[address] Zoe Nevarez MD -[facility] Work Phone: Start: 12-04-2024 End: 12-04-2024 ambulatory Zoe Nevarez Facility:[facility] Start: 11-07-2024 End: 11-07-2024 Patient encounter procedure Patrica WREN -[facility] Work Phone: Start: 11-07-2024 End: 11-07-[address] Zoe Nevarez MD Work Phone: -[facility] Start: 10-03-2024 End: 10-03-[address] Justin Christiansen MD -[facility] Work Phone: Start: 10-03-2024 End: 10-03-[address] Zoe Nevarez MD Work Phone: [facility] Work Phone: Start: 09-27-2024 End: 09-27-2024 Patient encounter procedure Riley THORPE -[facility] Work Phone: Start: 09-27-2024 End: 09-27-[address] Zoe Nevarez MD Work Phone: [facility] Work Phone: Start: 09-27-2024 End: 09-27-2024 ambulatory Riley THORPE Facility:[facility] Start: 09-19-2024 End: 09-19-[address] Zoe Nevarez MD Work Phone: [facility] Work Phone: Start: 09-19-2024 End: 09-19-[address] Zoe Nevarez MD -Ultrasound [facility] Work Phone: Start: 09-19-2024 End: 09-19-[address] [facility] Facility:[facility] Start: 09-15-2024 End: 09-15-[address] Zoe Nevarez MD -[facility] Work Phone: Start: 09-15-2024 End: 09-15-[address] Zoe Nevarez MD Work Phone: [facility] Work Phone: Start: 09-13-2024 End: 09-13-2024 Patient encounter procedure Riley Raphael [place] -[facility] Work Phone: Start: 09-13-2024 End: 09-13-[address] Zoe Nevarez MD Work Phone: [facility] Work Phone: Start: 09-13-2024 End: 09-13-[address] [facility] Facility:[facility] Start: 08-24-2024 End: 08-24-[address] Zoe Nevarez MD Work Phone: [facility] Work Phone: Start: 08-24-2024 End: 08-24-[address] Zoe Nevarez MD -Laboratory, [place] Start: 08-24-2024 End: 08-24-[address] [facility] Facility:[facility] Start: 06-23-2024 End: 06-23-[address] Zoe Nevarez MD -[facility] Work Phone: Start: 06-23-2024 End: 06-23-[address] Zoe Nevarez MD Work Phone: [facility] Work Phone: Start: 06-23-2024 End: 06-23-2024 ambulatory Zoe Sandovalphuong Facility:[facility] Start: 03-27-2024 End: 03-27-2024 Office outpatient new 30 minutes Braulio Parson APRN.CNP Work Phone: [facility] Comment on above: Acute otitis media, bilateral (Primary Dx) Start: 03-27-2024 End: 03-27-2024 ambulatory KEVONMICHOACANO Selam JACOBJOJOPhuong Facility:[id number] Start: 01-07-2024 End: 01-07-2024 Emergency department patient visit PHYSICIAN [facility] Start: 04-14-2023 End: 04-14-[address] Lola Zepeda Work Phone: [facility] Work Phone: Start: 04-14-2023 End: 04-14-[address] Lola Zepeda Work Phone: [facility], [place] Start: 04-14-[address] Karan Zepeda Work Phone: [facility] Start: 04-14-2023 End: 04-14-2023 Encounter for general adult medical examination without abnormal findings Dr. Lola Zepeda Work Phone: [facility] Start: 04-14-2023 End: 04-14-[address] Lola Zepeda Work Phone: [facility] Work Phone: Start: 01-11-2023 End: 01-11-2023 ambulatory LIONEL Russo GABRIEL [facility] Start: 06-01-2022 End: 06-01-2022 Emergency department patient visit Steven BAEZ [facility] Start: 05-19-2022 End: 05-19-2022 Subsequent hospital visit by physician Gisele MCALLISTER Work Phone: [facility] Comment on above: Arthralgia, unspecif ied joint; Acanthosis nigricans; Hyperlipidemia, unspecified hyperlipidemia type Start: 11-06-2021 End: 11-06-2021 Subsequent hospital visit by physician Rex Shelley MD Work Phone: [facility] Comment on above: Dyslipidemia Start: 08-14-2021 End: 08-14-2021 Subsequent hospital visit by physician Rex Shelley MD Work Phone: [facility] Comment on above: Dyslipidemia Procedures Date Procedure Procedure Detail Performing Clinician Start: 09-27-2024 Plain X-ray of finger Margy Nevarez MD Work Phone: Start: 09-19-[address] Zoe Nevarez MD Work Phone: Start: 09-13-2024 X-ray of foot, three or more views Dr. Zoe Nevarez MD Work Phone: Start: 06-23-2024 Vitamin D, 25-hydrox y measurement Dr. Zoe Nevarez MD Work Phone: Comment on above: Vitamin D StatusDefi ciency: <20 ng/mL (50nmol/L)Insufficiency: 20-30 ng/mL (50-75 nmol/L)Sufficiency: 30-100 ng/mL (75-250 nmol/L)Toxicity: >100 ng/mL (>250 nmol/L) Start: 05-19-2022 COMPLETE BLOOD COUNT WITH DIFFERENTIAL Gisele Demetrius MARIEE-TELEHEALTH CASE MANAGER Work Phone: Start: 05-19-2022 Comprehensive metabo lic panel Gisele Josemorenita MARIEE-TELEHEALTH CASE MANAGER Work Phone: Start: 05-19-2022 Hla i low resolution one antigen equivalent each Gisele Demetrius SILVER SERVICE WAITER-TELEHEALTH CASE MANAGER Work Phone: Start: 05-19-2022 Lipid panel Gisele Josebakari atkins SILVER SERVICE WAITER-TELEHEALTH CASE MANAGER Work Phone: Start: 11-06-2021 [facility] maria isabel Shelley MD Work Phone: Start: 08-14-2021 Lipid panel Rex Mir MD Work Phone: Plan of Treatment Date Care Activity Detail Author Start: 12-02-2025 Tetanus Diphtheria a nd Pertussis Vaccines (7 - Td or Tdap) Tetanus Diphtheria and Pertussis Vaccines (7 - Td or Tdap) [facility] Start: 12-02-2025 Urine microalbumin profile DTaP,Tdap,Td Vaccine (7 - Td or Tdap) [facility] Start: 09-27-2024 Patient referral [facility] Work Phone: Start: 09-27-2024 Plain X-ray of finger Finger(s) Min 2 Views [facility] Start: 09-27-2024 XR Finger GE 2 Views [facility] Start: 09-13-2024 X-ray of foot, three or more views Foot min 3 Views [facility] Start: 09-13-2024 XR Foot GE 3 Views [facility] Start: 02-11-2024 Screening for malign ant neoplasm of cervix Cervical Cancer Screening [facility] Start: 12-19-2023 Covid-19 Vaccine ( season) Covid-19 Vaccine ( season) [facility] Start: 12-19-2023 Influenza vaccination Influenza Vacc ine (#1) [facility] Start: 04-14-2023 Patient referral [facility] Work Phone: Start: 07-14-2022 End: 07-14-2022 Patient encounter procedure 07/14/2022 Office Visit Rheumatology Gisele Romo APRN-CNP [place], [place] [id number] [facility] [place] Start: 12-26-2021 End: 12-26-2021 Patient encounter procedure 12/26/2021 Office Visit Allergy [place] [address] [facility] [place] Start: 12-25-2021 Well Visit Well Visit [facility] Start: 12-18-2021 FLU (#1) FLU (#1) [facility] Start: 11-10-2021 End: 11-10-2021 Patient encounter procedure 11/10/2021 Office Visit Cardiology Rex Shelley MD [address] [place] [address] [facility] Start: 09-30-2021 COVID-19 (3 - Booste r for Pfizer series) COVID-19 (3 - Booster for Pfizer series) [facility] Start: 09-29-2021 End: 09-29-2021 Patient encounter procedure 09/29/2021 Office Visit Allergy [place] [address] [facility] [place] Start: 08-15-2021 End: 08-15-2021 Patient encounter procedure 08/15/2021 Office Visit Cardiology Rex Shelley MD [address] [place] [address] [facility] Start: 06-27-2021 COVID-19 (3 - Booste r for Pfizer series) COVID-19 (3 - Booster for Pfizer series) [facility] Start: 2021 Anxiety Screening Anxiety Screening [facility] Start: 2021 Depression Screening Depression Scre ening [facility] Start: 2021 GC (Gonorrhea) Scree blake (18-24) GC (Gonorrhea) Screening (18-) [facility] Start: 2021 Hearing Screening Hearing Screening [facility] Start: 2021 Hepatitis C screening Hepatitis C Sc reening [facility] Start: 2021 HIV screening HIV Screening [facility] Start: 10-25-2021 Screening for Chlamy maira trachomatis Chlamydia Screening (18-24) [facility] Start: 01-22-2021 MenB (2 of 2 - MenB 2-Dose Series Bexsero) MenB (2 of 2 - MenB 2-Dose Series Bexsero) [facility] Start: 01-22-2021 MenB (2 of 2 - MenB 2-Dose Series) MenB (2 of 2 - MenB 2-Dose Series) [facility] Start: 01-22-2021 Meningococcal B Vacc ine: Consider Based On Risk (2 of 2 - Risk Bexsero 2-dose series) Meningococcal B Vaccine: Consider Based On Risk (2 of 2 - Risk Bexsero 2-dose series) [facility] Start: 12-18-2020 FLU (#1) FLU (#1) [facility] Start: 2018 HPV Vaccine (1 - 3-d ose series) HPV Vaccine (1 - 3-dose series) [facility] Start: 2018 Vision Screening Vision Screening [facility] Start: 2017 Peds To Adult Transi tion Annual Assessment Peds To Adult Transition Annual Assessment [facility] Start: 2015 Peds To Adult Transi tion Initial Discussion Peds To Adult Transition Initial Discussion [facility] Start: 2014 HPV (1 - 2-dose series) HPV (1 - 2-dose series) [facility] Complete blood count [facility] metabo lic 1999 [facility] - [facility] - Serum or Plasma [facility] Lipid 1995 panel - S verenice or Plasma [facility] Lipid 1995 panel - S verenice or Plasma [facility] Patient referral [facility] Work Phone: End: 05-19-2022 Transglutaminase IgA [facility] Work Phone: Comment on above: 1 Occurrences starti ng 05/19/2022 until 05/19/2022 Vitamin D, 25-hydrox y measurement [facility] Immunizations Immunization Date Immunization Notes Care Provider Juan rosario 05-02-2021 PFIZER (purple cap) COVID-19, mRNA, LNP-S, 30mcg/0.3mL dose Rex Shelley MD Work Phone: [facility] 04-08-2021 PFIZER (purple cap) COVID-19, mRNA, LNP-S, 30mcg/0.3mL dose Rex Shelley MD Work Phone: [facility] 12-25-2020 meningococcal B vacc ine, recombinant, OMV, adjuvanted Rex Shelley MD Work Phone: [facility] 11-10-2019 meningococcal polysaccharide (groups A, C, Y and W-135) diphtheria toxoid conjugate vaccine (MCV4P) Rex Shelley MD Work Phone: [facility] 02-23-2019 influenza, injectabl e, quadrivalent, preservative free Rex Shelley MD Work Phone: [facility] 02-23-2019 influenza virus vacc ine, unspecified formulation Braulio Parson APRN.CNP Work Phone: [facility] 07-03-2016 hepatitis A vaccine, pediatric/adolescent dosage, 2 dose schedule Rex Shelley MD Work Phone: [facility] 07-03-2016 influenza, injectable,quadrivalent, preservative free, pediatric Rex Shelley MD Work Phone: [facility] 12-03-2015 hepatitis A vaccine, pediatric/adolescent dosage, 2 dose schedule Rex Shelley MD Work Phone: [facility] 12-03-2015 meningococcal oligosaccharide (groups A, C, Y and W-135) diphtheria toxoid conjugate vaccine (MCV4O) Rex Shelley MD Work Phone: [facility] 12-03-2015 meningococcal polysaccharide (groups A, C, Y and W-135) diphtheria toxoid conjugate vaccine (MCV4P) Rex Shelley MD Work Phone: [facility] 12-03-2015 tetanus toxoid, redu dirk diphtheria toxoid, and acellular pertussis vaccine, adsorbed eRx Shelley MD Work Phone: [facility] 01-24-2013 influenza, injectable,quadrivalent, preservative free, pediatric Rex Shelley MD Work Phone: [facility] 01-24-2013 influenza, live, intranasal, quadrivalent Rex Shelley MD Work Phone: [facility] 12-13-2008 diphtheria, tetanus toxoids and acellular pertussis vaccine, Haemophilus influenzae type b conjugate, and poliovirus vaccine, inactivated ([id number]) Rex Shelley MD Work Phone: [facility] 12-13-2008 measles, mumps and rubella virus vaccine Rex Shelley MD Work Phone: [facility] 12-13-2008 poliovirus vaccine, inactivated Rex Shelley MD Work Phone: [facility] 12-13-2008 varicella virus vaccine Martín Shelley MD Work Phone: [facility] 08-11-2004 diphtheria, tetanus toxoids and acellular pertussis vaccine, Haemophilus influenzae type b conjugate, and poliovirus vaccine, inactivated ([id number]) Rex Shelley MD Work Phone: [facility] 03-17-2004 pneumococcal conjuga te vaccine, 7 valent Rex Shelley MD Work Phone: [facility] 02-13-2004 haemophilus influenz ae type b vaccine, PRP-T conjugate Rex Shelley MD Work Phone: [facility] 02-13-2004 measles, mumps and rubella virus vaccine Rex Shelley MD Work Phone: [facility] 02-13-2004 varicella virus vaccine Martín Shelley MD Work Phone: [facility] 2003 diphtheria, tetanus toxoids and acellular pertussis vaccine, Haemophilus influenzae type b conjugate, and poliovirus vaccine, inactivated ([id number]) Rex Shelley MD Work Phone: [facility] 2003 DTaP-hepatitis B and poliovirus vaccine Rex Shelley MD Work Phone: [facility] 2003 haemophilus influenz ae type b vaccine, PRP-T conjugate Rex Shelley MD Work Phone: [facility] 2003 hepatitis B vaccine, adult dosage Rex Shelley MD Work Phone: [facility] 2003 pneumococcal conjuga te vaccine, 7 valent Rex Shelley MD Work Phone: [facility] 2003 poliovirus vaccine, inactivated Rex Shelley MD Work Phone: [facility] 2003 diphtheria, tetanus toxoids and acellular pertussis vaccine, Haemophilus influenzae type b conjugate, and poliovirus vaccine, inactivated ([id number]) Rex Shelley MD Work Phone: [facility] 2003 DTaP-hepatitis B and poliovirus vaccine Rex Shelley MD Work Phone: [facility] 2003 haemophilus influenz ae type b vaccine, PRP-T conjugate Rex Shelley MD Work Phone: [facility] 2003 hepatitis B vaccine, pediatric or pediatric/adolescent dosage Rex Shelley MD Work Phone: [facility] 2003 pneumococcal conjuga te vaccine, 7 valent Rex Shelley MD Work Phone: [facility] 2003 poliovirus vaccine, inactivated Rex Shelley MD Work Phone: [facility] 2003 diphtheria, tetanus toxoids and acellular pertussis vaccine, Haemophilus influenzae type b conjugate, and poliovirus vaccine, inactivated ([id number]-Epq-[id number]) Rex Shelley MD Work Phone: [facility] 2003 DTaP-hepatitis B and poliovirus vaccine Rex Shelley MD Work Phone: [facility] 2003 haemophilus influenz ae type b vaccine, PRP-T conjugate Rex Shelley MD Work Phone: [facility] 2003 hepatitis B vaccine, pediatric or pediatric/adolescent dosage Rex Shelley MD Work Phone: [facility] 2003 pneumococcal conjuga te vaccine, 7 valent Rex Shelley MD Work Phone: [facility] 2003 poliovirus vaccine, inactivated Rex Shelley MD Work Phone: [facility] 2003 hepatitis B vaccine, pediatric or pediatric/adolescent dosage Rex Shelley MD Work Phone: [facility] Payers Date Payer Category Payer Self-pay [id number] 2023 Unknown [id number] 2022 Medicaid [employer] [id number] 2022-Present [phone] [address] [place] [address] Medicaid [id number] 2022 Unknown [id number] 2012 Unknown [id number] 2003 Unknown [id number] 2003 Unknown [id number] 2003 Unknown [id number] [id number] Unknown [id number] Unknown [id number] [id number] Unknown [id number] [id number] Unknown [id number] [id number] Unknown [id number] [id number] Unknown [id number] 2.840.1.050292.3.579.2.462 Unknown [id number] 2.840.1.365026.3.579.2.462 Unknown [id number] 2.840.1.514383.3.579.2.462 Unknown [id number] 2.840.1.394326.3.579.2.462 Unknown [id number] 2.840.1.311227.3.579.2.462 Unknown [id number] [id number] Unknown [id number] Unknown [id number] 2.840.1.862639.3.579.2.462 Unknown [id number] [id number] Unknown [id number] [id number] Unknown [id number] [id number] Social History Date Type Detail Facility Start: 01-08-2017 End: 04-14-2023 Tobacco smoking status NHIS Never smoked tobacco [facility] Start: 01-08-2017 End: 03-27-2024 Tobacco use and exposure Smokeless tobacco non-user [facility] Start: 2003 Sex Assigned At Not on file [facility] Start: 08-04-2021 End: 11-06-2021 Exposure to SARS-CoV-2 (event) Not sure [facility] Start: 04-14-2023 Tobacco smokin g consumption unknown [facility] Start: 2003 Sex Assigned At Female [facility] Start: 03-27-2024 Alcoholic beverage intake Ex-drinker (finding) [facility] Start: 03-27-2024 History of Social function [facility] Start: 03-27-2024 Tobacco use panel [facility] Start: 07-05-2024 Sex Female (finding) [facility] NEGATED: Highlighted rowStart: NINF History of tobacco use Passive smoker [facility] Clinical Notes 03-27-2024 to 09-27-2024 Note Date & Type Note Facility 09-27-2024 Radiology Diagnostic study note [facility] [address] [place], [place] [id number] Finger(s) Min 2 Views MR#: [id number] Acct: [id number] Name: PATI ESCOBAR Rep #: [id number] : 2005 F 19 From: Nolan Anne MD PCP: Dr. Zoe Nevarez MD Status: R EG CLI Study:Finger(s) Min 2 Views Date of Exam: 09/27/24 Exam# [id number] Ordering Dr: [facility] jim [facility]hael PROCEDURE: FINGER(S) MIN 2 VIEWS 09/27/2024 REASON FOR EXAM: FINGER INJURY TECHNIQUE: 3 view(s) of the left 5th finger. COMPARISON: None. RAD/Finger(s) Min 2 Views IMPRESSION: Mild degenerative changes are seen in the proximal and distal interphalangeal joints. Probable longitudinal fracture of the volar base of the left 5th distal phalanx,nondisplaced; recommend clinical correlation. Follow up as clinically appropriate. Reading Location: [address] CC: Dr. Zoe Nevarez MD; MAURILIO Lambert ~ Production Control Planner: Signed [facility] 09-19-2024 Radiology Diagnostic study note [facility] [address] [place] [address] Abdomen Limited MR#: [id number] Acct: [id number] Name: PATI ESCOBAR Rep #: [id number] : 2005 F 19 From: Mahsa Benitez MD PCP: Dr. Zoe Nevarez MD Status: R EG CLI Study:Abdomen Limited Date of Exam: 07/11 Exam# [id number] Ordering Dr: Phuong Nevarez MD PROCEDURE: ABDOMEN LIMITED 09/19/2024 REASON FOR EXAM: ELEVATED LIVER ENZYMES TECHNIQUE: Complete abdominal ultrasound lees-scale images with color doppler. PATIENT PREPARATION: Per protocol COMPARISON: No relevant prior FINDINGS: Liver: Grossly normal size and echotexture. Sagittal measurement of 18.0 cm. Blood flow: Hepatopetal. Gallbladder: No stones, sludge, wall thickening or tenderness. Common bile duct: Normal measuring 0.5 cm. Pancreas: Visualized portions are sonographically unremarkable. Ascites: Unremarkable. Right kidney: 10.2 x 5.9 x 6.1 cm. 1.9 cm. US/Abdomen Limited IMPRESSION: Normal ultrasound of the right upper quadrant. Unremarkable gallbladder. Reading Location: [facility] CC: Dr. Zoe Nevarez MD ~ Production Control Planner: Signed [facility] 09-13-2024 Evaluation note Diagnosis Onset Date Resolution Contusion of right ankle acute September 13, 2024 11:42am Contusion of right foot acute 2024 11:42am Elevated liver enzymes acute Ma 2024 9:56am Depression with anxiety chronic 2024 9:56am Hyperlipidemia chronic September 15, 2024 9:56am Vitamin D deficiency chronic September 15, 2024 9:56am Contusion of left little finger acute September 27, 2024 11:15am Contusion of left little finger acute October 03, 2024 2:30pm [facility] Work Phone: 1(140) 446-146805-28-2025 Evaluation note* Diagnosis Onset Date Resolution Status Admit Date Contusion of right ankle acute September 13, 2024 11:42am Contusion of right foot acute M ay 2024 11:42am Elevated liver enzymes acute Ma y 2024 9:56am Depression with anxiety chronic M ay 2024 9:56am Hyperlipidemia chronic September 15, 2024 9:56am Vitamin D deficiency chronic September 15, 2024 9:56am Contusion of left little finger acut e September 27, 2024 11:15am Contusion of left little finger acut e October 03, 2024 2:30pm Elevated blood pressure reading acut e November 07, 2024 2:57pm Hypertriglyceridemia acute November 07, 2024 2:57pm Hyperlipidemia chronic November 07, 2024 2:57pm [facility] Work Phone: 1(615) 141-803005-28-2025 Evaluation note* Diagnosis Onset Date Resolution Status Admit Date Contusion of right ankle resolved September 13, 2024 11:42am Contusion of right foot resolved M ay 2024 11:42am Elevated liver enzymes acute Ma y 2024 9:56am Depression with anxiety chronic M ay 2024 9:56am Hyperlipidemia chronic September 15, 2024 9:56am Vitamin D deficiency chronic September 15, 2024 9:56am Contusion of left little finger reso lved September 27, 2024 11:15am Contusion of left little finger reso lved October 03, 2024 2:30pm Hypertriglyceridemia acute November 07, 2024 2:57pm Hyperlipidemia chronic November 07, 2024 2:57pm Elevated blood pressure reading inac tive November 07, 2024 2:57pm [facility] Work Phone: 1(988) 651-918205-28-2025 Radiology Diagnostic study note [facility] [address] [place] [address] Foot min 3 Views MR#: [id number] Acct: [id number] Name: PATI ESCOBAR Rep #: [id number] : 2005 F 19 From: Katie Zamudio MD PCP: Dr. Zoe Nevarez MD Status: R EG CLI Study:Foot min 3 Views Date of Exam: Exam# [id number] Ordering Dr: [facility] jim Raphael EXAM: XR Left Foot Complete, 3 [...] evaluation with CT is recommended. Reading [facility] CC: Dr. Zoe Nevarez MD; MAURILIO Lambert ~ Production Control Planner: Signed [facility]03-07-2025 Evaluation note* Diagnosis Onset Date Resolution Status Admit Date Depression with anxiety chronic [facility] 2024 2:58pm Hyperlipidemia chronic June 23, 2024 2:58pm Pelvic pain chronic June 23 2:58pm [facility] Work Phone: 1(314) 534-464903-07-2025 Evaluation note* Diagnosis Onset Date Resolution Status Admit Date Depression with anxiety chronic [facility] 2024 2:58pm Hyperlipidemia chronic June 23, 2024 2:58pm Pelvic pain chronic June 23 2:58pm Contusion of right ankle acute September 13, 2024 11:42am Contusion of right foot acute M ay 2024 11:42am [facility] Work Phone: 1(857) 965-647703-07-2025 Evaluation note* Diagnosis Onset Date Resolution Status Admit Date Depression with anxiety chronic [facility] 2024 2:58pm Hyperlipidemia chronic June 23, 2024 2:58pm Pelvic pain chronic June 23 2:58pm Contusion of right ankle acute September 13, 2024 11:42am Contusion of right foot acute M ay 2025 11:42am Elevated liver enzymes acute Ma y 2024 9:56am Depression with anxiety chronic M 2024 9:56am Hyperlipidemia chronic September 15, 2024 9:56am Vitamin D deficiency chronic September 15, 2024 9:56am [facility] Work Phone: 1(894) 430-429603-07-2025 Evaluation note* Diagnosis Onset Date Resolution Status [...] D deficiency chronic September 15, 2024 9:56am Contusion of left little finger acut e September 27, 2024 11:15am Contusion of left little finger acut e October 03, 2024 2:30pm [facility] Work Phone: 1(171) 521-716512-09-2024 Instructions* Patient Instructions* Braulio Parson APRN.[facility] - 03/27/2024 11:21 AM EST EAR [...] the face muscles. Dizz[facility] NoteHNO ID: [id number] Author: BRAULIO PARSON APRN.TELEHEALTH CASE MANAGER Service: ? Author Type: Nurse Practitioner Type: Progress Notes Filed: 03/27/2024 11:38 Note Text: [facility] [place] [address] [place], [place] [address] [place] [address] Dept: [phone] Dept Subjective Pati Escobar is a 19 [...] tenderness or frontal sinus tenderness. Mouth/Throat: Lips: Goss. Mouth: Mucous membranes are moist. No oral [...] bilateral - ICD9: 382.9, ICD10: H66.93 Braulio Parson APRN.CNP Patient was informed that examination is consistent [...] dictate this note. SANJAY Morrell 03/27/2024 11:14 [facility]12-09-2024 History of Present illness Narrative* Braulio Parson APRN.CNP - 03/27/2024 11:14 AM EST [facility] [address] [facility] [address] Dept: [phone] Dept Subjective Pati Escobar is a 19 [...] lb 3.2 oz) LMP 03/27/2024 (Exact Date) [id number]% Physical Exam Vitals and nursing note reviewed. [...] tenderness or frontal sinus tenderness. Mouth/Throat: Lips: Goss. Mouth: Mucous membranes are moist. No oral [...] bilateral - ICD9: 382.9, ICD10: H66.93 Braulio Parson APRN.[place] Patient was informed that examination is [...] was used to dictate this note. Braulio Parson APRN-TRUCK CLEANER 03/27/2024 11:14 [facility] Diagnosis Dyslipidemia Other and unspecified hyperlipidemia documented in this encounter [facility] note* Diagnosis Dyslipidemia Other and unspecified hyperlipidemia documented in this encounter [facility] note* Diagnosis Arthralgia, unspecified joint Acanthosis nigricans Acquired acanthosis nigricans Hyperlipidemia, unspecified hyperlipidemia type documented in this encounter [facility] note* Diagnosis Onset Date Resolution Status Preventative health care acu te Concentration deficit chroni c Hyperlipidemia chronic Joint pain chronic [facility] Work Phone: Evaluation note* Diagnosis Acute otitis media, bilateral- Primary Unspecified otitis media documented in this encounter [facility] for referral (narrative)No reason for referral information availableWUniversity [facility] Work Phone: Advance Directives No Advanced Directives Records FoundDocuments on File Type Date Recorded Patient [employer] Nurse Expl anation Power of 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 Resource Teacher Summary Purpose Family History No Family History Records Found Relationship Condition Age at Onset Recorded Date/T joy grandfather Hemorrhagic disorder Unknown Cardiac disease Unknown Hypertension Unknown Coronary artery disease Unknown Diabetes mellitus Unknown Anemia Unknown Myocardial infarction Unknown Cerebrovascular accident (CVA) Unknown mother Diabetes mellitus Unknown grandmother Diabetes mellitus Unknown Relationship Condition Age at Onset Recorded Date/T joy Not Specified Hemorrhagic disorder Unknown Cardiac disease Unknown Hypertension Unknown Coronary artery disease Unknown Diabetes mellitus Unknown Anemia Unknown Myocardial infarction Unknown Cerebrovascular accident (CVA) Unknown mother Diabetes mellitus Unknown Not Specified Diabetes mellitus Unknown Chief Complaint and Reason for Visit Chief Complaint EST NEW PT - PPW SEN T Reason for Visit Preventative health care Concentration deficit Hyperlipidemia Joint pain Chief Complaint Admit Date June 23, 2024 2:58 pm Reason for Visit Admit Date Depression with anxiety June 23, 2024 2:58pm Hyperlipidemia June 23, 2024 2:58 pm Pelvic pain June 23, 2024 2:58 pm Chief Complaint Admit Date June 23, 2024 2:58 pm L FOOT INJURY September 13, 2024 11:42 am foot injury- LEFT September 13, 2024 11:46 am Chief Complaint Admit Date June 23, 2024 2:58 pm L FOOT [...] D deficiency September 15, 2024 9:56 am Chief Complaint Admit Date June 23, 2024 2:58 pm L FOOT INJURY September 13, 2024 11:42 am foot injury- LEFT September 13, 2024 11:46 am 3 M FU September 15, 2024 9:56a m ELEVATED LIVER ENZYMES September 19, 2024 10 :08am Chief Complaint Admit Date June 23, 2024 2:58 pm L FOOT INJURY September 13, 2024 11:42 am foot injury- LEFT September 13, 2024 11:46 am 3 M FU September 15, 2024 9:56a m ELEVATED LIVER ENZYMES September 19, 2024 10 :08am L PINKY FINGER/PAIN/INJURY September 27 11:15am finger injury- LEFT HAND September 27, 2024 11:18am Chief Complaint Admit Date YEARLY June 23, 2024 2:58 pm L FOOT INJURY September 13, 2024 11:42 am foot injury- LEFT September 13, 2024 11:46 am 3 M FU September 15, 2024 9:56a m ELEVATED LIVER ENZYMES September 19, 2024 10 :08am L PINKY FINGER/PAIN/INJURY September 27 11:15am finger injury- LEFT HAND September 27, 2024 11:18am LEFT HAND/PINKY FINGER October 03, 2024 2 :30pm Reason for Visit Admit Date Depression with [...] D deficiency September 15, 2024 9:56 am Contusion of left little finger September 11:15am Contusion of left little finger September 2:30pm Chief Complaint Admit Date L FOOT INJURY September 13, 2024 11:42 am foot injury- LEFT September 13, 2024 11:46 am 3 M FU September 15, 2024 9:56a m ELEVATED LIVER ENZYMES September 19, 2024 10 :08am L PINKY FINGER/PAIN/INJURY September 27 11:15am finger injury- LEFT HAND September 27, 2024 11:18am LEFT HAND/PINKY FINGER October 03, 2024 2 :30pm ACUTE BP ISSUES November 07, 2024 2:57 pm Reason for Visit Admit Date Contusion of right ankle September 13, 2024 11:42am Contusion of right foot September 13, 2024 1 1:42am Elevated liver enzymes September 15, 2024 9: 56am Depression with anxiety September 15, 2024 9 :56am Hyperlipidemia September 15, 2024 9:56a m Vitamin D deficiency September 15, 2024 9:56 am Contusion of left little finger September 11:15am Contusion of left little finger September 2:30pm Chief Complaint Admit Date L FOOT INJURY September 13, 2024 11:42 am foot injury- LEFT September 13, 2024 11:46 am 3 M FU September 15, 2024 9:56a m ELEVATED LIVER ENZYMES September 19, 2024 10 :08am L PINKY FINGER/PAIN/INJURY September 27 11:15am finger injury- LEFT HAND September 27, 2024 11:18am LEFT HAND/PINKY FINGER October 03, 2024 2 :30pm ACUTE BP ISSUES November 07, 2024 2:57 pm HTN December 04, 2024 7: 46am Hypertension December 04, 2024 8: 04am Reason for Visit Admit Date Contusion of right ankle September 13, 2024 11:42am Contusion of right foot September 13, 2024 1 1:42am Elevated liver enzymes September 15, 2024 9: 56am Depression with anxiety September 15, 2024 9 :56am Hyperlipidemia September 15, 2024 9:56a m Vitamin D deficiency September 15, 2024 9:56 am Contusion of left little finger September 11:15am Contusion of left little finger September 2:30pm Elevated blood pressure reading October 2:57pm Hypertriglyceridemia November 07, 2024 2:5 7pm Hyperlipidemia November 07, 2024 2:57 pm Chief Complaint Admit Date L FOOT INJURY September 13, 2024 11:42 am foot injury- LEFT September 13, 2024 11:46 am 3 M FU September 15, 2024 9:56a m ELEVATED LIVER ENZYMES September 19, 2024 10 :08am L PINKY FINGER/PAIN/INJURY September 27 11:15am finger injury- LEFT HAND September 27, 2024 11:18am LEFT HAND/PINKY FINGER October 03, 2024 2 :30pm ACUTE BP ISSUES November 07, 2024 2:57 pm HTN December 04, 2024 7: 46am Hypertension December 04, 2024 8: 04am HTN December 04, 2024 8: 07am ring worm on rt arm and rt leg December 28, 2024 2:07pm Reason for Visit Admit Date Contusion of right ankle September 13, 2024 11:42am Contusion of right foot September 13, 2024 1 1:42am Elevated liver enzymes September 15, 2024 9: 56am Depression with anxiety September 15, 2024 9 :56am Hyperlipidemia September 15, 2024 9:56a m Vitamin D deficiency September 15, 2024 9:56 am Contusion of left little finger September 11:15am Contusion of left little finger September 2:30pm Hypertriglyceridemia November 07, 2024 2:5 7pm Hyperlipidemia November 07, 2024 2:57 pm Elevated blood pressure reading October 2:57pm Additional Source Comments Care Teams (unrecognized sec tion and content) Food Handler Relationship Specialty Start Date End Date Lola Zepeda GauravDO (Fax) PCP - General Pediatrics 04/20/18 Food Handler Relationship Specialty Start Date End Date Lola Zepeda DO (Fax) PCP - General Pediatrics 04/20/18 Food Handler Relationship Specialty Start Date End Date BayLola fulton Gaurav (Fax) PCP - General Pediatrics 04/20/18 Team Status: Active Member Role Status Dates Dr. Zoe Nevarez MD Primary Care Provider Active Team Status: Inactive Member Role Status Dates Dr. Lola Zepeda DO Primary Care Provider, Referri ng Provider Active Dr. Zoe Nevarez MD Attending Provider Active Team Status: Inactive Member Role Status Dates Dr. Zoe Nevarez MD Primary Care Provider, Atten ding Provider Active Food Handler Relationship Specialty [place] [address] [place] [id number] PCP - General Internal Medicine 03/27/24 Team [...] September 13, 2024 End: September 13, 2024 Riley Raphael PA PA Attending Provider Active Start: September 13, 2024 End: September 13, 2024 Team Status: Active Member Role Status Dates Dr. Zoe Nevarez MD Primary Care Provider Active Start: September 13, 2024 Riley THORPE PA Attending Provider Active Start: September 13, 2024 [...] September 13, 2024 End: September 13, 2024 Riley THORPE PA Attending Provider Active Start: September 13, 2024 End: September 13, 2024 Riley THORPE PA Referring Provider Active Start: September 13, 2024 End: September 13, 2024 Team Status: Inactive Member Role Status Dates Dr. Zoe Nevarez MD Primary Care Provider Active Start: September 19, 2024 End: September 19, 2024 Dr. Zoe Nevarez MD Attending Provider Active Start: September 19, 2024 End: September 19, 2024 Dr. Zoe Nevarez MD Referring Provider Active Start: September 19, 2024 End: September 19, 2024 Team Status: Inactive Member Role Status Dates Dr. Zoe Nevarez MD Primary Care Provider Active Start: September 27, 2024 End: September 27, 2024 Dr. Zoe Nevarez MD Referring Provider Active Start: September 27, 2024 End: September 27, 2024 MAURILIO Kincaid Attending Provider Active Start: September 27, 2024 End: September 27, 2024 Team Status: Active Member Role Status Dates Dr. Zoe Nevarez MD Primary Care Provider Active Start: September 27, 2024 MAURILIO Kincaid Attending Provider Active Start: September 27, 2024 MAURILIO Kincaid Referring Provider Active Start: September 27, 2024 Team Status: Inactive Member Role Status Dates Dr. Zoe Nevarez MD Primary Care Provider Active Start: October 03, 2024 End: October 03, 2024 Dr. Zoe Nevarez MD Referring Provider Active Start: October 03, 2024 End: October 03, 2024 Justin Christiansen MD Attending Provider Active St art: October 03, 2024 End: October 03, 2024 Team Status: Inactive Member Role Status Dates Dr. Zoe Nevarez MD Primary Care Provider Active Start: September 27, 2024 End: September 27, 2024 MAURILIO Kincaid Attending Provider Active Start: September 27, 2024 End: September 27, 2024 MAURILIO Kincaid Referring Provider Active Start: September 27, 2024 End: September 27, 2024 Team Status: Active Member Role/Relationship Status Dates Dr. Zoe Nevarez MD Primary Care Provider Active Team Status: Inactive Member Role/Relationship Status Dates Dr. Zoe Nevarez MD Primary Care Provider Active Start: August 24, 2024 End: August 24, 2024 Dr. Zoe Nevarez MD Attending Provider Active Start: August 24, 2024 End: August 24, 2024 Dr. Zoe Nevarez MD Referring Provider Active Start: August 24, 2024 End: August 24, 2024 Team Status: Inactive Member Role/Relationship Status Dates Dr. Zoe Nevarez MD Primary Care Provider Active Start: September 13, 2024 End: September 13, 2024 Dr. Zoe Nevarez MD Referring Provider Active Start: September 13, 2024 End: September 13, 2024 Riley THORPE PA Attending Provider Active Start: September 13, 2024 End: September 13, 2024 Team Status: Inactive Member Role/Relationship Status Dates Dr. Zoe Nevarez MD Primary Care Provider Active Start: September 13, 2024 End: September 13, 2024 Riley THORPE PA Attending Provider Active Start: September 13, 2024 End: September 13, 2024 Riley THORPE PA Referring Provider Active Start: September 13, 2024 End: September 13, 2024 Team Status: Inactive Member Role/Relationship Status Dates Dr. Zoe Nevarez MD Primary Care Provider Active Start: September 15, 2024 End: September 15, 2024 Dr. Zoe Nevarez MD Attending Provider Active Start: September 15, 2024 End: September 15, 2024 Dr. Zoe Nevarez MD Referring Provider Active Start: September 15, 2024 End: September 15, 2024 Team Status: Inactive Member Role/Relationship Status Dates Dr. Zoe Nevarez MD Primary Care Provider Active Start: September 19, 2024 End: September 19, 2024 Dr. Zoe Nevarez MD Attending Provider Active Start: September 19, 2024 End: September 19, 2024 Dr. Zoe Nevarez MD Referring Provider Active Start: September 19, 2024 End: September 19, 2024 Team Status: Inactive Member Role/Relationship Status Dates Dr. Zoe Nevarez MD Primary Care Provider Active Start: September 27, 2024 End: September 27, 2024 Dr. Zoe Nevarez MD Referring Provider Active Start: September 27, 2024 End: September 27, 2024 Riley THORPE PA Attending Provider Active Start: September 27, 2024 End: September 27, 2024 Team Status: Inactive Member Role/Relationship Status Dates Dr. Zoe Nevarez MD Primary Care Provider Active Start: September 27, 2024 End: September 27, 2024 Riley THORPE PA Attending Provider Active Start: September 27, 2024 End: September 27, 2024 Riley THORPE PA Referring Provider Active Start: September 27, 2024 End: September 27, 2024 Team Status: Inactive Member Role/Relationship Status Dates Dr. Zoe Nevarez MD Primary Care Provider Active Start: October 03, 2024 End: October 03, 2024 Dr. Zoe Nevarez MD Referring Provider Active Start: October 03, 2024 End: October 03, 2024 Justin Christiansen MD Attending Provider Active St art: October 03, 2024 End: October 03, 2024 Team Status: Inactive Member Role/Relationship Status Dates Dr. Zoe Nevarez MD Primary Care Provider Active Start: November 07, 2024 End: November 07, 2024 Dr. Zoe Nevarez MD Referring Provider Active Start: November 07, 2024 End: November 07, 2024 SIENA Angel Attending Provider Active Start: November 07, 2024 End: November 07, 2024 Team Status: Inactive Member Role/Relationship Status Dates Dr. Zoe Nevarez MD Primary Care Provider Active Start: December 04, 2024 End: December 04, 2024 Dr. Zoe Nevarez MD Attending Provider Active Start: December 04, 2024 End: December 04, 2024 Dr. Zoe Nevarez MD Referring Provider Active Start: December 04, 2024 End: December 04, 2024 Team Status: Active Member Role/Relationship Status Dates Dr. Zoe Nevarez MD Primary Care Provider Active Start: December 04, 2024 Dr. Zoe Nevarez MD Referring Provider Active Start: December 04, 2024 Dr. Manuel Peraza MD Attending Provider Active S tart: December 04, 2024 Team Status: Inactive Member Role/Relationship Status Dates Dr. Zoe Nevarez MD Primary Care Provider Active Start: September 13, 2024 End: September 13, 2024 Dr. Zoe Nevarez MD Referring Provider Active Start: September 13, 2024 End: September 13, 2024 Riley Raphael PA, PA Attending Provider Active Start: September 13, 2024 End: September 13, 2024 Team Status: Inactive Member Role/Relationship Status Dates Dr. Zoe Nevarez MD Primary Care Provider Active Start: September 13, 2024 End: September 13, 2024 MAURILIO Kincaid Attending Provider Active Start: September 13, 2024 End: September 13, 2024 MAURILIO Kincaid Referring Provider Active Start: September 13, 2024 End: September 13, 2024 Team Status: Inactive Member Role/Relationship Status Dates Dr. Zoe Nevarez MD Primary Care Provider Active Start: September 15, 2024 End: September 15, 2024 Dr. Zoe Nevarez MD Attending Provider Active Start: September 15, 2024 End: September 15, 2024 Dr. Zoe Nevarez MD Referring Provider Active Start: September 15, 2024 End: September 15, 2024 Team Status: Inactive Member Role/Relationship Status Dates Dr. Zoe Nevarez MD Primary Care Provider Active Start: September 19, 2024 End: September 19, 2024 Dr. Zoe Nevarez MD Attending Provider Active Start: September 19, 2024 End: September 19, 2024 Dr. Zoe Nevarez MD Referring Provider Active Start: September 19, 2024 End: September 19, 2024 Team Status: Inactive Member Role/Relationship Status Dates Dr. Zoe Nevarez MD Primary Care Provider Active Start: September 27, 2024 End: September 27, 2024 Dr. Zoe Nevarez MD Referring Provider Active Start: September 27, 2024 End: September 27, 2024 MAURILIO Kincaid Attending Provider Active Start: September 27, 2024 End: September 27, 2024 Team Status: Inactive Member Role/Relationship Status Dates Dr. Zoe Nevarez MD Primary Care Provider Active Start: September 27, 2024 End: September 27, 2024 MAURILIO Kincaid Attending Provider Active Start: September 27, 2024 End: September 27, 2024 Riley THORPE PA Referring Provider Active Start: September 27, 2024 End: September 27, 2024 Team Status: Inactive Member Role/Relationship Status Dates Dr. Zoe Nevarez MD Primary Care Provider Active Start: October 03, 2024 End: October 03, 2024 Dr. Zoe Nevarez MD Referring Provider Active Start: October 03, 2024 End: October 03, 2024 Justin Christiansen MD Attending Provider Active St art: October 03, 2024 End: October 03, 2024 Team Status: Inactive Member Role/Relationship Status Dates Dr. Zoe Nevarez MD Primary Care Provider Active Start: November 07, 2024 End: November 07, 2024 Dr. Zoe Nevarez MD Referring Provider Active Start: November 07, 2024 End: November 07, 2024 SIENA Angel Attending Provider Active Start: November 07, 2024 End: November 07, 2024 Team Status: Inactive Member Role/Relationship Status Dates Dr. Zoe Nevarez MD Primary Care Provider Active Start: December 04, 2024 End: December 04, 2024 Dr. Zoe Nevarez MD Attending Provider Active Start: December 04, 2024 End: December 04, 2024 Dr. Zoe Nevarez MD Referring Provider Active Start: December 04, 2024 End: December 04, 2024 Team Status: Active Member Role/Relationship Status Dates Dr. Zoe Nevarez MD Primary Care Provider Active Start: December 04, 2024 Dr. Zoe Nevarez MD Referring Provider Active Start: December 04, 2024 Dr. Manuel Peraza MD Attending Provider Active S tart: December 04, 2024 Team Status: Active Member Role/Relationship Status Dates Dr. Harsh Lozano MD Attending Provider Active Start: December 04, 2024 Dr. Zoe Nevarez MD Referring Provider Active Start: December 04, 2024 Team Status: Active Member Role/Relationship Status Dates Dr. Zoe Nevarez MD Primary Care Provider Active Start: December 08, 2024 Dr. Alejandra Bautista MD Attending Provider Activ e Start: December 08, 2024 Team Status: Inactive Member Role/Relationship Status Dates Dr. Zoe Nevarez MD Primary Care Provider Active Start: December 28, 2024 End: December 28, 2024 Dr. Zoe Nevarez MD Referring Provider Active Start: December 28, 2024 End: December 28, 2024 MAURILIO Johnson Attending Provider Active St art: December 28, 2024 End: December 28, 2024 INFORMATION SOURCE (unrecogn ized section and content) DATE CREATED AUTHOR 11/19/2021 [facility] ([place]) DATE CREATED AUTHOR AUTHOR'S ORGANIZ ATION 06/03/2022 [facility] DATE CREATED AUTHOR AUTHOR'S ORGANIZ ATION 01/01/2024 [facility] DATE CREATED AUTHOR AUTHOR'S ORGANIZ ATION 01/10/2024 [facility] DATE CREATED AUTHOR AUTHOR'S ORGANIZ ATION 03/30/2024 [facility] DATE CREATED AUTHOR AUTHOR'S ORGANIZ ATION 12/30/2024 [facility] <item> Privacy Markings (unrecogniz ed [...] or prosecute any alcohol or drug abuse patient.[facility] Reason for Visit (unrecogniz ed section and [...] BE BASED ON THE PRIMARY CLINICAL RECORDS. [employer] [facility]. provides no warranty or guarantee of the accuracy or completeness of information in this document.
== END | disposition home or self-care (01) ==
LOC: MTRAD 10:46
PROVIDERS: PCP Internal Medicine; Referring Provider Internal Medicine; Visit Provider Internal Medicine
DX: M25.531 Pain in right wrist (principal)
CPT/HCPCS: 73100